=== PATIENT | male | born 1950 | race Caucasian/White ===

== ENCOUNTER → 2021-07-30 02:08 | Outpatient (CLI) | payer MEDICARE, SELFPAY ==
[2021-07-30 12:27] LABS: Influenza A QL RT-PCR Negative (Negative); Influenza B QL RT-PCR Negative (Negative); SARS-CoV-2 RNA PCR Negative
== END ==
PROVIDERS: PCP Internal Medicine; Visit Provider Internal Medicine
DX: Z20.822 Contact with and (suspected) exposure to COVID-19 (principal); J01.90 Acute sinusitis, unspecified
CPT/HCPCS: 87502; C9803; U0003; U0005

== ENCOUNTER 2023-06-13 15:14 | Outpatient (CLI) | payer MEDICARE, SELFPAY ==
[2023-06-13 15:34] LABS: Basophils Absolute Auto 0.1 K/mm3 (0.0-0.1); Basophils Percent Auto 0.7 % (0.2-1.2); Eosinophils Absolute Auto 0.1 K/mm3 (0-0.3); Eosinophils Percent Auto 1.2 % (0-4.4); Hematocrit 38.9 % (42.0-52.0); Hemoglobin 11.9 g/dL (14.0-18.0); Immature Granulocyte Absolute 0.01 K/mm3 (0.00-0.031); Immature Granulocyte Percent A 0.1 % (0-0.5); Lymphocytes Absolute Auto 1.67 K/mm3 (0.9-3.2); Mean Corpuscular HGB Conc 30.6 g/dl (32-36); Mean Corpuscular Hemoglobin 27.7 pg (26-34); Mean Corpuscular Volume 90.5 fl (80-100); Mean Platelet Volume 10.2 fl (7.4-10.4); Monocytes Absolute Auto 0.6 K/mm3 (0.1-0.6); Monocytes Percent Auto 7.4 % (2.6-8.5); Neutrophils Absolute Auto 5.9 K/mm3 (1.3-6.7); Neutrophils Percent Auto 70.6 % (45.5-73.1); Platelet Count Result 286 k/mm3 (150-375); Red Cell Distribution Width 16.7 % (11.5-14.5); White Blood Count 8.4 K/mm3 (4.5-10.0)
[2023-06-13 17:40] LABS: Iron 66 ug/dL (49-181)
[2023-06-13 17:51] LABS: Percent Iron Saturation 20 % (20-50)
[2023-06-13 17:55] LABS: Alanine Aminotransferase 14 U/L (6-50); Albumin Level 4.4 g/dL (3.5-5.1); Alkaline Phosphatase 82 U/L (38-126); Anion Gap 9 mmol/L (4-12); Aspartate Amino Transferase 21 U/L (17-59); Bilirubin,Total 0.5 mg/dL (0.2-1.3); Blood Urea Nitrogen 21 mg/dL (9-20); Calcium 9.3 mg/dL (8.4-10.2); Carbon Dioxide 25 mmol/L (22-30); Chloride 107 mmol/L (98-107); Estimated Glomerular Filt Rate 50; Glucose 102 mg/dL (65-110); Lactate Dehydrogenase 132 U/L (120-246); Potassium 3.8 mmol/L (3.4-5.0); Sodium 141 mmol/L (137-145)
[2023-06-13 20:46] LABS: Folic Acid 10.7 ng/mL (2.76->20)
[2023-06-17 16:28] LABS: Methylmalonic Acid 439 nmol/L (87-318)
[2023-06-19 12:43] LABS: Soluble Transferrin Receptor 1.66 mg/L (0.76-1.76)
== END 2023-06-13 15:15 | disposition home or self-care (01) ==
LOC: ANHLAB 15:16
PROVIDERS: Nurse Practitioner Family; PCP Internal Medicine; Visit Provider Internal Medicine Hematology & Oncology
DX: D64.9 Anemia, unspecified (principal)
CPT/HCPCS: 36415; 80053; 82607; 82728; 82746; 83540; 83550; 83615; 83921; 84238; 85025

== ENCOUNTER 2023-09-19 12:43 | Outpatient (CLI) | payer MEDICARE, SELFPAY ==
[2023-09-19 13:00] LABS: Basophils Absolute Auto 0.1 K/mm3 (0.0-0.1); Basophils Percent Auto 0.9 % (0.2-1.2); Eosinophils Absolute Auto 0.2 K/mm3 (0-0.3); Eosinophils Percent Auto 1.8 % (0-4.4); Hemoglobin 12.1 g/dL (14.0-18.0); Immature Granulocyte Absolute 0.02 K/mm3 (0.00-0.031); Immature Granulocyte Percent A 0.2 % (0-0.5); Lymphocytes Absolute Auto 1.89 K/mm3 (0.9-3.2); Lymphocytes Percent Auto 20.3 % (18.3-44.2); Mean Corpuscular Hemoglobin 27.6 pg (26-34); Mean Platelet Volume 10.2 fl (7.4-10.4); Monocytes Absolute Auto 0.6 K/mm3 (0.1-0.6); Monocytes Percent Auto 6.2 % (2.6-8.5); Neutrophils Absolute Auto 6.6 K/mm3 (1.3-6.7); Neutrophils Percent Auto 70.6 % (45.5-73.1); Platelet Count Result 302 k/mm3 (150-375); Red Blood Count 4.38 M/mm3 (4.6-6.20); Red Cell Distribution Width 14.5 % (11.5-14.5); White Blood Count 9.3 K/mm3 (4.5-10.0)
[2023-09-19 16:38] LABS: Iron 75 ug/dL (49-181)
[2023-09-19 16:48] LABS: Percent Iron Saturation 25 % (20-50)
[2023-09-19 16:58] LABS: Anion Gap 10 mmol/L (4-12); Blood Urea Nitrogen 26 mg/dL (9-20); Calcium 9.1 mg/dL (8.4-10.2); Carbon Dioxide 29 mmol/L (22-30); Chloride 98 mmol/L (98-107); Estimated Glomerular Filt Rate 46; Glucose 87 mg/dL (65-110); Potassium 4.1 mmol/L (3.4-5.0); Sodium 137 mmol/L (137-145)
[2023-09-19 18:38] LABS: Folic Acid 6.5 ng/mL (2.76->20); Vitamin B12 > 1000.0 pg/mL (239-931)
== END 2023-09-19 12:44 | disposition home or self-care (01) ==
LOC: ANHLAB 12:44
PROVIDERS: PCP Internal Medicine; Visit Provider Nurse Practitioner Family
DX: D64.9 Anemia, unspecified (principal)
CPT/HCPCS: 36415; 80048; 82607; 82728; 82746; 83540; 83550; 85025

== ENCOUNTER 2023-10-31 14:57 | Inpatient (IN) | payer MEDICARE, SELFPAY ==
[2023-10-31] VITALS (10 sets, daily range): BP systolic 140–194; BP diastolic 64–96; PULSE 58–72; RESP 16–18; TEMP 36.2–37.1; O2SAT 95–100; BMI 31.8
--- NOTE | ~2023-10-31 | CT_ITS ---
EXAMINATION: CT abdomen pelvis wo con DATE: 10/31/2023 15:27 INDICATION: Right lower quadrant abdominal pain. TECHNIQUE: Computed tomography (CT) of the abdomen and pelvis was performed without intravenous contr ast. Automated exposure control and iterative reconstruction technique were employed. The dose-length product was 1252.85 mGy-cm. COMPARISON: None. FINDINGS: The visualized portions of the lung bases demonstrate minimal atelectasis. No pleural effus ion. The heart size is normal. There are coronary artery calcifications. No pericardial effusion. The liver, gallbladder, spleen, pancreas, adrenal glands, and right kidney are normal. There is severe a trophy of left kidney. There is an 11 mm cyst in left kidney. There is no urolithiasis. The prostate is mildly enlarged. There is diverticulosis of the colon without evidence of diverticulitis. There is wall thickening with adjacent fat stranding involving the cecum and the base of the appendix. The ap pendix is dilated to 11 mm. There is calcified atherosclerosis of the aorta and many of the other art eries. There are no pathologically enlarged lymph nodes. There is no free intraperitoneal fluid. Ther e is severe thoracic spondylosis and moderate lumbar spondylosis. There is a benign bone island in T9 vertebral body. IMPRESSION: 1. Wall thickening with adjacent fat stranding involving the cecum and base of the appendix with dila tation of the appendix, consistent with acute appendicitis and/or malignancy. Reviewed, dictated and finalized at location A. IMPRESSION: 1. Wall thickening with adjacent fat stranding involving the cecum and base of the appendix with dilatation of the appendix, consistent with acute appendiciti s and/or malignancy.
--- NOTE | ~2023-10-31 | XR_ITS ---
EXAMINATION: XR chest 1V portable DATE: 11/06/2023 09:14 INDICATION: Cough. TECHNIQUE: A single frontal view of the chest was obtained. COMPARISON: CT abdomen and pelvis 10/31/2023 FINDINGS: There is mild atelectasis at left lung base. No pleural effusion or pneumothorax. The heart size is normal. Median sternotomy wires are noted. There is a prominent left pericardial fat pad. IMPRESSION: 1. Mild atelectasis at left lung base. Reviewed, dictated and finalized at location A.
--- NOTE | 2023-10-31 15:11 | ED_ITS ---
HPI - General Adult General Chief complaint: Unspecified Stated complaint: wants xray of R side abd Time Seen by Provider: 10/31/23 15:01 History of Present Illness HPI narrative: Patient saw his orthopedic surgeon, who wanted him to be evaluated for appendicitis as patient had commented on possible RLQ pain/swelling; he is not having any symptoms currently, no nausea vomiting, abdominal pain, fevers or chills. Related Data Allergies Allergy/AdvReac Type Severity Reaction Status Date / Time Penicillins Allergy Mild Verified 03/31/11 08:36 Review of Systems Review of Systems: All systems reviewed & are unremarkable except as noted in HPI and below Exam Narrative: EXAMINATION OF ORGAN SYSTEMS/BODY AREAS: Constitutional: Vital signs per nursing GENERAL:[No acute distress, non-toxic appearing.] HEAD: Normal with no signs of head trauma. EYES: EOMI, conjunctiva normal ENT: Hearing grossly intact LUNGS: Nonlabored breathing. HEART: [Regular rate and rhythm] ABD: [Soft], [nontender to palpation], no palpable mass EXT: Normal range of motion SKIN: Red raised lesions on bilateral upper arms NEURO: [Alert and oriented x 3. No gross focal sensory or strength deficits.] PSYCH: Normal affect Course Vital Signs Vital signs: Vital Signs Temperature 98.7 F 10/31/23 15:01 Pulse Rate 70 10/31/23 15:01 Respiratory Rate 18 10/31/23 15:01 Blood Pressure 172/96 H 10/31/23 15:01 Pulse Oximetry 97 10/31/23 15:01 Oxygen Delivery Room Air 10/31/23 15:01 Temperature 97.8 F 10/31/23 16:36 Pulse Rate 58 L 10/31/23 16:36 Respiratory Rate 16 10/31/23 16:36 Blood Pressure 140/81 10/31/23 16:36 Pulse Oximetry 100 10/31/23 16:36 Oxygen Delivery Room Air 10/31/23 15:01 Medical Decision Making [facility] Narrative Medical decision making narrative: Patient sent here by Orthopedics due to concern for possible right lower abdomen swelling he thought might be appendicitis, patient denies any pain, nausea vomiting, fevers or chills, he is very well-appearing here, abdomen is soft nontender. CT abdomen/ pelvis obtained which unfortunately does show signs of possible acute appendicitis versus malignancy. Case discussed with surgeon and hospitalist, antibiotics will be ordered, stable for admission. He does incidentally have several red raised lesions on his arms that are non- itchy. Vital Signs Vital Signs: Vital Signs Temperature 98.7 F 10/31/23 15:01 Pulse Rate 70 10/31/23 15:01 Respiratory Rate 18 10/31/23 15:01 Blood Pressure 172/96 H 10/31/23 15:01 Pulse Oximetry 97 10/31/23 15:01 Oxygen Delivery Room Air 10/31/23 15:01 Temperature 97.8 F 10/31/23 16:36 Pulse Rate 58 L 10/31/23 16:36 Respiratory Rate 16 10/31/23 16:36 Blood Pressure 140/81 10/31/23 16:36 Pulse Oximetry 100 10/31/23 16:36 Oxygen Delivery Room Air 10/31/23 15:01 Lab Data 10/31/23 16:06 10/31/23 16:06 Labs: Lab Results 10/31/23 Range/Units 16:06 WBC 9.0 (4.5-10.0) K/mm3 RBC 4.19 L (4.6-6.20) M/mm3 Hgb 11.7 L (14.0-18.0) g/dL Hct 37.9 L (42.0-52.0) % MCV 90.5 (80-100) fl MCH 27.9 (26-34) pg MCHC 30.9 L (32-36) g/dl RDW 15.0 H (11.5-14.5) % Plt Count 330 (150-375) k/mm3 MPV 9.3 (7.4-10.4) fl Immature Gran % (Auto) 0.3 (0-0.5) % Neut % (Auto) 79.1 H (45.5-73.1) % Lymph % (Auto) 11.0 L (18.3-44.2) % [place] % (Auto) 6.6 (2.6-8.5) % Eos % (Auto) 2.3 (0-4.4) % Baso % (Auto) 0.7 (0.2-1.2) % Lymph # (Auto) 0.99 (0.9-3.2) K/mm3 [place] # (Auto) 0.6 (0.1-0.6) K/mm3 Eos # (Auto) 0.2 (0-0.3) K/mm3 Baso # (Auto) 0.1 (0.0-0.1) K/mm3 Abs Immat Gran (auto) 0.03 (0.00-0.031) K/mm3 Absolute Neuts (auto) 7.1 H (1.3-6.7) K/mm3 Absolute Nucleated RBC 0.000 (0.0-0.012) K/mm3 Nucleated RBC % 0.0 (0.0-0.2) % Sodium 139 (137-145) mmol/L Potassium 3.9 (3.4-5.0) mmol/L Chloride 100 (98-107) mmol/L Carbon Dioxide 30 (22-30) mmol/L Anion Gap 9 (4-12) mmol/L BUN 24 H (9-20) mg/dL Creatinine 1.60 H (0.7-1.3) mg/dL Estim Creat Clear Calc Not Reportable Estimated GFR 42 L (59 - ) Glucose 107 (65-110) mg/dL Calcium 9.2 (8.4-10.2) mg/dL Total Bilirubin 0.7 (0.2-1.3) mg/dL AST 20 (17-59) U/L ALT 9 (6-50) U/L Alkaline Phosphatase 83 (38-126) U/L Total Protein 8.0 (6.3-8.2) g/dL Albumin 4.0 (3.5-5.1) g/dL Discharge Plan Discharge Clinical Impression: Acute appendicitis Patient Disposition: Still a Patient Condition: Stable Follow-up/Referrals: Linda,MD Nora [Primary Care Provider] -
[2023-10-31 16:12] LABS: Basophils Absolute Auto 0.1 K/mm3 (0.0-0.1); Basophils Percent Auto 0.7 % (0.2-1.2); Eosinophils Absolute Auto 0.2 K/mm3 (0-0.3); Eosinophils Percent Auto 2.3 % (0-4.4); Hematocrit 37.9 % (42.0-52.0); Hemoglobin 11.7 g/dL (14.0-18.0); Immature Granulocyte Absolute 0.03 K/mm3 (0.00-0.031); Immature Granulocyte Percent A 0.3 % (0-0.5); Lymphocytes Absolute Auto 0.99 K/mm3 (0.9-3.2); Mean Corpuscular HGB Conc 30.9 g/dl (32-36); Mean Corpuscular Hemoglobin 27.9 pg (26-34); Mean Corpuscular Volume 90.5 fl (80-100); Mean Platelet Volume 9.3 fl (7.4-10.4); Monocytes Absolute Auto 0.6 K/mm3 (0.1-0.6); Monocytes Percent Auto 6.6 % (2.6-8.5); Neutrophils Absolute Auto 7.1 K/mm3 (1.3-6.7); Neutrophils Percent Auto 79.1 % (45.5-73.1); Platelet Count Result 330 k/mm3 (150-375); Red Blood Count 4.19 M/mm3 (4.6-6.20)
[2023-10-31 16:23] LABS: Alanine Aminotransferase 9 U/L (6-50); Alkaline Phosphatase 83 U/L (38-126); Anion Gap 9 mmol/L (4-12); Aspartate Amino Transferase 20 U/L (17-59); Bilirubin,Total 0.7 mg/dL (0.2-1.3); Blood Urea Nitrogen 24 mg/dL (9-20); Calcium 9.2 mg/dL (8.4-10.2); Carbon Dioxide 30 mmol/L (22-30); Chloride 100 mmol/L (98-107); Estimated Glomerular Filt Rate 42; Glucose 107 mg/dL (65-110); Potassium 3.9 mmol/L (3.4-5.0); Sodium 139 mmol/L (137-145)
--- NOTE | 2023-10-31 16:57 | P.HP_ITS ---
H&P: HPI History of Present Illness Date/Time: 10/31/23 16:57 Chief Complaint: Abdominal Swelling Narrative: 73 y/o M presents here with abdominal swelling with PMH of arthritis, hyperlipidemia, hypertension, and insomnia. The patient presents here from home for further evaluation of right lower abdominal swelling. Patient reports that he first noticed the changes 3 days ago. Swelling more notable when he lays on his side. Patient reported it to his orthopedist while at an appointment today. Orthopedist directed patient to seek care in the ED prior to obtaining surgical clearance to rule out appendicitis. Patient reports he has previously been swollen in same area that lasted for 1-2 days approximately 7-8 months ago and resolved without incident. Patient did not have area evaluated then. Denies associated abdominal pain, nausea, vomiting, fever, chills, body aches, or diarrhea. Denies personal history of cancer. No known family history of cancer. Denies any recent unintentional weight loss or night sweats. Initial VS at presentation: 98.7? F, HR 70, RR 18, 172/96, and 97% on RA ED workup showed: No leukocytosis, hemoglobin 11.7 (similar to previous), no significant electrolyte derangements, creatinine 1.6 and GFR 42 (previously 1.5 and GFR 46 on 09/19/2023). CT of the abdomen/pelvis showed wall thickening with adjacent fat stranding involving the cecum bases of the appendix with dilation of the appendix, consistent with acute appendicitis and/or malignancy. Review of Systems Review of Systems: All systems reviewed & are unremarkable except as noted in HPI and below PMFSH Past Medical History Medical History Arthritis CAD (coronary artery disease) Cardiac arrhythmia Colonic polyp Depression Gout [place] (hard of hearing) Hyperlipidemia Hypertension TIA (transient ischemic attack) Vascular dementia Surgical History Surgical History History of bilateral cataract extraction History of heart artery stent History of quadruple bypass Family History Family History Mother Fibromyalgia Social History Social History Smoking status: Never smoker Alcohol intake: never Substance use: never Substance use type: does not use Do You Feel Safe in your Home?: Yes Lack of Transportation: No Lack of Food: Never True Current Housing: I Have Housing Concerned About Future Housing: No Difficulty Paying Gas/Electric Bills: No Difficulty Paying for Meds: No Currently Unemployed: No Education: Grade School Difficulty w/ Childcare or Family Care: No Spiritual care concerns: No Meds Home Medications and Allergies Home Medications Medication Instructions Recorded Confirmed Type apixaban 5 mg tablet (Eliquis) mg 10/31/23 History calcitriol 0.25 mcg capsule 0.25 mcg PO DAILY 10/31/23 10/31/23 History carvedilol 12.5 mg tablet 12.5 mg PO BID 10/31/23 10/31/23 History clonidine HCl 0.2 mg tablet 0.2 mg PO BID 10/31/23 10/31/23 History donepezil 5 mg tablet 5 mg PO HS 10/31/23 10/31/23 History furosemide 80 mg tablet 80 mg PO DAILY 10/31/23 10/31/23 History hydralazine 50 mg tablet 50 mg PO BID 10/31/23 10/31/23 History losartan 25 mg tablet 25 mg PO DAILY 10/31/23 10/31/23 History trazodone 50 mg tablet 50 mg PO HS 10/31/23 10/31/23 History Allergies Allergy/AdvReac Type Severity Reaction Status Date / Time Penicillins Allergy Mild Verified 03/31/11 08:36 Vital Signs Vital Signs - 24 hr 10/31/23 15:01 10/31/23 16:11 10/31/23 16:36 Temperature 98.7 F 98.5 F 97.8 F Pulse Rate 70 67 58 L Respiratory Rate 18 18 16 Blood Pressure 172/96 H 178/69 H 140/81 Pulse Oximetry 97 97 100 Oxygen Delivery Room Air Exam Const: General: comfortable and no acute distress Other: , male, nontoxic appearance HENMT: Face/Nose/Sinus: Normal nares present Mouth: Yes moist mucous membranes Eyes: General: appearance normal, both eyes and all related structures Sclera: sclerae normal Pupils: Equal, round and reactive pupils present EOM: EOMs intact bilaterally Resp: Effort & Inspection: normal respiratory effort Auscultation: clear to auscultation bilaterally Cardio: Rate: regular rate Rhythm: regular rhythm Other: S1-S2 present without murmur, rub, ectopy GI: Other: abdomen soft, nondistended, nontender. No mass or bulging area felt in patient's RLQ. Skin: General skin exam: normal color and no rashes or lesions noted Wounds: no wounds Neuro: Speech: normal speech Motor exam (neuro): 5/5 motor strength present throughout Sensory Exam: normal sensation Other: A&O x4. Extrem: General: normal to inspection Psych: Mental Status: mental status grossly normal Affect: normal affect Other: Good insight and judgment, pleasant H&P: Results Labs Labs: Short CBC 10/31/23 Range/Units 16:06 WBC 9.0 (4.5-10.0) K/mm3 Hgb 11.7 L (14.0-18.0) g/dL Hct 37.9 L (42.0-52.0) % Plt Count 330 (150-375) k/mm3 BMP 10/31/23 16:06 Sodium 139 Potassium 3.9 Chloride 100 Carbon Dioxide 30 BUN 24 H Creatinine 1.60 H Glucose 107 Calcium 9.2 Liver Function 10/31/23 Range/Units 16:06 Total Bilirubin 0.7 (0.2-1.3) mg/dL AST 20 (17-59) U/L ALT 9 (6-50) U/L Alkaline Phosphatase 83 (38-126) U/L Albumin 4.0 (3.5-5.1) g/dL Assessment and Plan Assessment and plan (1) Acute appendicitis: Qualifiers: Acute appendicitis type: unspecified acute appendicitis type Qualified Code(s): K35.80 - Unspecified acute appendicitis Code(s): K35.80 - Unspecified acute appendicitis Status: Acute Assessment and Plan: - CT abdomen/pelvis: Wall thickening with adjacent fat stranding involving the cecum and base of the appendix with dilatation of the appendix, consistent with acute appendicitis and/or malignancy. - general surgery consulted, awaiting formal recs - clear liquids, NPO at midnight - pain control and maintenance fluids - started on ceftriaxone and metronidazole on 10/30 (2) Hypertension: Qualifiers: Hypertension type: primary hypertension Qualified Code(s): I10 - Essential (primary) hypertension Code(s): I10 - Essential (primary) hypertension Status: Acute Assessment and Plan: - chronic, currently 177/70 - continue home medications: clonidine 0.2 mg b.i.d., Lasix 80 mg daily, hydralazine 50 mg b.i.d., losartan 25 mg daily. - monitor Plan Patient does not have definitive list with him. Outside med rec reviewed and medications that were started/refilled in the last 3 months were resumed. confirming list tomorrow. Diet: NPO GI Prophylaxis: Not currently indicated DVT Prophylaxis: SCDs Lines: Peripheral Code Status: Quality VTE Prophylaxis VTE prophylaxis: mechanical ordered Hospitalist [facility] Advance Care Plan I have confirmed that the patient's Advanced Care Plan is present, code status is documented, or surrogate decision maker is listed in patient medical record.: Yes Medication Reconciliation I have utilized all available resources to obtain, update and review the patients current medications (includes all prescriptions, OTC, herbals, cannabis, and nutritional supplements).: Yes
[2023-10-31] MEDS: cefTRIAXone 2 GM/NS 100 ML 2 GM/100 ML BAG IVPB (17:34)
[2023-10-31] MEDS: metroNIDAZOLE 500 MG/ISO 100ML 500 MG/100 ML BAG 100 MG IVPB (17:34)
--- NOTE | 2023-10-31 18:00 | ADMGEN ---
This patient, Ken Damon, was admitted to Medical Room 252-01. Patient/family oriented to hospital policies and general routines including ID bracelet, bed and alarms, visiting hours, pain management, procedures, bathroom and other care routines, personal items, smoking policy, room service/diet, and visiting hours. Information on how to activate the Rapid Response Team has been discussed. Patient/Family are encouraged to report perceived risks to care and to ask questions if they do not understand what they are told or what they should do.
[2023-10-31] MEDS: SODIUM CHLORIDE 0.9% IV 1,000 ML 100 ML IV CONT (20:08)
[2023-10-31] MEDS: DOCUSATE SODIUM 100 MG CAPSULE PO (20:08)
[2023-10-31] MEDS: hydrALAZINE HCL 50 MG TABLET PO (20:39)
[2023-10-31] MEDS: carvediloL 12.5 MG TABLET PO (20:39)
[2023-10-31] MEDS: cloNIDine HCL 0.2 MG TABLET PO (20:40)
[2023-10-31] MEDS: traZODone HCL 50 MG TABLET PO (20:40)
[2023-10-31] MEDS: DONEPEZIL HCL 5 MG TABLET PO (20:40)
[2023-11-01] VITALS (7 sets, daily range): BP systolic 150–176; BP diastolic 55–77; PULSE 63–81; RESP 16–18; TEMP 36.3–36.8; O2SAT 95–98
[2023-11-01] MEDS: metroNIDAZOLE 500 MG/ISO 100ML 500 MG/100 ML BAG 100 MG IVPB ×3 (01:44→18:17)
[2023-11-01] MEDS: SODIUM CHLORIDE 0.9% IV 1,000 ML 100 ML IV CONT ×2 (05:21→17:16)
[2023-11-01 06:11] LABS: Basophils Percent Auto 0.1 % (0.2-1.2); Hematocrit 38.1 % (42.0-52.0); Hemoglobin 11.6 g/dL (14.0-18.0); Immature Granulocyte Absolute 0.05 K/mm3 (0.00-0.031); Immature Granulocyte Percent A 0.5 % (0-0.5); Lymphocytes Absolute Auto 0.57 K/mm3 (0.9-3.2); Lymphocytes Percent Auto 6.2 % (18.3-44.2); Mean Corpuscular HGB Conc 30.4 g/dl (32-36); Mean Corpuscular Hemoglobin 27.8 pg (26-34); Mean Corpuscular Volume 91.4 fl (80-100); Mean Platelet Volume 10.1 fl (7.4-10.4); Monocytes Absolute Auto 0.1 K/mm3 (0.1-0.6); Monocytes Percent Auto 0.5 % (2.6-8.5); Neutrophils Absolute Auto 8.5 K/mm3 (1.3-6.7); Neutrophils Percent Auto 92.7 % (45.5-73.1); Platelet Count Result 321 k/mm3 (150-375); Red Blood Count 4.17 M/mm3 (4.6-6.20); Red Cell Distribution Width 14.6 % (11.5-14.5); White Blood Count 9.2 K/mm3 (4.5-10.0)
--- NOTE | 2023-11-01 07:51 | PM.IMPN ---
Progress Note: A&P Assessment and Plan (1) Acute appendicitis: Qualifiers: Acute appendicitis type: unspecified acute appendicitis type Qualified Code(s): K35.80 - Unspecified acute appendicitis Code(s): K35.80 - Unspecified acute appendicitis Status: Acute Assessment and Plan: - CT abdomen/pelvis: Wall thickening with adjacent fat stranding involving the cecum and base of the appendix with dilatation of the appendix, consistent with acute appendicitis and/or malignancy. - general surgery consulted, awaiting formal recs - clear liquids, NPO at midnight - pain control and maintenance fluids - started on ceftriaxone and metronidazole on 10/30 - surgery is planning for appendectomy tomorrow (2) Hypertension: Qualifiers: Hypertension type: primary hypertension Qualified Code(s): I10 - Essential (primary) hypertension Code(s): I10 - Essential (primary) hypertension Status: Acute Assessment and Plan: - chronic, currently 176/62 mm hg - continue home medications: clonidine 0.2 mg b.i.d., Lasix 80 mg daily, hydralazine 50 mg b.i.d., losartan 25 mg daily. - monitor blood pressures daily. (3) Rash: Code(s): R21 - Rash and other nonspecific skin eruption Status: Acute Assessment and Plan: Macular-papular rash to bilateral upper extremities - unclear etiology - no new medication changes, no new foods, no changes to detergents - monitor Plan Diet: Clear liquids, NPO at midnight. DVT Prophylaxis: SCDs, Eliquis on hold for surgery Lines: Peripheral Code Status: FULL Code Disposition: 73-year-old male who presents with abdominal tender wrist to the right lower quadrant. CT abdomen pelvis shows acute appendicitis versus possible mass. Surgery was consulted recs are appreciated. Anticipate taking him for appendectomy 11/01. He is currently on Rocephin and Flagyl. Subjective Date/time seen: 11/01/23 07:51 Interval history: 73 y/o M presents here with abdominal swelling with PMH of arthritis, hyperlipidemia, hypertension, and insomnia who presents here from home for further evaluation of right lower abdominal swelling. 10/31: Patient is seen resting in bed with his family at bedside. He complains of right lower quadrant tenderness but no significant abdominal pain. He denies nausea or vomiting. He does complain of a flat macular rash to his bilateral upper extremities that is itching. He states it started approximately 5 days ago. He has been putting hydrocortisone cream on it and he feels like this is helping. He denies any recent medication changes, new foods, or changes to his detergents. Review of Systems Review of Systems: All systems reviewed & are unremarkable except as noted in HPI and below Exam Narrative: General: well appearing, appears stated age. HEENT: normocephalic, atraumatic. Mucous membranes moist. EOMI, PERRLA, bilateral sclera anicteric, no conjunctival injection. Neck supple without JVD, lymphadenopathy, or bruit. Respiratory: clear to auscultation bilaterally. No rales/rhonic/wheezes. Cardiovascular: Regular rate and rhythm, normal S1-S2 upon auscultation. No murmurs, rubs, or clicks. PMI is nondisplaced, capillary refill less than 3 second. Abdomen: Soft, round, obese, no pulsatile masses, nondistended and mildly tender. No rebound, no guarding. No CVA tenderness, no hepatosplenomegaly. Bowel sounds present to all four quadrants. No high pitch or tinkling sounds, resonant to percussion. Extremities: No cyanosis, clubbing, or edema present. Pulses are palpable 2/2. Active ROM to all four extremities. Neuro: Alert and orientated x 4. PERRLA. Cranial nerves 2-12 intact without focal deficit. Skin: Warm, dry, and intact, bilateral macular rash to upper extremities. Lines: PIV Incisions: NA Psych: pleasant, cooperative, normal speech, normal affect, no hallucinations, no dysarthria Objective Data Vital Signs Vital Signs: Vital Signs - 24 hr 10/31/23 15:01 10/31/23 16:11 10/31/23 16:36 Temperature 98.7 F 98.5 F 97.8 F Pulse Rate 70 67 58 L Respiratory Rate 18 18 16 Blood Pressure 172/96 H 178/69 H 140/81 Pulse Oximetry 97 97 100 Oxygen Delivery Room Air 10/31/23 17:39 10/31/23 18:44 10/31/23 16:13 Temperature 98.4 F Pulse Rate 67 70 Respiratory Rate 16 16 Blood Pressure 187/72 H 177/70 H 178/69 H Pulse Oximetry 95 96 95 Oxygen Delivery 10/31/23 16:32 10/31/23 17:02 10/31/23 20:39 Temperature Pulse Rate 72 Respiratory Rate Blood Pressure 177/66 H 194/79 H Pulse Oximetry 96 95 Oxygen Delivery 10/31/23 22:00 11/01/23 06:00 Temperature 97.1 F L 97.8 F Pulse Rate 69 69 Respiratory Rate 18 18 Blood Pressure 193/64 H 158/77 H Pulse Oximetry 96 96 Oxygen Delivery Intake/Output Intake/Output: Intake & Output 10/29/23 10/30/23 10/31/23 11/01/23 23:59 23:59 23:59 23:59 Intake Total 200 1021.7 Balance 200 1021.7 Meds/Results Medications: Active Medications Generic Name Dose Route Start Last Admin Trade Name Freq PRN Reason Stop Dose Admin Acetaminophen 650 mg 10/31/23 17:04 Acetaminophen 325 Mg Tablet PO Q4H PRN Mild Pain (1-3) or Fever Hydrocodone Bitart/Acetaminophen 1 tab 10/31/23 17:05 Hydrocodone/Acetaminophen (*Crx) 5-325 Mg Tablet PO Q6H PRN Pain Rated 4-6 Bisacodyl 5 mg 10/31/23 17:04 Bisacodyl 5 Mg Tablet Ec PO DAILY PRN Constipation Calcitriol 0.25 mcg 11/01/23 09:00 Calcitriol 0.25 Mcg Capsule PO DAILY JAMES Carvedilol 12.5 mg 10/31/23 21:00 10/31/23 20:39 Carvedilol 12.5 Mg Tablet PO 12.5 mg Q12HR JAMES Administration Clonidine HCl 0.2 mg 10/31/23 21:00 10/31/23 20:40 Clonidine Hcl 0.2 Mg Tablet PO 0.2 mg Q12HR JAMES Administration Docusate Sodium 100 mg 10/31/23 21:00 10/31/23 20:08 Docusate Sodium 100 Mg Capsule PO 100 mg Q12HR JAMES Administration Donepezil HCl 5 mg 10/31/23 21:00 10/31/23 20:40 Donepezil Hcl 5 Mg Tablet PO 5 mg HS JAMES Administration Furosemide 80 mg 11/01/23 09:00 Furosemide 80 Mg Tablet PO DAILY JAMES Hydralazine HCl 50 mg 10/31/23 21:00 10/31/23 20:39 Hydralazine Hcl 50 Mg Tablet PO 50 mg Q12HR JAMES Administration Sodium Chloride 1,000 mls @ 100 mls/hr 10/31/23 17:05 11/01/23 05:21 Normal Saline Iv IV CONT 100 mls/hr .Q10H JAMES Administration Ceftriaxone Sodium 1 gm in 50 mls @ 100 mls/hr 11/01/23 17:00 Rocephin 1 Gm/Ns 50 Ml IVPB Q24H JAMES Metronidazole 500 mg in 100 mls @ 100 mls/hr 11/01/23 01:00 11/01/23 02:44 Flagyl 500 Mg/Iso Soln 100 Ml IVPB Infused Q8H JAMES Infusion Losartan Potassium 25 mg 11/01/23 09:00 Losartan Potassium 25 Mg Tablet PO DAILY JAMES Morphine Sulfate 2 mg 10/31/23 17:04 Morphine Sulfate (*Crx) 2 Mg/Ml Inj IV PUSH Q4H PRN Pain Rated 7-10 Ondansetron HCl 4 mg 10/31/23 17:04 Ondansetron Inj 4 Mg/2 Ml Vial IV PUSH Q6H PRN Nausea And Vomiting Trazodone HCl 50 mg 10/31/23 21:00 10/31/23 20:40 Trazodone Hcl 50 Mg Tablet PO 50 mg HS JAMES Administration Radiology Results: ITS Impressions Abdomen/Pelvis CT 10/31/23 15:44 IMPRESSION: 1. Wall thickening with adjacent fat stranding involving the cecum and base of the appendix with dilatation of the appendix, consistent with acute appendicitis and/or malignancy. Labs Labs: Laboratory Results - last 24 hr 10/31/23 11/01/23 16:06 05:52 WBC 9.0 9.2 RBC 4.19 L 4.17 L Hgb 11.7 L 11.6 L Hct 37.9 L 38.1 L MCV 90.5 91.4 MCH 27.9 27.8 MCHC 30.9 L 30.4 L RDW 15.0 H 14.6 H Plt Count 330 321 MPV 9.3 10.1 Immature Gran % (Auto) 0.3 0.5 Neut % (Auto) 79.1 H 92.7 H Lymph % (Auto) 11.0 L 6.2 L [place] % (Auto) 6.6 0.5 L Eos % (Auto) 2.3 0.0 Baso % (Auto) 0.7 0.1 L Lymph # (Auto) 0.99 0.57 L [place] # (Auto) 0.6 0.1 Eos # (Auto) 0.2 0.0 Baso # (Auto) 0.1 0.0 Abs Immat Gran (auto) 0.03 0.05 H Absolute Neuts (auto) 7.1 H 8.5 H Absolute Nucleated RBC 0.000 0.000 Nucleated RBC % 0.0 0.0 Sodium 139 Potassium 3.9 Chloride 100 Carbon Dioxide 30 Anion Gap 9 BUN 24 H Creatinine 1.60 H Estim Creat Clear Calc Not Reportable Estimated GFR 42 L Glucose 107 Calcium 9.2 Total Bilirubin 0.7 AST 20 ALT 9 Alkaline Phosphatase 83 Total Protein 8.0 Albumin 4.0 Quality VTE Prophylaxis VTE prophylaxis: mechanical ordered
[2023-11-01] MEDS: carvediloL 12.5 MG TABLET PO ×2 (09:59→20:19)
[2023-11-01] MEDS: FUROSEMIDE 80 MG TABLET PO (09:59)
[2023-11-01] MEDS: DOCUSATE SODIUM 100 MG CAPSULE PO ×2 (09:59→20:19)
[2023-11-01] MEDS: LOSARTAN POTASSIUM 25 MG TABLET PO (09:59)
[2023-11-01] MEDS: hydrALAZINE HCL 50 MG TABLET PO ×2 (09:59→20:19)
[2023-11-01] MEDS: calcitrioL 0.25 MCG CAPSULE PO (09:59)
[2023-11-01] MEDS: cloNIDine HCL 0.2 MG TABLET PO ×2 (10:00→20:19)
--- NOTE | 2023-11-01 12:36 | P.CONGS_ITS ---
Assessment and Plan Assessment and plan (1) Acute appendicitis: Qualifiers: Acute appendicitis type: unspecified acute appendicitis type Qualified Code(s): K35.80 - Unspecified acute appendicitis Code(s): K35.80 - Unspecified acute appendicitis Status: Acute Assessment and Plan: CT reviewed and discussed with the patient and his family in detail. The CT showed wall thickening with adjacent fat stranding of the cecum and base of the appendix, consistent with acute appendicitis versus malignancy. His presentation is unusual in the fact that he is complaining of RLQ swelling, but he does end orse some mild pain with certain movements. He also had some RLQ tenderness on exam which would correlate with acute appendicitis. The possibility of malignancy was discussed with the patient. He reports having a normal colonoscopy about 5 years ago. We discussed treatment options at this time, incl uding nonoperative management with IV antibiotics and eventual outpatient follow-up versus proceeding with surgery. We discussed the risks and benefits of both options in detail. We discussed the details of a laparoscopic appendectomy that would be done under general anesthesia, as well as the risks, benefits, alternatives, and expected recovery. The patient is on Eliquis, which has been held since Monday. He is also planning to have a knee replacement in February, and would prefer to proceed with surgery to avoid recurrence and allow him plenty of time to recover before his knee replacement. We also discussed the possibility of finding a cecal mass during surgery, and how this would change his surgical treatment, overall treatment course, and recovery. The patient understands and wishes to proceed. Continue IV antibiotics, will start clear liquids, and make NPO after midnight. Will try adding him onto the surgery schedule tomorrow. (2) Hypertension: Qualifiers: Hypertension type: primary hypertension Qualified Code(s): I10 - Essential (primary) hypertension Code(s): I10 - Essential (primary) hypertension Status: Acute (3) Cardiac arrhythmia: Code(s): I49.9 - Cardiac arrhythmia, unspecified Status: Chronic Assessment and Plan: Reported history of cardiac arrhythmia around the time of his CABG. He reports being on anticoagulation since that surgery. Will order an EKG preoperatively as we do not have any recent EKGs in our record. He has regular rate and rhythm on exam. (4) Anticoagulant long-term use: Code(s): Z79.01 - oysterman (current) use of anticoagulants Status: Acute Assessment and Plan: Larisa is currently on hold. His last dose was Monday morning (2 days ago). Will continue to hold for surgery tomorrow. (5) Chronic kidney disease: Code(s): N18.9 - Chronic kidney disease, unspecified Status: Acute Assessment and Plan: Patient follows a Gas Main Fitter in [place], Dr. Dutton, for his chronic kidney disease which has reportedly remained stable. Labs from May and August show his creatinine between 1.4-1.5, and his creatinine was 1.6 yesterday. Plan I have discussed the patient's case and plan of care with Dr. Cantrell. Thank you for allowing us to see the patient in consultation and we will continue to follow along with you. History of Present Illness Consult details Consult date: 11/01/23 Reason for consult: other (Acute appendicitis) Requesting physician: Ani Sanchez MD Narrative: This is a 73-year-old man with PMH of coronary artery disease status post CABG, history of cardiac arrhythmia on anticoagulation, hypertension, and chronic kidney disease, who we have been asked to see in surgical consultation for acute appendicitis. The patient presented to the ED yesterday with complaints of right lower quadrant abdominal swelling after being instructed to go to the ED for evaluation by his primary care provider. He has been dealing with right knee pain related to arthritis and was scheduled to see his orthopedic surgeon yesterday. He is planning to possibly have a knee replacement in February. Over the past 3 days, he has noticed right lower quadrant abdominal swelling and called his primary care provider, who recommended he go to the ED for evaluati on. He reports a similar episode about 6-7 months ago that lasted 1-2 days and resolved spontaneously. He denies tenderness in this area or significant pain at rest. He does endorse right lower quadrant pain with certain movements like getting out of his recliner, but this would resolve once he was standing. Denies any fever, chills, diarrhea, recent bowel habit changes, or unintentional weight loss. He reports chronic constipation. He has had colonoscopies in the past with the last being about 5 years ago that was reportedly negative by Dr. Borges. In the ED, vital signs were stable. Labs showed white blood cell count 9000, creatinine 1.6. He reportedly follows a classroom coordinator for chronic kidney disease in labs shows creatinine between 1.4 -1.[address] scan of the abdomen and pelvis showed wall thickening with adjacent fat stranding involving the cecum and base of the appendix with dilation of the appendix to 11 mm, consistent with acute appendicitis and/or malignancy. He was admitted to the hospitalist service and started on broad-spectrum IV antibiotics. He is now seen on the medical floor with his family at the bedside. He denies any abdominal pain at this time or other complaints. He still feels like he is swollen in the RLQ. He also endorses a flat pink rash on his upper arms that started in the past few days. The rash is itchy and he has been applying cortisone cream, which has helped. No previous abdominal surgeries. He is on Eliquis, and had his last dose on Monday morning. He reports being on anticoagulation since his CABG 20 years ago, when he had a cardiac arrhythmia. He was also previously diagnosed with KATLIN, but is non compliant with a CPAP for many years. Review of Systems Review of Systems: All systems reviewed & are unremarkable except as noted in HPI and below PMFSH Past Medical History Medical History (Updated 11/01/23 @ 13:06 by ALYSON King) Arthritis CAD (coronary artery disease) Cardiac arrhythmia Chronic kidney disease Colonic polyp Depression Gout [place] (hard of hearing) Hyperlipidemia Hypertension TIA (transient ischemic attack) after his carotid surgery Vascular dementia Surgical History Surgical History History of bilateral cataract extraction History of carotid endarterectomy History of heart artery stent History of quadruple bypass Family History Family History Mother Fibromyalgia Social History Social History Smoking status: Never smoker Alcohol intake: never Substance use: never Substance use type: does not use Do You Feel Safe in your Home?: Yes Lack of Transportation: No Lack of Food: Never True Current Housing: I Have Housing Concerned About Future Housing: No Difficulty Paying Gas/Electric Bills: No Difficulty Paying for Meds: No Currently Unemployed: No Education: Grade School Difficulty w/ Childcare or Family Care: No Spiritual care concerns: No Meds Home Medications and Allergies Home Medications Medication Instructions Recorded Confirmed Type apixaban 5 mg tablet (Eliquis) 5 mg PO BID 10/31/23 10/31/23 History calcitriol 0.25 mcg capsule 0.25 mcg PO DAILY 10/31/23 10/31/23 History carvedilol 12.5 mg tablet 12.5 mg PO BID 10/31/23 10/31/23 History clonidine HCl 0.2 mg tablet 0.2 mg PO BID 10/31/23 10/31/23 History donepezil 5 mg tablet 5 mg PO HS 10/31/23 10/31/23 History furosemide 80 mg tablet 80 mg PO DAILY 10/31/23 10/31/23 History hydralazine 50 mg tablet 50 mg PO BID 10/31/23 10/31/23 History losartan 25 mg tablet 25 mg PO DAILY 10/31/23 10/31/23 History trazodone 50 mg tablet 50 mg PO HS 10/31/23 10/31/23 History Allergies Allergy/AdvReac Type Severity Reaction Status Date / Time Penicillins Allergy Mild Verified 03/31/11 08:36 Vital Signs Vital Signs - 24 hr 10/31/23 15:01 10/31/23 16:11 10/31/23 16:36 Temperature 98.7 F 98.5 F 97.8 F Pulse Rate 70 67 58 L Respiratory Rate 18 18 16 Blood Pressure 172/96 H 178/69 H 140/81 Pulse Oximetry 97 97 100 Oxygen Delivery Room Air 10/31/23 17:39 10/31/23 18:44 10/31/23 16:13 Temperature 98.4 F Pulse Rate 67 70 Respiratory Rate 16 16 Blood Pressure 187/72 H 177/70 H 178/69 H Pulse Oximetry 95 96 95 Oxygen Delivery 10/31/23 16:32 10/31/23 17:02 10/31/23 20:39 Temperature Pulse Rate 72 Respiratory Rate Blood Pressure 177/66 H 194/79 H Pulse Oximetry 96 95 Oxygen Delivery 10/31/23 22:00 11/01/23 06:00 11/01/23 08:19 Temperature 97.1 F L 97.8 F Pulse Rate 69 69 Respiratory Rate 18 18 Blood Pressure 193/64 H 158/77 H Pulse Oximetry 96 96 98 Oxygen Delivery Room Air 11/01/23 09:57 11/01/23 09:59 11/01/23 10:00 Temperature Pulse Rate 81 81 Respiratory Rate Blood Pressure 176/62 H Pulse Oximetry 95 Oxygen Delivery Room Air Exam Const: General: comfortable and no acute distress Nutritional Appearance: average body habitus Orientation/consciousness: patient oriented x3 HENMT: Head: normocephalic and atraumatic Ears: hearing grossly normal bilaterally Mouth: Yes moist mucous membranes Eyes: General: appearance normal, both eyes and all related structures Pupils: Equal, round and reactive pupils present Neck: Neck: normal visual inspection and full ROM Resp: Effort & Inspection: no respiratory distress Auscultation: clear to auscultation bilaterally Cardio: Rate: regular rate Rhythm: regular rhythm Heart sounds: S1 normal heart sound present and S2 normal heart sound present Peripheral pulses: Peripheral pulses 2+ throughout GI: Inspection: non-distended GI Palp: Yes Soft to palpation, Yes Tenderness to palpation present (GI) (mild tenderness with deep palpation in RLQ), No Guarding due to palpation present (GI), Yes No hepatosplenomegaly present, No Hernia present and No Rebound tenderness present Percussion: Yes normal to percussion Auscultation: normal bowel sounds Skin: General skin exam: normal color Other: Bilateral upper extremities with scattered flat pink lesions mostly in the upper inner arms, no other rash seen in other areas of the body Neuro: General: moves all extremities and no focal motor deficits Speech: normal speech Motor exam (neuro): 5/5 motor strength present throughout Extrem: General: normal to inspection and no edema Psych: Mental Status: mental status grossly normal Attitude: cooperative Insight: Good insight present (Psych) Judgement: Good judgement present (Psych) Results Labs 11/01/23 05:52 10/31/23 16:06 Labs: Abnormal lab results 10/31/23 11/01/23 Range/Units 16:06 05:52 RBC 4.19 L 4.17 L (4.6-6.20) M/mm3 Hgb 11.7 L 11.6 L (14.0-18.0) g/dL Hct 37.9 L 38.1 L (42.0-52.0) % MCHC 30.9 L 30.4 L (32-36) g/dl RDW 15.0 H 14.6 H (11.5-14.5) % Neut % (Auto) 79.1 H 92.7 H (45.5-73.1) % Lymph % (Auto) 11.0 L 6.2 L (18.3-44.2) % [place] % (Auto) 0.5 L (2.6-8.5) % Baso % (Auto) 0.1 L (0.2-1.2) % Lymph # (Auto) 0.57 L (0.9-3.2) K/mm3 Abs Immat Gran (auto) 0.05 H (0.00-0.031) K/mm3 Absolute Neuts (auto) 7.1 H 8.5 H (1.3-6.7) K/mm3 BUN 24 H (9-20) mg/dL Creatinine 1.60 H (0.7-1.3) mg/dL Estimated GFR 42 L (59 - ) Diabetes panel 10/31/23 Range/Units 16:06 Sodium 139 (137-145) mmol/L Potassium 3.9 (3.4-5.0) mmol/L Chloride 100 (98-107) mmol/L Carbon Dioxide 30 (22-30) mmol/L BUN 24 H (9-20) mg/dL Creatinine 1.60 H (0.7-1.3) mg/dL Glucose 107 (65-110) mg/dL Calcium 9.2 (8.4-10.2) mg/dL AST 20 (17-59) U/L ALT 9 (6-50) U/L Alkaline Phosphatase 83 (38-126) U/L Total Protein 8.0 (6.3-8.2) g/dL Albumin 4.0 (3.5-5.1) g/dL Calcium panel 10/31/23 Range/Units 16:06 Calcium 9.2 (8.4-10.2) mg/dL Albumin 4.0 (3.5-5.1) g/dL Pituitary panel 10/31/23 Range/Units 16:06 Sodium 139 (137-145) mmol/L Potassium 3.9 (3.4-5.0) mmol/L Chloride 100 (98-107) mmol/L Carbon Dioxide 30 (22-30) mmol/L BUN 24 H (9-20) mg/dL Creatinine 1.60 H (0.7-1.3) mg/dL Glucose 107 (65-110) mg/dL Calcium 9.2 (8.4-10.2) mg/dL Adrenal panel 10/31/23 Range/Units 16:06 Sodium 139 (137-145) mmol/L Potassium 3.9 (3.4-5.0) mmol/L Chloride 100 (98-107) mmol/L Carbon Dioxide 30 (22-30) mmol/L BUN 24 H (9-20) mg/dL Creatinine 1.60 H (0.7-1.3) mg/dL Glucose 107 (65-110) mg/dL Calcium 9.2 (8.4-10.2) mg/dL Total Bilirubin 0.7 (0.2-1.3) mg/dL AST 20 (17-59) U/L ALT 9 (6-50) U/L Alkaline Phosphatase 83 (38-126) U/L Total Protein 8.0 (6.3-8.2) g/dL Albumin 4.0 (3.5-5.1) g/dL All other labs normal. Imaging Additional studies: ITS Impressions Abdomen/Pelvis CT 10/31/23 15:44 IMPRESSION: 1. Wall thickening with adjacent fat stranding involving the cecum and base of the appendix with dilatation of the appendix, consistent with acute appendicitis and/or malignancy.
--- NOTE | 2023-11-01 12:58 | ECG_ITS ---
Test Date: 2023-11-01 13:17:08 Measurements Intervals [place] Rate: 71 P: -13 HI: 232 QRS: -16 QRSD: 106 T: 62 QT: 403 QTc: 440 Interpretive Statements SINUS RHYTHM WITH FIRST DEGREE AV BLOCK DELAYED PRECORDIAL R/S TRANSITION NONSPECIFIC ST-T WAVE ABNORMALITY- HIGH LATERAL LEADS BORDERLINE ECG No previous ECG available for comparison Electronically Signed On 11-01-2023 14:05:11 CDT by Ramesh Limon D.O.
[2023-11-01] MEDS: traZODone HCL 50 MG TABLET PO (20:19)
[2023-11-01] MEDS: DONEPEZIL HCL 5 MG TABLET PO (20:19)
[2023-11-02] VITALS (15 sets, daily range): BP systolic 171–193; BP diastolic 68–110; PULSE 61–76; RESP 13–18; TEMP 36.1–37.4; O2SAT 93–99
[2023-11-02] MEDS: metroNIDAZOLE 500 MG/ISO 100ML 500 MG/100 ML BAG 100 MG IVPB ×3 (01:13→17:47)
[2023-11-02 06:20] LABS: Hematocrit 36.1 % (42.0-52.0); Hemoglobin 11.2 g/dL (14.0-18.0); Mean Corpuscular Hemoglobin 27.8 pg (26-34); Mean Corpuscular Volume 89.6 fl (80-100); Mean Platelet Volume 9.8 fl (7.4-10.4); Platelet Count Result 365 k/mm3 (150-375); Red Blood Count 4.03 M/mm3 (4.6-6.20); Red Cell Distribution Width 14.6 % (11.5-14.5); White Blood Count 16.3 K/mm3 (4.5-10.0)
[2023-11-02] MEDS: SODIUM CHLORIDE 0.9% IV 1,000 ML 100 ML IV CONT (06:25)
[2023-11-02 06:30] LABS: INR 1.1; Prothrombin Time 14.9 Seconds (11.1-14.7)
[2023-11-02 06:31] LABS: Partial Thromboplastin Time 31.6 Seconds (22.3-36.8)
[2023-11-02 06:33] LABS: Anion Gap 8 mmol/L (4-12); Blood Urea Nitrogen 36 mg/dL (9-20); Carbon Dioxide 27 mmol/L (22-30); Chloride 103 mmol/L (98-107); Estimated CRCL calculation 46 ml/min; Estimated Glomerular Filt Rate 46; Glucose 122 mg/dL (65-110); Potassium 4.6 mmol/L (3.4-5.0); Sodium 138 mmol/L (137-145)
--- NOTE | 2023-11-02 07:47 | PM.IMPN ---
Progress Note: A&P Assessment and Plan (1) Acute appendicitis: Qualifiers: Acute appendicitis type: unspecified acute appendicitis type Qualified Code(s): K35.80 - Unspecified acute appendicitis Code(s): K35.80 - Unspecified acute appendicitis Status: Acute Assessment and Plan: - CT abdomen/pelvis: Wall thickening with adjacent fat stranding involving the cecum and base of the appendix with dilatation of the appendix, consistent with acute appendicitis and/or malignancy. - general surgery consulted, awaiting formal recs - clear liquids, NPO at midnight - pain control and maintenance fluids - started on ceftriaxone and metronidazole on 10/30 - surgery is planning for appendectomy today - leukocytosis is 16.3 today up from 9.2. Remains afebrile, no hypoTN - may consider broadening to Zosyn depending on findings in surgery (2) Hypertension: Qualifiers: Hypertension type: primary hypertension Qualified Code(s): I10 - Essential (primary) hypertension Code(s): I10 - Essential (primary) hypertension Status: Acute Assessment and Plan: - chronic, currently 176/62 mm hg - continue home medications: clonidine 0.2 mg b.i.d., Lasix 80 mg daily, hydralazine 50 mg b.i.d., losartan 25 mg daily. - monitor blood pressures daily. - PRN hydralazine 10 mg every 8 hours for SBP > 170 mm hg (3) Rash: Code(s): R21 - Rash and other nonspecific skin eruption Status: Acute Assessment and Plan: Macular-papular rash to bilateral upper extremities - unclear etiology - no new medication changes, no new foods, no changes to detergents - monitor Plan Diet: Clear liquids, NPO at midnight. DVT Prophylaxis: SCDLarisa bledsoe on hold for surgery Lines: Peripheral Code Status: FULL Code Disposition: 73-year-old male who presents with abdominal tender wrist to the right lower quadrant. CT abdomen pelvis shows acute appendicitis versus possible mass. Surgery was consulted recs are appreciated. Anticipate taking him for appendectomy 11/01. He is currently on Rocephin and Flagyl. Subjective Date/time seen: 11/02/23 07:47 Interval history: 73 y/o M presents here with abdominal swelling with PMH of arthritis, hyperlipidemia, hypertension, and insomnia who presents here from home for further evaluation of right lower abdominal swelling. 10/31: Patient is seen resting in bed with his family at bedside. He complains of right lower quadrant tenderness but no significant abdominal pain. He denies nausea or vomiting. He does complain of a flat macular rash to his bilateral upper extremities that is itching. He states it started approximately 5 days ago. He has been putting hydrocortisone cream on it and he feels like this is helping. He denies any recent medication changes, new foods, or changes to his detergents. 11/01: No acute events overnight. Patient is going for surgery today for lap appendectomy. He denies any increase in abdominal pain, no nausea, or vomiting. He did have an increase in his white blood cell count. Review of Systems Review of Systems: All systems reviewed & are unremarkable except as noted in HPI and below Exam Narrative: General: well appearing, appears stated age. HEENT: normocephalic, atraumatic. Mucous membranes moist. EOMI, PERRLA, bilateral sclera anicteric, no conjunctival injection. Neck supple without JVD, lymphadenopathy, or bruit. Respiratory: clear to auscultation bilaterally. No rales/rhonic/wheezes. Cardiovascular: Regular rate and rhythm, normal S1-S2 upon auscultation. No murmurs, rubs, or clicks. PMI is nondisplaced, capillary refill less than 3 second. Abdomen: Soft, round, obese, no pulsatile masses, nondistended and mildly tender. No rebound, no guarding. No CVA tenderness, no hepatosplenomegaly. Bowel sounds present to all four quadrants. No high pitch or tinkling sounds, resonant to percussion. Extremities: No cyanosis, clubbing, or edema present. Pulses are palpable 2/2. Active ROM to all four extremities. Neuro: Alert and orientated x 4. PERRLA. Cranial nerves 2-12 intact without focal deficit. Skin: Warm, dry, and intact, bilateral macular rash to upper extremities. Lines: PIV Incisions: NA Psych: pleasant, cooperative, normal speech, normal affect, no hallucinations, no dysarthria Objective Data Vital Signs Vital Signs: Vital Signs - 24 hr 11/01/23 08:19 11/01/23 09:57 11/01/23 09:59 Temperature Pulse Rate 81 81 Respiratory Rate Blood Pressure 176/62 H Pulse Oximetry 98 95 Oxygen Delivery Room Air 11/01/23 10:00 11/01/23 14:00 11/01/23 19:50 Temperature 97.4 F L Pulse Rate 63 63 Respiratory Rate 16 16 Blood Pressure 150/55 H Pulse Oximetry 95 95 Oxygen Delivery Room Air Room Air 11/01/23 21:57 11/02/23 06:00 Temperature 98.3 F 97.4 F L Pulse Rate 64 61 Respiratory Rate 18 18 Blood Pressure 162/61 H 185/71 H Pulse Oximetry 95 96 Oxygen Delivery Intake/Output Intake/Output: Intake & Output 10/30/23 10/31/23 11/01/23 11/02/23 23:59 23:59 23:59 23:59 Intake Total 200 3011.7 1100 Balance 200 3011.7 1100 Meds/Results Medications: Active Medications Generic Name Dose Route Start Last Admin Trade Name Freq PRN Reason Stop Dose Admin Acetaminophen 650 mg 10/31/23 17:04 Acetaminophen 325 Mg Tablet PO Q4H PRN Mild Pain (1-3) or Fever Hydrocodone Bitart/Acetaminophen 1 tab 10/31/23 17:05 Hydrocodone/Acetaminophen (*Crx) 5-325 Mg Tablet PO Q6H PRN Pain Rated 4-6 Bisacodyl 5 mg 10/31/23 17:04 Bisacodyl 5 Mg Tablet Ec PO DAILY PRN Constipation Calcitriol 0.25 mcg 11/01/23 09:00 11/01/23 09:59 Calcitriol 0.25 Mcg Capsule PO 0.25 mcg DAILY JAMES Administration Carvedilol 12.5 mg 10/31/23 21:00 11/01/23 20:19 Carvedilol 12.5 Mg Tablet PO 12.5 mg Q12HR JAMES Administration Clonidine HCl 0.2 mg 10/31/23 21:00 11/01/23 20:19 Clonidine Hcl 0.2 Mg Tablet PO 0.2 mg Q12HR JAMES Administration Docusate Sodium 100 mg 10/31/23 21:00 11/01/23 20:19 Docusate Sodium 100 Mg Capsule PO 100 mg Q12HR JAMES Administration Donepezil HCl 5 mg 10/31/23 21:00 11/01/23 20:19 Donepezil Hcl 5 Mg Tablet PO 5 mg HS JAMES Administration Furosemide 80 mg 11/01/23 09:00 11/01/23 09:59 Furosemide 80 Mg Tablet PO 80 mg DAILY JAMES Administration Hydralazine HCl 50 mg 10/31/23 21:00 11/01/23 20:19 Hydralazine Hcl 50 Mg Tablet PO 50 mg Q12HR JAMES Administration Sodium Chloride 1,000 mls @ 100 mls/hr 10/31/23 17:05 11/02/23 06:25 Normal Saline Iv IV CONT 100 mls/hr .Q10H JAMES Administration Ceftriaxone Sodium 1 gm in 50 mls @ 100 mls/hr 11/01/23 17:00 11/01/23 17:17 Rocephin 1 Gm/Ns 50 Ml IVPB 100 mls/hr Q24H JAMES Administration Metronidazole 500 mg in 100 mls @ 100 mls/hr 11/01/23 01:00 11/02/23 06:39 Flagyl 500 Mg/Iso Soln 100 Ml IVPB Infused Q8H JAMES Infusion Losartan Potassium 25 mg 11/01/23 09:00 11/01/23 09:59 Losartan Potassium 25 Mg Tablet PO 25 mg DAILY JAMES Administration Morphine Sulfate 2 mg 10/31/23 17:04 Morphine Sulfate (*Crx) 2 Mg/Ml Inj IV PUSH Q4H PRN Pain Rated 7-10 Ondansetron HCl 4 mg 10/31/23 17:04 Ondansetron Inj 4 Mg/2 Ml Vial IV PUSH Q6H PRN Nausea And Vomiting Trazodone HCl 50 mg 10/31/23 21:00 11/01/23 20:19 Trazodone Hcl 50 Mg Tablet PO 50 mg HS JAMES Administration Radiology Results: ITS Impressions Abdomen/Pelvis CT 10/31/23 15:44 IMPRESSION: 1. Wall thickening with adjacent fat stranding involving the cecum and base of the appendix with dilatation of the appendix, consistent with acute appendicitis and/or malignancy. Labs Labs: Laboratory Results - last 24 hr 11/02/23 05:47 WBC 16.3 H RBC 4.03 L Hgb 11.2 L Hct 36.1 L MCV 89.6 MCH 27.8 MCHC 31.0 L RDW 14.6 H Plt Count 365 MPV 9.8 PT 14.9 H INR 1.1 APTT 31.6 Sodium 138 Potassium 4.6 Chloride 103 Carbon Dioxide 27 Anion Gap 8 BUN 36 H D Creatinine 1.50 H Estim Creat Clear Calc 46 Estimated GFR 46 L Glucose 122 H Calcium 9.0 Blood Type A Positive Antibody Screen Negative Quality VTE Prophylaxis VTE prophylaxis: mechanical ordered
[2023-11-02] MEDS: hydrALAZINE HCL 50 MG TABLET PO ×2 (08:54→20:08)
[2023-11-02] MEDS: cloNIDine HCL 0.2 MG TABLET PO ×2 (08:54→20:08)
[2023-11-02] MEDS: carvediloL 12.5 MG TABLET PO ×2 (08:55→20:08)
--- NOTE | 2023-11-02 11:55 | WPDANESEPPF ---
Anes - Initial Pre Proc Eval Procedure: Operation Date: 11/02/23 12:30 Proposed Procedures p Laparoscopic Appendectomy - Gabriel Cantrell DO Date/Time: 11/02/23 11:55 Surgeon: Christine Singh APRN Pre Op Diagnosis: Accute appella Patient Data Age: 73 Gender: M Height: 1.78 m Weight: 100.8 kg Last Vital Signs Temp 97.4 F L 11/02/23 06:00 Pulse 61 11/02/23 08:55 Resp 18 11/02/23 06:00 BP 185/71 H 11/02/23 06:00 Pulse Ox 96 11/02/23 06:00 O2 Del Method Room Air 11/02/23 08:55 Allergies Allergy/AdvReac Type Severity Reaction Status Date / Time Penicillins Allergy Mild Verified 03/31/11 08:36 Home Medications Medication Instructions Recorded Confirmed Type apixaban 5 mg tablet (Eliquis) 5 mg PO BID 10/31/23 10/31/23 History calcitriol 0.25 mcg capsule 0.25 mcg PO DAILY 10/31/23 10/31/23 History carvedilol 12.5 mg tablet 12.5 mg PO BID 10/31/23 10/31/23 History clonidine HCl 0.2 mg tablet 0.2 mg PO BID 10/31/23 10/31/23 History donepezil 5 mg tablet 5 mg PO HS 10/31/23 10/31/23 History furosemide 80 mg tablet 80 mg PO DAILY 10/31/23 10/31/23 History hydralazine 50 mg tablet 50 mg PO BID 10/31/23 10/31/23 History losartan 25 mg tablet 25 mg PO DAILY 10/31/23 10/31/23 History trazodone 50 mg tablet 50 mg PO HS 10/31/23 10/31/23 History Laboratory Tests 11/02/23 05:47 WBC 16.3 H K/mm3 (4.5-10.0) RBC 4.03 L M/mm3 (4.6-6.20) Hgb 11.2 L g/dL (14.0-18.0) Hct 36.1 L % (42.0-52.0) MCV 89.6 fl (80-100) MCH 27.8 pg (26-34) MCHC 31.0 L g/dl (32-36) RDW 14.6 H % (11.5-14.5) Plt Count 365 k/mm3 (150-375) MPV 9.8 fl (7.4-10.4) PT 14.9 H Seconds (11.1-14.7) INR 1.1 APTT 31.6 Seconds (22.3-36.8) Sodium 138 mmol/L (137-145) Potassium 4.6 mmol/L (3.4-5.0) Chloride 103 mmol/L (98-107) Carbon Dioxide 27 mmol/L (22-30) Anion Gap 8 mmol/L (4-12) BUN 36 H D mg/dL (9-20) Creatinine 1.50 H mg/dL (0.7-1.3) Estim Creat Clear Calc 46 ml/min Estimated GFR 46 L (59 - ) Glucose 122 H mg/dL (65-110) Calcium 9.0 mg/dL (8.4-10.2) Blood Type A Positive Antibody Screen Negative Patient hx anesthesia problems: none Family hx anesthesia problems: none Results Review: All pre-operative results and documents have been reviewed as part of the pre-operative evaluation. [facility] Past Medical History Medical History (Updated 11/01/23 @ 14:58 by Christine Singh APRN) Arthritis CAD (coronary artery disease) Cardiac arrhythmia Chronic kidney disease Colonic polyp Depression Gout [place] (hard of hearing) Hyperlipidemia Hypertension TIA (transient ischemic attack) after his carotid surgery Vascular dementia Surgical History Surgical History History of bilateral cataract extraction History of carotid endarterectomy History of heart artery stent History of quadruple bypass Family History Family History Mother Fibromyalgia Social History Social History Smoking status: Never smoker Alcohol intake: never Substance use: never Substance use type: does not use Do You Feel Safe in your Home?: Yes Lack of Transportation: No Lack of Food: Never True Current Housing: I Have Housing Concerned About Future Housing: No Difficulty Paying Gas/Electric Bills: No Difficulty Paying for Meds: No Currently Unemployed: No Education: Grade School Difficulty w/ Childcare or Family Care: No Spiritual care concerns: No Anes - Eval Final PreProcedure Day of Procedure 11/02/23 11:55 Patient weight: obese Heart: regular rate and rhythm Lungs: clear to auscultation Airway: Mallampati scale class III Neurological: alert and oriented Last oral intake: >/= 8 hours ASA classification: III Emergent: no Anesthetic plan: proceed Anesthesia type and monitoring: general ETT and standard monitoring Results Review: All pre-operative results and documents have been reviewed as part of the pre-operative evaluation. Informed Consent: The patient's anesthetic plan and its attendant risks and benefits were discussed with the patient/family/POA. Questions were solicited and answers provided to the satisfaction of the patient/family/POA.
[2023-11-02] MEDS: LACTATED RINGERS 1,000 ML 30 ML IV CONT ×2 (12:00→14:45)
--- NOTE | 2023-11-02 12:24 | WPDHPUPDATE1 ---
History and Physical Update Update Date/Time: 11/02/23 12:24 History and Physical has been reviewed, including an updated exam of the patient. There are NO changes in the patient's condition. Risks, benefits, and alternatives have been discussed and questions answered. Patient agrees to proceed with procedure.
--- NOTE | 2023-11-02 13:47 | S_PTH ---
PATIENT: Ken Damon LOC: [id number] U#:[id number] AGE/SX: 73/M ROOM: 252 RE10/31/[address]: Christine Singh, FARZAD : 1950 BED: 01 DIS: 11/07/2023 SPEC #: [id number] RECD: 11/02/23 14:15 STATUS: TASHA LOOMIS #: [id number] NAS: 11/02/23 13:[address]: Gabriel Cantrell DEPT: [facility] Surgical RECD BY: Loretta Acosta ENTERED: 11/02/23 14:15 SP TYPE: Surgical OTHR DR: Nora Mckeon, MD Christine Palomino, FAMILY DEVELOPMENT EXTENSION SPECIALIST Tissues: A - Colon Segment Tumor Procedures: Hematoxylin and Eosin Stain Gross and Microscopic Level 3 Gross and Microscopic Level 6
[2023-11-02] MEDS: BUPIVACAINE/EPINEPHRINE 0.5% 10 ML VIAL 30 ML INFILTRATE (14:19)
--- NOTE | 2023-11-02 14:27 | P.OP_ITS ---
Procedure Note - Detailed Date of Procedure 11/02/23 Pre-op Diagnosis Acute appendicitis Post-op Diagnosis Other (Cecal mass) Procedure Performed Hand assisted laparoscopic right hemicolectomy with ileocolic anastomosis Surgeon Gabriel Cantrell, DO Anesthesia General and Local (0.5% bupivacaine with epinephrine) Indications This is a 73-year-old man who presented to the emergency department with complaints of right lower quadrant swelling and a fullness feeling. He was not complaining of much pain except for with deep palpation. He denied any fevers. His labs appeared overall normal, but CT showed evidence of a dilated appendix with inflammatory changes around the appendix and cecum. The cecal wall also appeared slightly thickened possibly due to reactive inflammation verses malignancy. The patient did have a colonoscopy about 5 years ago which he states was normal other than a couple polyps. Discussions were made with the patient about the CT findings and the possibility of appendicitis versus other abnormalities. Discussions were made about medical treatment with antibiotics and possible colonoscopy in the near future versus proceeding with laparoscopic appendectomy. Decision was made to proceed with laparoscopic appendectomy, possible open. Findings Upon inspecting the abdomen laparoscopically, there did appear to be inflammation centered more on the cecum than on the appendix. There was some omentum adherent to the cecum and as I gently retracted on this area I was able to identify what appeared to be a mass at base of cecum. There did not appear to be any signs of perforation abscess. The appendix appeared healthy other than some mild dilation. Decision was made to convert to hand assisted laparoscopic right hemicolectomy. The mass appeared to be isolated to the cecum and there did not appear to be any surrounding signs of metastases. High ligation the pedicle was performed right hemicolectomy was performed with a [id number] anastomosis. The right colon was sent to the lab for pathology. Description of Procedure Procedure as well as risks benefits and alternatives were explained to the patient. Written consent was obtained and placed in chart prior to procedure. Patient was brought back to surgical suite. He was placed supine on operating table. Time-out was done to confirm patient procedure. He was then intubated by the anesthesia department. His abdomen was prepped and draped in sterile fashion using chlorhexidine prep. A 5 mm incision was made just to the left of the umbilicus and a 5 mm Optiview trocar was inserted under direct visualiz ation. Once inside the abdominal cavity, carbon dioxide insufflation was used for pneumoperitoneum. The camera was inserted in the abdomen was inspected. No immediate abnormalities were identified. Patient was placed in slight Trendelenburg position and rotated to the left. A 5 mm incision was made in the suprapubic region and midline and a 5 mm trocar was inserted under direct visualization. A 12 mm incision was made in the left lower quadrant and a 12 mm trocar was inserted under direct visualization. I then began carefully inspecting the abdominal cavity. There appeared to be so of omentum adherent to the right lower quadrant. I gently retracted the omentum to visualize the cecum and appendix. The appendix appeared mildly dilated, but the cecum appeared to have a mass right near the base of the appendix. Decision was made to convert to a hand assisted laparoscopic right hemicolectomy. The patient was flattened out in bed. A 7 centimeter vertical incision was made just superior to the umbilicus using a 15 blade scalpel. Electrocautery was used for hemostasis and for dissection down through Lina's fascia. The linea alba was identified, and incised using electrocautery. the peritoneum was then entered using electrocautery. The abdomen was inspected and no acute abnormalities were noted. The wound protector was placed at this incision, and the GelPort was faina lied. Carbon dioxide insufflation was used to create a pneumoperitoneum. The patient was placed back in slight Trendelenburg position and rotated to the left. I began my dissection from a medial to lateral direction along the ileocolic pedicle. The cecum was tented anteriorly and laterally and this allowed me to visualize the ileocolic pedicle. The medial side and inferior side of the peritoneum was scored using hook electrocautery and the retroperitoneal plane was entered. Careful dissection was performed using hook electrocautery in this relatively avascular plane. The duodenum was identified and swept posteriorly. I then continued to dissect proximally along the ileocolic pedicle. I isolated the ileocolic vein and artery individually and performed a high ligation using bipolar cautery. Hemostasis appeared adequate. I then continued the medial to lateral dissection maintaining this avascular plane. I also dissected along the transverse colon to the right side all the way to the level of the hepatic flexure. The terminal ileum and appendix were then retracted medially and the lateral peritoneal attachments were taken down using hook electrocautery. The root of the mesentery was then carefully taken down proximally to allow adequate mobilization of the small bowel for our anastomosis. The lateral peritoneal attachments of the ascending colon were then taken down using hook electrocautery. The hepatic flexure was taken down using ligasure bipolar cautery. Once this was completed I gained adequate mobilization of the entire ascending and proximal transverse colon to exteriorize and perform our resection and anastomosis. The patient was flattened out in bed, and the cecum was grasped and delivered through the wound protector. The pneumoperitoneum was released. I carefully delivered the entire ascending and proximal transverse colon out through the hand port incision. The specimen was inspected and appeared to have adequate mobilization to perform our resection. The transverse colon was cleared of the epiploic appendages and omentum and a ANUSHA 75 millimeter blue load stapler was advanced across the transverse colon at this point and clamped and fired. The right branch of the middle colic artery was then ligated using bipolar cautery. Hemostasis appeared adequate. A window was then created in the mesentery at the terminal ileum, and a ANUSHA 75 millimeter blue load stapler was advanced across the terminal ileum at this point and clamped and fired. The remaining mesentery attachments were then taken down using bipolar cautery. This freed up the specimen completely, and it was then removed and sent to the lab for pathology. The 2 ends of the bowel were inspected and appeared healthy and viable. They came together in a [id number] fashion without any tension. Enterotomies were then made at the anti mesenteric border using electrocautery. The ANUSHA 75 millimeter blue load stapler was then advanced through each enterotomy and the 2 limbs of the bowel were clamped together in a [id number] fashion and then the stapler was fired to create our anastomosis. The stapler was removed and the anastomosis was inspected. It appeared healthy and viable. The enterotomy was then closed using a TLC 60 millimeter blue load stapler. The apex of the staple line was then reinforced using 3 0 silk seromuscular imbricating sutures. The anastomosis was inspected and appeared healthy and viable and appeared widely patent. The anastomosis was then released back down into the abdominal cavity. One final inspection was made around the abdominal cavity, and no other abnormalities were noted. The GelPort was reapplied and pneumoperitoneum was recreated. The 12 mm port was removed and a Emerson-Barb cone was used to pass an 0 Vicryl suture to approximate the fascia. One final inspection was made around the abdomen laparoscopically. Hemostasis appeared adequate. The ports and wound protector were then removed. The fascia of the hand port incision was reapproximated using 0 PDS running suture starting at each end and meeting in the middle. The deep dermis was approximated using 3 0 Vicryl inverted interrupted sutures. The skin of all the incisions was approximated using 4-0 Monocryl subcuticular suture. Exofin glue was applied on top. The patient was awakened from anesthesia, extubated, and transferred to recovery. Estimated Blood Loss 20 Urine Output 200 Pathology Yes (Right colon) Complications No immediate complications Condition Stable Disposition Floor [facility] Billing Surgery - Charge Forward: Surgery Billing
[2023-11-02] MEDS: fentaNYL CITRATE INJ (*CRX) 100 MCG/2 ML VIAL 25 MCG IV PUSH ×4 (14:59→15:24)
[2023-11-02 15:37] LABS: Carcinoembryonic Antigen 2.5 ng/mL (0.0-3.0)
[2023-11-02] MEDS: hydrALAZINE HCL 20 MG/ML VIAL 10 MG IV PUSH (16:28)
[2023-11-02] MEDS: oxyCODONE HCL (*CRX) 2.5 MG TAB IR PO ×2 (16:52→22:58)
[2023-11-02] MEDS: FUROSEMIDE 80 MG TABLET PO (16:52)
[2023-11-02] MEDS: LOSARTAN POTASSIUM 25 MG TABLET PO (16:52)
[2023-11-02] MEDS: calcitrioL 0.25 MCG CAPSULE PO (16:52)
[2023-11-02] MEDS: ACETAMINOPHEN 325 MG TABLET 650 MG PO ×2 (16:53→22:58)
[2023-11-02] MEDS: LACTATED RINGERS 1,000 ML 100 ML IV CONT (19:56)
[2023-11-02] MEDS: DONEPEZIL HCL 5 MG TABLET PO (20:08)
[2023-11-02] MEDS: traZODone HCL 50 MG TABLET PO (20:08)
[2023-11-02] MEDS: MORPHINE SULFATE (*CRX) 2 MG/ML INJ IV PUSH (20:13)
[2023-11-03] VITALS (11 sets, daily range): BP systolic 116–185; BP diastolic 52–72; PULSE 59–94; RESP 18–22; TEMP 36.2–36.7; O2SAT 92–97
[2023-11-03] MEDS: hydrALAZINE HCL 20 MG/ML VIAL 10 MG IV PUSH (00:32)
[2023-11-03] MEDS: metroNIDAZOLE 500 MG/ISO 100ML 500 MG/100 ML BAG 100 MG IVPB (00:33)
[2023-11-03] MEDS: oxyCODONE HCL (*CRX) 2.5 MG TAB IR PO ×3 (02:54→16:27)
[2023-11-03] MEDS: MORPHINE SULFATE (*CRX) 2 MG/ML INJ IV PUSH (04:46)
[2023-11-03] MEDS: ACETAMINOPHEN 325 MG TABLET 650 MG PO ×3 (06:07→17:58)
[2023-11-03] MEDS: oxyCODONE HCL (*CRX) 5 MG TAB IR PO (06:46)
[2023-11-03 06:57] LABS: Basophils Percent Auto 0.1 % (0.2-1.2); Hematocrit 36.9 % (42.0-52.0); Hemoglobin 11.2 g/dL (14.0-18.0); Immature Granulocyte Absolute 0.07 K/mm3 (0.00-0.031); Immature Granulocyte Percent A 0.5 % (0-0.5); Lymphocytes Absolute Auto 0.75 K/mm3 (0.9-3.2); Lymphocytes Percent Auto 4.9 % (18.3-44.2); Mean Corpuscular HGB Conc 30.4 g/dl (32-36); Mean Corpuscular Hemoglobin 27.7 pg (26-34); Mean Corpuscular Volume 91.1 fl (80-100); Mean Platelet Volume 9.4 fl (7.4-10.4); Monocytes Absolute Auto 1.3 K/mm3 (0.1-0.6); Monocytes Percent Auto 8.7 % (2.6-8.5); Neutrophils Absolute Auto 13.2 K/mm3 (1.3-6.7); Neutrophils Percent Auto 85.8 % (45.5-73.1); Platelet Count Result 416 k/mm3 (150-375); Red Blood Count 4.05 M/mm3 (4.6-6.20); Red Cell Distribution Width 14.7 % (11.5-14.5); White Blood Count 15.3 K/mm3 (4.5-10.0)
[2023-11-03 07:07] LABS: Alanine Aminotransferase 16 U/L (6-50); Albumin Level 3.3 g/dL (3.5-5.1); Alkaline Phosphatase 54 U/L (38-126); Anion Gap 9 mmol/L (4-12); Aspartate Amino Transferase 35 U/L (17-59); Bilirubin,Total 0.3 mg/dL (0.2-1.3); Blood Urea Nitrogen 32 mg/dL (9-20); Calcium 8.7 mg/dL (8.4-10.2); Carbon Dioxide 28 mmol/L (22-30); Chloride 102 mmol/L (98-107); Estimated CRCL calculation 47 ml/min; Estimated Glomerular Filt Rate 46; Glucose 127 mg/dL (65-110); Sodium 139 mmol/L (137-145)
--- NOTE | 2023-11-03 07:09 | PM.IMPN ---
Progress Note: A&P Assessment and Plan (1) Acute appendicitis: Qualifiers: Acute appendicitis type: unspecified acute appendicitis type Qualified Code(s): K35.80 - Unspecified acute appendicitis Code(s): K35.80 - Unspecified acute appendicitis Status: Acute Assessment and Plan: - CT abdomen/pelvis: Wall thickening with adjacent fat stranding involving the cecum and base of the appendix with dilatation of the appendix, consistent with acute appendicitis and/or malignancy. - general surgery consulted, awaiting formal recs - started on ceftriaxone and metronidazole on 10/30 - POD 1 from right hemicolectomy - Clear liquid diet. Diet to advance per surgery - Pain control with PRN oxycodone and morphine for breakthrough - Anticipate adding bowel regimen once passing flatus - DVT prophylaxis with SCD. Restart Eliquis when okay with surgery - Incentive spirometer - up to chair for meals (2) Hypertension: Qualifiers: Hypertension type: primary hypertension Qualified Code(s): I10 - Essential (primary) hypertension Code(s): I10 - Essential (primary) hypertension Status: Acute Assessment and Plan: - chronic, currently 176/62 mm hg - continue home medications: clonidine 0.2 mg b.i.d., Lasix 80 mg daily, hydralazine 50 mg b.i.d., losartan 25 mg daily. - monitor blood pressures daily. - PRN hydralazine 10 mg every 8 hours for SBP > 170 mm hg - persistent HTN in the 180-190's mm hg - increasing Losartan 25mg to 50 mg daily. - Stopping IVF (3) Rash: Code(s): R21 - Rash and other nonspecific skin eruption Status: Acute Assessment and Plan: Macular-papular rash to bilateral upper extremities - unclear etiology - no new medication changes, no new foods, no changes to detergents - monitor Plan Diet: Clear liquids, NPO at midnight. DVT Prophylaxis: SCDs, Eliquis on hold for surgery Lines: Peripheral Code Status: FULL Code Disposition: 73-year-old male who presents with abdominal tender wrist to the right lower quadrant. CT abdomen pelvis shows acute appendicitis versus possible mass. Surgery was consulted recs are appreciated. Anticipate taking him for appendectomy 11/01. He is currently on Rocephin and Flagyl. Subjective Date/time seen: 11/03/23 07:09 Interval history: 73 y/o M presents here with abdominal swelling with PMH of arthritis, hyperlipidemia, hypertension, and insomnia who presents here from home for further evaluation of right lower abdominal swelling. 10/31: Patient is seen resting in bed with his family at bedside. He complains of right lower quadrant tenderness but no significant abdominal pain. He denies nausea or vomiting. He does complain of a flat macular rash to his bilateral upper extremities that is itching. He states it started approximately 5 days ago. He has been putting hydrocortisone cream on it and he feels like this is helping. He denies any recent medication changes, new foods, or changes to his detergents. 11/01: No acute events overnight. Patient is going for surgery today for lap appendectomy. He denies any increase in abdominal pain, no nausea, or vomiting. He did have an increase in his white blood cell count. 11/02: No acute events overnight. Patient is postop day 1 from laparoscopic right hemicolectomy. He is having some this did should cover gas, and abdominal pain. Tolerating a clear liquid diet. Review of Systems Review of Systems: All systems reviewed & are unremarkable except as noted in HPI and below Exam Narrative: General: well appearing, appears stated age. HEENT: normocephalic, atraumatic. Mucous membranes moist. EOMI, PERRLA, bilateral sclera anicteric, no conjunctival injection. Neck supple without JVD, lymphadenopathy, or bruit. Respiratory: clear to auscultation bilaterally. No rales/rhonic/wheezes. Cardiovascular: Regular rate and rhythm, normal S1-S2 upon auscultation. No murmurs, rubs, or clicks. PMI is nondisplaced, capillary refill less than 3 second. Abdomen: Soft, round, obese, no pulsatile masses, nondistended and mildly tender. No rebound, no guarding. No CVA tenderness, no hepatosplenomegaly. Bowel sounds present to all four quadrants. No high pitch or tinkling sounds, resonant to percussion. Extremities: No cyanosis, clubbing, or edema present. Pulses are palpable 2/2. Active ROM to all four extremities. Neuro: Alert and orientated x 4. PERRLA. Cranial nerves 2-12 intact without focal deficit. Skin: Warm, dry, and intact, bilateral macular rash to upper extremities. Lines: PIV Incisions: Small midline incision with 3 laparoscopic incisions all Dermabonded and well approximated. No signs and symptoms of infection. Psych: pleasant, cooperative, normal speech, normal affect, no hallucinations, no dysarthria Objective Data Vital Signs Vital Signs: Vital Signs - 24 hr 11/02/23 08:55 11/02/23 08:55 11/02/23 12:00 Temperature 99 F Pulse Rate 61 64 Respiratory Rate 14 Blood Pressure 171/68 H Pulse Oximetry 96 Oxygen Delivery Room Air Room Air Oxygen Flow Rate 11/02/23 14:45 11/02/23 15:00 11/02/23 15:15 Temperature 99.3 F Pulse Rate 75 73 73 Respiratory Rate 13 16 16 Blood Pressure 187/78 H 185/70 H 184/73 H Pulse Oximetry 98 99 94 Oxygen Delivery Simple Face Mask Simple Face Mask Nasal Cannula Oxygen Flow Rate 8 8 2 11/02/23 15:30 11/02/23 15:45 11/02/23 15:53 Temperature Pulse Rate 73 73 68 Respiratory Rate 18 16 18 Blood Pressure 179/74 H 183/72 H 180/72 H Pulse Oximetry 93 93 94 Oxygen Delivery Nasal Cannula Nasal Cannula Room Air Oxygen Flow Rate 2 2 11/02/23 16:10 11/02/23 16:25 11/02/23 16:55 Temperature 97.1 F L 96.9 F L 97.2 F L Pulse Rate 68 73 72 Respiratory Rate 18 16 16 Blood Pressure 190/100 H 192/102 H 188/110 H Pulse Oximetry 95 95 95 Oxygen Delivery Oxygen Flow Rate 11/02/23 17:55 11/02/23 20:08 11/02/23 20:29 Temperature 97.1 F L 98.6 F Pulse Rate 76 71 74 Respiratory Rate 16 16 Blood Pressure 193/68 H 190/96 H Pulse Oximetry 95 97 Oxygen Delivery Oxygen Flow Rate 11/02/23 20:00 11/03/23 01:40 11/03/23 05:40 Temperature 98.1 F 98.1 F Pulse Rate 86 94 Respiratory Rate 20 22 H Blood Pressure 177/72 H 185/69 H Pulse Oximetry 92 95 Oxygen Delivery Room Air Oxygen Flow Rate Intake/Output Intake/Output: Intake & Output 10/31/23 11/01/23 11/02/23 11/03/23 23:59 23:59 23:59 23:59 Intake Total 200 3061.7 2140 480 Output Total 200 Balance 200 3061.7 1940 480 Meds/Results Medications: Active Medications Generic Name Dose Route Start Last Admin Trade Name Freq PRN Reason Stop Dose Admin Acetaminophen 650 mg 11/02/23 18:00 11/03/23 06:07 Acetaminophen 325 Mg Tablet PO 650 mg Q6HR JAMES Administration Calcitriol 0.25 mcg 11/01/23 09:00 11/02/23 16:52 Calcitriol 0.25 Mcg Capsule PO 0.25 mcg DAILY JAMES Administration Carvedilol 12.5 mg 10/31/23 21:00 11/02/23 20:08 Carvedilol 12.5 Mg Tablet PO 12.5 mg Q12HR JAMES Administration Clonidine HCl 0.2 mg 10/31/23 21:00 11/02/23 20:08 Clonidine Hcl 0.2 Mg Tablet PO 0.2 mg Q12HR JAMES Administration Donepezil HCl 5 mg 10/31/23 21:00 11/02/23 20:08 Donepezil Hcl 5 Mg Tablet PO 5 mg HS JAMES Administration Enoxaparin Sodium 40 mg 11/03/23 09:00 Enoxaparin 40 Mg/0.4 Ml Syringe SUB-Q DAILY JAMES Furosemide 80 mg 11/01/23 09:00 11/02/23 16:52 Furosemide 80 Mg Tablet PO 80 mg DAILY JAMES Administration Hydralazine HCl 50 mg 10/31/23 21:00 11/02/23 20:08 Hydralazine Hcl 50 Mg Tablet PO 50 mg Q12HR JAMES Administration Hydralazine HCl 10 mg 11/02/23 07:53 11/03/23 00:32 Hydralazine Hcl 20 Mg/Ml Vial IV PUSH 10 mg Q8H PRN Administration Blood Pressure - High Ceftriaxone Sodium 1 gm in 50 mls @ 100 mls/hr 11/01/23 17:00 11/02/23 16:53 Rocephin 1 Gm/Ns 50 Ml IVPB 100 mls/hr Q24H JAMES Administration Metronidazole 500 mg in 100 mls @ 100 mls/hr 11/01/23 01:00 11/03/23 00:33 Flagyl 500 Mg/Iso Soln 100 Ml IVPB 100 mls/hr Q8H JAMES Administration Lactated Ringer's 1,000 mls @ 100 mls/hr 11/02/23 15:55 11/02/23 19:56 Lr - Lactated Ringers Iv IV CONT 100 mls/hr .Q10H JAMES Administration Losartan Potassium 100 mg 11/03/23 09:00 Losartan Potassium 100 Mg Tablet PO DAILY JAMES Morphine Sulfate 2 mg 11/02/23 15:55 11/03/23 04:46 Morphine Sulfate (*Crx) 2 Mg/Ml Inj IV PUSH 2 mg Q2H PRN Administration Breakthrough Pain Rated 4-6 or NPO Morphine Sulfate 4 mg 11/02/23 15:55 Morphine Sulfate (*Crx) 4 Mg/Ml Inj IV PUSH Q2H PRN Breakthrough Pain Rated 7-10 or NPO Naloxone HCl 0.1 mg 11/02/23 15:55 Naloxone Hcl 0.4 Mg/Ml Vial IV PUSH Q2M PRN Opiate Reversal Ondansetron HCl 4 mg 10/31/23 17:04 Ondansetron Inj 4 Mg/2 Ml Vial IV PUSH Q6H PRN Nausea And Vomiting Oxycodone HCl 2.5 mg 11/02/23 15:55 11/03/23 02:54 Oxycodone Hcl (*Crx) 2.5 Mg Tab Ir PO 2.5 mg Q4H PRN Administration Pain Rated 4-6 Oxycodone HCl 5 mg 11/02/23 15:55 11/03/23 06:46 Oxycodone Hcl (*Crx) 5 Mg Tab Ir PO 5 mg Q4H PRN Administration Pain Rated 7-10 Trazodone HCl 50 mg 10/31/23 21:00 11/02/23 20:08 Trazodone Hcl 50 Mg Tablet PO 50 mg HS JAMES Administration Radiology Results: ITS Impressions Abdomen/Pelvis CT 10/31/23 15:44 IMPRESSION: 1. Wall thickening with adjacent fat stranding involving the cecum and base of the appendix with dilatation of the appendix, consistent with acute appendicitis and/or malignancy. Labs Labs: Laboratory Results - last 24 hr 11/02/23 11/03/23 05:47 06:45 Sodium 139 Potassium 4.0 Chloride 102 Carbon Dioxide 28 Anion Gap 9 BUN 32 H Creatinine 1.50 H Estim Creat Clear Calc 47 Estimated GFR 46 L Glucose 127 H Calcium 8.7 Total Bilirubin 0.3 AST 35 ALT 16 Alkaline Phosphatase 54 Total Protein 6.0 L Albumin 3.3 L Carcinoembryonic Ag 2.5 Quality VTE Prophylaxis VTE prophylaxis: mechanical ordered
[2023-11-03 07:37] LABS: Carcinoembryonic Antigen 2.4 ng/mL (0.0-3.0)
--- NOTE | 2023-11-03 08:22 | P.PNGS_ITS ---
Progress Note: A&P Assessment and Plan (1) Cecum mass: Code(s): K63.89 - Other specified diseases of intestine Status: Acute Assessment and Plan: * Discussed surgical findings with patient. Await pathology results. Continue clear liquids today. Increase activity. (2) Chronic kidney disease: Code(s): N18.9 - Chronic kidney disease, unspecified Status: Acute (3) Anticoagulant long-term use: Code(s): Z79.01 - terminal gauger (current) use of anticoagulants Status: Acute (4) Hypertension: Qualifiers: Hypertension type: primary hypertension Qualified Code(s): I10 - Essential (primary) hypertension Code(s): I10 - Essential (primary) hypertension Status: Acute Subjective Subjective Date/Time Seen: 11/03/23 08:22 Interval history: Doing well. Pain about a 4 at times but controlled with meds. No bowel movement yet. Urinating without difficulty. Exam GI: Inspection: non-distended, incision (intact with glue) and obesity GI Palp: Yes Soft to palpation and Yes Tenderness to palpation present (GI) (RLQ and incisional) Auscultation: Hypoactive bowel sounds present Objective Data Vital Signs Vital Signs: Vital Signs - 24 hr 11/02/23 08:55 11/02/23 08:55 11/02/23 12:00 Temperature 37.2 C Pulse Rate 61 64 Respiratory Rate 14 Blood Pressure 171/68 H Pulse Oximetry 96 Oxygen Delivery Room Air Room Air Oxygen Flow Rate 11/02/23 14:45 11/02/23 15:00 11/02/23 15:15 Temperature 37.4 C Pulse Rate 75 73 73 Respiratory Rate 13 16 16 Blood Pressure 187/78 H 185/70 H 184/73 H Pulse Oximetry 98 99 94 Oxygen Delivery Simple Face Mask Simple Face Mask Nasal Cannula Oxygen Flow Rate 8 8 2 11/02/23 15:30 11/02/23 15:45 11/02/23 15:53 Temperature Pulse Rate 73 73 68 Respiratory Rate 18 16 18 Blood Pressure 179/74 H 183/72 H 180/72 H Pulse Oximetry 93 93 94 Oxygen Delivery Nasal Cannula Nasal Cannula Room Air Oxygen Flow Rate 2 2 11/02/23 16:10 11/02/23 16:25 11/02/23 16:55 Temperature 36.2 C L 36.1 C L 36.2 C L Pulse Rate 68 73 72 Respiratory Rate 18 16 16 Blood Pressure 190/100 H 192/102 H 188/110 H Pulse Oximetry 95 95 95 Oxygen Delivery Oxygen Flow Rate 11/02/23 17:55 11/02/23 20:08 11/02/23 20:29 Temperature 36.2 C L 37.0 C Pulse Rate 76 71 74 Respiratory Rate 16 16 Blood Pressure 193/68 H 190/96 H Pulse Oximetry 95 97 Oxygen Delivery Oxygen Flow Rate 11/02/23 20:00 11/03/23 01:40 11/03/23 05:40 Temperature 36.7 C 36.7 C Pulse Rate 86 94 Respiratory Rate 20 22 H Blood Pressure 177/72 H 185/69 H Pulse Oximetry 92 95 Oxygen Delivery Room Air Oxygen Flow Rate Intake/Output Intake/Output: Intake & Output 10/31/23 11/01/23 11/02/23 11/03/23 23:59 23:59 23:59 23:59 Intake Total 200 3061.7 2140 480 Output Total 200 Balance 200 3061.7 1940 480 Meds/Results Medications: Active Medications Generic Name Dose Route Start Last Admin Trade Name Fritzq PRN Reason Stop Dose Admin Acetaminophen 650 mg 11/02/23 18:00 11/03/23 06:07 Acetaminophen 325 Mg Tablet PO 650 mg Q6HR JAMES Administration Calcitriol 0.25 mcg 11/01/23 09:00 11/02/23 16:52 Calcitriol 0.25 Mcg Capsule PO 0.25 mcg DAILY JAMES Administration Carvedilol 12.5 mg 10/31/23 21:00 11/02/23 20:08 Carvedilol 12.5 Mg Tablet PO 12.5 mg Q12HR JAMES Administration Clonidine HCl 0.2 mg 10/31/23 21:00 11/02/23 20:08 Clonidine Hcl 0.2 Mg Tablet PO 0.2 mg Q12HR JAMES Administration Donepezil HCl 5 mg 10/31/23 21:00 11/02/23 20:08 Donepezil Hcl 5 Mg Tablet PO 5 mg HS JAMES Administration Enoxaparin Sodium 40 mg 11/03/23 09:00 Enoxaparin 40 Mg/0.4 Ml Syringe SUB-Q DAILY JAMES Furosemide 80 mg 11/01/23 09:00 11/02/23 16:52 Furosemide 80 Mg Tablet PO 80 mg DAILY JAMES Administration Hydralazine HCl 50 mg 10/31/23 21:00 11/02/23 20:08 Hydralazine Hcl 50 Mg Tablet PO 50 mg Q12HR JAMES Administration Hydralazine HCl 10 mg 11/02/23 07:53 11/03/23 00:32 Hydralazine Hcl 20 Mg/Ml Vial IV PUSH 10 mg Q8H PRN Administration Blood Pressure - High Losartan Potassium 100 mg 11/03/23 09:00 Losartan Potassium 100 Mg Tablet PO DAILY JAMES Morphine Sulfate 2 mg 11/02/23 15:55 11/03/23 04:46 Morphine Sulfate (*Crx) 2 Mg/Ml Inj IV PUSH 2 mg Q2H PRN Administration Breakthrough Pain Rated 4-6 or NPO Morphine Sulfate 4 mg 11/02/23 15:55 Morphine Sulfate (*Crx) 4 Mg/Ml Inj IV PUSH Q2H PRN Breakthrough Pain Rated 7-10 or NPO Naloxone HCl 0.1 mg 11/02/23 15:55 Naloxone Hcl 0.4 Mg/Ml Vial IV PUSH Q2M PRN Opiate Reversal Ondansetron HCl 4 mg 10/31/23 17:04 Ondansetron Inj 4 Mg/2 Ml Vial IV PUSH Q6H PRN Nausea And Vomiting Oxycodone HCl 2.5 mg 11/02/23 15:55 11/03/23 02:54 Oxycodone Hcl (*Crx) 2.5 Mg Tab Ir PO 2.5 mg Q4H PRN Administration Pain Rated 4-6 Oxycodone HCl 5 mg 11/02/23 15:55 11/03/23 06:46 Oxycodone Hcl (*Crx) 5 Mg Tab Ir PO 5 mg Q4H PRN Administration Pain Rated 7-10 Trazodone HCl 50 mg 10/31/23 21:00 11/02/23 20:08 Trazodone Hcl 50 Mg Tablet PO 50 mg HS JAMES Administration Radiology Results: ITS Impressions Abdomen/Pelvis CT 10/31/23 15:44 IMPRESSION: 1. Wall thickening with adjacent fat stranding involving the cecum and base of the appendix with dilatation of the appendix, consistent with acute appendicitis and/or malignancy. Labs Labs: Laboratory Results - last 24 hr 11/02/23 11/03/23 05:47 06:45 WBC 15.3 H RBC 4.05 L Hgb 11.2 L Hct 36.9 L MCV 91.1 MCH 27.7 MCHC 30.4 L RDW 14.7 H Plt Count 416 H MPV 9.4 Immature Gran % (Auto) 0.5 Neut % (Auto) 85.8 H Lymph % (Auto) 4.9 L [place] % (Auto) 8.7 H Eos % (Auto) 0.0 Baso % (Auto) 0.1 L Lymph # (Auto) 0.75 L [place] # (Auto) 1.3 H Eos # (Auto) 0.0 Baso # (Auto) 0.0 Abs Immat Gran (auto) 0.07 H Absolute Neuts (auto) 13.2 H Absolute Nucleated RBC 0.000 Nucleated RBC % 0.0 Sodium 139 Potassium 4.0 Chloride 102 Carbon Dioxide 28 Anion Gap 9 BUN 32 H Creatinine 1.50 H Estim Creat Clear Calc 47 Estimated GFR 46 L Glucose 127 H Calcium 8.7 Total Bilirubin 0.3 AST 35 ALT 16 Alkaline Phosphatase 54 Total Protein 6.0 L Albumin 3.3 L Carcinoembryonic Ag 2.5 2.4
[2023-11-03] MEDS: calcitrioL 0.25 MCG CAPSULE PO (09:40)
[2023-11-03] MEDS: cloNIDine HCL 0.2 MG TABLET PO ×2 (09:41→20:31)
[2023-11-03] MEDS: carvediloL 12.5 MG TABLET PO ×2 (09:41→20:32)
[2023-11-03] MEDS: ENOXAPARIN 40 MG/0.4 ML SYRINGE SUB-Q (09:41)
[2023-11-03] MEDS: hydrALAZINE HCL 50 MG TABLET PO ×2 (09:42→20:32)
[2023-11-03] MEDS: LOSARTAN POTASSIUM 100 MG TABLET PO (09:42)
[2023-11-03] MEDS: FUROSEMIDE 80 MG TABLET PO (09:42)
--- NOTE | 2023-11-03 10:30 | P.PNAN_ITS ---
Anes - Prog Note Post-Op Date/Time: 11/03/23 10:30 Cardiovascular status: normal Respiratory status: normal Airway patency: baseline Mental status: baseline Post-Op hydration status: normal Vital Signs: Last Vital Signs Temp 36.7 C 11/03/23 05:40 Pulse 62 11/03/23 09:41 Resp 22 H 11/03/23 05:40 BP 185/69 H 11/03/23 05:40 Pulse Ox 97 11/03/23 09:36 O2 Del Method Nasal Cannula 11/03/23 09:36 O2 Flow Rate 1 11/03/23 09:36 Pain Score (VAS): 06/06 I/O: Intake & Output 11/02/23 11/03/23 11/03/23 23:59 07:59 15:59 Intake Total 340 480 Balance 340 480 Laboratory Tests 11/03/23 06:45 11/03/23 06:45 11/02/23 11/03/23 05:47 06:45 WBC 15.3 H RBC 4.05 L Hgb 11.2 L Hct 36.9 L MCV 91.1 MCH 27.7 MCHC 30.4 L RDW 14.7 H Plt Count 416 H MPV 9.4 Immature Gran % (Auto) 0.5 Neut % (Auto) 85.8 H Lymph % (Auto) 4.9 L [place] % (Auto) 8.7 H Eos % (Auto) 0.0 Baso % (Auto) 0.1 L Lymph # (Auto) 0.75 L [place] # (Auto) 1.3 H Eos # (Auto) 0.0 Baso # (Auto) 0.0 Abs Immat Gran (auto) 0.07 H Absolute Neuts (auto) 13.2 H Absolute Nucleated RBC 0.000 Nucleated RBC % 0.0 Sodium 139 Potassium 4.0 Chloride 102 Carbon Dioxide 28 Anion Gap 9 BUN 32 H Creatinine 1.50 H Estim Creat Clear Calc 47 Estimated GFR 46 L Glucose 127 H Calcium 8.7 Total Bilirubin 0.3 AST 35 ALT 16 Alkaline Phosphatase 54 Total Protein 6.0 L Albumin 3.3 L Carcinoembryonic Ag 2.5 2.4 Post-procedural complaints: none Patient Feedback: Patient satisfied with anesthetic care.
[2023-11-03] MEDS: traZODone HCL 50 MG TABLET PO (20:31)
[2023-11-03] MEDS: DONEPEZIL HCL 5 MG TABLET PO (20:31)
[2023-11-04] VITALS (10 sets, daily range): BP systolic 120–190; BP diastolic 45–66; PULSE 66–73; RESP 18–20; TEMP 36.4–37; O2SAT 96–99
[2023-11-04] MEDS: ACETAMINOPHEN 325 MG TABLET 650 MG PO ×4 (00:31→18:04)
[2023-11-04 05:01] LABS: Basophils Percent Auto 0.1 % (0.2-1.2); Hematocrit 35.2 % (42.0-52.0); Hemoglobin 10.3 g/dL (14.0-18.0); Immature Granulocyte Absolute 0.04 K/mm3 (0.00-0.031); Immature Granulocyte Percent A 0.4 % (0-0.5); Lymphocytes Absolute Auto 1.04 K/mm3 (0.9-3.2); Lymphocytes Percent Auto 10.8 % (18.3-44.2); Mean Corpuscular HGB Conc 29.3 g/dl (32-36); Mean Corpuscular Hemoglobin 27.1 pg (26-34); Mean Corpuscular Volume 92.6 fl (80-100); Mean Platelet Volume 9.7 fl (7.4-10.4); Monocytes Absolute Auto 0.8 K/mm3 (0.1-0.6); Monocytes Percent Auto 8.2 % (2.6-8.5); Neutrophils Absolute Auto 7.8 K/mm3 (1.3-6.7); Neutrophils Percent Auto 80.5 % (45.5-73.1); Platelet Count Result 331 k/mm3 (150-375); Red Cell Distribution Width 14.7 % (11.5-14.5); White Blood Count 9.6 K/mm3 (4.5-10.0)
[2023-11-04 05:18] LABS: Alanine Aminotransferase 16 U/L (6-50); Albumin Level 3.2 g/dL (3.5-5.1); Alkaline Phosphatase 55 U/L (38-126); Anion Gap 6 mmol/L (4-12); Aspartate Amino Transferase 28 U/L (17-59); Bilirubin,Total 0.3 mg/dL (0.2-1.3); Blood Urea Nitrogen 33 mg/dL (9-20); Calcium 8.7 mg/dL (8.4-10.2); Carbon Dioxide 31 mmol/L (22-30); Chloride 102 mmol/L (98-107); Estimated CRCL calculation 40 ml/min; Estimated Glomerular Filt Rate 37; Glucose 93 mg/dL (65-110); Potassium 4.4 mmol/L (3.4-5.0); Sodium 139 mmol/L (137-145)
[2023-11-04 05:34] LABS: Anisocytosis 1+; Hypochromasia 1+; Platelet Estimate Adequate (Adequate)
[2023-11-04 05:35] LABS: Ovalocytes 1+; Poikilocytosis 1+; Schistocytes None Seen
--- NOTE | 2023-11-04 07:21 | P.PNIM_ITS ---
Progress Note: A&P Assessment and Plan (1) Acute appendicitis: Qualifiers: Acute appendicitis type: unspecified acute appendicitis type Qualified Code(s): K35.80 - Unspecified acute appendicitis Code(s): K35.80 - Unspecified acute appendicitis Status: Acute Assessment and Plan: - CT abdomen/pelvis: Wall thickening with adjacent fat stranding involving the cecum and base of the appendix with dilatation of the appendix, consistent with acute appendicitis and/or malignancy. - general surgery consulted, awaiting formal recs - started on ceftriaxone and metronidazole on 10/30. Antibiotics stopped after surgery. - POD 3 from right hemicolectomy - Clear liquid diet. Diet to advance per surgery - Pain control with PRN oxycodone and morphine for breakthrough - Anticipate bowel regimen when okay with surgery - DVT prophylaxis with SCD and Lovenox. Restart Eliquis when okay with surgery -still requiring 1 L oxygen. Please wean as tolerated. - Incentive spirometer - up to chair for meals (2) Hypertension: Qualifiers: Hypertension type: primary hypertension Qualified Code(s): I10 - Essential (primary) hypertension Code(s): I10 - Essential (primary) hypertension Status: Acute Assessment and Plan: - chronic, currently 176/62 mm hg - continue home medications: clonidine 0.2 mg b.i.d., Lasix 80 mg daily, hydralazine 50 mg b.i.d., losartan 25 mg daily. - monitor blood pressures daily. - PRN hydralazine 10 mg every 8 hours for SBP > 170 mm hg - persistent HTN in the 180-190's mm hg - increasing Losartan 25mg to 50 mg BID (3) Rash: Code(s): R21 - Rash and other nonspecific skin eruption Status: Acute Assessment and Plan: Macular-papular rash to bilateral upper extremities - unclear etiology - no new medication changes, no new foods, no changes to detergents - improving, nearly resolved (4) Chronic kidney disease: Qualifiers: Chronic kidney disease stage 3 subtype: stage 3b (GFR 30-44) Code(s): N18.9 - Chronic kidney disease, unspecified Status: Acute Assessment and Plan: CKD stage 3b. Creatinine tends to run 1.4-1.6 * IV fluids initially held yesterday once he was tolerating a clear liquid diet. Blood pressures were elevated as well so fluids were stopped. * Cr bump from 1.5 to 1.8 today * Intake for yesterday is only 660 ml, output is 1 documented occurrence * Restarted NS at 75 ml per hour * Holding his Lasix dose for today * Monitor BMP daily Plan Diet: Clear liquids, NPO at midnight. DVT Prophylaxis: SCDs, Lovenox. Eliquis to resume when okay with surgery Lines: Peripheral Code Status: FULL Code Disposition: 73-year-old male who presents with abdominal tender wrist to the right lower quadrant. CT abdomen pelvis shows acute appendicitis versus possible mass. He is POD 2 from right hemicolectomy. Awaiting return of bowel function. Clear liquid diet. Anticipating discharge after the weekend. Subjective Date/time seen: 11/04/23 07:21 Interval history: 73 y/o M presents here with abdominal swelling with PMH of arthritis, hyperlipidemia, hypertension, and insomnia who presents here from home for further evaluation of right lower abdominal swelling. 10/31: Patient is seen resting in bed with his family at bedside. He complains of right lower quadrant tenderness but no significant abdominal pain. He denies nausea or vomiting. He does complain of a flat macular rash to his bilateral upper extremities that is itching. He states it started approximately 5 days ago. He has been putting hydrocortisone cream on it and he feels like this is helping. He denies any recent medication changes, new foods, or changes to his detergents. 11/01: No acute events overnight. Patient is going for surgery today for lap appendectomy. He denies any increase in abdominal pain, no nausea, or vomiting. He did have an increase in his white blood cell count. 11/02: No acute events overnight. Patient is postop day 1 from laparoscopic right hemicolectomy. He is having some distention, belching, and abdominal pain. Tolerating a clear liquid diet. 11/03: He looks tired today. He says he is still having some abdominal pain with distention. He is belching. No bowel movement. He he said he passed a small amount of gas. He says he did not drink much yesterday at all. He is on IV fluids today given creatinine bump and poor intake. Encouraged him to be out of bed and up and walking today. Review of Systems Review of Systems: All systems reviewed & are unremarkable except as noted in HPI and below Exam Narrative: General: well appearing, appears stated age. HEENT: normocephalic, atraumatic. Mucous membranes moist. EOMI, PERRLA, bilateral sclera anicteric, no conjunctival injection. Neck supple without JVD, lymphadenopathy, or bruit. Respiratory: clear to auscultation bilaterally. No rales/rhonic/wheezes. Cardiovascular: Regular rate and rhythm, normal S1-S2 upon auscultation. No murmurs, rubs, or clicks. PMI is nondisplaced, capillary refill less than 3 second. Abdomen: Soft, round, obese, no pulsatile masses, nondistended and mildly tender. No rebound, no guarding. No CVA tenderness, no hepatosplenomegaly. Bowel sounds present to all four quadrants. No high pitch or tinkling sounds, resonant to percussion. Extremities: No cyanosis, clubbing, or edema present. Pulses are palpable 2/2. Active ROM to all four extremities. Neuro: Alert and orientated x 4. PERRLA. Cranial nerves 2-12 intact without focal deficit. Skin: Warm, dry, and intact, bilateral macular rash to upper extremities. Lines: PIV Incisions: Small midline incision with 3 laparoscopic incisions all Dermabonded and well approximated. No signs and symptoms of infection. Psych: pleasant, cooperative, normal speech, normal affect, no hallucinations, no dysarthria Objective Data Vital Signs Vital Signs: Vital Signs - 24 hr 11/03/23 09:41 11/03/23 09:36 11/03/23 12:42 Temperature Pulse Rate 62 Respiratory Rate Blood Pressure Pulse Oximetry 97 94 Oxygen Delivery Nasal Cannula Room Air Oxygen Flow Rate 1 11/03/23 12:47 11/03/23 17:40 11/03/23 19:23 Temperature 97.1 F L 98.0 F 98.0 F Pulse Rate 59 L 65 60 Respiratory Rate 18 18 20 Blood Pressure 116/53 L 153/57 H 178/66 H Pulse Oximetry 94 93 95 Oxygen Delivery Oxygen Flow Rate 11/03/23 20:32 11/03/23 20:30 11/03/23 22:41 Temperature 97.4 F L Pulse Rate 60 60 Respiratory Rate 18 Blood Pressure 145/52 H Pulse Oximetry 97 Oxygen Delivery Nasal Cannula Oxygen Flow Rate 1 11/04/23 04:35 11/03/23 21:35 Temperature 97.7 F Pulse Rate 67 Respiratory Rate 20 Blood Pressure 184/65 H Pulse Oximetry 98 96 Oxygen Delivery Nasal Cannula Oxygen Flow Rate 1 Intake/Output Intake/Output: Intake & Output 11/01/23 11/02/23 11/03/23 11/04/23 23:59 23:59 23:59 23:59 Intake Total 3061.7 2140 840 300 Output Total 200 1 Balance 3061.7 1940 840 299 Meds/Results Medications: Active Medications Generic Name Dose Route Start Last Admin Trade Name Freq PRN Reason Stop Dose Admin Acetaminophen 650 mg 11/02/23 18:00 11/04/23 06:33 Acetaminophen 325 Mg Tablet PO 650 mg Q6HR JAMES Administration Calcitriol 0.25 mcg 11/01/23 09:00 11/03/23 09:40 Calcitriol 0.25 Mcg Capsule PO 0.25 mcg DAILY JAMES Administration Carvedilol 12.5 mg 10/31/23 21:00 11/03/23 20:32 Carvedilol 12.5 Mg Tablet PO 12.5 mg Q12HR JAMES Administration Clonidine HCl 0.2 mg 10/31/23 21:00 11/03/23 20:31 Clonidine Hcl 0.2 Mg Tablet PO 0.2 mg Q12HR JAMES Administration Donepezil HCl 5 mg 10/31/23 21:00 11/03/23 20:31 Donepezil Hcl 5 Mg Tablet PO 5 mg HS JAMES Administration Enoxaparin Sodium 40 mg 11/03/23 09:00 11/03/23 09:41 Enoxaparin 40 Mg/0.4 Ml Syringe SUB-Q 40 mg DAILY JAMES Administration Furosemide 80 mg 11/01/23 09:00 11/03/23 09:42 Furosemide 80 Mg Tablet PO 80 mg DAILY JAMES Administration Hydralazine HCl 50 mg 10/31/23 21:00 11/03/23 20:32 Hydralazine Hcl 50 Mg Tablet PO 50 mg Q12HR JAMES Administration Hydralazine HCl 10 mg 11/02/23 07:53 11/03/23 00:32 Hydralazine Hcl 20 Mg/Ml Vial IV PUSH 10 mg Q8H PRN Administration Blood Pressure - High Losartan Potassium 50 mg 11/04/23 09:00 Losartan Potassium 50 Mg Tablet PO DAILY JAMES Morphine Sulfate 2 mg 11/02/23 15:55 11/03/23 04:46 Morphine Sulfate (*Crx) 2 Mg/Ml Inj IV PUSH 2 mg Q2H PRN Administration Breakthrough Pain Rated 4-6 or NPO Morphine Sulfate 4 mg 11/02/23 15:55 Morphine Sulfate (*Crx) 4 Mg/Ml Inj IV PUSH Q2H PRN Breakthrough Pain Rated 7-10 or NPO Naloxone HCl 0.1 mg 11/02/23 15:55 Naloxone Hcl 0.4 Mg/Ml Vial IV PUSH Q2M PRN Opiate Reversal Ondansetron HCl 4 mg 10/31/23 17:04 Ondansetron Inj 4 Mg/2 Ml Vial IV PUSH Q6H PRN Nausea And Vomiting Oxycodone HCl 2.5 mg 11/02/23 15:55 11/03/23 16:27 Oxycodone Hcl (*Crx) 2.5 Mg Tab Ir PO 2.5 mg Q4H PRN Administration Pain Rated 4-6 Oxycodone HCl 5 mg 11/02/23 15:55 11/03/23 06:46 Oxycodone Hcl (*Crx) 5 Mg Tab Ir PO 5 mg Q4H PRN Administration Pain Rated 7-10 Trazodone HCl 50 mg 10/31/23 21:00 11/03/23 20:31 Trazodone Hcl 50 Mg Tablet PO 50 mg HS JAMES Administration Radiology Results: ITS Impressions Abdomen/Pelvis CT 10/31/23 15:44 IMPRESSION: 1. Wall thickening with adjacent fat stranding involving the cecum and base of the appendix with dilatation of the appendix, consistent with acute appendicitis and/or malignancy. Labs Labs: Laboratory Results - last 24 hr 11/03/23 11/04/23 06:45 04:30 WBC 15.3 H 9.6 RBC 4.05 L 3.80 L Hgb 11.2 L 10.3 L Hct 36.9 L 35.2 L MCV 91.1 92.6 MCH 27.7 27.1 MCHC 30.4 L 29.3 L RDW 14.7 H 14.7 H Plt Count 416 H 331 MPV 9.4 9.7 Immature Gran % (Auto) 0.5 0.4 Neut % (Auto) 85.8 H 80.5 H Lymph % (Auto) 4.9 L 10.8 L [place] % (Auto) 8.7 H 8.2 Eos % (Auto) 0.0 0.0 Baso % (Auto) 0.1 L 0.1 L Lymph # (Auto) 0.75 L 1.04 [place] # (Auto) 1.3 H 0.8 H Eos # (Auto) 0.0 0.0 Baso # (Auto) 0.0 0.0 Abs Immat Gran (auto) 0.07 H 0.04 H Absolute Neuts (auto) 13.2 H 7.8 H Absolute Nucleated RBC 0.000 0.000 Nucleated RBC % 0.0 0.0 Platelet Estimate Adequate Hypochromasia 1+ Poikilocytosis 1+ Anisocytosis 1+ Ovalocytes 1+ Schistocytes None seen Sodium 139 Potassium 4.4 Chloride 102 Carbon Dioxide 31 H Anion Gap 6 BUN 33 H Creatinine 1.80 H Estim Creat Clear Calc 40 Estimated GFR 37 L Glucose 93 Calcium 8.7 Total Bilirubin 0.3 AST 28 ALT 16 Alkaline Phosphatase 55 Total Protein 6.0 L Albumin 3.2 L Carcinoembryonic Ag 2.4 Quality VTE Prophylaxis VTE prophylaxis: mechanical ordered
[2023-11-04] MEDS: carvediloL 12.5 MG TABLET PO ×2 (08:31→20:58)
[2023-11-04] MEDS: calcitrioL 0.25 MCG CAPSULE PO (08:31)
[2023-11-04] MEDS: hydrALAZINE HCL 50 MG TABLET PO ×2 (08:31→20:58)
[2023-11-04] MEDS: cloNIDine HCL 0.2 MG TABLET PO ×2 (08:31→20:58)
[2023-11-04] MEDS: LOSARTAN POTASSIUM 50 MG TABLET PO ×2 (08:31→18:04)
[2023-11-04] MEDS: SODIUM CHLORIDE 0.9% IV 1,000 ML 75 ML IV CONT (08:32)
[2023-11-04] MEDS: ENOXAPARIN 40 MG/0.4 ML SYRINGE SUB-Q (08:32)
--- NOTE | 2023-11-04 10:27 | P.PNGS_ITS ---
Progress Note: A&P Assessment and Plan (1) Cecum mass: Code(s): K63.89 - Other specified diseases of intestine Status: Acute Assessment and Plan: Pathology pending. Has great bowel sounds and minimal tenderness. Will advance to soft diet. Ambulate at least 3 times today. Seems to be doing well. (2) Anticoagulant long-term use: Code(s): Z79.01 - custodial (current) use of anticoagulants Status: Acute Assessment and Plan: Continue to hold (3) Chronic kidney disease: Qualifiers: Chronic kidney disease stage 3 subtype: stage 3b (GFR 30-44) Code(s): N18.9 - Chronic kidney disease, unspecified Status: Acute Assessment and Plan: Creatinine a little higher today, will give some saline. Subjective Subjective Date/Time Seen: 11/04/23 10:27 Post Op day: 1 Patient reports: no new complaints, still having pain, tolerating liquids well, voiding w/o difficulty, flatus, no bowel movement and afebrile Exam Const: General: comfortable, no acute distress, tired appearing and overweight Orientation/consciousness: patient oriented x3 and No confusion GI: Inspection: non-distended and incision (Dry and healing) GI Palp: Yes Soft to palpation, Yes Tenderness to palpation present (GI) (Appropriate), No Guarding due to palpation present (GI) and No Rebound tenderness present Auscultation: normoactive bowel sounds Neuro: General: patient oriented x3 and no focal motor deficits Extrem: General: no calf tenderness and no edema Psych: Affect: normal affect Insight: Good insight present (Psych) Judgement: Good judgement present (Psych) Objective Data Vital Signs Vital Signs: Vital Signs - 24 hr 11/03/23 12:42 11/03/23 12:47 11/03/23 17:40 Temperature 36.2 C L 36.7 C Pulse Rate 59 L 65 Respiratory Rate 18 18 Blood Pressure 116/53 L 153/57 H Pulse Oximetry 94 94 93 Oxygen Delivery Room Air Oxygen Flow Rate 11/03/23 19:23 11/03/23 20:32 11/03/23 20:30 Temperature 36.7 C Pulse Rate 60 60 Respiratory Rate 20 Blood Pressure 178/66 H Pulse Oximetry 95 Oxygen Delivery Nasal Cannula Oxygen Flow Rate 1 11/03/23 22:41 11/04/23 04:35 11/03/23 21:35 Temperature 36.3 C L 36.5 C Pulse Rate 60 67 Respiratory Rate 18 20 Blood Pressure 145/52 H 184/65 H Pulse Oximetry 97 98 96 Oxygen Delivery Nasal Cannula Oxygen Flow Rate 1 11/04/23 07:45 11/04/23 08:00 11/04/23 08:31 Temperature 36.7 C Pulse Rate 73 73 Respiratory Rate 18 Blood Pressure 189/59 H Pulse Oximetry 96 97 Oxygen Delivery Nasal Cannula Oxygen Flow Rate 1 11/04/23 08:30 Temperature Pulse Rate Respiratory Rate Blood Pressure Pulse Oximetry 97 Oxygen Delivery Nasal Cannula Oxygen Flow Rate 1 Intake/Output Intake/Output: Intake & Output 11/01/23 11/02/23 11/03/23 11/04/23 23:59 23:59 23:59 23:59 Intake Total 3061.7 2140 840 300 Output Total 200 1 Balance 3061.7 1940 840 299 Meds/Results Medications: Active Medications Generic Name Dose Route Start Last Admin Trade Name Freq PRN Reason Stop Dose Admin Acetaminophen 650 mg 11/02/23 18:00 11/04/23 06:33 Acetaminophen 325 Mg Tablet PO 650 mg Q6HR JAMES Administration Calcitriol 0.25 mcg 11/01/23 09:00 11/04/23 08:31 Calcitriol 0.25 Mcg Capsule PO 0.25 mcg DAILY JAMES Administration Carvedilol 12.5 mg 10/31/23 21:00 11/04/23 08:31 Carvedilol 12.5 Mg Tablet PO 12.5 mg Q12HR JAMES Administration Clonidine HCl 0.2 mg 10/31/23 21:00 11/04/23 08:31 Clonidine Hcl 0.2 Mg Tablet PO 0.2 mg Q12HR JAMES Administration Donepezil HCl 5 mg 10/31/23 21:00 11/03/23 20:31 Donepezil Hcl 5 Mg Tablet PO 5 mg HS JAMES Administration Enoxaparin Sodium 40 mg 11/03/23 09:00 11/04/23 08:32 Enoxaparin 40 Mg/0.4 Ml Syringe SUB-Q 40 mg DAILY JAMES Administration Furosemide 80 mg 11/01/23 09:00 11/03/23 09:42 Furosemide 80 Mg Tablet PO 80 mg DAILY JAMES Administration Hydralazine HCl 50 mg 10/31/23 21:00 11/04/23 08:31 Hydralazine Hcl 50 Mg Tablet PO 50 mg Q12HR JAMES Administration Hydralazine HCl 10 mg 11/02/23 07:53 11/03/23 00:32 Hydralazine Hcl 20 Mg/Ml Vial IV PUSH 10 mg Q8H PRN Administration Blood Pressure - High Sodium Chloride 1,000 mls @ 75 mls/hr 11/04/23 07:30 11/04/23 08:32 Normal Saline Iv IV CONT 75 mls/hr .[id number] JAMES Administration Losartan Potassium 50 mg 11/04/23 09:00 11/04/23 08:31 Losartan Potassium 50 Mg Tablet PO 50 mg BID JAMES Administration Morphine Sulfate 2 mg 11/02/23 15:55 11/03/23 04:46 Morphine Sulfate (*Crx) 2 Mg/Ml Inj IV PUSH 2 mg Q2H PRN Administration Breakthrough Pain Rated 4-6 or NPO Morphine Sulfate 4 mg 11/02/23 15:55 Morphine Sulfate (*Crx) 4 Mg/Ml Inj IV PUSH Q2H PRN Breakthrough Pain Rated 7-10 or NPO Naloxone HCl 0.1 mg 11/02/23 15:55 Naloxone Hcl 0.4 Mg/Ml Vial IV PUSH Q2M PRN Opiate Reversal Ondansetron HCl 4 mg 10/31/23 17:04 Ondansetron Inj 4 Mg/2 Ml Vial IV PUSH Q6H PRN Nausea And Vomiting Oxycodone HCl 2.5 mg 11/02/23 15:55 11/03/23 16:27 Oxycodone Hcl (*Crx) 2.5 Mg Tab Ir PO 2.5 mg Q4H PRN Administration Pain Rated 4-6 Oxycodone HCl 5 mg 11/02/23 15:55 11/03/23 06:46 Oxycodone Hcl (*Crx) 5 Mg Tab Ir PO 5 mg Q4H PRN Administration Pain Rated 7-10 Trazodone HCl 50 mg 10/31/23 21:00 11/03/23 20:31 Trazodone Hcl 50 Mg Tablet PO 50 mg HS JAMES Administration Radiology Results: ITS Impressions Abdomen/Pelvis CT 10/31/23 15:44 IMPRESSION: 1. Wall thickening with adjacent fat stranding involving the cecum and base of the appendix with dilatation of the appendix, consistent with acute appendicitis and/or malignancy. Labs Labs: Laboratory Results - last 24 hr 09/07/24 04:30 WBC 9.6 RBC 3.80 L Hgb 10.3 L Hct 35.2 L MCV 92.6 MCH 27.1 MCHC 29.3 L RDW 14.7 H Plt Count 331 MPV 9.7 Immature Gran % (Auto) 0.4 Neut % (Auto) 80.5 H Lymph % (Auto) 10.[address] [facility] % (Auto) 8.2 Eos % (Auto) 0.0 Baso % (Auto) 0.1 L Lymph # (Auto) 1.04 [facility] # (Auto) 0.8 H Eos # (Auto) 0.0 Baso # (Auto) 0.0 Abs Immat Gran (auto) 0.04 H Absolute Neuts (auto) 7.8 H Absolute Nucleated RBC 0.000 Nucleated RBC % 0.0 Platelet Estimate Adequate Hypochromasia 1+ Poikilocytosis 1+ Anisocytosis 1+ Ovalocytes 1+ Schistocytes None seen Sodium 139 Potassium 4.4 Chloride 102 Carbon Dioxide 31 H Anion Gap 6 BUN 33 H Creatinine 1.80 H Estim Creat Clear Calc 40 Estimated GFR 37 L Glucose 93 Calcium 8.7 Total Bilirubin 0.3 AST 28 ALT 16 Alkaline Phosphatase 55 Total Protein 6.0 L Albumin 3.2 L
[2023-11-04] MEDS: DONEPEZIL HCL 5 MG TABLET PO (20:57)
[2023-11-04] MEDS: traZODone HCL 50 MG TABLET PO (20:58)
[2023-11-04] MEDS: oxyCODONE HCL (*CRX) 5 MG TAB IR PO (21:02)
[2023-11-04] MEDS: SODIUM CHLORIDE 0.9% IV 1,000 ML 80 ML IV CONT (21:30)
[2023-11-05] VITALS (11 sets, daily range): BP systolic 125–190; BP diastolic 45–66; PULSE 60–72; RESP 18–20; TEMP 36.1–37.1; O2SAT 95–98
[2023-11-05] MEDS: hydrALAZINE HCL 20 MG/ML VIAL 10 MG IV PUSH (04:48)
[2023-11-05 04:59] LABS: Basophils Percent Auto 0.2 % (0.2-1.2); Eosinophils Percent Auto 0.4 % (0-4.4); Hematocrit 32.4 % (42.0-52.0); Hemoglobin 9.8 g/dL (14.0-18.0); Immature Granulocyte Absolute 0.05 K/mm3 (0.00-0.031); Immature Granulocyte Percent A 0.5 % (0-0.5); Lymphocytes Percent Auto 8.4 % (18.3-44.2); Mean Corpuscular HGB Conc 30.2 g/dl (32-36); Mean Corpuscular Volume 92.6 fl (80-100); Mean Platelet Volume 9.9 fl (7.4-10.4); Monocytes Absolute Auto 0.9 K/mm3 (0.1-0.6); Monocytes Percent Auto 8.3 % (2.6-8.5); Neutrophils Absolute Auto 8.8 K/mm3 (1.3-6.7); Neutrophils Percent Auto 82.2 % (45.5-73.1); Platelet Count Result 301 k/mm3 (150-375); Red Cell Distribution Width 14.7 % (11.5-14.5); White Blood Count 10.7 K/mm3 (4.5-10.0)
[2023-11-05 05:12] LABS: Alanine Aminotransferase 13 U/L (6-50); Alkaline Phosphatase 48 U/L (38-126); Anion Gap 3 mmol/L (4-12); Aspartate Amino Transferase 19 U/L (17-59); Bilirubin,Total 0.2 mg/dL (0.2-1.3); Blood Urea Nitrogen 29 mg/dL (9-20); Calcium 8.6 mg/dL (8.4-10.2); Carbon Dioxide 32 mmol/L (22-30); Chloride 104 mmol/L (98-107); Estimated CRCL calculation 54 ml/min; Estimated Glomerular Filt Rate 54; Glucose 103 mg/dL (65-110); Potassium 4.1 mmol/L (3.4-5.0); Sodium 139 mmol/L (137-145)
[2023-11-05] MEDS: ACETAMINOPHEN 325 MG TABLET 650 MG PO ×3 (06:17→17:28)
--- NOTE | 2023-11-05 06:44 | P.PNIM_ITS ---
Progress Note: A&P Assessment and Plan (1) Acute appendicitis: Qualifiers: Acute appendicitis type: unspecified acute appendicitis type Qualified Code(s): K35.80 - Unspecified acute appendicitis Code(s): K35.80 - Unspecified acute appendicitis Status: Acute Assessment and Plan: - CT abdomen/pelvis: Wall thickening with adjacent fat stranding involving the cecum and base of the appendix with dilatation of the appendix, consistent with acute appendicitis and/or malignancy. - general surgery consulted, awaiting formal recs - started on ceftriaxone and metronidazole on 10/30. Antibiotics stopped after surgery. - POD 3 from right hemicolectomy - Diet was advanced yesterday to low fiber - Pain control with PRN oxycodone and morphine for breakthrough - Anticipate bowel regimen when okay with surgery - DVT prophylaxis with SCD and Lovenox. Restart Eliquis when okay with surgery - still requiring 1 L oxygen. - Incentive spirometer - up to chair for meals (2) Hypertension: Qualifiers: Hypertension type: primary hypertension Qualified Code(s): I10 - Essential (primary) hypertension Code(s): I10 - Essential (primary) hypertension Status: Acute Assessment and Plan: - chronic, currently 176/62 mm hg - continue home medications: clonidine 0.2 mg b.i.d., Coreg 12.5 mg BID, Lasix 80 mg daily, hydralazine 50 mg b.i.d., losartan 25 mg daily. - monitor blood pressures daily. - PRN hydralazine 10 mg every 8 hours for SBP > 170 mm hg - persistent HTN in the 180-190's mm hg - increasing Losartan 25mg to 50 mg BID, Coreg to 25 mg BID (3) Chronic kidney disease: Qualifiers: Chronic kidney disease stage 3 subtype: stage 3b (GFR 30-44) Code(s): N18.9 - Chronic kidney disease, unspecified Status: Acute Assessment and Plan: CKD stage 3b. Creatinine tends to run 1.4-1.6 * IV fluids initially held yesterday once he was tolerating a clear liquid diet. Blood pressures were elevated as well so fluids were stopped. * Cr bump from 1.5 to 1.8. Cr 1.3 today. * He is drinking more fluids today * D/c'd fluids and resuming lasix today * Monitor BMP daily (4) Rash: Code(s): R21 - Rash and other nonspecific skin eruption Status: Acute Assessment and Plan: Macular-papular rash to bilateral upper extremities - unclear etiology - no new medication changes, no new foods, no changes to detergents - improving, nearly resolved RESOLVED Plan Diet: Clear liquids, NPO at midnight. DVT Prophylaxis: SCDs, Lovenox. Eliquis to resume when okay with surgery Lines: Peripheral Code Status: FULL Code Disposition: 73-year-old male who presents with abdominal tender wrist to the right lower quadrant. CT abdomen pelvis shows acute appendicitis versus possible mass. He is POD 2 from right hemicolectomy. Awaiting return of bowel function. Clear liquid diet. Anticipating discharge after the weekend. Subjective Date/time seen: 11/05/23 06:44 Interval history: 73 y/o M presents here with abdominal swelling with PMH of arthritis, hyperlipidemia, hypertension, and insomnia who presents here from home for f urther evaluation of right lower abdominal swelling. 10/31: Patient is seen resting in bed with his family at bedside. He complains of right lower quadrant tenderness but no significant abdominal pain. He denies nausea or vomiting. He does complain of a flat macular rash to his bilateral upper extremities that is itching. He states it started approximately 5 days ago. He has been putting hydrocortisone cream on it and he feels like this is helping. He denies any recent medication changes, new foods, or changes to his detergents. 11/01: No acute events overnight. Patient is going for surgery today for lap appendectomy. He denies any increase in abdominal pain, no nausea, or vomiting. He did have an increase in his white blood cell count. 11/02: No acute events overnight. Patient is postop day 1 from laparoscopic right hemicolectomy. He is having some distention, belching, and abdominal pain. Tolerating a clear liquid diet. 11/03: He looks tired today. He says he is still having some abdominal pain with distention. He is belching. No bowel movement. He he said he passed a small amount of gas. He says he did not drink much yesterday at all. He is on IV fluids today given creatinine bump and poor intake. Encouraged him to be out of bed and up and walking today. 11/04: No acute events overnight. He is tolerating full liquid diet. He says he is having less belching and passed more flatus. He was up to the chair for a couple of hours yesterday and ambulated twice in the halls. I attempted to wean his oxygen this morning. During our conversation he was sating 95% on room air. Later in morning nursing spot checked and he was 88% on room air and needed to be placed back on 1 L NC. Review of Systems Review of Systems: All systems reviewed & are unremarkable except as noted in HPI and below Exam Narrative: General: well appearing, appears stated age. HEENT: normocephalic, atraumatic. Mucous membranes moist. EOMI, PERRLA, bilateral sclera anicteric, no conjunctival injection. Neck supple without JVD, lymphadenopathy, or bruit. Respiratory: clear to auscultation with diminished bases bilaterally. No rales/rhonic/wheezes. Cardiovascular: Regular rate and rhythm, normal S1-S2 upon auscultation. No murmurs, rubs, or clicks. PMI is nondisplaced, capillary refill less than 3 second. Abdomen: Soft, round, obese, no pulsatile masses, nondistended and mildly tender. No rebound, no guarding. No CVA tenderness, no hepatosplenomegaly. Bowel sounds present to all four quadrants. No high pitch or tinkling sounds, resonant to percussion. Extremities: No cyanosis, clubbing, or edema present. Pulses are palpable 2/2. Active ROM to all four extremities. Neuro: Alert and orientated x 4. PERRLA. Cranial nerves 2-12 intact without focal deficit. Skin: Warm, dry, and intact, bilateral macular rash to upper extremities. Lines: PIV Incisions: Small midline incision with 3 laparoscopic incisions all [place] bonded and well approximated. No signs and symptoms of infection. Psych: pleasant, cooperative, normal speech, normal affect, no hallucinations, no dysarthria Objective Data Vital Signs Vital Signs: Vital Signs - 24 hr 11/04/23 07:45 11/04/23 08:00 11/04/23 08:31 Temperature 98.0 F Pulse Rate 73 73 Respiratory Rate 18 Blood Pressure 189/59 H Pulse Oximetry 96 97 Oxygen Delivery Nasal Cannula Oxygen Flow Rate 1 11/04/23 08:30 11/04/23 12:00 11/04/23 16:00 Temperature 97.7 F 97.5 F L Pulse Rate 73 71 Respiratory Rate 18 18 Blood Pressure 120/45 L 179/64 H Pulse Oximetry 97 98 98 Oxygen Delivery Nasal Cannula Oxygen Flow Rate 1 11/04/23 19:53 11/04/23 20:58 11/04/23 20:00 Temperature 98.6 F Pulse Rate 68 66 Respiratory Rate 20 Blood Pressure 190/66 H Pulse Oximetry 99 99 Oxygen Delivery Nasal Cannula Oxygen Flow Rate 1 11/05/23 00:00 11/05/23 04:00 Temperature 98 F 98.8 F Pulse Rate 68 72 Respiratory Rate 20 20 Blood Pressure 165/60 H 190/66 H Pulse Oximetry 98 96 Oxygen Delivery Oxygen Flow Rate Intake/Output Intake/Output: Intake & Output 11/02/23 11/03/23 11/04/23 11/05/23 23:59 23:59 23:59 23:59 Intake Total 2140 840 2220 300 Output Total 200 1 Balance 3053 485 2357 300 Meds/Results Medications: Active Medications Generic Name Dose Route Start Last Admin Trade Name Fritzq PRN Reason Stop Dose Admin Acetaminophen 650 mg 11/02/23 18:00 11/05/23 06:17 Acetaminophen 325 Mg Tablet PO 650 mg Q6HR JAMES Administration Calcitriol 0.25 mcg 11/01/23 09:00 11/04/23 08:31 Calcitriol 0.25 Mcg Capsule PO 0.25 mcg DAILY JAMES Administration Carvedilol 25 mg 11/05/23 09:00 Carvedilol 12.5 Mg Tablet PO Q12HR JAMES Clonidine HCl 0.2 mg 10/31/23 21:00 11/04/23 20:58 Clonidine Hcl 0.2 Mg Tablet PO 0.2 mg Q12HR JAMES Administration Donepezil HCl 5 mg 10/31/23 21:00 11/04/23 20:57 Donepezil Hcl 5 Mg Tablet PO 5 mg HS JAMES Administration Enoxaparin Sodium 40 mg 11/03/23 09:00 11/04/23 08:32 Enoxaparin 40 Mg/0.4 Ml Syringe SUB-Q 40 mg DAILY JAMES Administration Furosemide 80 mg 11/01/23 09:00 11/03/23 09:42 Furosemide 80 Mg Tablet PO 80 mg DAILY JAMES Administration Hydralazine HCl 50 mg 10/31/23 21:00 11/04/23 20:58 Hydralazine Hcl 50 Mg Tablet PO 50 mg Q12HR JAMES Administration Hydralazine HCl 10 mg 11/02/23 07:53 11/05/23 04:48 Hydralazine Hcl 20 Mg/Ml Vial IV PUSH 10 mg Q8H PRN Administration Blood Pressure - High Sodium Chloride 1,000 mls @ 80 mls/hr 11/04/23 07:30 11/04/23 21:30 Normal Saline Iv IV CONT 80 mls/hr .[id number] JAMES Administration Losartan Potassium 50 mg 11/04/23 09:00 11/04/23 18:04 Losartan Potassium 50 Mg Tablet PO 50 mg BID JAMES Administration Morphine Sulfate 2 mg 11/02/23 15:55 11/03/23 04:46 Morphine Sulfate (*Crx) 2 Mg/Ml Inj IV PUSH 2 mg Q2H PRN Administration Breakthrough Pain Rated 4-6 or NPO Morphine Sulfate 4 mg 11/02/23 15:55 Morphine Sulfate (*Crx) 4 Mg/Ml Inj IV PUSH Q2H PRN Breakthrough Pain Rated 7-10 or NPO Naloxone HCl 0.1 mg 11/02/23 15:55 Naloxone Hcl 0.4 Mg/Ml Vial IV PUSH Q2M PRN Opiate Reversal Ondansetron HCl 4 mg 10/31/23 17:04 Ondansetron Inj 4 Mg/2 Ml Vial IV PUSH Q6H PRN Nausea And Vomiting Oxycodone HCl 2.5 mg 11/02/23 15:55 11/03/23 16:27 Oxycodone Hcl (*Crx) 2.5 Mg Tab Ir PO 2.5 mg Q4H PRN Administration Pain Rated 4-6 Oxycodone HCl 5 mg 11/02/23 15:55 11/04/23 21:02 Oxycodone Hcl (*Crx) 5 Mg Tab Ir PO 5 mg Q4H PRN Administration Pain Rated 7-10 Trazodone HCl 50 mg 10/31/23 21:00 11/04/23 20:58 Trazodone Hcl 50 Mg Tablet PO 50 mg HS JAMES Administration Radiology Results: ITS Impressions Abdomen/Pelvis CT 10/31/23 15:44 IMPRESSION: 1. Wall thickening with adjacent fat stranding involving the cecum and base of the appendix with dilatation of the appendix, consistent with acute appendicitis and/or malignancy. Labs Labs: Laboratory Results - last 24 hr 11/05/23 04:26 WBC 10.7 H RBC 3.50 L Hgb 9.8 L Hct 32.4 L MCV 92.6 MCH 28.0 MCHC 30.2 L RDW 14.7 H Plt Count 301 MPV 9.9 Immature Gran % (Auto) 0.5 Neut % (Auto) 82.2 H Lymph % (Auto) 8.4 L [place] % (Auto) 8.3 Eos % (Auto) 0.4 Baso % (Auto) 0.2 Lymph # (Auto) 0.90 [place] # (Auto) 0.9 H Eos # (Auto) 0.0 Baso # (Auto) 0.0 Abs Immat Gran (auto) 0.05 H Absolute Neuts (auto) 8.8 H Absolute Nucleated RBC 0.000 Nucleated RBC % 0.0 Sodium 139 Potassium 4.1 Chloride 104 Carbon Dioxide 32 H Anion Gap 3 L BUN 29 H Creatinine 1.30 Estim Creat Clear Calc 54 Estimated GFR 54 L Glucose 103 Calcium 8.6 Total Bilirubin 0.2 AST 19 ALT 13 Alkaline Phosphatase 48 Total Protein 6.0 L Albumin 3.0 L Quality VTE Prophylaxis VTE prophylaxis: mechanical ordered
[2023-11-05] MEDS: carvediloL 12.5 MG TABLET 25 MG PO ×2 (07:33→20:53)
[2023-11-05] MEDS: LOSARTAN POTASSIUM 50 MG TABLET PO ×2 (07:33→17:28)
[2023-11-05] MEDS: cloNIDine HCL 0.2 MG TABLET PO ×2 (07:33→20:53)
[2023-11-05] MEDS: hydrALAZINE HCL 50 MG TABLET PO ×2 (07:35→20:53)
[2023-11-05] MEDS: ENOXAPARIN 40 MG/0.4 ML SYRINGE SUB-Q (09:13)
[2023-11-05] MEDS: FUROSEMIDE 80 MG TABLET PO (09:13)
[2023-11-05] MEDS: calcitrioL 0.25 MCG CAPSULE PO (09:13)
--- NOTE | 2023-11-05 09:29 | PCPTNOTE ---
Patient reports he is walking with his and does not want to get up for breakfast right now. Physical therapy will check on the patient tomorrow as time allows.
--- NOTE | 2023-11-05 11:50 | PM.PNGS ---
Progress Note: A&P Assessment and Plan (1) Cecum mass: Code(s): K63.89 - Other specified diseases of intestine Status: Acute Assessment and Plan: Status post laparoscopic right colectomy. Pain is improving. He is tolerating solid food without difficulty. He normally walks with a cane but is getting up and walking with a walker. He is still slightly hypoxemic and on oxygen. He received his 80 mg of Lasix this morning. His IV fluids will be stopped. His creatinine has dropped significantly today to 1.3. Hypoxemia should resolve soon with IV fluids off and receiving his diuretic. (2) Chronic kidney disease: Qualifiers: Chronic kidney disease stage 3 subtype: stage 3b (GFR 30-44) Chronic kidney disease stage: stage 3 (moderate) Qualified Code(s): N18.32 - Chronic kidney disease, stage 3b Code(s): N18.9 - Chronic kidney disease, unspecified Status: Acute Assessment and Plan: Creatinine dropped significantly today to 1.3. (3) Anticoagulant long-term use: Code(s): Z79.01 - penitentiary (current) use of anticoagulants Status: Acute Assessment and Plan: Continue to hold Eliquis until tomorrow. (4) Cardiac arrhythmia: Code(s): I49.9 - Cardiac arrhythmia, unspecified Status: Chronic Assessment and Plan: No tachyarrhythmias. Subjective Subjective Date/Time Seen: 11/05/23 11:50 Post Op day: 2 Patient reports: feels better, pain is less, tolerating a regular diet, flatus, no bowel movement and afebrile Exam Const: General: comfortable and no acute distress Orientation/consciousness: patient oriented x3 GI: Inspection: incision (Dry and healing) GI Palp: Yes Soft to palpation, Yes Tenderness to palpation present (GI) and No Guarding due to palpation present (GI) Auscultation: normal bowel sounds Neuro: General: patient oriented x3 and no focal motor deficits Extrem: General: no calf tenderness and no edema Psych: Affect: normal affect Insight: Good insight present (Psych) Judgement: Good judgement present (Psych) Objective Data Vital Signs Vital Signs: Vital Signs - 24 hr 11/04/23 12:00 11/04/23 16:00 11/04/23 19:53 Temperature 36.5 C 36.4 C L 37.0 C Pulse Rate 73 71 68 Respiratory Rate 18 18 20 Blood Pressure 120/45 L 179/64 H 190/66 H Pulse Oximetry 98 98 99 Oxygen Delivery Oxygen Flow Rate Fraction of Inspired Oxygen 11/04/23 20:58 11/04/23 20:00 11/05/23 00:00 Temperature 36.6 C Pulse Rate 66 68 Respiratory Rate 20 Blood Pressure 165/60 H Pulse Oximetry 99 98 Oxygen Delivery Nasal Cannula Oxygen Flow Rate 1 Fraction of Inspired Oxygen 11/05/23 04:00 11/05/23 07:33 11/05/23 07:33 Temperature 37.1 C Pulse Rate 72 68 68 Respiratory Rate 20 Blood Pressure 190/66 H 182/56 H Pulse Oximetry 96 Oxygen Delivery Oxygen Flow Rate Fraction of Inspired Oxygen 11/05/23 08:36 11/05/23 08:00 11/05/23 09:12 Temperature 36.6 C Pulse Rate 71 Respiratory Rate 20 Blood Pressure 171/45 H Pulse Oximetry 95 96 95 Oxygen Delivery Nasal Cannula Nasal Cannula Oxygen Flow Rate 1 1 Fraction of Inspired Oxygen 24 Intake/Output Intake/Output: Intake & Output 11/02/23 11/03/23 11/04/23 11/05/23 23:59 23:59 23:59 23:59 Intake Total 2140 840 2220 300 Output Total 200 1 Balance 6854 362 2437 300 Meds/Results Medications: Active Medications Generic Name Dose Route Start Last Admin Trade Name Freq PRN Reason Stop Dose Admin Acetaminophen 650 mg 11/02/23 18:00 11/05/23 06:17 Acetaminophen 325 Mg Tablet PO 650 mg Q6HR JAMES Administration Calcitriol 0.25 mcg 11/01/23 09:00 11/05/23 09:13 Calcitriol 0.25 Mcg Capsule PO 0.25 mcg DAILY JAMES Administration Carvedilol 25 mg 11/05/23 09:00 11/05/23 07:33 Carvedilol 12.5 Mg Tablet PO 25 mg Q12HR JAMES Administration Clonidine HCl 0.2 mg 10/31/23 21:00 11/05/23 07:33 Clonidine Hcl 0.2 Mg Tablet PO 0.2 mg Q12HR JAMES Administration Donepezil HCl 5 mg 10/31/23 21:00 11/04/23 20:57 Donepezil Hcl 5 Mg Tablet PO 5 mg HS JAMES Administration Enoxaparin Sodium 40 mg 11/03/23 09:00 11/05/23 09:13 Enoxaparin 40 Mg/0.4 Ml Syringe SUB-Q 40 mg DAILY JAMES Administration Furosemide 80 mg 11/01/23 09:00 11/05/23 09:13 Furosemide 80 Mg Tablet PO 80 mg DAILY JAMES Administration Hydralazine HCl 50 mg 10/31/23 21:00 11/05/23 07:35 Hydralazine Hcl 50 Mg Tablet PO 50 mg Q12HR JAMES Administration Hydralazine HCl 10 mg 11/02/23 07:53 11/05/23 04:48 Hydralazine Hcl 20 Mg/Ml Vial IV PUSH 10 mg Q8H PRN Administration Blood Pressure - High Sodium Chloride 1,000 mls @ 80 mls/hr 11/04/23 07:30 11/04/23 21:30 Normal Saline Iv IV CONT 80 mls/hr .[id number] JAMES Administration Losartan Potassium 50 mg 11/04/23 09:00 11/05/23 07:33 Losartan Potassium 50 Mg Tablet PO 50 mg BID JAMES Administration Morphine Sulfate 2 mg 11/02/23 15:55 11/03/23 04:46 Morphine Sulfate (*Crx) 2 Mg/Ml Inj IV PUSH 2 mg Q2H PRN Administration Breakthrough Pain Rated 4-6 or NPO Morphine Sulfate 4 mg 11/02/23 15:55 Morphine Sulfate (*Crx) 4 Mg/Ml Inj IV PUSH Q2H PRN Breakthrough Pain Rated 7-10 or NPO Naloxone HCl 0.1 mg 11/02/23 15:55 Naloxone Hcl 0.4 Mg/Ml Vial IV PUSH Q2M PRN Opiate Reversal Ondansetron HCl 4 mg 10/31/23 17:04 Ondansetron Inj 4 Mg/2 Ml Vial IV PUSH Q6H PRN Nausea And Vomiting Oxycodone HCl 2.5 mg 11/02/23 15:55 11/03/23 16:27 Oxycodone Hcl (*Crx) 2.5 Mg Tab Ir PO 2.5 mg Q4H PRN Administration Pain Rated 4-6 Oxycodone HCl 5 mg 11/02/23 15:55 11/04/23 21:02 Oxycodone Hcl (*Crx) 5 Mg Tab Ir PO 5 mg Q4H PRN Administration Pain Rated 7-10 Trazodone HCl 50 mg 10/31/23 21:00 11/04/23 20:58 Trazodone Hcl 50 Mg Tablet PO 50 mg HS JAMES Administration Radiology Results: ITS Impressions Abdomen/Pelvis CT 10/31/23 15:44 IMPRESSION: 1. Wall thickening with adjacent fat stranding involving the cecum and base of the appendix with dilatation of the appendix, consistent with acute appendicitis and/or malignancy. Labs Labs: Laboratory Results - last 24 hr 11/05/23 04:26 WBC 10.7 H RBC 3.50 L Hgb 9.8 L Hct 32.4 L MCV 92.6 MCH 28.0 MCHC 30.2 L RDW 14.7 H Plt Count 301 MPV 9.9 Immature Gran % (Auto) 0.5 Neut % (Auto) 82.2 H Lymph % (Auto) 8.4 L [place] % (Auto) 8.3 Eos % (Auto) 0.4 Baso % (Auto) 0.2 Lymph # (Auto) 0.90 [place] # (Auto) 0.9 H Eos # (Auto) 0.0 Baso # (Auto) 0.0 Abs Immat Gran (auto) 0.05 H Absolute Neuts (auto) 8.8 H Absolute Nucleated RBC 0.000 Nucleated RBC % 0.0 Sodium 139 Potassium 4.1 Chloride 104 Carbon Dioxide 32 H Anion Gap 3 L BUN 29 H Creatinine 1.30 Estim Creat Clear Calc 54 Estimated GFR 54 L Glucose 103 Calcium 8.6 Total Bilirubin 0.2 AST 19 ALT 13 Alkaline Phosphatase 48 Total Protein 6.0 L Albumin 3.0 L
[2023-11-05] MEDS: DONEPEZIL HCL 5 MG TABLET PO (20:53)
[2023-11-05] MEDS: traZODone HCL 50 MG TABLET PO (20:53)
[2023-11-06] VITALS (8 sets, daily range): BP systolic 164–197; BP diastolic 45–67; PULSE 57–67; RESP 17–20; TEMP 36.2–36.7; O2SAT 93–100
[2023-11-06] MEDS: ACETAMINOPHEN 325 MG TABLET 650 MG PO ×4 (00:06→17:37)
[2023-11-06] MEDS: hydrALAZINE HCL 20 MG/ML VIAL 10 MG IV PUSH ×2 (05:42→13:12)
[2023-11-06 06:11] LABS: Basophils Percent Auto 0.2 % (0.2-1.2); Eosinophils Absolute Auto 0.2 K/mm3 (0-0.3); Eosinophils Percent Auto 2.1 % (0-4.4); Hematocrit 34.2 % (42.0-52.0); Hemoglobin 10.3 g/dL (14.0-18.0); Immature Granulocyte Absolute 0.06 K/mm3 (0.00-0.031); Immature Granulocyte Percent A 0.6 % (0-0.5); Lymphocytes Absolute Auto 1.18 K/mm3 (0.9-3.2); Lymphocytes Percent Auto 11.7 % (18.3-44.2); Mean Corpuscular HGB Conc 30.1 g/dl (32-36); Mean Corpuscular Hemoglobin 27.5 pg (26-34); Mean Corpuscular Volume 91.2 fl (80-100); Mean Platelet Volume 9.6 fl (7.4-10.4); Monocytes Absolute Auto 0.8 K/mm3 (0.1-0.6); Monocytes Percent Auto 7.6 % (2.6-8.5); Neutrophils Absolute Auto 7.9 K/mm3 (1.3-6.7); Neutrophils Percent Auto 77.8 % (45.5-73.1); Platelet Count Result 345 k/mm3 (150-375); Red Blood Count 3.75 M/mm3 (4.6-6.20); Red Cell Distribution Width 14.6 % (11.5-14.5); White Blood Count 10.1 K/mm3 (4.5-10.0)
[2023-11-06 06:21] LABS: Alanine Aminotransferase 13 U/L (6-50); Albumin Level 3.2 g/dL (3.5-5.1); Alkaline Phosphatase 54 U/L (38-126); Anion Gap 5 mmol/L (4-12); Aspartate Amino Transferase 17 U/L (17-59); Bilirubin,Total 0.2 mg/dL (0.2-1.3); Blood Urea Nitrogen 22 mg/dL (9-20); Calcium 8.8 mg/dL (8.4-10.2); Carbon Dioxide 32 mmol/L (22-30); Chloride 102 mmol/L (98-107); Estimated CRCL calculation 63 ml/min; Estimated Glomerular Filt Rate > 60; Glucose 110 mg/dL (65-110); Sodium 139 mmol/L (137-145)
--- NOTE | 2023-11-06 08:10 | PM.IMPN ---
Progress Note: A&P Assessment and Plan (1) Acute appendicitis: Qualifiers: Acute appendicitis type: unspecified acute appendicitis type Qualified Code(s): K35.80 - Unspecified acute appendicitis Code(s): K35.80 - Unspecified acute appendicitis Status: Acute Assessment and Plan: - CT abdomen/pelvis: Wall thickening with adjacent fat stranding involving the cecum and base of the appendix with dilatation of the appendix, consistent with acute appendicitis and/or malignancy. - general surgery consulted, awaiting formal recs - started on ceftriaxone and metronidazole on 10/30. Antibiotics stopped after surgery. - POD 3 from right hemicolectomy - Diet was advanced yesterday to low fiber - Pain control with PRN oxycodone and morphine for breakthrough - Anticipate bowel regimen when okay with surgery - DVT prophylaxis with SCD and Lovenox. Restart Eliquis when okay with surgery - still requiring 1 L oxygen. Placed on room air this morning. I wouldn't be surprised if he sats with sleep. Likely needs KATLIN work up as an outpatient - Chest x-ray this morning given new onset cough. Pulmonary toilet encouraged. Discussed the importance of being up and out of bed during the day. Needs to be walking more. - Incentive spirometer - up to chair for meals (2) Hypertension: Qualifiers: Hypertension type: primary hypertension Qualified Code(s): I10 - Essential (primary) hypertension Code(s): I10 - Essential (primary) hypertension Status: Acute Assessment and Plan: - chronic, currently 176/62 mm hg - continue home medications: clonidine 0.2 mg b.i.d., Coreg 12.5 mg BID, Lasix 80 mg daily, hydralazine 50 mg b.i.d., losartan 25 mg daily. - monitor blood pressures daily. - PRN hydralazine 10 mg every 8 hours for SBP > 170 mm hg - persistent HTN in the 180-190's mm hg - increasing Losartan 25mg to 50 mg BID, Coreg to 25 mg BID - Required IV hydralazine this morning again. - Started Nifedipine 30 mg daily, stopping PO hydralazine (3) Chronic kidney disease: Qualifiers: Chronic kidney disease stage: stage 3 (moderate) Chronic kidney disease stage 3 subtype: stage 3b (GFR 30-44) Qualified Code(s): N18.32 - Chronic kidney disease, stage 3b Code(s): N18.9 - Chronic kidney disease, unspecified Status: Acute Assessment and Plan: CKD stage 3b. Creatinine tends to run 1.4-1.6 IV fluids initially held yesterday once he was tolerating a clear liquid diet. Blood pressures were elevated as well so fluids were stopped. Cr bump from 1.5 to 1.8. Cr 1.3 today. He is drinking more fluids today D/c'd fluids and resuming lasix today Monitor BMP daily (4) Rash: Code(s): R21 - Rash and other nonspecific skin eruption Status: Acute Assessment and Plan: Macular-papular rash to bilateral upper extremities - unclear etiology - no new medication changes, no new foods, no changes to detergents - improving, nearly resolved RESOLVED Plan Diet: Low fiber diet DVT Prophylaxis: SCDs, Lovenox. Eliquis to resume when okay with surgery Lines: Peripheral Code Status: FULL Code Disposition: 73-year-old male who presents with abdominal tender wrist to the right lower quadrant. CT abdomen pelvis shows acute appendicitis versus possible mass. He is POD 3 from right hemicolectomy. He is tolerating a diet and having bowel movements. He was still requiring oxygen later in the day. IS and pulmonary toilet encouraged. Chest x-ray this morning given new onset cough. Subjective Date/time seen: 11/06/23 08:10 Interval history: 73 y/o M presents here with abdominal swelling with PMH of arthritis, hyperlipidemia, hypertension, and insomnia who presents here from home for further evaluation of right lower abdominal swelling. 10/31: Patient is seen resting in bed with his family at bedside. He complains of right lower quadrant tenderness but no significant abdominal pain. He denies nausea or vomiting. He does complain of a flat macular rash to his bilateral upper extremities that is itching. He states it started approximately 5 days ago. He has been putting hydrocortisone cream on it and he feels like this is helping. He denies any recent medication changes, new foods, or changes to his detergents. 11/01: No acute events overnight. Patient is going for surgery today for lap appendectomy. He denies any increase in abdominal pain, no nausea, or vomiting. He did have an increase in his white blood cell count. 11/02: No acute events overnight. Patient is postop day 1 from laparoscopic right hemicolectomy. He is having some distention, belching, and abdominal pain. Tolerating a clear liquid diet. 11/03: He looks tired today. He says he is still having some abdominal pain with distention. He is belching. No bowel movement. He he said he passed a small amount of gas. He says he did not drink much yesterday at all. He is on IV fluids today given creatinine bump and poor intake. Encouraged him to be out of bed and up and walking today. 11/04: No acute events overnight. He is tolerating full liquid diet. He says he is having less belching and passed more flatus. He was up to the chair for a couple of hours yesterday and ambulated twice in the halls. I attempted to wean his oxygen this morning. During our conversation he was sating 95% on room air. Later in morning nursing spot checked and he was 88% on room air and needed to be placed back on 1 L NC. 11/05: No acute events overnight. He reports he had a bowel movement. Oxygen was shut off during my exam and he is sating 97% on room air. He does report a cough. I reiterated the importance of being up and out of the bed during the day, coughing, deep breathing, and IS. Will get a chest x-ray given this new onset cough. He was left on a pulse oximeter at the bedside and was instructed to call nursing if he had desaturation less than 90%. He may have an obstructive apnea that will require work up as an outpatient. Review of Systems Review of Systems: All systems reviewed & are unremarkable except as noted in HPI and below Exam Narrative: General: well appearing, appears stated age. HEENT: normocephalic, atraumatic. Mucous membranes moist. EOMI, PERRLA, bilateral sclera anicteric, no conjunctival injection. Neck supple without JVD, lymphadenopathy, or bruit. Respiratory: clear to auscultation with diminished bases bilaterally. No rales/rhonic/wheezes. Cardiovascular: Regular rate and rhythm, normal S1-S2 upon auscultation. No murmurs, rubs, or clicks. PMI is nondisplaced, capillary refill less than 3 second. Abdomen: Soft, round, obese, no pulsatile masses, nondistended and mildly tender. No rebound, no guarding. No CVA tenderness, no hepatosplenomegaly. Bowel sounds present to all four quadrants. No high pitch or tinkling sounds, resonant to percussion. Extremities: No cyanosis, clubbing, or edema present. Pulses are palpable 2/2. Active ROM to all four extremities. Neuro: Alert and orientated x 4. PERRLA. Cranial nerves 2-12 intact without focal deficit. Skin: Warm, dry, and intact, bilateral macular rash to upper extremities. Lines: PIV Incisions: Small midline incision with 3 laparoscopic incisions all Steger bonded and well approximated. No signs and symptoms of infection. Psych: pleasant, cooperative, normal speech, normal affect, no hallucinations, no dysarthria Objective Data Vital Signs Vital Signs: Vital Signs - 24 hr 11/05/23 08:36 11/05/23 09:12 11/05/23 12:00 Temperature 97 F L Pulse Rate 70 Respiratory Rate 20 Blood Pressure 125/56 L Pulse Oximetry 95 95 97 Oxygen Delivery Nasal Cannula Nasal Cannula Oxygen Flow Rate 1 1 Fraction of Inspired Oxygen 11/05/23 16:00 11/05/23 20:00 11/05/23 20:53 Temperature 97.4 F L 98.1 F Pulse Rate 62 60 68 Respiratory Rate 20 18 Blood Pressure 172/56 H 185/60 H Pulse Oximetry 98 98 Oxygen Delivery Oxygen Flow Rate Fraction of Inspired Oxygen 11/05/23 20:50 11/06/23 00:00 11/06/23 05:35 Temperature 98 F 97.2 F L Pulse Rate 57 L 61 Respiratory Rate 18 18 Blood Pressure 164/45 H 197/67 H Pulse Oximetry 98 98 100 Oxygen Delivery Nasal Cannula Oxygen Flow Rate 1 Fraction of Inspired Oxygen Intake/Output Intake/Output: Intake & Output 11/03/23 11/04/23 11/05/23 11/06/23 23:59 23:59 23:59 23:59 Intake Total 840 2220 780 300 Output Total 1 Balance 840 2219 780 300 Meds/Results Medications: Active Medications Generic Name Dose Route Start Last Admin Trade Name Freq PRN Reason Stop Dose Admin Acetaminophen 650 mg 11/02/23 18:00 11/06/23 05:30 Acetaminophen 325 Mg Tablet PO 650 mg Q6HR JAMES Administration Calcitriol 0.25 mcg 11/01/23 09:00 11/05/23 09:13 Calcitriol 0.25 Mcg Capsule PO 0.25 mcg DAILY JAMES Administration Carvedilol 25 mg 11/05/23 09:00 11/05/23 20:53 Carvedilol 12.5 Mg Tablet PO 25 mg Q12HR JAMES Administration Clonidine HCl 0.2 mg 10/31/23 21:00 11/05/23 20:53 Clonidine Hcl 0.2 Mg Tablet PO 0.2 mg Q12HR JAMES Administration Donepezil HCl 5 mg 10/31/23 21:00 11/05/23 20:53 Donepezil Hcl 5 Mg Tablet PO 5 mg HS JAMES Administration Enoxaparin Sodium 40 mg 11/03/23 09:00 11/05/23 09:13 Enoxaparin 40 Mg/0.4 Ml Syringe SUB-Q 40 mg DAILY JAMES Administration Furosemide 80 mg 11/01/23 09:00 11/05/23 09:13 Furosemide 80 Mg Tablet PO 80 mg DAILY JAMES Administration Hydralazine HCl 50 mg 10/31/23 21:00 11/05/23 20:53 Hydralazine Hcl 50 Mg Tablet PO 50 mg Q12HR JAMES Administration Hydralazine HCl 10 mg 11/02/23 07:53 11/06/23 05:42 Hydralazine Hcl 20 Mg/Ml Vial IV PUSH 10 mg Q8H PRN Administration Blood Pressure - High Losartan Potassium 50 mg 11/04/23 09:00 11/05/23 17:28 Losartan Potassium 50 Mg Tablet PO 50 mg BID JAMES Administration Morphine Sulfate 2 mg 11/02/23 15:55 11/03/23 04:46 Morphine Sulfate (*Crx) 2 Mg/Ml Inj IV PUSH 2 mg Q2H PRN Administration Breakthrough Pain Rated 4-6 or NPO Morphine Sulfate 4 mg 11/02/23 15:55 Morphine Sulfate (*Crx) 4 Mg/Ml Inj IV PUSH Q2H PRN Breakthrough Pain Rated 7-10 or NPO Naloxone HCl 0.1 mg 11/02/23 15:55 Naloxone Hcl 0.4 Mg/Ml Vial IV PUSH Q2M PRN Opiate Reversal Ondansetron HCl 4 mg 10/31/23 17:04 Ondansetron Inj 4 Mg/2 Ml Vial IV PUSH Q6H PRN Nausea And Vomiting Oxycodone HCl 2.5 mg 11/02/23 15:55 11/03/23 16:27 Oxycodone Hcl (*Crx) 2.5 Mg Tab Ir PO 2.5 mg Q4H PRN Administration Pain Rated 4-6 Oxycodone HCl 5 mg 11/02/23 15:55 11/04/23 21:02 Oxycodone Hcl (*Crx) 5 Mg Tab Ir PO 5 mg Q4H PRN Administration Pain Rated 7-10 Trazodone HCl 50 mg 10/31/23 21:00 11/05/23 20:53 Trazodone Hcl 50 Mg Tablet PO 50 mg HS JAMES Administration Radiology Results: ITS Impressions Abdomen/Pelvis CT 10/31/23 15:44 IMPRESSION: 1. Wall thickening with adjacent fat stranding involving the cecum and base of the appendix with dilatation of the appendix, consistent with acute appendicitis and/or malignancy. Labs Labs: Laboratory Results - last 24 hr 11/06/23 05:58 WBC 10.1 H RBC 3.75 L Hgb 10.3 L Hct 34.2 L MCV 91.2 MCH 27.5 MCHC 30.1 L RDW 14.6 H Plt Count 345 MPV 9.6 Immature Gran % (Auto) 0.6 H Neut % (Auto) 77.8 H Lymph % (Auto) 11.7 L [place] % (Auto) 7.6 Eos % (Auto) 2.1 Baso % (Auto) 0.2 Lymph # (Auto) 1.18 [place] # (Auto) 0.8 H Eos # (Auto) 0.2 Baso # (Auto) 0.0 Abs Immat Gran (auto) 0.06 H Absolute Neuts (auto) 7.9 H Absolute Nucleated RBC 0.000 Nucleated RBC % 0.0 Sodium 139 Potassium 4.0 Chloride 102 Carbon Dioxide 32 H Anion Gap 5 BUN 22 H Creatinine 1.10 Estim Creat Clear Calc 63 Estimated GFR > 60 Glucose 110 Calcium 8.8 Total Bilirubin 0.2 AST 17 ALT 13 Alkaline Phosphatase 54 Total Protein 6.0 L Albumin 3.2 L Quality VTE Prophylaxis VTE prophylaxis: mechanical ordered
[2023-11-06] MEDS: calcitrioL 0.25 MCG CAPSULE PO (08:47)
[2023-11-06] MEDS: NIFEdipine 30 MG TAB.ER.24 PO (08:47)
[2023-11-06] MEDS: FUROSEMIDE 80 MG TABLET PO (08:47)
[2023-11-06] MEDS: cloNIDine HCL 0.2 MG TABLET PO ×2 (08:47→20:10)
[2023-11-06] MEDS: carvediloL 12.5 MG TABLET 25 MG PO ×2 (08:47→20:11)
[2023-11-06] MEDS: LOSARTAN POTASSIUM 50 MG TABLET PO ×2 (08:47→17:37)
[2023-11-06] MEDS: ENOXAPARIN 40 MG/0.4 ML SYRINGE SUB-Q (08:47)
[2023-11-06] MEDS: oxyCODONE HCL (*CRX) 2.5 MG TAB IR PO (09:00)
--- NOTE | 2023-11-06 09:16 | P.PNGS_ITS ---
Progress Note: A&P Assessment and Plan (1) Cecum mass: Code(s): K63.89 - Other specified diseases of intestine Status: Acute Assessment and Plan: * Status post laparoscopic right colectomy. Slowly increasing activity and weaned off O2 this morning. Lasix was restarted. Chest x-ray pending today. * Tolerating regular diet and bowel function has returned. * Surgically stable for discharge in the next few days once medically stable. * Pathology pending. (2) Chronic kidney disease: Qualifiers: Chronic kidney disease stage: stage 3 (moderate) Chronic kidney disease stage 3 subtype: stage 3b (GFR 30-44) Qualified Code(s): N18.32 - Chronic kidney disease, stage 3b Code(s): N18.9 - Chronic kidney disease, unspecified Status: Acute Assessment and Plan: * Creatinine down to 1.1. (3) Anticoagulant long-term use: Code(s): Z79.01 - snf (current) use of anticoagulants Status: Acute Assessment and Plan: * Okay to resume Eliquis (4) Cardiac arrhythmia: Code(s): I49.9 - Cardiac arrhythmia, unspecified Status: Chronic Plan I have discussed the patient's case and plan of care with Dr. Cantrell. Subjective Subjective Date/Time Seen: 11/06/23 08:46 Post Op day: 4 (Hand assisted laparoscopic right hemicolectomy with ileocolic anastomosis) Patient reports: no new complaints, tolerating a regular diet, flatus, bowel movement and afebrile Interval history: Patient up in chair this morning. He was taken off O2 this morning before my arrival to the room and nursing is at the bedside checking his pulse oximetry, which is 96%. He is feeling well. He reports ambulating with a walker instead of his cane because he feels a little more weak, but is tolerating this well. He only has slight incisional soreness with movement, no abdominal pain. No nausea or vomiting. Had a BM this morning. Hospitalist has ordered a chest x-ray this morning. BP also elevated this morning and he was getting his home medications on my arrival. Review of Systems Review of Systems: All systems reviewed & are unremarkable except as noted in HPI and below Exam Const: General: comfortable and no acute distress GI: Inspection: non-distended and incision (incisions dry and intact) GI Palp: Yes Soft to palpation, Yes Tenderness to palpation present (GI) (incisional) and No Guarding due to palpation present (GI) Auscultation: normal bowel sounds Objective Data Vital Signs Vital Signs: Vital Signs - 24 hr 11/05/23 12:00 11/05/23 16:00 11/05/23 20:00 Temperature 97 F L 97.4 F L 98.1 F Pulse Rate 70 62 60 Respiratory Rate 20 20 18 Blood Pressure 125/56 L 172/56 H 185/60 H Pulse Oximetry 97 98 98 Oxygen Delivery Oxygen Flow Rate 11/05/23 20:53 11/05/23 20:50 11/06/23 00:00 Temperature 98 F Pulse Rate 68 57 L Respiratory Rate 18 Blood Pressure 164/45 H Pulse Oximetry 98 98 Oxygen Delivery Nasal Cannula Oxygen Flow Rate 1 11/06/23 05:35 11/06/23 08:00 11/06/23 08:47 Temperature 97.2 F L 97.8 F Pulse Rate 61 64 64 Respiratory Rate 18 17 Blood Pressure 197/67 H 180/57 H Pulse Oximetry 100 95 Oxygen Delivery Oxygen Flow Rate Intake/Output Intake/Output: Intake & Output 11/03/23 11/04/23 11/05/23 11/06/23 23:59 23:59 23:59 23:59 Intake Total 840 2220 780 300 Output Total 1 Balance 840 2219 780 300 Meds/Results Medications: Active Medications Generic Name Dose Route Start Last Admin Trade Name Freq PRN Reason Stop Dose Admin Acetaminophen 650 mg 11/02/23 18:00 11/06/23 05:30 Acetaminophen 325 Mg Tablet PO 650 mg Q6HR JAMES Administration Calcitriol 0.25 mcg 11/01/23 09:00 11/06/23 08:47 Calcitriol 0.25 Mcg Capsule PO 0.25 mcg DAILY JAMES Administration Carvedilol 25 mg 11/05/23 09:00 11/06/23 08:47 Carvedilol 12.5 Mg Tablet PO 25 mg Q12HR JAMES Administration Clonidine HCl 0.2 mg 10/31/23 21:00 11/06/23 08:47 Clonidine Hcl 0.2 Mg Tablet PO 0.2 mg Q12HR JAMES Administration Donepezil HCl 5 mg 10/31/23 21:00 11/05/23 20:53 Donepezil Hcl 5 Mg Tablet PO 5 mg HS JAMES Administration Enoxaparin Sodium 40 mg 11/03/23 09:00 11/06/23 08:47 Enoxaparin 40 Mg/0.4 Ml Syringe SUB-Q 40 mg DAILY JAMES Administration Furosemide 80 mg 11/01/23 09:00 11/06/23 08:47 Furosemide 80 Mg Tablet PO 80 mg DAILY JAMES Administration Hydralazine HCl 10 mg 11/02/23 07:53 11/06/23 05:42 Hydralazine Hcl 20 Mg/Ml Vial IV PUSH 10 mg Q8H PRN Administration Blood Pressure - High Losartan Potassium 50 mg 11/04/23 09:00 11/06/23 08:47 Losartan Potassium 50 Mg Tablet PO 50 mg BID JAMES Administration Morphine Sulfate 2 mg 11/02/23 15:55 11/03/23 04:46 Morphine Sulfate (*Crx) 2 Mg/Ml Inj IV PUSH 2 mg Q2H PRN Administration Breakthrough Pain Rated 4-6 or NPO Morphine Sulfate 4 mg 11/02/23 15:55 Morphine Sulfate (*Crx) 4 Mg/Ml Inj IV PUSH Q2H PRN Breakthrough Pain Rated 7-10 or NPO Naloxone HCl 0.1 mg 11/02/23 15:55 Naloxone Hcl 0.4 Mg/Ml Vial IV PUSH Q2M PRN Opiate Reversal Nifedipine 30 mg 11/06/23 09:00 11/06/23 08:47 Nifedipine 30 Mg Tab.Er.24 PO 30 mg QAM JAMES Administration Ondansetron HCl 4 mg 10/31/23 17:04 Ondansetron Inj 4 Mg/2 Ml Vial IV PUSH Q6H PRN Nausea And Vomiting Oxycodone HCl 2.5 mg 11/02/23 15:55 11/03/23 16:27 Oxycodone Hcl (*Crx) 2.5 Mg Tab Ir PO 2.5 mg Q4H PRN Administration Pain Rated 4-6 Oxycodone HCl 5 mg 11/02/23 15:55 11/04/23 21:02 Oxycodone Hcl (*Crx) 5 Mg Tab Ir PO 5 mg Q4H PRN Administration Pain Rated 7-10 Trazodone HCl 50 mg 10/31/23 21:00 11/05/23 20:53 Trazodone Hcl 50 Mg Tablet PO 50 mg HS JAMES Administration Radiology Results: ITS Impressions Abdomen/Pelvis CT 10/31/23 15:44 IMPRESSION: 1. Wall thickening with adjacent fat stranding involving the cecum and base of the appendix with dilatation of the appendix, consistent with acute appendicitis and/or malignancy. Labs Labs: Laboratory Results - last 24 hr 11/06/23 05:58 WBC 10.1 H RBC 3.75 L Hgb 10.3 L Hct 34.2 L MCV 91.2 MCH 27.5 MCHC 30.1 L RDW 14.6 H Plt Count 345 MPV 9.6 Immature Gran % (Auto) 0.6 H Neut % (Auto) 77.8 H Lymph % (Auto) 11.7 L [place] % (Auto) 7.6 Eos % (Auto) 2.1 Baso % (Auto) 0.2 Lymph # (Auto) 1.18 [place] # (Auto) 0.8 H Eos # (Auto) 0.2 Baso # (Auto) 0.0 Abs Immat Gran (auto) 0.06 H Absolute Neuts (auto) 7.9 H Absolute Nucleated RBC 0.000 Nucleated RBC % 0.0 Sodium 139 Potassium 4.0 Chloride 102 Carbon Dioxide 32 H Anion Gap 5 BUN 22 H Creatinine 1.10 Estim Creat Clear Calc 63 Estimated GFR > 60 Glucose 110 Calcium 8.8 Total Bilirubin 0.2 AST 17 ALT 13 Alkaline Phosphatase 54 Total Protein 6.0 L Albumin 3.2 L
[2023-11-06] MEDS: DONEPEZIL HCL 5 MG TABLET PO (20:10)
[2023-11-06] MEDS: traZODone HCL 50 MG TABLET PO (20:11)
[2023-11-07] VITALS: BP 156/56; PULSE 61; RESP 20; TEMP 36.5; O2SAT 92
[2023-11-07 03:47] VITALS: BP 181/66; PULSE 65; RESP 20; TEMP 36.6; O2SAT 90
[2023-11-07] MEDS: ACETAMINOPHEN 325 MG TABLET 650 MG PO ×2 (05:33→12:18)
[2023-11-07 08:00] VITALS: BP 158/72; PULSE 64; RESP 16; TEMP 36.3; O2SAT 91
[2023-11-07] MEDS: FUROSEMIDE 80 MG TABLET PO (08:19)
[2023-11-07] MEDS: LOSARTAN POTASSIUM 50 MG TABLET PO (08:19)
[2023-11-07 08:20] VITALS: PULSE 65
[2023-11-07] MEDS: calcitrioL 0.25 MCG CAPSULE PO (08:20)
[2023-11-07] MEDS: cloNIDine HCL 0.2 MG TABLET PO (08:20)
[2023-11-07] MEDS: oxyCODONE HCL (*CRX) 2.5 MG TAB IR PO (08:20)
[2023-11-07] MEDS: ENOXAPARIN 40 MG/0.4 ML SYRINGE SUB-Q (08:20)
[2023-11-07] MEDS: carvediloL 12.5 MG TABLET 25 MG PO (08:20)
[2023-11-07] MEDS: NIFEdipine 30 MG TAB.ER.24 PO ×2 (08:20→08:56)
[2023-11-07 09:10] LABS: Anion Gap 3 mmol/L (4-12); Blood Urea Nitrogen 18 mg/dL (9-20); Calcium 8.8 mg/dL (8.4-10.2); Carbon Dioxide 36 mmol/L (22-30); Chloride 101 mmol/L (98-107); Estimated CRCL calculation 76 ml/min; Estimated Glomerular Filt Rate > 60; Glucose 104 mg/dL (65-110); Potassium 3.9 mmol/L (3.4-5.0); Sodium 140 mmol/L (137-145)
[2023-11-07 09:26] LABS: Basophils Percent Auto 0.4 % (0.2-1.2); Eosinophils Absolute Auto 0.5 K/mm3 (0-0.3); Eosinophils Percent Auto 4.2 % (0-4.4); Hematocrit 36.1 % (42.0-52.0); Hemoglobin 10.8 g/dL (14.0-18.0); Immature Granulocyte Absolute 0.07 K/mm3 (0.00-0.031); Immature Granulocyte Percent A 0.6 % (0-0.5); Lymphocytes Absolute Auto 1.07 K/mm3 (0.9-3.2); Lymphocytes Percent Auto 9.4 % (18.3-44.2); Mean Corpuscular HGB Conc 29.9 g/dl (32-36); Mean Corpuscular Hemoglobin 27.2 pg (26-34); Mean Corpuscular Volume 90.9 fl (80-100); Mean Platelet Volume 9.9 fl (7.4-10.4); Monocytes Absolute Auto 0.7 K/mm3 (0.1-0.6); Monocytes Percent Auto 6.2 % (2.6-8.5); Neutrophils Percent Auto 79.2 % (45.5-73.1); Platelet Count Result 443 k/mm3 (150-375); Red Blood Count 3.97 M/mm3 (4.6-6.20); Red Cell Distribution Width 14.6 % (11.5-14.5); White Blood Count 11.3 K/mm3 (4.5-10.0)
--- NOTE | 2023-11-07 10:19 | PCNWS ---
Weekly nutritional screen. Patient is tolerating current regular diet with adequate intake 75-100% of meals. No weight loss reported. No nutritional needs at this time.
[2023-11-07 10:24] LABS: Anisocytosis 1+; Hypochromasia 1+; Ovalocytes 1+; Platelet Estimate Increased (Adequate); Schistocytes None Seen
--- NOTE | 2023-11-07 11:26 | P.PNGS_ITS ---
Progress Note: A&P Assessment and Plan (1) Cecum mass: Code(s): K63.89 - Other specified diseases of intestine Status: Acute Assessment and Plan: * Status post laparoscopic right colectomy. Continues to improve. Surgically stable for discharge today. * D/c instructions and pathology discussed in detail with the patient and his family. Pathology showed adenocarcinoma pT4b pN1b. Follow-up with Dr. Cantrell in 2 weeks. Will plan for outpatient Oncology referral. Plan I have discussed the patient's case and plan of care with Dr. Cantrell. Subjective Subjective Date/Time Seen: 11/07/23 11:26 Post Op day: 5 (Hand assisted laparoscopic right hemicolectomy with ileocolic anastomosis) Patient reports: no new complaints, feels better, tolerating a regular diet, flatus, bowel movement and afebrile Interval history: Patient reports feeling better today. He still has an intermittent nonproductive cough that he complains of but no shortness of breath. No chest pain. Incisional soreness is well controlled. He is ambulating well with a walker. No nausea, vomiting, or bloating. He has had multiple bowel movements since seen yesterday. No other complaints. Exam GI: Inspection: non-distended and incision (incisions dry and intact) GI Palp: Yes Soft to palpation, Yes Tenderness to palpation present (GI) (minimal incisional tenderness) and No Guarding due to palpation present (GI) Auscultation: normal bowel sounds Objective Data Vital Signs Vital Signs: Vital Signs - 24 hr 11/06/23 12:17 11/06/23 15:03 11/06/23 16:00 Temperature 98.1 F Pulse Rate 67 Respiratory Rate 18 Blood Pressure 188/53 H 174/62 H Pulse Oximetry 93 Oxygen Delivery Room Air Fraction of Inspired Oxygen 11/06/23 19:29 11/06/23 19:54 11/07/23 00:00 Temperature 97.5 F L 97.7 F Pulse Rate 67 64 61 Respiratory Rate 18 20 20 Blood Pressure 172/57 H 156/56 H Pulse Oximetry 93 94 92 Oxygen Delivery Room Air Fraction of Inspired Oxygen 11/07/23 03:47 11/07/23 08:20 11/07/23 08:00 Temperature 97.9 F 97.3 F L Pulse Rate 65 65 64 Respiratory Rate 20 16 Blood Pressure 181/66 H 158/72 H Pulse Oximetry 90 91 Oxygen Delivery Fraction of Inspired Oxygen Intake/Output Intake/Output: Intake & Output 11/04/23 11/05/23 11/06/23 11/07/23 23:59 23:59 23:59 23:59 Intake Total 2220 780 636 530 Output Total 1 200 Balance 2219 780 436 530 Meds/Results Medications: Active Medications Generic Name Dose Route Start Last Admin Trade Name Freq PRN Reason Stop Dose Admin Acetaminophen 650 mg 11/02/23 18:00 11/07/23 05:33 Acetaminophen 325 Mg Tablet PO 650 mg Q6HR JAMES Administration Calcitriol 0.25 mcg 11/01/23 09:00 11/07/23 08:20 Calcitriol 0.25 Mcg Capsule PO 0.25 mcg DAILY JAMES Administration Carvedilol 25 mg 11/05/23 09:00 11/07/23 08:20 Carvedilol 12.5 Mg Tablet PO 25 mg Q12HR JAMES Administration Clonidine HCl 0.2 mg 10/31/23 21:00 11/07/23 08:20 Clonidine Hcl 0.2 Mg Tablet PO 0.2 mg Q12HR JAMES Administration Donepezil HCl 5 mg 10/31/23 21:00 11/06/23 20:10 Donepezil Hcl 5 Mg Tablet PO 5 mg HS JAMES Administration Enoxaparin Sodium 40 mg 11/03/23 09:00 11/07/23 08:20 Enoxaparin 40 Mg/0.4 Ml Syringe SUB-Q 40 mg DAILY JAMES Administration Furosemide 80 mg 11/01/23 09:00 11/07/23 08:19 Furosemide 80 Mg Tablet PO 80 mg DAILY JAMES Administration Hydralazine HCl 10 mg 11/02/23 07:53 11/06/23 13:12 Hydralazine Hcl 20 Mg/Ml Vial IV PUSH 10 mg Q8H PRN Administration Blood Pressure - High Losartan Potassium 50 mg 11/04/23 09:00 11/07/23 08:19 Losartan Potassium 50 Mg Tablet PO 50 mg BID JAMES Administration Morphine Sulfate 2 mg 11/02/23 15:55 11/03/23 04:46 Morphine Sulfate (*Crx) 2 Mg/Ml Inj IV PUSH 2 mg Q2H PRN Administration Breakthrough Pain Rated 4-6 or NPO Morphine Sulfate 4 mg 11/02/23 15:55 Morphine Sulfate (*Crx) 4 Mg/Ml Inj IV PUSH Q2H PRN Breakthrough Pain Rated 7-10 or NPO Naloxone HCl 0.1 mg 11/02/23 15:55 Naloxone Hcl 0.4 Mg/Ml Vial IV PUSH Q2M PRN Opiate Reversal Nifedipine 60 mg 11/08/23 09:00 Nifedipine 30 Mg Tab.Er.24 PO QAM JAMES Ondansetron HCl 4 mg 10/31/23 17:04 Ondansetron Inj 4 Mg/2 Ml Vial IV PUSH Q6H PRN Nausea And Vomiting Oxycodone HCl 2.5 mg 11/02/23 15:55 11/07/23 08:20 Oxycodone Hcl (*Crx) 2.5 Mg Tab Ir PO 2.5 mg Q4H PRN Administration Pain Rated 4-6 Oxycodone HCl 5 mg 11/02/23 15:55 11/04/23 21:02 Oxycodone Hcl (*Crx) 5 Mg Tab Ir PO 5 mg Q4H PRN Administration Pain Rated 7-10 Trazodone HCl 50 mg 10/31/23 21:00 11/06/23 20:11 Trazodone Hcl 50 Mg Tablet PO 50 mg HS JAMES Administration Radiology Results: ITS Impressions Abdomen/Pelvis CT 10/31/23 15:44 IMPRESSION: 1. Wall thickening with adjacent fat stranding involving the cecum and base of the appendix with dilatation of the appendix, consistent with acute appendicitis and/or malignancy. Chest X-Ray 11/06/23 09:17 IMPRESSION: 1. Mild atelectasis at left lung base. Labs Labs: Laboratory Results - last 24 hr 11/07/23 08:42 WBC 11.3 H RBC 3.97 L Hgb 10.8 L Hct 36.1 L MCV 90.9 MCH 27.2 MCHC 29.9 L RDW 14.6 H Plt Count 443 H MPV 9.9 Immature Gran % (Auto) 0.6 H Neut % (Auto) 79.2 H Lymph % (Auto) 9.4 L [place] % (Auto) 6.2 Eos % (Auto) 4.2 Baso % (Auto) 0.4 Lymph # (Auto) 1.07 [place] # (Auto) 0.7 H Eos # (Auto) 0.5 H Baso # (Auto) 0.0 Abs Immat Gran (auto) 0.07 H Absolute Neuts (auto) 9.0 H Absolute Nucleated RBC 0.000 Nucleated RBC % 0.0 Platelet Estimate Increased Hypochromasia 1+ Anisocytosis 1+ Ovalocytes 1+ Schistocytes None seen Sodium 140 Potassium 3.9 Chloride 101 Carbon Dioxide 36 H Anion Gap 3 L BUN 18 Creatinine 0.90 Estim Creat Clear Calc 76 Estimated GFR > 60 Glucose 104 Calcium 8.8
--- NOTE | 2023-11-07 12:04 | P.DS_ITS ---
DS: Admitting Diagnosis Discharge Date 11/06 Admitting Diagnosis Abdominal discomfort DS: Discharge Diagnosis Discharge Diagnosis (1) Acute appendicitis: Qualifiers: Acute appendicitis type: unspecified acute appendicitis type Qualified Code(s): K35.80 - Unspecified acute appendicitis Code(s): K35.80 - Unspecified acute appendicitis Status: Acute Assessment and Plan: - CT abdomen/pelvis: Wall thickening with adjacent fat stranding involving the cecum and base of the appendix with dilatation of the appendix, consistent with acute appendicitis and/or malignancy. - general surgery consulted, awaiting formal recs - started on ceftriaxone and metronidazole on 10/30. Antibiotics stopped after surgery. - POD 3 from right hemicolectomy - Diet was advanced yesterday to low fiber - Pain control with PRN oxycodone and morphine for breakthrough - Anticipate bowel regimen when okay with surgery - DVT prophylaxis with SCD and Lovenox. Restart Eliquis when okay with surgery - still requiring 1 L oxygen. Placed on room air this morning. I wouldn't be surprised if he sats with sleep. Likely needs KATLIN work up as an outpatient - Chest x-ray this morning given new onset cough. Pulmonary toilet encouraged. Discussed the importance of being up and out of bed during the day. Needs to be walking more. - Incentive spirometer - up to chair for meals (2) Hypertension: Qualifiers: Hypertension type: primary hypertension Qualified Code(s): I10 - Essential (primary) hypertension Code(s): I10 - Essential (primary) hypertension Status: Acute Assessment and Plan: - chronic, currently 176/62 mm hg - continue home medications: clonidine 0.2 mg b.i.d., Coreg 12.5 mg BID, Lasix 80 mg daily, hydralazine 50 mg b.i.d., losartan 25 mg daily. - monitor blood pressures daily. - PRN hydralazine 10 mg every 8 hours for SBP > 170 mm hg - persistent HTN in the 180-190's mm hg - increasing Losartan 25mg to 50 mg BID, Coreg to 25 mg BID - Required IV hydralazine this morning again. - Started Nifedipine 30 mg daily, stopping PO hydralazine (3) Chronic kidney disease: Qualifiers: Chronic kidney disease stage: stage 3 (moderate) Chronic kidney disease stage 3 subtype: stage 3b (GFR 30-44) Qualified Code(s): N18.32 - Chronic kidney disease, stage 3b Code(s): N18.9 - Chronic kidney disease, unspecified Status: Acute Assessment and Plan: CKD stage 3b. Creatinine tends to run 1.4-1.6 * IV fluids initially held yesterday once he was tolerating a clear liquid diet. Blood pressures were elevated as well so fluids were stopped. * Cr bump from 1.5 to 1.8. Cr 1.3 today. * He is drinking more fluids today * D/c'd fluids and resuming lasix today * Monitor BMP daily (4) Rash: Code(s): R21 - Rash and other nonspecific skin eruption Status: Acute Assessment and Plan: Macular-papular rash to bilateral upper extremities - unclear etiology - no new medication changes, no new foods, no changes to detergents - improving, nearly resolved RESOLVED Plan Diet: Low fiber diet DVT Prophylaxis: SCDs, Lovenox. Eliquis to resume when okay with surgery Lines: Peripheral Code Status: FULL Code Disposition: 73-year-old male who presents with abdominal tender wrist to the right lower quadrant. CT abdomen pelvis shows acute appendicitis versus possible mass. He is POD 3 from right hemicolectomy. He is tolerating a diet and having bowel movements. He was still requiring oxygen later in the day. IS and pulmonary toilet encouraged. Chest x-ray this morning given new onset cough. DS: Summary Hospital Course Reason for hospitalization: Acute appendicitis Hospital Course: 73 y/o M presents here with abdominal swelling with PMH of arthritis, hyperlipidemia, hypertension, and insomnia. The patient presents here from home for further evaluation of right lower abdominal swelling. Patient reports that he first noticed the changes 3 days ago. Swelling more notable when he lays on his side. Patient reported it to his orthopedist while at an appointment today. Orthopedist directed patient to seek care in the ED prior to obtaining surgical clearance to rule out appendicitis. Patient reports he has previously been swollen in same area that lasted for 1-2 days approximately 7-8 months ago and resolved without incident. Patient did not have area evaluated then. Denies associated abdominal pain, nausea, vomiting, fever, chills, body aches, or diarrhea. Denies personal history of cancer. No known family history of cancer. Denies any recent unintentional weight loss or night sweats. Initial VS at presentation: 98.7? F, HR 70, RR 18, 172/96, and 97% on RA ED workup showed: No leukocytosis, hemoglobin 11.7 (similar to previous), no significant electrolyte derangements, creatinine 1.6 and GFR 42 (previously 1.5 and GFR 46 on 09/19/2023). CT of the abdomen/pelvis showed wall thickening with adjacent fat stranding involving the cecum bases of the appendix with dilation of the appendix, consistent with acute appendicitis and/or malignancy. General surgery was consulted and recommended laparoscopic appendectomy. Patient went for surgery on 11/01 for appendectomy which was transitioned to right hemicolectomy given the presence of cecal mass. His postoperative course was complicated with persistent hypertension. Medication changes were made his to his home regimen. In the end we were able to discharge him with a blood pressure 158/72. He was instructed to follow up with his primary care provider for blood pressure checks. Overall he did well and was able to discharge home in stable condition. Time Spent with Patient Time attestation: Total time spent providing and/or coordinating discharge services: 80 Exam Narrative: General: well appearing, appears stated age. HEENT: normocephalic, atraumatic. Mucous membranes moist. EOMI, PERRLA, bilateral sclera anicteric, no conjunctival injection. Neck supple without JVD, lymphadenopathy, or bruit. Respiratory: clear to auscultation with diminished bases bilaterally. No rales/rhonic/wheezes. Cardiovascular: Regular rate and rhythm, normal S1-S2 upon auscultation. No murmurs, rubs, or clicks. PMI is nondisplaced, capillary refill less than 3 second. Abdomen: Soft, round, obese, no pulsatile masses, nondistended and mildly ten josselyn. No rebound, no guarding. No CVA tenderness, no hepatosplenomegaly. Bowel sounds present to all four quadrants. No high pitch or tinkling sounds, resonant to percussion. Extremities: No cyanosis, clubbing, or edema present. Pulses are palpable 2/2. Active ROM to all four extremities. Neuro: Alert and orientated x 4. PERRLA. Cranial nerves 2-12 intact without focal deficit. Skin: Warm, dry, and intact, bilateral macular rash to upper extremities. Lines: PIV Incisions: Small midline incision with 3 laparoscopic incisions all [place] bonded and well approximated. No signs and symptoms of infection. Psych: pleasant, cooperative, normal speech, normal affect, no hallucinations, no dysarthria DS: Data Data Completed and Pending Completed studies during hospitalization: Pending at discharge 11/02/23 13:47 Surgical [PTH] Routine Labs on day of discharge: Labs from last 24 hours 11/07/23 08:42 WBC 11.3 H RBC 3.97 L Hgb 10.8 L Hct 36.1 L MCV 90.9 MCH 27.2 MCHC 29.9 L RDW 14.6 H Plt Count 443 H MPV 9.9 Immature Gran % (Auto) 0.6 H Neut % (Auto) 79.2 H Lymph % (Auto) 9.4 L [place] % (Auto) 6.2 Eos % (Auto) 4.2 Baso % (Auto) 0.4 Lymph # (Auto) 1.07 [place] # (Auto) 0.7 H Eos # (Auto) 0.5 H Baso # (Auto) 0.0 Abs Immat Gran (auto) 0.07 H Absolute Neuts (auto) 9.0 H Absolute Nucleated RBC 0.000 Nucleated RBC % 0.0 Platelet Estimate Increased Hypochromasia 1+ Anisocytosis 1+ Ovalocytes 1+ Schistocytes None seen Sodium 140 Potassium 3.9 Chloride 101 Carbon Dioxide 36 H Anion Gap 3 L BUN 18 Creatinine 0.90 Estim Creat Clear Calc 76 Estimated GFR > 60 Glucose 104 Calcium 8.8 Discharge Plan Discharge Attending physician on discharge: Kapil Holt Consulting providers: Gabriel Cantrell Discharging Clinician: Christine Singh Patient Disposition: Home, Self-Care Activity: may shower, no driving and other - see discharge instructions Diet: regular Wound Care Instructions: incision open to air Discharge Instructions: General Surgery Instructions: * No lifting more than 10 lbs until instructed by your surgeon * Walk three times daily. Stairs are okay. * Okay to shower over incisions and wash over them daily with soap and water. * No driving for 1 week * Call the surgeon if you develop a fever, abdominal pain, vomiting, or redness/drainage at your incisions. * Pain medication was sent to the pharmacy electronically. This is a narcotic pain pill to take only as needed for moderate to severe pain. You may also take Tylenol over the counter as needed for pain. Please follow up with Dr Verduzco's office in the next 2 weeks. During your hospitalization we made adjustments to her blood pressure medications. Please see changes below. Please check your blood pressure every morning prior to taking your blood pressure medications. Keep a log of these numbers and take with you to your primary care providers office. You should follow up with them in the next 1-2 weeks. Should your blood pressure consistently be higher than 170 mm hg (top number) or 90 mm hg (bottom number) please call your doctor for further instructions. Make sure they are aware of the blood pressure medication changes. Please also monitor for low blood pressure. Top number less than 90 mm hg or bottom number less than 50 mmhg. Make sure to make slow position changes. Patient Instructions: Antibiotic Form, Chronic Hypertension (DC), Colectomy (GEN) Stand Alone Forms: General Discharge Information Follow-up/Referrals: Gabriel Cantrell DO [Physician] - 2 Weeks Discharge Medications: New losartan [Cozaar] 50 mg Tablet 50 mg PO BID Qty: 60 0RF nifedipine [Procardia XL] 30 mg Tablet Extended Release 24hr 60 mg PO QAM Qty: 60 0RF carvedilol [Coreg] 12.5 mg Tablet 25 mg PO Q12HR Qty: 60 0RF Continued donepezil 5 mg tablet 5 mg PO HS trazodone 50 mg tablet 50 mg PO HS clonidine HCl 0.2 mg tablet 0.2 mg PO BID furosemide 80 mg tablet 80 mg PO DAILY calcitriol 0.25 mcg capsule 0.25 mcg PO DAILY Eliquis 5 mg tablet 5 mg PO BID Discontinued carvedilol 12.5 mg tablet 12.5 mg PO BID losartan 25 mg tablet 25 mg PO DAILY hydralazine 50 mg tablet 50 mg PO BID No Action oxycodone-acetaminophen 5-325 mg tablet 1 tablet PO Q6H PRN (Reason: pain) Qty: 20 0RF Rx Instructions: 0.5 - 1 tablet every 6 hours as needed Date of admission: 10/31/23 16:59 Primary Care Provider: Linda,Nora Admitting Provider: Waldo Jackson Attending physician on admission: Christine Singh Condition: Improved Quality VTE Prophylaxis VTE prophylaxis: mechanical ordered
== END 2023-11-07 12:52 | disposition home or self-care (01) | DRG 331 ==
LOC: ANHED 16:56 → ANH2MED 17:27
PROVIDERS: Nurse Practitioner Family; Student in an Organized Health Care Education/Training Program; Surgery; Admitting Provider Internal Medicine; Emergency Provider Emergency Medicine; PCP Internal Medicine; Visit Provider Nurse Practitioner Acute Care
PROC: 0DTJ4ZZ Resection of Appendix, Percutaneous Endoscopic Approach (ICD-10-PCS; CPT 44970; principal; 2023-11-02 12:30)
DX: C18.0 Malignant neoplasm of cecum (principal); R21 Rash and other nonspecific skin eruption; E78.5 Hyperlipidemia, unspecified; G47.00 Insomnia, unspecified; G47.33 Obstructive sleep apnea (adult) (pediatric); H91.90 Unspecified hearing loss, unspecified ear; I12.9 Hypertensive chronic kidney disease with stage 1 through stage 4 chronic kidney disease, or unspecified chronic kidney disease; I25.10 Atherosclerotic heart disease of native coronary artery without angina pectoris; K59.09 Other constipation; M10.9 Gout, unspecified; M19.90 Unspecified osteoarthritis, unspecified site; N18.32 Chronic kidney disease, stage 3b; Z86.73 Personal history of transient ischemic attack (TIA), and cerebral infarction without residual deficits; Z95.1 Presence of aortocoronary bypass graft; Z95.5 Presence of coronary angioplasty implant and graft; Z98.41 Cataract extraction status, right eye; Z98.42 Cataract extraction status, left eye; Z79.01 Long term (current) use of anticoagulants; Z88.0 Allergy status to penicillin; Z91.199 Patient's noncompliance with other medical treatment and regimen due to unspecified reason
CPT/HCPCS: 36415; 71045; 74176; 80048; 80053; 82378; 85025; 85027; 85610; 85730; 86850; 86900; 86901; 88304; 88309; 93005; 97161; 97165; 97530; 97535; 99285; A9270; J0330; J0360; J0696; J1100; J1650; J1836; J2270; J2405; J2704; J3010; J7030; J7120

== ENCOUNTER 2023-11-09 14:22 | Emergency (ER) | payer MEDICARE, SELFPAY ==
[2023-11-09] VITALS (13 sets, daily range): BP systolic 163–189; BP diastolic 59–80; PULSE 70–82; RESP 17–24; TEMP 36.7–36.8; O2SAT 91–100
--- NOTE | ~2023-11-09 | CT_ITS ---
CTA chest PE protocol Ordering provider: Esa Kuhn PA-C History: 73 years Male with . cough, congestion, dyspnea, post op appy x 1 Comparison: None Technique: CT angiogram chest was performed following timed intravenous injection of contrast. Thin s lice axial images and reformatted coronal images were obtained. Three dimensional reformatted images of the chest were also obtained using a CSRa workstation. . Automated exposure control and iterati ve reconstruction technique were employed. The dose-length product was 771.89 mGy-cm. 100 mL Omnipaqu e 350 was given IV. Findings: PULMONARY ARTERIES: No pulmonary embolus. VISUALIZED THORACIC INLET: Large Right thyroid nodule. Clinical Ultrasound evaluation advised. MEDIASTINUM: Aorta/coronary arteries: Mild atheromatous disease. Heart/other: The heart is not enlarged. Lymph nodes: No mediastinal or hilar adenopathy. Postoperative changes in the mediastinum. LUNGS: 3 mm nodule seen in the right middle lobe. Atelectatic changes in the left lung base. No pulmonary ma sses. No infiltrates or effusions. No pneumothorax. VISUALIZED UPPER ABDOMEN: Fat stranding around the duodenum which may indicate tendinitis. Clinical c orrelation advised. This also may be postoperative. Fecal material loaded in the colon suggestive of constipation. Atrophic left kidney. Small sliding hiatus hernia. Otherwise, the visualized upper abdo men is normal. MUSCULOSKELETAL: Soft tissues: The superficial soft tissues are normal. Bones: Age appropriate degenerative changes of the spine. Postoperative changes in the sternum Small sclerotic lesion in T9 may be bone island. Follow-up advised. IMPRESSION: 1. Large right thyroid nodule. Ultrasound evaluation advised. 2. No pulmonary embolism. 3. No acute cardiopulmonary pathology. 4. Atrophic left kidney. 5. Fat stranding around the duodenum which may indicate tendinitis or may be postoperative. 6. Constipation. 7. Small sliding hiatus hernia. Reviewed, dictated and finalized at location A. IMPRESSION: 1. Large right thyroid nodule. Ultrasound evaluation advised. 2. No pulmonary embolism. 3. No acute cardiopulmonary pathology. 4. Atrophic left kidney. 5. Fat stranding around the duodenum which may indicate tendinitis or may be p ostoperative. 6. Constipation. 7. Small sliding hiatus hernia.
--- NOTE | ~2023-11-09 | XR_ITS ---
EXAMINATION: XR chest 2V DATE: 11/09/2023 15:12 INDICATION: Cough and congestion. TECHNIQUE: Frontal and lateral views of the chest were obtained. COMPARISON: Chest single view 11/06/2023, CT abdomen and pelvis 10/31/23 FINDINGS: There is mild atelectasis at left lung base. No pleural effusion or pneumothorax. The heart size is normal. Median sternotomy wires and mediastinal surgical clips are seen, likely from prior c oronary artery bypass grafting. IMPRESSION: 1. Mild atelectasis at left lung base. Reviewed, dictated and finalized at location A.
--- NOTE | 2023-11-09 15:56 | ED.GENADULT ---
HPI - General Adult General Chief complaint: Unspecified <Ava Hicks PA-C - Last Filed: 11/12/23 14:13> Stated complaint: PCP wants chest xray d/t congestion after appy 11/01 <Ava Hicks PA-C - Last Filed: 11/12/23 14:13> Time Seen by Provider: 11/09/23 15:56 <Ava Hicks PA-C - Last Filed: 11/12/23 14:13> Focused HPI: This is a 73 year old male that presents to the ER for cough. Reports congestion. His doctor wanted him to come to the ER for a chest x-ray. Denies fevers or shortness of breath. GENERAL: Well-appearing, well-nourished, and in no acute distress. HEAD: Normocephalic, atraumatic. CHEST: No respiratory distress. Lung sounds are coarse, with scattered wheezing HEART: Regular rate and rhythm.? NEURO: ?Alert and oriented x3. Patient screened in triage and initial orders placed.? ?Additional care and disposition to be based upon?diagnostic testing and treatment. <Ava Hicks PA-C - Last Filed: 11/12/23 14:13> Source: patient <JOHN Ortiz Last Filed: 11/09/23 23:29> Mode of arrival: ambulatory <Esa Kuhn PA-C - Last Filed: 11/09/23 23:29> Limitations: no limitations <JOHN Ortiz Last Filed: 11/09/23 23:29> Related Data Home medications: Home Medications Medication Instructions Recorded Confirmed apixaban 5 mg tablet (Eliquis) 5 mg PO BID 10/31/23 10/31/23 calcitriol 0.25 mcg capsule 0.25 mcg PO DAILY 10/31/23 10/31/23 clonidine HCl 0.2 mg tablet 0.2 mg PO BID 10/31/23 10/31/23 donepezil 5 mg tablet 5 mg PO HS 10/31/23 10/31/23 furosemide 80 mg tablet 80 mg PO DAILY 10/31/23 10/31/23 trazodone 50 mg tablet 50 mg PO HS 10/31/23 10/31/23 <JOHN Sifuentes Last Filed: 11/12/23 14:13> Allergies/adverse reactions: Allergies Allergy/AdvReac Type Severity Reaction Status Date / Time Penicillins Allergy Mild Rash Verified 11/09/23 21:25 <Ava Hicks PA-C - Last Filed: 11/12/23 14:13> Review of Systems Review of Systems: All systems as dictated in HPI <Esa Kuhn PA-C - Last Filed: 11/09/23 23:29> [facility] Past Medical History Medical History: Medical History (Updated 11/10/23 @ 00:00 by Galina Foster) Arthritis CAD (coronary artery disease) Cardiac arrhythmia Chronic kidney disease Colonic polyp Depression Gout [place] (hard of hearing) Hyperlipidemia Hypertension TIA (transient ischemic attack) after his carotid surgery Vascular dementia <JOHN Sifuentes Last Filed: 11/12/23 14:13> Surgical History Surgical History: Surgical History History of bilateral cataract extraction History of carotid endarterectomy History of heart artery stent History of quadruple bypass <JOHN Sifuentes Last Filed: 11/12/23 14:13> Family History Family History: Family History Mother Fibromyalgia <JOHN Sifuentes Last Filed: 11/12/23 14:13> Social History Social History: Social History Smoking status: Never smoker Alcohol intake: never Substance use: never Substance use type: does not use Do You Feel Safe in your Home?: Yes Lack of Transportation: No Lack of Food: Never True Current Housing: I Have Housing Concerned About Future Housing: No Difficulty Paying Gas/Electric Bills: No Difficulty Paying for Meds: No Currently Unemployed: No Education: Grade School Difficulty w/ Childcare or Family Care: No Spiritual care concerns: No <JOHN Sifuentes Last Filed: 11/12/23 14:13> Exam Narrative: GENERAL: Well-appearing, well-nourished, and in no acute distress. HEAD: Normocephalic, atraumatic. EYES: PERRLA and EOMI. ENT: Nares clear, no rhinorrhea or epistaxis. Mucous membranes moist. Oropharynx without tonsillar hypertrophy exudate or other le
[2023-11-09] MEDS: IPRATROPIUM 0.5 MG/ALBUTEROL SULFATE 2.5 MG AMPUL.NEB 3 ML INHALATION ×2 (16:23→21:22)
[2023-11-09 18:24] LABS: Basophils Absolute Auto 0.1 K/mm3 (0.0-0.1); Basophils Percent Auto 0.6 % (0.2-1.2); Eosinophils Absolute Auto 0.4 K/mm3 (0-0.3); Eosinophils Percent Auto 3.4 % (0-4.4); Hematocrit 38.6 % (42.0-52.0); Hemoglobin 11.9 g/dL (14.0-18.0); Immature Granulocyte Absolute 0.08 K/mm3 (0.00-0.031); Immature Granulocyte Percent A 0.7 % (0-0.5); Mean Corpuscular HGB Conc 30.8 g/dl (32-36); Mean Corpuscular Hemoglobin 27.6 pg (26-34); Mean Corpuscular Volume 89.6 fl (80-100); Mean Platelet Volume 9.2 fl (7.4-10.4); Monocytes Absolute Auto 0.9 K/mm3 (0.1-0.6); Monocytes Percent Auto 7.8 % (2.6-8.5); Neutrophils Absolute Auto 8.2 K/mm3 (1.3-6.7); Neutrophils Percent Auto 72.5 % (45.5-73.1); Platelet Count Result 534 k/mm3 (150-375); Red Blood Count 4.31 M/mm3 (4.6-6.20); White Blood Count 11.3 K/mm3 (4.5-10.0)
[2023-11-09 18:34] LABS: Alanine Aminotransferase 21 U/L (6-50); Albumin Level 3.8 g/dL (3.5-5.1); Alkaline Phosphatase 67 U/L (38-126); Anion Gap 6 mmol/L (4-12); Aspartate Amino Transferase 27 U/L (17-59); Bilirubin,Total 0.2 mg/dL (0.2-1.3); Blood Urea Nitrogen 18 mg/dL (9-20); Calcium 9.3 mg/dL (8.4-10.2); Carbon Dioxide 36 mmol/L (22-30); Chloride 99 mmol/L (98-107); Estimated CRCL calculation 62 ml/min; Estimated Glomerular Filt Rate > 60; Glucose 102 mg/dL (65-110); Potassium 4.2 mmol/L (3.4-5.0); Sodium 141 mmol/L (137-145)
[2023-11-09 18:58] LABS: Influenza A QL RT-PCR Negative (Negative); Influenza B QL RT-PCR Negative (Negative); RSV RNA, RT-PCR Negative (Negative); SARS-CoV-2 RNA PCR Negative (Negative)
[2023-11-09] MEDS: methylPREDNISolone SOD SUCC 40 MG VIAL IV PUSH (21:25)
== END 2023-11-09 23:41 | disposition home or self-care (01) ==
PROVIDERS: Physician Assistant; Emergency Provider Physician Assistant; PCP Internal Medicine
DX: J98.11 Atelectasis (principal); Z20.822 Contact with and (suspected) exposure to COVID-19; F01.50 Vascular dementia, unspecified severity, without behavioral disturbance, psychotic disturbance, mood disturbance, and anxiety; I25.10 Atherosclerotic heart disease of native coronary artery without angina pectoris; I12.9 Hypertensive chronic kidney disease with stage 1 through stage 4 chronic kidney disease, or unspecified chronic kidney disease; N18.9 Chronic kidney disease, unspecified; E78.5 Hyperlipidemia, unspecified; Z95.5 Presence of coronary angioplasty implant and graft; Z95.1 Presence of aortocoronary bypass graft; Z86.73 Personal history of transient ischemic attack (TIA), and cerebral infarction without residual deficits; Z86.010 Personal history of colon polyps; Z98.42 Cataract extraction status, left eye; Z98.41 Cataract extraction status, right eye; Z79.01 Long term (current) use of anticoagulants; Z79.899 Other long term (current) drug therapy; E04.1 Nontoxic single thyroid nodule; K59.00 Constipation, unspecified; K44.9 Diaphragmatic hernia without obstruction or gangrene
CPT/HCPCS: 36415; 71046; 71275; 80053; 85025; 87637; 94640; 96374; 99284; J2919; Q9967

== ENCOUNTER 2023-12-21 00:45 | Day surgery (SDC) | payer MEDICARE, SELFPAY ==
[2023-12-14 13:59] VITALS: BMI 32.1
--- NOTE | 2023-12-14 14:15 | PC.NURSE ---
Report to the Outpatient Waiting Room, entrance under the green pavilion located off [facility], at time __07:45am__on date _12/21/23_. Planned Procedure Time: __0945am .? Time changes happen often and if your time is changed the preop area will call you the afternoon before. - You and your visitor will be asked to self-screen and do not enter if you have any COVID symptoms. Please call surgeon if you need to reschedule. - A mask is optional within the hospital at this time. Patients may have clear liquids (water, carbonated beverages, clear teas, apple juice) until 3 hours prior to surgery with a maximum of 20 ounces. - No food from midnight until time of surgery and no smoking ( 06:45am) Take only the following medications with a SIP of water on the morning of surgery: ____Coreg, Procardia and Oxycodone if needed DO NOT STOP ANY OF YOUR OTHER PRESCRIPTION MEDICATIONS PRIOR TO SURGERY EXCEPT THE FOLLOWING Medications to discontinue per physician ____Hold the Eliquis for [address] Martinez, date to take last dose 12/17/23 Hold all vitamins and supplements per Anesthesia. Date to take last dose__12/17/23. Please no make-up, nail latvian, hairspray, perfume, deodorant, or body powder the day of surgery.? No jewelry (including any body piercings) or valuables the day of surgery, leave them at home.? Please take a shower or bath the night before, or the morning of, surgery with an antibacterial soap.? Wear comfortable, loose fitting clothing.? - Jewelry must be removed prior to entering the operating room.? Rings and piercings that are not removed may be cut off. - The hospital will not accept responsibility for valuables.? - Please leave all valuables, including medications, at home the day of surgery. If you are going home after surgery, a licensed wagon driver must drive you home.? - NO public transportation without another adult if you receive anesthesia. - We recommend that an adult stay with you for 24 hours following discharge. - We also recommend that you do not drive, make important decision, drink alcoholic beverages, or take any drugs that were not prescribed by your health care provider for at least 24 hours after your discharge time. Follow any additional instructions given to you from your surgeon. Telephone instructions given to __patient and ___and asked if any additional questions and then verbalized understanding. Patient advised to call surgeon office or pre surgery nurse liaison [phone] if any additional questions.
--- NOTE | ~2023-12-21 | XR_ITS ---
XR chest port-a-cath/central Ordering provider: Shena Sarkar MD History: 73 years Male with . POST-OP, INSERTION TORO CATH . Comparison: November 09, 2023 FINDINGS: MEDIASTINUM: The cardiac silhouette is slightly enlarged. Left Port-A-Cath with the tip overlying the superior vena cava. Postoperative changes in the mediastinum. LUNGS: No pneumothorax. Opacification in the left lower lobe suggestive of pneumonia versus atelectas is with minimal effusion. OTHER: No free air under the diaphragm. Degenerative changes of the spine. IMPRESSION: Left lower lobe atelectasis versus pneumonia with minimal effusion. Reviewed, dictated and finalized at location A.
--- NOTE | ~2023-12-21 | XR_ITS ---
EXAMINATION: XR fl guide central line place DATE: 12/21/2023 16:43 INDICATION: Port catheter insertion TECHNIQUE: Single fluoroscopic image of the left upper chest was obtained during procedure performed by Dr. Sarkar. Radiologist was not present for the imaging or procedure. The amount of fluoroscopy pierce e used during this procedure was 0.2 minutes. Total DAP was 0.0572 mGym^2 COMPARISON: None. FINDINGS: Image demonstrates a left internal jugular central venous port catheter with distal tip extending to the superior vena cava and beyond the margin of the [id number]. Median sternotomy wires are presen t. IMPRESSION: 1. Fluoroscopy utilized during placement of a left internal jugular central venous port catheter. See procedure note for further detail. Reviewed, dictated and finalized at location A. IMPRESSION: 1. Fluoroscopy utilized during placement of a left internal jugular central mandy ous port catheter. See procedure note for further detail.
[2023-12-21 12:58] VITALS: BP 144/60; PULSE 70; TEMP 36.7; O2SAT 99; BMI 32.2
[2023-12-21] MEDS: LACTATED RINGERS 1,000 ML 30 ML IV CONT (13:03)
[2023-12-21] MEDS: KETOROLAC 15 MG/ML VIAL (*BKC) IV PUSH (13:03)
--- NOTE | 2023-12-21 13:14 | P.PNAN_ITS ---
Anes - Initial Pre Proc Eval Procedure: Operation Date: 12/21/23 14:15 Proposed Procedures p Insertion Michael Cath - Shena Sarkar MD Date/Time: 12/21/23 13:14 Surgeon: Shena Sarkar MD Pre Op Diagnosis: malignant neoplasm of colon Patient Data Age: 73 Gender: M Height: 1.79 m Weight: 103.3 kg Last Vital Signs Temp 36.7 C 12/21/23 12:58 Pulse 70 12/21/23 12:58 BP 144/60 H 12/21/23 12:58 Pulse Ox 99 12/21/23 12:58 O2 Del Method Room Air 12/21/23 12:58 Allergies Allergy/AdvReac Type Severity Reaction Status Date / Time Penicillins Allergy Mild Rash Verified 12/14/23 13:54 Home Medications Medication Instructions Recorded Confirmed Type apixaban 5 mg tablet (Eliquis) 5 mg PO BID 10/31/23 12/14/23 History calcitriol 0.25 mcg capsule 0.25 mcg PO DAILY 10/31/23 12/14/23 History clonidine HCl 0.2 mg tablet 0.2 mg PO BID 10/31/23 12/14/23 History donepezil 5 mg tablet 5 mg PO HS 10/31/23 12/14/23 History furosemide 80 mg tablet 80 mg PO DAILY 10/31/23 12/14/23 History trazodone 50 mg tablet 50 mg PO HS 10/31/23 12/14/23 History carvedilol 12.5 mg tablet (Coreg) 25 mg PO Q12HR #60 tabs 11/07/23 12/14/23 Rx losartan 50 mg tablet (Cozaar) 50 mg PO BID #60 tabs 11/07/23 12/14/23 Rx nifedipine 30 mg tablet,extended 60 mg PO QAM #60 tabs 11/07/23 12/14/23 Rx release 24 hr (Procardia XL) oxycodone-acetaminophen 5 mg-325 1 tablet PO Q6H PRN pain #20 tabs 11/07/23 1 Rx mg tablet Patient hx anesthesia problems: none Family hx anesthesia problems: none Results Review: All pre-operative results and documents have been reviewed as part of the pre- operative evaluation. [facility] Past Medical History Medical History Arthritis CAD (coronary artery disease) Cardiac arrhythmia Chronic kidney disease Colonic polyp Depression Gout [place] (hard of hearing) Hyperlipidemia Hypertension TIA (transient ischemic attack) after his carotid surgery Vascular dementia Surgical History Surgical History History of bilateral cataract extraction History of carotid endarterectomy History of heart artery stent History of quadruple bypass Family History Family History Mother Fibromyalgia Social History Social History Smoking status: Never smoker Alcohol intake: never Substance use: never Substance use type: does not use Do You Feel Safe in your Home?: Yes Lack of Transportation: No Lack of Food: Never True Current Housing: I Have Housing Concerned About Future Housing: No Difficulty Paying Gas/Electric Bills: No Difficulty Paying for Meds: No Currently Unemployed: No Education: Grade School Difficulty w/ Childcare or Family Care: No Living arrangements: with family Additional living arrangements comments: lives w Spiritual care concerns: No Anes - Eval Final PreProcedure Day of Procedure 12/21/23 13:14 Patient weight: obese Heart: regular rate and rhythm Lungs: clear to auscultation Airway: Mallampati scale class II Neurological: alert and oriented Last oral intake: >/= 8 hours ASA classification: III Emergent: no Anesthetic plan: proceed Anesthesia type and monitoring: general GIVS and standard monitoring Results Review: All pre-operative results and documents have been reviewed as part of the pre- operative evaluation. Informed Consent: The patient's anesthetic plan and its attendant risks and benefits were discussed with the patient/family/POA. Questions were solicited and answers provided to the satisfaction of the patient/family/POA.
--- NOTE | 2023-12-21 13:24 | PM.IMHP ---
H&P: HPI History of Present Illness Date/Time: 12/21/23 13:24 Chief Complaint: Cecal cancer Narrative: The patient is a 73-year-old male presenting to the hospital for port placement. 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 The patient is going to undergo adjuvant chemotherapy. The patient has multiple medical issues including previous CABG, however denies any central venous catheterization. The patient is right handed. Review of Systems Review of Systems: All systems reviewed & are unremarkable except as noted in HPI and below PMFSH Past Medical History Medical History Arthritis CAD (coronary artery disease) Cardiac arrhythmia Chronic kidney disease Colonic polyp Depression Gout [place] (hard of hearing) Hyperlipidemia Hypertension TIA (transient ischemic attack) after his carotid surgery Vascular dementia Surgical History Surgical History History of bilateral cataract extraction History of carotid endarterectomy History of heart artery stent History of quadruple bypass Family History Family History Mother Fibromyalgia Social History Social History Smoking status: Never smoker Alcohol intake: never Substance use: never Substance use type: does not use Do You Feel Safe in your Home?: Yes Lack of Transportation: No Lack of Food: Never True Current Housing: I Have Housing Concerned About Future Housing: No Difficulty Paying Gas/Electric Bills: No Difficulty Paying for Meds: No Currently Unemployed: No Education: Grade School Difficulty w/ Childcare or Family Care: No Living arrangements: with family Additional living arrangements comments: lives w Spiritual care concerns: No Meds Home Medications and Allergies Home Medications Medication Instructions Recorded Confirmed Type apixaban 5 mg tablet (Eliquis) 5 mg PO BID 10/31/23 12/14/23 History calcitriol 0.25 mcg capsule 0.25 mcg PO DAILY 10/31/23 12/14/23 History clonidine HCl 0.2 mg tablet 0.2 mg PO BID 10/31/23 12/14/23 History donepezil 5 mg tablet 5 mg PO HS 10/31/23 12/14/23 History furosemide 80 mg tablet 80 mg PO DAILY 10/31/23 12/14/23 History trazodone 50 mg tablet 50 mg PO HS 10/31/23 12/14/23 History carvedilol 12.5 mg tablet (Coreg) 25 mg PO Q12HR #60 tabs 11/07/23 12/14/23 Rx losartan 50 mg tablet (Cozaar) 50 mg PO BID #60 tabs 11/07/23 12/14/23 Rx nifedipine 30 mg tablet,extended 60 mg PO QAM #60 tabs 11/07/23 12/14/23 Rx release 24 hr (Procardia XL) oxycodone-acetaminophen 5 mg-325 1 tablet PO Q6H PRN pain #20 tabs 11/07/23 12/14/23 Rx mg tablet Allergies Allergy/AdvReac Type Severity Reaction Status Date / Time Penicillins Allergy Mild Rash Verified 12/14/23 13:54 Vital Signs Vital Signs - 24 hr 12/21/23 12:58 Temperature 36.7 C Pulse Rate 70 Blood Pressure 144/60 H Pulse Oximetry 99 Oxygen Delivery Room Air Exam Const: General: cooperative, comfortable, no acute distress, ill appearing and obese Neck: Neck: normal visual inspection, full ROM and no lymphadenopathy Chest: Chest palpation & inspection: normal inspection of the chest Resp: Auscultation: clear to auscultation bilaterally Cardio: Rate: regular rate Rhythm: regular rhythm GI: Inspection: normal to inspection Assessment and Plan Assessment and plan (1) Adenocarcinoma of cecum: Code(s): C18.0 - Malignant neoplasm of cecum Status: Acute Assessment and Plan: Will set up for port placement
--- NOTE | 2023-12-21 13:28 | WPDHPUPDATE1 ---
History and Physical Update Update Date/Time: 12/21/23 13:28 History and Physical has been reviewed, including an updated exam of the patient. There are NO changes in the patient's condition. Risks, benefits, and alternatives have been discussed and questions answered. Patient agrees to proceed with procedure.
[2023-12-21] MEDS: ceFAZolin 2 GM/D5W 50 ML 2 GM/50 ML BAG IVPB (15:08)
[2023-12-21] MEDS: HEPARIN SODIUM 5,000 UNITS/ML VIAL 5000 UNITS IRRIGATION (15:50)
[2023-12-21] MEDS: HEPARIN SODIUM, PORCINE 10,000 UNITS/10 ML VIAL 10000 UNITS IV PUSH (15:51)
[2023-12-21] MEDS: BUPIVACAINE/EPINEPHRINE 0.5% 50 ML VIAL INFILTRATE (15:51)
--- NOTE | 2023-12-21 15:59 | W.PM.PROC2 ---
Procedure Note - Detailed Date of Procedure 12/21/23 Pre-op Diagnosis malignant neoplasm of colon Post-op Diagnosis Same Procedure Performed Placement of left internal jugular venous access device under both ultrasound and fluoroscopic guidance Surgeon Shena Sarkar MD Anesthesia MAC and Local Indications 73-year-old male with metastatic cecal cancer needing port for chemotherapy Findings 1st stick left IJ Description of Procedure Patient was brought into the operating room and placed in the supine position. After adequate induction of mac anesthesia, the patient was prepped and draped in normal sterile fashion. Time-out was then done to verify the patient's identity, as well as the procedure being performed. I began by making a small incision in the left chest. I then used the ultrasound to gain access into the left internal jugular vein. Once access was gained, I placed the guidewire in the vein and confirmed proper positioning. I then locally anesthetized the area in the left chest. I then enlarged the incision including making a subcutaneous pocket inferiorly to allow placement of the port itself. I proceeded to tunnel the catheter from the chest to the left neck insertion site. I then placed a dilating sheath over the guidewire into the left internal jugular vein via sterile Seldinger technique. This was once again done and confirmed via fluoroscopic guidance. I then removed the dilator and the guidewire, now just leaving the sheath in the vein. I then fed the previously flushed catheter into the left internal jugular vein under fluoroscopic guidance. At approximately 27 cm, the catheter was noted to be near the atrial caval junction. I then peeled away the sheath, now just leaving the catheter in the vein. I then was able to easily draw and flush from the catheter. The catheter was cut to fit and attached to the port itself. The port was placed into the previously made subcutaneous pocket and sutured in with 0 Ethibond suture. Final fluoroscopic view showed the termination of the catheter at the atrial caval junction with a nice smooth curvature back to the port itself. I was able to gain access to the port with a Sen needle and was able to easily draw and flush from the port. I then flushed 4 cc of a final heparin flush into the port. The incision was closed with 3 0 Vicryl suture in the subcutaneous tissue and the skin was closed with 4 O Monocryl subcuticular suture. Dermabond was then placed on wound. The patient tolerated the procedure well and will be sent to the recovery room in stable condition. Implants left internal jugular venous access device Estimated Blood Loss 5 Pathology None sent Complications No immediate complications Condition Stable Disposition PACU
[2023-12-21 16:06] VITALS: BP 126/56; PULSE 80; RESP 14; O2SAT 95
[2023-12-21 16:35] VITALS: BP 109/56; PULSE 81; RESP 18; O2SAT 93
[2023-12-21 17:05] VITALS: BP 127/53; PULSE 65; RESP 16; O2SAT 94
== END 2023-12-21 17:15 | disposition home or self-care (01) ==
PROVIDERS: PCP Internal Medicine; Visit Provider Surgery
PROC: (CPT 36561; principal; 2023-12-21 14:15)
DX: C18.0 Malignant neoplasm of cecum (principal); C77.9 Secondary and unspecified malignant neoplasm of lymph node, unspecified; I25.10 Atherosclerotic heart disease of native coronary artery without angina pectoris; E78.5 Hyperlipidemia, unspecified; I12.9 Hypertensive chronic kidney disease with stage 1 through stage 4 chronic kidney disease, or unspecified chronic kidney disease; N18.9 Chronic kidney disease, unspecified; F01.50 Vascular dementia, unspecified severity, without behavioral disturbance, psychotic disturbance, mood disturbance, and anxiety; F32.A Depression, unspecified; Z86.73 Personal history of transient ischemic attack (TIA), and cerebral infarction without residual deficits; Z95.5 Presence of coronary angioplasty implant and graft; Z95.1 Presence of aortocoronary bypass graft; E66.9 Obesity, unspecified; Z68.32 Body mass index [BMI] 32.0-32.9, adult
CPT/HCPCS: 36561; 77001; C1788; J0690; J1596; J1644; J1885; J2003; J2405; J2704; J3010; J7030; J7120

== ENCOUNTER 2024-04-18 07:26 | Outpatient (CLI) | payer MEDICARE, SELFPAY ==
--- NOTE | ~2024-04-18 | CT_ITS ---
CT of the Abdomen and Pelvis: Indication: Colon cancer Technique: 2.5 mm axial scans were obtained through the abdomen and pelvis following intravenous adm inistration of 100 cc of Omnipaque 350. Dose reduction technique was used on this scan by utilizing a utomated exposure control and iterative reconstruction technique. The dose-length product (DLP) was 1 216.01 mGy-cm. COMPARISON: 10/31/2023 Findings: Scans through the lung bases demonstrates stable 3 mm right middle lobe pulmonary nodule.. The liver, spleen, pancreas, gallbladder, and adrenal glands are within normal limits. There is marke dly atrophic left kidney with small left renal cysts, unchanged. Stable 15 mm probable left renal art gerardo aneurysm. There is compensatory hypertrophy right kidney which is otherwise unremarkable. There a re atherosclerotic calcifications of the aorta. No lymphadenopathy. No bowel obstruction. There is mild inflammatory change and wall thickening of a diverticulum at the proximal sigmoid colon, compatible with minimal acute diverticulitis. No abscess or free air. There i s postoperative change at the right colon. Images through the pelvis were performed. Urinary bladder unremarkable. No pelvic mass seen. No ascit es. Impression: No evidence for active malignancy or metastatic disease. Mild acute diverticulitis the proximal sigmoid:, As above. No abscess or free air. 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 Stable marked, chronic atrophy left kidney with compensatory hypertrophy of the right kidney. Reviewed, dictated and finalized at location . CAPTAIN Impression: No evidence for active malignancy or metastatic disease. Mild acute diverticulitis the proximal sigmoid:, As above. No abscess or free a ir. 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 Stable marked, chronic atrophy left ki dney with compensatory hypertrophy of the right kidney.
--- OUTSIDE RECORDS SUMMARY | 2024-04-18 07:33 | XMS_ITS ---
Author Organization [facility] [employer] [facility] Address [facility] [address] [address] Care Team Providers Care Planning Intern Name Role Phone Bean Villatoro Unavailable [phone] Migration, Provider Unavailable Unavailable Allergies Allergen (clinical drug ingredient) Drug/Non Drug Allergy documented on EMR Reaction Allergy Type Onset Date Status nystatin Nystatin Unknown Drug Allergy Active Substance with penicillin structure and antibacterial mechanism of action (substance) Penicillins Unknown Drug Allergy Active REASON FOR VISIT EMR-[place] Encounters Encounter Location Date Provider Diagnosis [facility] [place] [address] [address] 07/16/2023 Provider Migration Plan Of Treatment No Information Progress Notes * DIXON DUNNDOB:1950 (73 yo M)Acc No.[id number]:07/16/2023 Patient: Mariza DIXON GARRISON :1950 A ge:72 Y S ex:Male Address:[address] [place] [address] Subjective: * Chief Complaints: * E MR-[place] * Medical History: * Surgical History: * Hospitalization/Major Diagno stic Procedure: * Social History: M igrated Social History: M igrated Social History: Tobacco Years: Never smoker 07/04/2022. * Medications: * Allergies: N ystatin: AllergyPenicillins: Allergy Objective: * Vitals: * Physical Examination: Assessment: Plan: * Treatment: * Procedure Codes: * true * Date: Generated for Printi ng/Faxing/eTransmitting on: 0 04/18/2024 07:33 AM GRINDER AND PLATER
--- OUTSIDE RECORDS SUMMARY | 2024-04-18 07:34 | XMS_ITS | Clinical Summary ---
Author Organization [facility] Address [address] [facility] [place] [address] Care Team Providers Care Pharmacy Affairs Assistant Name Role Phone Unknown, Provider Primary Care Provider Unavaila ble Source Comments [facility],non-owned Affiliates and Associated Physician Practices is amultiple site organization consisting of ambulatory clinics and hospital sitesin [place], [place], [place] and [place]. This disclosure is being madepursuant to the Care Everywhere program and may not contain all information available regarding this patient. Last updated 17.[facility] Allergies Active Allergy Reactions Criticality Noted Date Comments Penicillins Urticaria 05/06/2015 Medications * Be aware that medications may not be up to date on this document. Alwaysverify current medications with the patient. Medication Sig Dispensed Refills Start Date End Date Status methocarbamol (ROBAXIN) 750 MG tablet Take 1 Tab by mouth every 6 hours 20 Tab 0 05/06/2015 Active carvedilol (COREG) 25 MG tabletIndications:Ra sh and other nonspecific skin eruption 07/08/2017 Active furosemide (LASIX) 80 MG tabletIndications:Ra sh and other nonspecific skin eruption 06/14/2017 Active ergocalciferol (DRISDOL) 91477 UNITS capsuleIndications:R delgado and other nonspecific skin eruption Take 50,000 Units by mouth Active hydrALAZINE (APRESOLINE) 50 MG tabletIndications:Ra sh and other nonspecific skin eruption 05/04/2017 Active hydrALAZINE (APRESOLINE) 25 MG tabletIndications:Ra sh and other nonspecific skin eruption 06/08/2017 Active NIFEdipine CR 24hr (ADALAT CC) 90 MG tabletIndications:Ra sh and other nonspecific skin eruption 07/06/2017 Active pravastatin (PRAVACHOL) 80 MG tabletIndications:Ra sh and other nonspecific skin eruption 06/30/2017 Active dabigatran (PRADAXA) 150 MG capsuleIndications:R delgado and other nonspecific skin eruption Take 150 mg by mouth 2 times daily Active PRIMIDONE POIndications:Rash and other nonspecific skin eruption Take 150 mg by mouth 2 times daily Active febuxostat (ULORIC) 40 MG tabletIndications:Ra sh and other nonspecific skin eruption Take 40 mg by mouth once daily Active triamcinolone acetonide (KENALOG) 0.1 % ointmentIndications: Rash and other nonspecific skin eruption Apply to affected area on trunk and extremities BID. 30 day supply 454 g 07/12/2017 Active cetirizine (ZYRTEC) 10 MG chew tabletIndications:Ra sh and other nonspecific skin eruption Take 1 to 4 tablets daily as needed for itch. 30 DS. 07/12/2017 Active benzoyl peroxide (BPO-5 WASH) 5 % washIndications:Infe ctious folliculitis Apply to affected area once daily 113 g 3 09/13/2017 Active mometasone (ELOCON) 0.1 % ointment APPLY OINTMENT TOPICALLY TO THE RASH ON BODY TWICE DAILY NEEDED 90 g 11 02/18/2019 Active predniSONE (DELTASONE) 10 MG tablet Take 4 tablets (40 mg) days 1-3, and then take 2 tablets (20 mg) days 4-6, and then take 1 tablet (20 mg) days 7-10. 22 tablet 10/16/2019 Active Active Problems Problem Noted Date Diagnosed Date Infectious folliculitis 09/14/2017 History of actinic keratoses 09/14/2017 Other urticaria 08/09/2017 Bilateral edema of lower extremity 08/09/2017 Onychomycosis 08/09/2017 Actinic keratosis 08/09/2017 Rash and other nonspecific skin eruption 018 Social History Tobacco Use Types Packs/Day Years Used Date Smoking Tobacco: Never Smokeless Tobacco: Never Alcohol Use Standard Drinks/Week Comments Yes 0 (1 standard drink = 0.6 oz pur e alcohol) seldom Sex and Gender Information Value Date Recorded Sex Assigned at Not on file Gender Identity Not on file Sexual Orientation Not on file Last Filed Vital Signs Vital Sign Reading Time Taken Comments Blood Pressure 132/84 10/16/2019 6:28 PM CDT Pulse 72 10/16/2019 6:28 PM CDT Temperature 37.3 C (99.1 F) 10/16/2019 6:28 PM CDT Respiratory Rate 16 10/16/2019 6:28 PM CDT Oxygen Saturation 96% 10/16/2019 6:28 PM CDT Inhaled Oxygen Concentration - - Weight 122.5 kg (270 lb) 10/16/2019 6:28 PM CDT Height 179.1 cm (5' 10.5 ) 10/16/2019 6:28 PM CD T Body Mass Index 38.19 10/16/2019 6:28 PM CDT Plan of Treatment Health Maintenance Due Date Last Done Comments COLOGUARD (AGES 45-75) - COL ON CA SCREENING 1950 COLON MONITORING 1950 COLONOSCOPY - COLON CA SCREENING 1950 CT COLONOGRAPHY - COLON CA SCREENING 1950 Colorectal Cancer Screening 1950 FIT - COLON CA SCREENING 1950 FLEX SIG - COLON CA SCREENING 1950 HEPATITIS C SCREENING 09/11/1967 DTAP/TDAP/TD VACCINES (1 - Tdap) 1968 PNEUMOCOCCAL VACCINE 50+ (1 of 1 - PCV) 09/16/1999 ZOSTER VACCINE (1 of 2) 09/16/1999 SCREENING FOR DIABETES 10/16/2019 05/06/2015 COVID-19 VACCINE (1 - 2023-2 5 season) 2023 INFLUENZA VACCINE (#1) 2023 7, 02/18/2015 DEPRESSION SCREENING 02/28/2024 MEDICARE AWV CALENDAR YEAR 2024 Respiratory Syncytial Virus (RSV) Vaccine Pt: or over 60 yrs (1 - 1-dose 75+ series) 2024 HEPATITIS B VACCINE Aged Out No longe r eligible based on patient's age to complete this topic HIB VACCINE Aged Out No longer eligi ble based on patient's age to complete this topic HPV VACCINE Aged Out No longer eligi ble based on patient's age to complete this topic MENINGOCOCCAL (Group B) VACCINE Aged Out No longer eligible b ased on patient's age to complete this topic MENINGOCOCCAL VACCINE Aged Out No harvey stan eligible based on patient's age to complete this topic Procedures Procedure Name Priority Date/Time Associated Diagnosis Comments COMPREHENSIVE METABOLIC PANEL STAT 05/06/2015 5:36 PM SENIOR COMPENSATION CONSULTANT from Last 3 Months or Most Recently Relevant to Health Maintenance Results * (ABNORMAL) COMPREHENSIVE METABOLIC PANEL (05/06/2015 5:36 PM SENIOR COMPENSATION CONSULTANT) Glucose 95 74 - 106 mg/dL 05/06/2015 6:00 PM [facility] Sodium 136 136 - 145 mmol/L 05/06/2015 6:00 PM [facility] Potassium 4.7 3.5 - 5.1 mmol/L 05/06/2015 6:00 PM [facility] Chloride 103 98 - 107 mmol/L 05/06/2015 6:00 PM [facility] CO2 26 22 - 31 mmol/L 05/06/2015 6:00 PM [facility] Calcium 8.6 8.5 - 10.1 mg/dL 05/06/2015 6:00 PM [facility] Anion Gap 7 5 - 20 mmol/L 05/06/2015 6:00 PM [facility] BUN 21 7 - 21 mg/dL 05/06/2015 6:00 PM [facility] Creatinine 1.40(H) 0.50 - 1.30 mg/dL 05/06/2015 6:00 PM [facility] Alkaline Phosphatase 65 38 - 126 U/L 05/06/2015 6:00 PM [facility] ALT 24 12 - 78 U/L 05/06/2015 6:00 PM [facility] AST 30 5 - 40 U/L 05/06/2015 6:00 PM [facility] Protein Total 7.4 6.4 - 8.2 gm/dL 05/06/2015 6:00 PM [facility] Albumin 3.8 3.4 - 5.0 gm/dL 05/06/2015 6:00 PM [facility] Bilirubin Total 0.3 0.2 - 1.0 mg/dL 05/06/2015 6:00 PM [facility] eGFR by MDRD 51(L) >60 mL/min/1.7 3m2 05/06/2015 6:00 PM SENIOR COMPENSATION CONSULTANT [facility] eGFR by MDRD >60 >60 mL/min/1.7 3m2 05/06/2015 6:00 PM SENIOR COMPENSATION CONSULTANT [facility] Blood BLOOD SPECIMEN / Unknown 05/06/2015 5:36 PM SENIOR COMPENSATION CONSULTANT 05/06/2015 5:40 PM SENIOR COMPENSATION CONSULTANT Brittany Seth MD LAB - CHEMISTRY JANETTE SAMUELS [facility] [address] [place] [address] from Last 3 Months or Most Recently Relevant to Health Maintenance Care Teams Pharmacy Affairs Assistant Relationship Specialty Start Date End Date Unknown, Provider PCP - General 08/09/17
--- OUTSIDE RECORDS SUMMARY | 2024-04-18 07:34 | XMS_ITS | Referral Summary ---
Author Organization [facility] Address [address] [place] [address] Care Team Providers Care Alligator Trapper Name Role Phone Unknown, Provider Primary Care Provider Unavaila ble Source Comments [facility],non-owned Affiliates and Associated Physician Practices is amultiple site organization consisting of ambulatory clinics and hospital sitesin [place], [place], [place] and [place]. This disclosure is being madepursuant to the Care Everywhere program and may not contain all information available regarding this patient. Last updated 17.[facility] Allergies Active Allergy Reactions Criticality Noted Date [...] nonspecific skin eruption 06/14/2017 Active ergocalciferol (DRISDOL) 76218 UNITS capsuleIndications:R delgado and other nonspecific skin [...] 10/16/2019 6:28 PM CDT Plan of Treatment Not on file Procedures Procedure Name Priority Date/Time Associated Diagnosis Comments COMPREHENSIVE METABOLIC PANEL STAT 05/06/2015 5:36 PM PRINTED CIRCUIT BOARD PANELS PLATER from Last 3 Months or Most Recently Relevant to Health Maintenance Results * (ABNORMAL) COMPREHENSIVE METABOLIC PANEL (05/06/2015 5:36 PM PRINTED CIRCUIT BOARD PANELS PLATER) Glucose 95 74 - 106 mg/dL 05/06/2015 6:00 PM [facility] Sodium 136 136 - 145 mmol/L 05/06/2015 6:00 PM [facility] Potassium 4.7 3.5 - 5.1 mmol/L 05/06/2015 6:00 PM [facility] Chloride 103 98 - 107 mmol/L 05/06/2015 6:00 PM [facility] CO2 26 22 - 31 mmol/L 05/06/2015 6:00 PM [facility] Calcium 8.6 8.5 - 10.1 mg/dL 05/06/2015 6:00 PM [facility] Anion Gap 7 5 - 20 mmol/L 05/06/2015 6:00 PM [facility] BUN 21 7 - 21 mg/dL 05/06/2015 6:00 PM [facility] Creatinine 1.40(H) 0.50 - 1.30 mg/dL 05/06/2015 6:00 PM [facility] Alkaline Phosphatase 65 38 - 126 U/L 05/06/2015 6:00 PM PRINTED CIRCUIT BOARD PANELS PLATER [facility] ALT 24 12 - 78 U/L 05/06/2015 6:00 PM PRINTED CIRCUIT BOARD PANELS PLATER [facility] AST 30 5 - 40 U/L 05/06/2015 6:00 PM PRINTED CIRCUIT BOARD PANELS PLATER [facility] Protein Total 7.4 6.4 - 8.2 gm/dL 05/06/2015 6:00 PM PRINTED CIRCUIT BOARD PANELS PLATER [facility] Albumin 3.8 3.4 - 5.0 gm/dL 05/06/2015 6:00 PM PRINTED CIRCUIT BOARD PANELS PLATER [facility] Bilirubin Total 0.3 0.2 - 1.0 mg/dL 05/06/2015 6:00 PM PRINTED CIRCUIT BOARD PANELS PLATER [facility] eGFR by MDRD 51(L) >60 mL/min/1.7 3m2 05/06/2015 6:00 PM PRINTED CIRCUIT BOARD PANELS PLATER [facility] eGFR by MDRD >60 >60 mL/min/1.7 3m2 05/06/2015 6:00 PM PRINTED CIRCUIT BOARD PANELS PLATER [facility] Blood BLOOD SPECIMEN / Unknown 05/06/2015 5:36 PM PRINTED CIRCUIT BOARD PANELS PLATER 05/06/2015 5:40 PM PRINTED CIRCUIT BOARD PANELS PLATER Brittany Seth MD LAB - CHEMISTRY JANETTE SAMUELS [facility] Organization Address City/State/ZIP Co de Phone Number [facility] [address] [place] [phone] from Last 3 Months or Most Recently Relevant to Health Maintenance Care Teams Alligator Trapper Relationship Specialty Start Date End Date Unknown, Provider PCP - General 08/09/17
--- OUTSIDE RECORDS SUMMARY | 2024-04-18 07:34 | XMS_ITS | Encounter Summary ---
Author Organization [facility] Address [address] [place] [address] Care Team Providers Care Director Imaging Name Role Phone Nora Mckeon MD Primary Care Provider Encounter Details Date Type Department Care Team (Late st Contact Info) Description 06/05/2006 Outpatient Historical [facility] Support Serv. (Adt Cardiology[facility]) [address] [place] [address] Bradly Baez MD NO ADDRESS ON FILE Social History Tobacco Use Types Packs/Day Years Used Date Smoking Tobacco: Never Assessed Sex and Gender Information Value Date Recorded Sex Assigned at Not on file Legal Sex Male 3:54 AM GEOGRAPHICAL HISTORIAN Gender Identity Not on file Sexual Orientation Not on file documented as of this encounter Plan of Treatment Upcoming Encounters Date Type Department Care Team (Late st Contact Info) Description 04/23/2024 8:30 AM GEOGRAPHICAL HISTORIAN Office Visit [facility] Oncology and Hematology - [place] [address] [place] [address] [facility] [address] [place] [address] Sudarshan Martinez MD [address] [facility] [address] [address] [place] [address] documented as of this encounter Visit Diagnoses Not on filedocumented in this encounter Care Teams Director Imaging Relationship Specialty Start Date End Date Nora Mckeon MD PCP - General Internal Medicine 11/22/23 documented as of this encounter
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
--- OUTSIDE RECORDS SUMMARY | 2024-04-18 07:34 | XMS_ITS ---
Author Organization [facility] [employer] [facility] Address [facility] [address] [facility] [address] [place] [address] Care Team Providers Care Frame Runner Name Role Phone Bean Villatoro Unavailable [phone] Migration, Provider Unavailable Unavailable REASON FOR VISIT EMR-[place] Encounters Encounter Location Date Provider Diagnosis [facility] [email or web address] [place] [address] [facility] [address] [place] [address] 07/15/2023 Provider Migration Plan Of Treatment No Information Progress Notes * DIXON DUNNDOB:1950 (73 yo M)Acc No.[id number]:07/15/2023 Patient: Mariza DIXON GARRISON :1950 A ge:72 Y S ex:Male Address:[address] [place] [id number] Subjective: * Chief Complaints: * E MR-[place] * Medical History: * Surgical History: * Hospitalization/Major Diagno stic Procedure: * Medications: Objective: * Vitals: * Physical Examination: Assessment: Plan: * Treatment: * Procedure Codes: * true * Date: Generated for Keishai guille/Peyman/eTransmitting on: 0 04/18/2024 07:34 AM CHILD AND ADOLESCENT PSYCHOLOGIST
--- OUTSIDE RECORDS SUMMARY | 2024-04-18 07:34 | XMS_ITS | Clinical Summary ---
Author Organization [facility] Physician Office Building [address] [place] [address] Care Team Providers Care Loan Broker Name Role Phone Raul Mckeon MD Primary Care Provide r Allergies Active Allergy Reactions Criticality Noted Date Comments Lisinopril Unknown 03/07/2017 Nystatin Other (See comments) Low 05/05/2017 Penicillins Hives Medium Reaction: Hives, Medications allopurinol (ZYLOPRIM) 100 mg tablet Take 1 tablet (100 mg total) by mouth daily 7 Active dabigatran (PRADAXA) 150 mg capsule Take 1 capsule (150 mg total) by mouth 2 (two) times a day Active cholecalciferol (VITAMIN D-3) 50,000 unit capsuleIndicati ons:Monday Take 1 capsule (50,000 Units total) by mouth Active carvedilol (COREG) 25 mg tablet 8 Active hydrALAZINE (APRESOLINE) 25 mg tabletIndicatio ns:hypertension 8 Active metoprolol XL (TOPROL-XL) 100 mg 24 hr tablet 8 Active pravastatin (PRAVACHOL) 80 mg tablet 8 Active furosemide (LASIX) 10 mg/mL injection 8 Active cloNIDine (CATAPRES) 0.1 mg tablet 8 Active furosemide (LASIX) 80 mg tablet 9 Active albuterol HFA (PROVENTIL HFA,VENTOLIN HFA,PROAIR HFA) 90 mcg/actuation inhaler every 4 hours Active calcitRIOL (ROCALTROL) 0.25 mcg capsule Take 1 capsule (0.25 mcg total) by mouth daily 2 Active colchicine (COLCRYS) 0.6 mg tablet Colcrys 0.6 mg tablet Take 1 tablet twice a day by oral route as directed for 7 days. Active hydroCHLOROthia zide (HYDRODIURIL) 25 mg tablet Active losartan (COZAAR) 50 mg tablet Take 1 tablet (50 mg total) by mouth daily 2 Active atorvastatin (LIPITOR) 40 mg tablet Take 1 tablet (40 mg total) by mouth daily 3 Active ergocalciferol (VITAMIN D) 50,000 unit capsule TAKE 1 CAPSULE BY MOUTH TWICE A WEEK 3 Active meloxicam (MOBIC) 15 mg tablet meloxicam 15 mg tablet Active traZODone (DESYREL) 50 mg tablet Take by mouth daily as needed 3 Active ALPRAZolam (XANAX) 0.5 mg tablet Take by mouth daily as needed Active Eliquis 5 mg tablet Take 1 tablet (5 mg total) by mouth 2 (two) times a day 3 Active donepeziL (ARICEPT) 5 mg tablet Take 1 tablet (5 mg total) by mouth nightly 90 tablet 3 3 Active Active Problems Problem Noted Date Diagnosed Date Hypoproteinemia 04/26/2023 Insomnia 03/15/2023 Hypokalemia 12/26/2022 Anemia 12/21/2022 Generalized anxiety disorder 07/01/2022 Hyperglycemia 05/26/2022 Bilateral tinnitus 05/25/2022 Sensorineural hearing loss 05/25/2022 Disorder of prostate 05/11/2022 Essential tremor 05/11/2022 Unsteady gait when walking 05/11/2022 Upper respiratory infection 02/28/2022 Dementia 02/08/2022 Acute cervical sprain 01/25/2022 Bronchitis 01/25/2022 Disorder of shoulder 01/25/2022 Gout 01/25/2022 Low back pain 01/25/2022 Nocturia 01/25/2022 Pneumonia 01/25/2022 Tremor 01/25/2022 Ingrowing toenail 09/24/2021 Vitamin D deficiency 08/11/2021 Cough 08/02/2021 Acute sinusitis 07/27/2021 Dry skin 01/01/2021 Abdominal pain 08/10/2020 Chronic renal failure syndrome 08/10/2020 Primary osteoarthritis of knees, bilateral 01/22 Abdominal aortic aneurysm (AAA) 01/16/2019 History of actinic keratoses 09/14/2017 Infectious folliculitis 09/14/2017 Actinic keratosis 08/09/2017 Bilateral edema of lower extremity 08/09/2017 Onychomycosis 08/09/2017 Other urticaria 08/09/2017 Rash and other nonspecific skin eruption 018 Edema 06/14/2017 Heart failure, unspecified (CMS/HCC) 06/14/2017 Incomplete tear of left rotator cuff 01/13/2017 Subacromial impingement of left shoulder 017 Biceps tendinitis of left shoulder 01/13/2017 Arthralgia of left acromioclavicular joint 01/13 Obstructive sleep apnea (adult) (pediatric) 05/2016 Pain of cervical spine 10/11/2016 Hyperlipidemia 02/18/2016 Unspecified atrial fibrillation 02/18/2016 Occlusion and stenosis of right carotid artery 1 02/28/2014 Stenosis of carotid artery 05/20/2014 Obesity 10/08/2013 Shortness of breath 10/08/2013 Arteriosclerosis of coronary artery 01/22/2013 Essential (primary) hypertension 02/27/1959 Surgical History Surgery Date Site/Laterality Comments HEART SURGERY 5 vessel bypass ANGIOPLASTY CARDIAC CATHETERIZATION CAROTID ARTERY ANGIOPLASTY Right CATARACT EXTRACTION Bilateral CORONARY ARTERY BYPASS GRAFT OTHER SURGICAL HISTORY Left shoulder SHOULDER SURGERY 02/09/2017 Left Medical History Medical History Date Comments Stroke (HCC) post op TIA Hypertension Coronary artery disease Hyperlipidemia Myocardial infarction (HCC) GERD (gastroesophageal reflux disease) Rotator cuff injury Arthritis Cataract TIA (transient ischemic attack) Family History Medical History Relation Name Comments No Known Problems Brother No Known Problems Daughter No Known Problems Father Arthritis Mother Heart disease Mother Heart disease Mother's Sister No Known Problems Other No Known Problems Sister No Known Problems Son Relation Name Status Comments Brother Daughter Father Mother Mother's Sister Other Sister Son Social History Tobacco Use Types Packs/Day Years Used Date Smoking Tobacco: Never Smokeless Tobacco: Never Tobacco Cessation:Counseling Given: No Alcohol Use Standard Drinks/Week Comments Yes 0 (1 standard drink = 0.6 oz pur e alcohol) rarely PHQ-2 Answer Date Recorded PHQ-2 Score 0 04/30/2018 Sex and Gender Information Value Date Recorded Sex Assigned at Not on file Legal Sex Male 4:08 AM DRAWSTRING KNOTTER Gender Identity Not on file Sexual Orientation Not on file Occupation Industry Job Start Date Job End Date unemployed Not on file Not on file Not on file Obstetrics History Last Filed Vital Signs Vital Sign Reading Time Taken Comments Blood Pressure 140/80 11/01/2022 3:22 PM CDT Pulse 96 05/25/2022 10:32 AM CDT Temperature 35.8 C (96.4 F) 05/25/2022 10:32 AM CDT Respiratory Rate 18 05/25/2022 10:32 AM CDT Oxygen Saturation 95% 05/25/2022 10:32 AM CDT Inhaled Oxygen Concentration - - Weight 111.1 kg (245 lb) 11/01/2022 3:22 PM CDT Height 177.8 cm (5' 10 ) 10/31/2023 2:13 PM CDT Body Mass Index 35.15 11/01/2022 3:22 PM CDT Plan of Treatment Health Maintenance Due Date Last Done Comments Colon Cancer Screening-Colonoscopy 1950 Depression Screening 1950 Fall Risk Assessment 1950 Hepatitis C Screening 1950 DTaP/Tdap/Td Vaccine (1 - Tdap) 1960 Hepatitis B Screening 09/16/1967 Zoster Vaccine (1 of 2) 09/16/1999 Well Visit 65+ 2014 Pneumococcal vaccine 65+ (2 of 2 - PPSV23) 04/29/2022 04/29/2021 Covid-19 Vaccine (3 - season) 2023, 04/25/2020 Influenza Vaccine (#1) 2023 12/13/2016, 2014 Medical Devices Implanted Type Area Quality Compliance Manager Device Identifier Shelf Expiration Date Model / Serial / Lot Des Arc Suture Quattro Link Od4.5 Mm Knotless Shoulder System - [id number] Implanted:Qty: 2 on 02/09/2017 by Michael Alejandro MD at [facility] 09/01/2021 [id number] / / [id number] Des Arc Suture Quattro X Uhmwpe Peek Taper Od5.5 Mm 1 Row 2 Strand Simple Stitch Thread Design Rotator Cuff Blue Cobraid Blue - [id number] Implanted:Qty: 1 on 02/09/2017 by Michael Alejandro MD at [facility] 06/30/2021 [id number] / / [id number] Screw Quattro 8mm 16mm [place] Tenodesis - [id number] Implanted:Qty: 1 on 02/09/2017 by Michael Alejandro MD at [facility] 02/26/2021 -[id number] / / [id number] Insurance MEDICARE SOLUTIONS MEDICARE AETNA SENIOR SUPPLEMENT MEDICARE SOLUTIONS Care Teams Loan Broker Relationship Specialty Start Date End Date Raul Mckeon MD [address] [address] PCP - General Internal Medicine 12/27/16
--- OUTSIDE RECORDS SUMMARY | 2024-04-18 07:34 | XMS_ITS | Referral Summary ---
Author Organization [facility] Physician Office Building [address] [place] [address] Care Team Providers Care Tube Building Machine Operator Name Role Phone Raul Mckeon MD Primary [...] coronary artery 01/22/2013 Essential (primary) hypertension 02/27/1959 Social History Tobacco Use Types Packs/Day Years Used Date Smoking Tobacco: Never Smokeless Tobacco: Never Tobacco Cessation:Counseling Given: No Alcohol Use Standard Drinks/Week Comments Yes 0 (1 standard drink = 0.6 oz pur e alcohol) rarely PHQ-2 Answer Date Recorded PHQ-2 Score 0 04/30/2018 Sex and Gender Information Value Date Recorded Sex Assigned at Not on file Legal Sex Male 4:08 AM FOOD AND BEVERAGE OPERATIONS MANAGER Gender Identity Not on file Sexual Orientation Not on file Occupation Industry Job Start Date Job End Date unemployed Not on file Not on file Not on file Last Filed Vital Signs [...] 11/01/2022 3:22 PM CDT Plan of Treatment Not on file Medical Devices Implanted Type Area Incising Machine Operator Device Identifier Shelf Expiration Date Model / Serial / Lot [place] Suture Quattro Link Od4.5 Mm Knotless Shoulder System - [id number] Implanted:Qty: 2 on 02/09/2017 by Michael Alejandro MD at [facility] 09/01/2021 -[id number] / / [id number] [place] Suture Quattro X Uhmwpe Peek Taper Od5.5 Mm 1 Row 2 Strand Simple Stitch Thread Design Rotator Cuff Blue Cobraid Blue - [id number] Implanted:Qty: 1 on 02/09/2017 by Michael Alejandro MD at [facility] 06/30/2021 -[id number] / / [id number] Screw Quattro 8mm 16mm [place] Tenodesis - [id number] Implanted:Qty: 1 on 02/09/2017 by Michael Alejandro MD at [facility] 02/26/2021 -[id number] / / [id number] Insurance MEDICARE SOLUTIONS MEDICARE AETNA SENIOR SUPPLEMENT MEDICARE SOLUTIONS Care Teams Tube Building Machine Operator Relationship Specialty Start Date End Date Raul Mckeon MD [address] [facility] [address] [place] [address] PCP - General Internal Medicine 12/27/16
--- OUTSIDE RECORDS SUMMARY | 2024-04-18 07:35 | XMS_ITS | Patient Health Record ---
Author Organization [facility] [employer] [facility] Address [address] [facility] [address] [place] [address] Care Team Providers Care Nanoscience Technician Name Role Phone Bean Villatoro Unavailable [phone] Migration, Provider Unavailable Unavailable Reason For Referral No Information Encounters Encounter Location Date Provider Diagnosis [facility] [employer] [facility] [address] [facility] [address] [place] [address] 07/15/2023 Provider Migration [facility] [facility] [address] [facility] [address] [place] [address] 07/16/2023 Provider Migration Plan Of Treatment No Information Insurance Providers Payer Name Payer Address Payer Phone Subscriber Number Group Number Insured Name Patient Relationship to Insured Coverage Start Date Coverage End Date [employer] Medicare Replacement/ Advantage - Hmo [address] [address] [place] [phone] [id number] DIXON DUNN Self - patient is the insured
--- OUTSIDE RECORDS SUMMARY | 2024-04-18 07:35 | XMS_ITS | Clinical Summary ---
Author Organization [facility] Address [address] [place] [address] Care Team Providers Care Nursing Informatics Analyst Name Role Phone Nora Mckeon MD Primary Care Provider Allergies Active Allergy Reactions Criticality Noted Date Comments Penicillins Hives High 05/06/2015 Reaction: Hives, Medications apixaban (Eliquis) 5 mg tablet Take 1 Tablet by mouth 2 times daily. 3 Active donepeziL (ARICEPT) 5 mg tablet Take 1 Tablet by mouth late in the day. Active hydrALAZINE (APRESOLINE) 50 mg tablet Take 1 Tablet by mouth 2 times daily with meals. Active calcitRIOL (ROCALTROL) 0.25 mcg capsule Take 1 Capsule by mouth daily. 2 Active losartan (COZAAR) 25 mg tablet Take 1 Tablet by mouth daily. Active carvediloL (COREG) 12.5 mg tablet Take 1 Tablet by mouth 2 times daily. Active furosemide (LASIX) 80 mg tablet Take 1 Tablet by mouth daily. Active cloNIDine HCL (CATAPRES) 0.2 mg tablet Take 1 Tablet by mouth 2 times daily. Active atorvastatin (LIPITOR) 40 mg tablet Take 1 Tablet by mouth daily. 3 Active ferrous fumarate 89 mg (29 mg iron) Tablet Take 65 mg by mouth daily. Active traZODone (DESYREL) 50 mg tablet Take 50 mg by mouth daily at bedtime. Active multivitamin (DAILY-ROXI) tablet Take 1 Tablet by mouth daily. Active ondansetron (ZOFRAN ODT) 8 mg Tablet, Rapid DissolveIndicati ons:Malignant neoplasm of colon, unspecified part of colon (CMS/HCC) Dissolve 1 tablet on top of tongue then swallow with saliva every 8 hours as needed for nausea or vomiting 30 Tablet 1 4 Active lidocaine-priloc roxane (EMLA) 2.5-2.5 % CreamIndications :Malignant neoplasm of colon, unspecified part of colon (CMS/HCC) APPLY A QUARTER SIZE AMOUNT TO PORT SITE 30 MINUTES BEFORE ACCESS 30 Gram 5 Active Active Problems No known active problems Encounters Date Type Department Care Team Description 04/09/2024 9:[address] SIGN INSTALLER Office Visit [facility] On[facility] and Hematology - [place] [address] [place] [id number] Sudarshan Martinez MD Malignant neoplasm of colon, unspecified part of colon (CMS/HCC) (Primary Dx) 04/08/2024 Orders Only [facility] - [place] [address] [place] [address] Sudarshan Martinez MD Malignant neoplasm of colon, unspecified part of colon (CMS/HCC) 03/27/2024 External Device Data STL ABSTRACTION Provider, Abstract 03/26/2024 9:[address] SIGN INSTALLER Office Visit [facility] - [place] [address] [place] [address] Sudarshan Martinez MD Malignant neoplasm of colon, unspecified part of colon (CMS/HCC) (Primary Dx) 03/26/2024 Orders Only [facility] - [place] [address] [place] [address] Sudarshan Martinez MD 03/25/2024 Orders Only [facility] - [place] [address] [place] [address] Sudarshan Martinez MD Malignant neoplasm of colon, unspecified part of colon (CMS/HCC) 03/21/2024 External Device Data STL ABSTRACTION Provider, Abstract 03/12/2024 Orders Only [facility] - [place] [address] Sudarshan Martinez MD 03/11/2024 Orders Only [facility] - [place] [address] Sudarshan Martinez MD Malignant neoplasm of colon, unspecified part of colon (CMS/HCC) 03/06/2024 Orders Only [facility] - [place] [address] Sudarshan Martinez MD 03/03/2024 Refill [facility] - [place] [address] [place] [address] Sudarshan Martinez MD Malignant neoplasm of colon, unspecified part of colon (CMS/HCC) 02/26/2024 Orders Only [facility]ology - [place] [address] Sudarshan Martinez MD Malignant neoplasm of colon, unspecified part of colon (CMS/HCC) 02/12/2024 Orders Only [facility]ology - [place] [address] Sudarshan Martinez MD Malignant neoplasm of colon, unspecified part of colon (CMS/HCC) 02/02/2024 Orders Only [facility] - [place] [address] [place] [phone] Sudarshan Martinez MD 02/01/2024 Orders Only [facility] - [place] [address] Sudarshan Martinez MD 01/31/2024 8:[address] SIGN INSTALLER Office Visit [facility] - [place] [address] Sudarshan Martinez MD Malignant neoplasm of colon, unspecified part of colon (CMS/HCC) (Primary Dx) 01/29/2024 Orders Only [facility] - [place] [address] [place] [address] Sudarshan Martinez MD Malignant neoplasm of colon, unspecified part of colon (CMS/HCC) 01/19/2024 Abstract [facility] - [place] [address] [place] [address] Sudarshan Martinez MD 01/18/2024 Orders Only [facility] - [place] [address] [place] [address] Sudarshan Martinez MD from Last 3 Months Family History Medical History Relation Name Comments No Known Problems Brother Heart Disease Child 1 Stroke Child 2 No Known Problems Child 3 No Known Problems Father Hypertension Maternal Uncle No Known Problems Mother No Known Problems Sister Relation Name Status Comments Brother Alive Child 1 Child 2 Alive Child 3 Alive Father Other Maternal Uncle Mother Sister Social History Tobacco Use Types Packs/Day Years Used Date Smoking Tobacco: Never Tobacco Cessation:Counseling Given: Not Answered Alcohol Use Standard Drinks/Week Comments Never 0 (1 standard drink = 0.6 oz pur e alcohol) Sex and Gender Information Value Date Recorded Sex Assigned at Not on file Legal Sex Male 3:[address]IGN INSTALLER Gender Identity Not on file Sexual Orientation Not on file Last Filed Vital Signs Vital Sign Reading Time Taken Comments Blood Pressure 126/68 04/09/2024 8:[address] SIGN INSTALLER Pulse 78 04/09/2024 8:[address] SIGN INSTALLER Temperature 36.5 C (97.7 F) 04/09/2024 8:[address] SIGN INSTALLER Respiratory Rate 18 04/09/2024 8:[address] SIGN INSTALLER Oxygen Saturation 96% 04/09/2024 8:[address] SIGN INSTALLER Inhaled Oxygen Concentration - - Weight 100.7 kg (222 lb) 04/09/2024 8:[address] SIGN INSTALLER Height 179.1 cm (5' 10.5 ) 06/13/2023 2:31 PM CD T Body Mass Index 31.4 06/13/2023 2:31 PM CDT Plan of Treatment Upcoming Encounters Date Type Department Care Team (Late st Contact Info) Description 04/23/2024 8:[address] SIGN INSTALLER Office Visit [facility] Oncology and Hematology - [place] [address] [facility] [address] [place] [address] Sudarshan Martinez MD [address] [facility] [address] [place] [address] Health Maintenance Due Date Last Done Comments DTAP/TDAP/TD VACCINES (1 - Tdap) 1968 ZOSTER VACCINE (1 of 2) 09/16/1999 PNEUMOCOCCAL VACCINE 65+ YEA RS (2 of 2 - PPSV23) 04/29/2022 04/29/2021 INFLUENZA VACCINE (#1) 2023 , 12/31/2020, 03/26/2020, Additional history exists COVID-19 Vaccine (3 - 2023-2 5 season) 2023 05/16/2020, 04/25/2020 RSV VACCINE (60+ or ) (1 - 1-dose 75+ series) 2024 Procedures Procedure Name Priority Date/Time Associated Diagnosis Comments BASIC METABOLIC PANEL Routine 03/26/2024 3:[address] SIGN INSTALLER COMPREHENSIVE METABOLIC PANEL Routine 03/26/2024 3:[address] SIGN INSTALLER COMPREHENSIVE METABOLIC PANEL Routine 03/12/2024 3:[address] SIGN INSTALLER CBC WITH DIFFERENTIAL Routine 03/12/2024 1:[address] SIGN INSTALLER BASIC METABOLIC PANEL Routine 03/12/2024 1:[address] SIGN INSTALLER COMPREHENSIVE METABOLIC PANEL Routine 02/27/2024 4:[address] SIGN INSTALLER CBC WITH DIFFERENTIAL Routine 02/27/2024 3:[address] SIGN INSTALLER COMPREHENSIVE METABOLIC PANEL Routine 01/31/2024 12:[address] SIGN INSTALLER BASIC METABOLIC PANEL Routine 01/31/2024 9:[address] SIGN INSTALLER CBC WITH DIFFERENTIAL Routine 01/31/2024 8:[address] SIGN INSTALLER from Last 3 Months Results * BASIC METABOLIC PANEL (03/26/2024 3:[address] SIGN INSTALLER) Only the most recent of3 resultswithin the time period is included. Blood us Sudarshan Martinez MD CHEMISTRY ORDERABLES Final Resu lt * COMPREHENSIVE METABOLIC PANEL (03/26/2024 3:[address] SIGN INSTALLER) Only the most recent of4 resultswithin the time period is included. Blood Sudarshan Martinez MD CHEMISTRY ORDERABLES Final Resu lt * CBC WITH DIFFERENTIAL (03/12/2024 1:[address] SIGN INSTALLER) Only the most recent of3 resultswithin the time period is included. Blood Sudarshan Martinez MD HEMATOLOGY ORDERABLES Final Res ult from Last 3 Months Insurance Care Teams Nursing Informatics Analyst Relationship Specialty Start Date End Date Nora Mckeon MD PCP - General Internal Medicine 11/22/23
--- OUTSIDE RECORDS SUMMARY | 2024-04-18 07:35 | XMS_ITS | Encounter Summary ---
Author Organization [facility] Address [address] [place] [address] Care Team Providers Care Cellar Supervisor Name Role Phone Nora Mckeon MD Primary Care Provider Encounter Details Date Type Department Care Team (Latest Contact Info) Description 06/05/2006 Outpatient Historical [facility] (Excluded Provider) Gabriel Barkley MD NO ADDRESS ON FILE Open Wound of Finger(s) , with Tendon Involvement (Primary Dx) Social History Tobacco Use Types Packs/Day Years Used Date Smoking Tobacco: Never Assessed Sex and Gender Information Value Date Recorded Sex Assigned at Not on file Legal Sex Male 3:54 AM VB DEVELOPER Gender Identity Not on file Sexual Orientation Not on file documented as of this encounter Plan of Treatment Upcoming Encounters Date Type Department Care Team (Late st Contact Info) Description 04/23/2024 8:30 AM VB DEVELOPER Office Visit [facility] Oncology and Hematology - [place] [address] [facility] [address] [place] [address] Sudarshan Martinez MD [address] [facility] [address] [place] [address] documented as of this encounter Procedures Procedure Name Priority Date/Time Associated Diagnosis Comments HEMOGLOBIN AND HEMATOCRIT Routine 06/05/2006 11:45 AM CDT BASIC METABOLIC PANEL Routine 06/05/2006 11:45 AM CDT documented in this encounter Results * BASIC METABOLIC PANEL (06/05/2006 11:45 AM CDT) GLUCOSE 95 65 - 99 mg/dL INTERFACE SYSTEM CREATININE 0.89 0.67 - 1.17 mg/dL INTERFACE SYSTEM CALCIUM 9.2 8.4 - 10.2 mg/dL INTERFACE SYSTEM BUN 12 6 - 20 mg/dL INTERFACE SYSTEM SODIUM 141 135 - 145 mmol/L INTERFACE SYSTEM POTASSIUM 4.6 3.5 - 4.9 mmol/L INTERFACE SYSTEM CHLORIDE 104 96 - 108 mmol/L INTERFACE SYSTEM CO2 26 22 - 30 mmol/L INTERFACE SYSTEM GFR, >60 >=60 mL/min/1.7 sq meter INTERFACE SYSTEM GFR >60 >=60 mL/min/1.7 sq meter INTERFACE SYSTEM Comment: Estimated GFR rate interpretative information for both Americans and non- Americans is available on the [facility] Intranet at: [email or web address] Select: Lab Policies and Procedures Select: Reference Ranges - GFR 06/05/2006 11:4 5 AM CDT us Gabriel Madden (Excluded Provider) Filippo LYNCH CHEMISTRY ORDERABLES Edited Performing Organization Address City/[facility] Co de Phone Number INTERFACE SYSTEM Refer to clinic/hospital department * HEMOGLOBIN AND HEMATOCRIT (06/05/2006 11:45 AM CDT) HEMOGLOBIN 14.8 13.6 - 16.5 g/dL INTERFACE SYSTEM HEMATOCRIT 43.2 40.0 - 48.0 % INTERFACE SYSTEM 06/05/2006 11:4 5 AM CDT Gabriel Madden (Excluded Provider) Filippo LYNCH HEMATOLOGY ORDERABLES Edited INTERFACE SYSTEM Refer to clinic/hospital department documented in this encounter Visit Diagnoses Diagnosis Open wound of finger(s) , with tendon involvement- Primary documented in this encounter Care Teams Cellar Supervisor Relationship Specialty Start Date End Date Nora Mckeon MD PCP - General Internal Medicine 11/22/23 documented as of this encounter
--- OUTSIDE RECORDS SUMMARY | 2024-04-18 07:35 | XMS_ITS | Data Portability ---
Author Organization [place] [facility], Main Office Address [address] [place] [address] Care Team Providers Care Alternative Energy Engineer Name Role Phone PATTI MCKEON Primary Care Provider [phone] PATTI MCKEON Referring Provider [phone] CEFERINO PETER Tinner Automatic CHARLENE BRISENO Interventional Sale Consultant ABHISHEK MARTINEZ Hematology/Oncology DAVID PETER Traveling Phlebotomist Assessment Encounter Date Assessment Date Assessment LastModified by Organization Details LastModified Time 04/27/2023 04/27/2023 01/04/2021: PSA 1.29 05/30/2022: BUN 32, Cr 1.53, GFR 45 TG 168 05/13/2022: PSA 0.75 05/30/2022: A1C 5.3 Cr 1.53, GFR 45 TG 168 2022: PSA 0.93 BUN 20H HGB 13.0 03/22/2023: H/H 10.8/34.3 Cr 1.35, GFR 52, TP 6.1, Glob 2.5 [email or web address] Not available 04/27/2023 15:37:34 08/24/2023 08/24/2023 01/04/2021: PSA 1.29 05/30/2022: BUN 32, Cr 1.53, GFR 45 TG 168 05/13/2022: PSA 0.75 05/30/2022: A1C 5.3 Cr 1.53, GFR 45 TG 168 2022: PSA 0.93 BUN 20H HGB 13.0 03/22/2023: H/H 10.8/34.3 Cr 1.35, GFR 52, TP 6.1, Glob 2.5 06/13/2023: BUN 21H, Cr 1.40H, GFR 50L [email or web address] Not available 08/24/2023 16:07:03 11/20/2023 11/20/2023 01/04/2021: PSA 1.29 05/30/2022: BUN 32, Cr 1.53, GFR 45 TG 168 05/13/2022: PSA 0.75 05/30/2022: A1C 5.3 Cr 1.53, GFR 45 TG 168 2022: PSA 0.93 BUN 20H HGB 13.0 03/22/2023: H/H 10.8/34.3 Cr 1.35, GFR 52, TP 6.1, Glob 2.5 06/13/2023: BUN 21H, Cr 1.40H, GFR 50L 09/20/2023: Erika Chapa NP BUN 26, Cr 1.50, GFR 46 H/H 12.1/39 10/31/2023: Anthony KEATING BUN 24, Cr 1.60H, GFR 42 H/H 11.7/37.9 45 minutes spent with the patient, and his , reviewed labs, and his path report, updated the chart and case discussed also with Dr Juan campbell Not available 11/20/2023 16:56:47 12/26/2023 12/26/2023 01/04/2021: PSA 1.29 05/30/2022: BUN 32, Cr 1.53, GFR 45 TG 168 05/13/2022: PSA 0.75 05/30/2022: A1C 5.3 Cr 1.53, GFR 45 TG 168 2022: PSA 0.93 BUN 20H HGB 13.0 03/22/2023: H/H 10.8/34.3 Cr 1.35, GFR 52, TP 6.1, Glob 2.5 06/13/2023: BUN 21H, Cr 1.40H, GFR 50L 09/20/2023: Erika Chapa NP BUN 26, Cr 1.50, GFR 46 H/H 12.1/39 10/31/2023: Anthony ER BUN 24, Cr 1.60H, GFR 42 H/H 11.7/37.9 12/25/2023: VIT D 14.4 TG 248 HGB 12.8 45 minutes spent with the patient, reviewed labs, and his path report, updated the chart, also d/w his on the phone [email or web address] Not available 12/26/2023 15:04:57 Plan of Treatment Reminders Order Date Submit Date Provider Last Modified By Organization Details Last Modified Time Details Appointments Any 15 2024 01:30P Prince moncada MD Not available Not available Not available Lab lipid panel, serum 2023 [facility] (Lab), [address] [place], [address], 12/26/2023 16:31:10 CMP, serum or plasma 2023 [facility] (Lab), [address] [place], [address], 01/16/2024 18:40:49 CBC w/ auto diff 2023 [facility] (Lab), [address] [place], [address], 01/16/2024 13:21:27 TSH, serum or plasma 2023 [facility] (Lab), [address] [place], [address], 12/26/2023 16:31:10 T4, free, serum 2023 [facility] (Lab), [address] [place], [address], 12/26/2023 16:31:10 vitamin B12 + folate, serum or blood 2023 [facility] (Lab), [address] [place], [address], 12/26/2023 16:31:10 vitamin D, 25-hydrox y, total, serum 2023 024 [facility] (Lab), [address] [place], [address], 12/26/2023 16:31:10 lipid panel, serum 2023 024 [facility] (Lab), [address] [place], [address], 12/25/2023 18:28:34 CMP, serum or plasma 2023 024 [facility] (Lab), [address] [place], [address], 12/25/2023 18:28:39 CBC w/ auto diff 2023 024 [facility] (Lab), [address] [place], [address], 12/25/2023 18:23:56 TSH, serum or plasma 2023 024 [facility] (Lab), [address] [place], [address], 12/25/2023 19:04:18 T4, free, serum 2023 024 [facility] (Lab), [address] [place], [address], 12/25/2023 18:48:29 vitamin B12 + folate, serum or blood [address] (Lab), [address] [place], [address], 11/20/2023 16:51:41 vitamin D, 25-hydrox y, total, serum [address] (Lab), [address] [place], [address], 11/20/2023 16:51:40 lipid panel, serum [address] (Lab), [address] [place], [address], 04/15/2024 12:47:26 CMP, serum or plasma 2023 024 [facility] (Lab), [address] [place], [address], 09/19/2023 18:59:35 CBC w/ auto diff 2023 024 [facility] (Lab), [address] [place], [address], 09/19/2023 15:54:09 TSH, serum or plasma [address] (Lab), [address] [place], [address], 04/15/2024 12:47:27 T4, free, serum [address] (Lab), [address] [place], [address], 04/15/2024 12:47:27 vitamin B12 + folate, serum or blood [address] (Lab), [address] [place], [address], 04/15/2024 12:47:27 vitamin D, 25-hydrox y, total, serum [address] (Lab), [address] [place], [address], 02/22/2024 10:22:28 lipid panel, serum [address] (Lab), [address] [place], [address], 05/08/2023 17:04:12 CMP, serum or plasma [address] (Lab), [address] [place], [address], 05/08/2023 17:04:12 CBC w/ auto diff [address] (Lab), [address] [place], [address], 05/08/2023 17:04:12 TSH, serum or plasma [address] (Lab), [address] [place], [address], 05/08/2023 17:04:12 T4, free, serum [address] (Lab), [address] [place], [address], 05/08/2023 17:04:12 vitamin B12 + folate, serum or blood [address] (Lab), [address] [place], [address], 05/08/2023 17:04:30 vitamin D, 25-hydrox y, total, serum [address] (Lab), [address] [place], [address], 10/25/2023 08:35:[address] referral 2023 024 [email or web address] Robin Adam MD, [address] [facility] , [address], [place], [address], 12/26/2023 16:21:29 oncologis t referral 2023 024 [email or web address] Abhishek Martinez, [address], [place], [address], 12/26/2023 16:18:11 podiatris t referral 2023 024 [email or web address] Nilesh Pettit DPPrince, [address], [address], [place], [address], 12/26/2023 16:18:09 hematolog ist referral 2023 024 [email or web address] Abhishek Martinez, [address], [place], [address], 12/26/2023 16:18:09 nephrolog ist referral 2023 024 [email or web address] Ceferino Peter MD (Nephrology, [address], [address], [place], [address], 12/26/2023 16:18:08 cardiolog ist referral 2023 024 [email or web address] [place], [address], [address], [place], [address], 12/26/2023 16:18:[address] referral 2023 024 DELANEY Adam MD, [address] [facility] , [address], [place], [address], 11/20/2023 16:53:36 oncologis t referral 2023 024 Abhishek Martinez, [address], [place], [address], 12/18/2023 09:00:21 podiatris t referral 2023 024 PRECIOUS Pettit DPM, [address] [facility], [address], [place], [address], 11/29/2023 11:50:47 hematolog ist referral 2023 024 PRECIOUS Martinez, [address], [place], [address], 12/12/2023 10:27:04 nephrolog ist referral 2023 024 [email or web address] Ceferino Peter MD (Nephrology, [address], [address], [place], [address], 02/27/2024 15:00:11 cardiolog ist referral 2023 024 [email or web address] [place], [address], [address], [place], [address], 02/27/2024 14:59:[address] referral 2023 024 [email or web address] Robin Adam MD, [address] [facility], [address], [place], [address], 12/26/2023 16:21:07 podiatris t referral 2023 024 [email or web address] Nilesh Pettit DPM, [address] [facility], [address], [place], [address], 02/27/2024 15:01:34 hematolog ist referral 2023 024 [email or web address] Martinez, [address], [place], [address], 02/27/2024 15:01:35 nephrolog ist referral 2023 024 [email or web address] Peter MD (Nephrology, [address], [address], [place], [address], 02/27/2024 15:01:34 cardiolog ist referral 2023 024 [email or web address] [place], [address] [facility], [address], [place], [address], 02/27/2024 15:01:32 podiatris t referral 2023 024 [email or web address] Nilesh Pettit DPM, [address] [facility], [address], [place], [address], 10/25/2023 08:35:51 hematolog ist referral 2023 024 PRECIOUS Martinez, [address], [place], [address], 09/21/2023 09:33:10 nephrolog ist referral 2023 024 Ceferino Peter MD (Nephrology, [address], [address], [place], [address], 02/27/2024 15:00:17 cardiolog ist referral 2023 024 [email or web address] [place], [address], [address], [place], [address], 11/21/2023 09:46:14 Procedures None recorded. Surgeries None recorded. Imaging None recorded. Medication Orders atorvasta tin 80 mg tablet 2023 [facility] [address] [place], [address], 12/26/2023 15:00:15 triamcino lone acetonide 0.1 % topical cream 2023 [facility] [address], [address] [place], [address], 12/26/2023 15:00:16 cholecalc iferol (vitamin D3) 1,250 mcg (50,000 unit) capsule 2023 024 [facility] [address], [address] [place], [address], 12/26/2023 15:02:30 Patient TargetsNo targets recorded. Patient Instructions Encounter Date Encounter Id Patient Instructions Last Modified By Organization Details Last Modified Time 11/20/2023 [id number] dementia rating scale-2* [email or web address] Not available 11/20/2023 16:51:17 alcohol misuse* [email or web address] Not available 11/20/2023 16:51:16 depression screening* [email or web address] Not available 11/20/2023 16:51:17 Timed Up and Go test (TUG)* [email or web address] Not available 11/20/2023 16:51:17 multi-dimensiona l health assessment questionnaire* [email or web address] Not available 11/20/2023 16:51:17 advance care planning: care instructions [email or web address] Not available 11/20/2023 16:51:17 advance directiv es: care instructions [email or web address] Not available 11/20/2023 16:51:16 [place] Advance Directives [email or web address] Not available 11/20/2023 16:51:16 Personalized a lth Plan and Screening Recommendations Advance Directives - Do you have one? No You have indicated that you are capable of preparing your advance care directive Advance Directives - Do we have your advance directive on file in your health record? Primary Prevention/Interven tion (prevents or decreases the chance of common diseases from occurring) Smoking Risk: Non Smoker Alcohol Misuse Screening: Negative Weight: Appropriate Overwei ght continue your current weight loss efforts try to lose 5% of your body weight try to lose 10% of your body weight Physical activity: Need more exercise/physical activity minimum of 10-20 minutes of activity that causes mild breathlessness/day minimum of 20-30 minutes activity that causes mild breathlessness/day Nutrition: Good Average Refer to attached handout Heart-Healthy Diet: After Your Visit Fall Risk (screened today): High Refer to attached handout Preventing Falls: After your Visit Vaccines Pneumococcal: Ordered Recommended today Influenza: Your next one in the fall of this year Chronic Disease Risks Stroke: Low Risk Intermediate Risk Heart Attack: Low risk Intermediate Risk Clogging of the Arteries: Low risk Intermediate Risk Diabetes: Low Risk Intermediate Risk I have no recommendations Ref er to attached handout P re-diabetes: After Your Visit Drastically limit sugar and products made with any type of flour (bread, pasta, cereal, cookies, crackers, etc.) Secondary Prevention/Interven tion (detects treatable diseases before they may cause symptoms, disability, or ) Prostate Cancer Screening: No PSA screening necessary Colon Cancer Screening: Colonoscopy Eye Disease Screening: Ordered Recommended today Dementia Risk: High I have no recommendations Depression Screening: Negative Positive Active diagnosis, Continue current treatment plan [email or web address] Not available 11/20/2023 16:40:39 Reason for Referral Traveling Phlebotomist Referral for Co ngestive heart failure Referring Physician: Patti Mckeon Internal Medicine, Encounter Date: 04/27/2023 Tinner Automatic Referral for Ch ronic kidney disease Referring Physician: Patti Mckeon Internal Medicine, Encounter Date: 04/27/2023 Interventional Sale Consultant Referral for Onyc homycosis Referring Physician: Adrienne Olson, Encounter Date: 04/27/2023 Referring Physician: Adrienne Olson, Encounter Date: 04/27/2023 Traveling Phlebotomist Referral for Co ngestive heart failure Referring Physician: Patti Mckeon Internal Medicine, Encounter Date: 08/24/2023 Tinner Automatic Referral for Ch ronic kidney disease Referring Physician: Adrienne Olson Medicine, Encounter Date: 08/24/2023 Interventional Sale Consultant Referral for Onyc homycosis Referring Physician: Adrienne Olson, Encounter Date: 08/24/2023 Referring Physician: Adrienne Olson Medicine, Encounter Date: 08/24/2023 Neurologist Referral for Dem entia Referring Physician: Patti Mckeon Internal Medicine, Encounter Date: 08/24/2023 Traveling Phlebotomist Referral for Co ngestive heart failure Referring Physician: Adrienne Olson, Encounter Date: 11/20/2023 Tinner Automatic Referral for Ch ronic kidney disease Referring Physician: Adrienne Olson Medicine, Encounter Date: 11/20/2023 Interventional Sale Consultant Referral for Onyc homycosis Referring Physician: Patti Mckeon Internal Medicine, Encounter Date: 11/20/2023 Referring Physician: Adrienne Olson, Encounter Date: 11/20/2023 Neurologist Referral for Dem entia Referring Physician: Adrienne Olson, Encounter Date: 11/20/2023 Referring Physician: Adrienne Olson, Encounter Date: 11/20/2023 Traveling Phlebotomist Referral for Co ngestive heart failure Referring Physician: Adrienne Olson, Encounter Date: 12/26/2023 Tinner Automatic Referral for Ch ronic kidney disease Referring Physician: Adrienne Olson, Encounter Date: 12/26/2023 Interventional Sale Consultant Referral for Onyc homycosis Referring Physician: Adrienne Olson, Encounter Date: 12/26/2023 Referring Physician: Adrienne Olson, Encounter Date: 12/26/2023 Neurologist Referral for Dem entia Referring Physician: Adrienne Olson, Encounter Date: 12/26/2023 Referring Physician: Adrienne Olson, Encounter Date: 12/26/2023 Results Created Date Observation Date Name Description Value Unit Range Abnormal Flag Note LastModifiedBy Organization Detail LastModifiedTime 12/25/1912/25/2023 CBC/C OMPLE TE BLD COUNT W/DIF F white blood cells 8.5 x10'3 /uL 4.2-10 .8 Not Available [facility] (Lab) [address] [place], [address], 12/25/2023 18:23:56 12/25/1912/25/2023 CBC/C OMPLE TE BLD COUNT W/DIF F red blood cells 4.57 x10'6 /uL 4.10-5 .80 Not Available [facility] (Lab) [address] [place], [address], 12/25/2023 18:23:56 12/25/1912/25/2023 CBC/C OMPLE TE BLD COUNT W/DIF F hemoglobin 12.8 g/dL 13.2-1 7.0 low Not Available [facility] (Lab) [address] [place], [address], 12/25/2023 18:23:56 12/25/1912/25/2023 CBC/C OMPLE TE BLD COUNT W/DIF F hematocrit 40.7 % 39.3-5 0.0 Not Available [facility] (Lab) [address] [place], [address], 12/25/2023 18:23:56 12/25/1912/25/2023 CBC/C OMPLE TE BLD COUNT W/DIF F mean red cell volume 89.1 fL 80.0-9 7.0 Not Available [facility] (Lab) [address] [place], [address], 12/25/2023 18:23:56 12/25/1912/25/2023 CBC/C OMPLE TE BLD COUNT W/DIF F mean red cell hemoglobin 28.0 pg 27.0-3 3.0 Not Available [facility] (Lab) [address] [place], [address], 12/25/2023 18:23:56 12/25/1912/25/2023 CBC/C OMPLE TE BLD COUNT W/DIF F mean RBC HGB concentratio n 31.4 g/dL 31.0-3 6.0 Not Available [facility] (Lab) [address] [place], [address], 12/25/2023 18:23:56 12/25/1912/25/2023 CBC/C OMPLE TE BLD COUNT W/DIF F red cell distribution width 15.3 % 11.8-1 5.5 Not Available [facility] (Lab) [address] [place], [address], 12/25/2023 18:23:56 12/25/1912/25/2023 CBC/C OMPLE TE BLD COUNT W/DIF F platelets 353 x10'3 /uL 150-40 0 Not Available [facility] (Lab) [address] [place], [address], 12/25/2023 18:23:56 12/25/1912/25/2023 CBC/C OMPLE TE BLD COUNT W/DIF F mean platelet volume 9.2 fL 9.0-12 .4 Not Available [facility] (Lab) [address] [place], [address], 12/25/2023 18:23:56 12/25/1912/25/2023 CBC/C OMPLE TE BLD COUNT W/DIF F neutrophils 67.8 % 39.0-7 2.0 Not Available [facility] (Lab) [address] [place], [address], 12/25/2023 18:23:56 12/25/19 24 12/25/2023 CBC/C OMPLE TE BLD COUNT W/DIF F lymphocytes 19.9 % 16.0-4 7.0 Not Available [facility] (Lab) [address] [place], [address], 12/25/2023 18:23:56 12/25/1912/25/2023 CBC/C OMPLE TE BLD COUNT W/DIF F monocytes 6.6 % 5.0-12 .0 Not Available [facility] (Lab) [address] [place], [address], 12/25/2023 18:23:56 12/25/1912/25/2023 CBC/C OMPLE TE BLD COUNT W/DIF F eosinophils 4.8 % 1.0-7. 0 Not Available [facility] (Lab) [address] [place], [address], 12/25/2023 18:23:56 12/25/1912/25/2023 CBC/C OMPLE TE BLD COUNT W/DIF F basophils 0.7 % 0.0-2. 0 Not Available [facility] (Lab) [address] [place], [address], 12/25/2023 18:23:56 12/25/1912/25/2023 CBC/C OMPLE TE BLD COUNT W/DIF F immature granulocytes 0.2 % 0.00-0 .50 Not Available [facility] (Lab) [address] [place], [address], 12/25/2023 18:23:56 12/25/1912/25/2023 CBC/C OMPLE TE BLD COUNT W/DIF F neutrophils, absolute count 5.79 x10'3 /uL 1.5-8. 0 Not Available [facility] (Lab) [address] [place], [address], 12/25/2023 18:23:56 12/25/19 24 12/25/2023 CBC/C OMPLE TE BLD COUNT W/DIF F lymphocytes, absolute count 1.70 x10'3 /uL 1.07-3 .43 Not Available [facility] (Lab) [address] [place], [address], 12/25/2023 18:23:56 12/25/1912/25/2023 CBC/C OMPLE TE BLD COUNT W/DIF F monocytes, absolute count 0.56 x10'3 /uL 0.29-0 .99 Not Available [facility] (Lab) [address] [place], [address], 12/25/2023 18:23:56 12/25/1912/25/2023 CBC/C OMPLE TE BLD COUNT W/DIF F eosinophils, absolute count 0.41 x10'3 /uL 0.02-0 .53 Not Available [facility] (Lab) [address] [place], [address], 12/25/2023 18:23:56 12/25/1912/25/2023 CBC/C OMPLE TE BLD COUNT W/DIF F basophils, absolute count 0.06 x10'3 /uL 0.01-0 .08 Not Available [facility] (Lab) [address] [place], [address], 12/25/2023 18:23:56 12/25/1912/25/2023 CBC/C OMPLE TE BLD COUNT W/DIF F immature granulocytes ,absolute 0.02 x10'3 /uL 0.00-0 .05 Not Available [facility] (Lab) [address] [place], [address], 12/25/2023 18:23:56 12/25/1912/25/2023 CBC/C OMPLE TE BLD COUNT W/DIF F nucleated red blood cells 0.0 % -0 Not Available [facility] (Lab) [address] [place], [address], 12/25/2023 18:23:56 12/25/1912/25/2023 CBC/C OMPLE TE BLD COUNT W/DIF F NRBC# 0.00 x10'3 /uL Not Available [facility] (Lab) [address] [place], [address], 12/25/2023 18:23:56 12/25/19 24 12/25/2023 LIPID PANEL cholesterol 204 mg/dL 140-19 9 high NIH CECI NSUS RECOM MENDA TION FOR MIRNA STERO L: ADULT CHILD LOW RISK: <200 <170 BORDE RLINE : <200- 239 ----- HIGH RISK: >240 >200 Not Available [facility] (Lab) [address] [place], [address], 12/25/2023 18:28:34 12/25/1912/25/2023 LIPID PANEL triglyceride s 248 mg/dL 0-150 high NIH CECI NSUS REPOR T RECOM MENDA TION FOR TRIGL YCERI JD: ADULT CHILD LOW RISK: <150 ----- BODER LINE: 150-1 99 ----- HIGH RISK: >200 ----- Not Available [facility] (Lab) [address] [place], [address], 12/25/2023 18:28:34 12/25/1912/25/2023 LIPID PANEL HDL cholesterol 59 mg/dL 40- Not Available [facility] (Lab) [address] [place], [address], 12/25/2023 18:28:34 12/25/1912/25/2023 LIPID PANEL LDL cholesterol, calculated 95 mg/dL 0-130 NIH CECI NSUS REPOR T RECOM MENDA TIONS FOR LDL: ADULT CHILD LOW RISK <130 <110 (OPTI MAL LDL) <100 ----- BORDE RLINE : 130-1 59 ----- HIGH RISK: >160 >130 A TRIGL YCERI DE RESUL T >400 INVAL IDATE S THE CALCU LATIO N FOR LDL FRACT IONAT ION - THE LDL RESUL T WILL NOT BE REPOR BRIANNA. Not Available [facility] (Lab) [address] [place], [address], 12/25/2023 18:28:34 12/25/1912/25/2023 COMPR EHENS LORENA METAB OLIC PANEL sodium 138 mmol/ L 137-14 5 Not Available [facility] (Lab) [address] [place], [address], 12/25/2023 18:28:39 12/25/1912/25/2023 COMPR EHENS LORENA METAB OLIC PANEL potassium 3.8 mmol/ L 3.5-5. 1 Not Available [facility] (Lab) [address] [place], [address], 12/25/2023 18:28:39 12/25/1912/25/2023 COMPR EHENS LORENA METAB OLIC PANEL chloride 99 mmol/ L 98-107 Not Available [facility] (Lab) [address] [place], [address], 12/25/2023 18:28:39 12/25/1912/25/2023 COMPR EHENS LORENA METAB OLIC PANEL carbon dioxide 32 mmol/ L 22-30 high Not Available [facility] (Lab) [address] [place], [address], 12/25/2023 18:28:39 12/25/1912/25/2023 COMPR EHENS LORENA METAB OLIC PANEL anion gap 10.8 mmol/ L 14-22 low Not Available [facility] (Lab) [address] [place], [address], 12/25/2023 18:28:39 12/25/1912/25/2023 COMPR EHENS LORENA METAB OLIC PANEL glucose 97 mg/dL 70-99 Not Available [facility] (Lab) [address] [place], [address], 12/25/2023 18:28:39 12/25/19 24 12/25/2023 COMPR EHENS LORENA METAB OLIC PANEL BUN 12 mg/dL 8-19 Not Available [facility] (Lab) [address] [place], [address], 12/25/2023 18:28:39 12/25/19 24 12/25/2023 COMPR EHENS LORENA METAB OLIC PANEL creatinine 1.15 mg/dL 0.66-1 .25 Not Available [facility] (Lab) [address] [place], [address], 12/25/2023 18:28:39 12/25/19 24 12/25/2023 COMPR EHENS LORENA METAB OLIC PANEL GFR >60 Refer ence Range : [place] [facility] GFR Healt hy Adult : >60 mL/mi n/1.7 3 m2 Chron ic Kidne y Disea se: 15-60 mL/mi n/1.7 3 m2 Kidne y Failu re: <15/m L/min /1.73 m2 www.n iddk. nih.g ov The MDRD study equat ion has not been valid ated in child jakub <18 years of age; pregn ant women ; the elder ly >85 years of age; or in some racia l or ethni c subgr oups, such as [facility] nics. Outsi de the valid ated antonino eters , estim ated GFR is less accur ate, requi ring clini trevor judgm ent on a case- by-ca se basis . Clini trevor inter preta tion for other races and ages must be made by the clini abi. The MDRD study equat ion has not been valid ated for the evalu ation of serum creat inine relat ed to nutri sandra l statu s or medic ation usage . For perso ns <18 years of age, a pedia tric GFR calcu lator is avail able on the F websi te: https ://dawood abbasi.o rg/pr ofess ional s/kdo qi/gf r_cal culat or Not Available [facility] (Lab) [address] [place], [address], 12/25/2023 18:28:39 12/25/1912/25/2023 COMPR EHENS LORENA METAB OLIC PANEL alkaline phosphatase 93 U/L 38-126 Not Available [facility] (Lab) [address] [facility] [place], [address], 12/25/2023 18:28:39 12/25/1912/25/2023 COMPR EHENS LORENA METAB OLIC PANEL alanine aminotransfe rase 15 U/L 0-50 Not Available [facility] (Lab) [address] [place], [address], 12/25/2023 18:28:39 12/25/1912/25/2023 COMPR EHENS LORENA METAB OLIC PANEL aspartate aminotransfe rase 22 U/L 15-46 Not Available [facility] (Lab) [address] [place], [address], 12/25/2023 18:28:39 12/25/1912/25/2023 COMPR EHENS LORENA METAB OLIC PANEL bilirubin, total 0.40 mg/dL 0.20-1 .30 Not Available [facility] (Lab) [address] [place], [address], 12/25/2023 18:28:39 12/25/1912/25/2023 COMPR EHENS LORENA METAB OLIC PANEL calcium 9.6 mg/dL 8.4-10 .2 Not Available [facility] (Lab) [address] [place], [address], 12/25/2023 18:28:39 12/25/1912/25/2023 COMPR EHENS LORENA METAB OLIC PANEL total protein 6.5 g/dL 6.3-8. 2 Not Available [facility] (Lab) [address] [place], [address], 12/25/2023 18:28:39 12/25/1912/25/2023 COMPR EHENS LORENA METAB OLIC PANEL albumin 3.8 g/dL 3.0-4. 4 Not Available [facility] (Lab) [address] [place], [address], 12/25/2023 18:28:39 12/25/1912/25/2023 COMPR EHENS LORENA METAB OLIC PANEL globulin 2.7 g/dL 2.6-4. 2 Not Available [facility] (Lab) [address] [place], [address], 12/25/2023 18:28:39 12/25/1912/25/2023 COMPR EHENS LORENA METAB OLIC PANEL A/G ratio 1.4 ratio 1.0-2. 0 Not Available [facility] (Lab) [address] [place], [address], 12/25/2023 18:28:39 12/25/1912/25/2023 T4 FREE free T4 1.04 NG/dL 0.78-2 .19 Not Available [facility] (Lab) [address] [place], [address], 12/25/2023 18:48:29 12/25/1912/25/2023 VITAM IN D 25-HY DROXY vd25oh 14.4 NG/mL 30-100 low Vitam in D Statu s: Defic ient: <20 ng/mL Insuf ficie nt: 20-29 ng/mL Suffi cient : 30-10 0 ng/mL Not Available [facility] (Lab) [address] [place], [address], 12/25/2023 18:57:48 12/25/1912/25/2023 TSH thyroid-stim ulating hormone 2.070 uIU/m L 0.465- 4.680 Not Available [facility] (Lab) [address] [place], [address], 12/25/2023 19:04:18 12/25/19 24 12/25/2023 VITAM IN B12 (LOUIS KELECHI ) vb12 494 pg/mL 239-93 1 Not Available [facility] (Lab) [address] [place], [address], 12/25/2023 19:47:11 12/25/19 24 12/25/2023 FOLAT E, SERUM /PLAS MA folate 6.25 NG/mL 2.76-2 0.0 Not Available [facility] (Lab) [address] [place], [address], 12/25/2023 19:47:15 07/05/19 24 07/04/2023 US, khalida x, carot id arter y No observ ation record ed. [address] [facility] [address], [place], [address], 01/02/2024 15:39:50 10/31/19 24 10/31/2023 CT, abdom en + pelvi s, w/o contr ast No observ ation record ed. [address], [address], 01/02/2024 15:38:40 11/06/19 24 11/06/2023 XR, chest , 1 view No observ ation record ed. [address], [address], 01/02/2024 15:38:15 11/09/19 24 11/09/2023 XR, chest , 2 view No observ ation record ed. [address], [address], 01/02/2024 15:37:53 11/10/19 24 11/09/2023 CT, angio gram, chest , w/wo contr ast No observ ation record ed. [address], [address], 01/02/2024 15:37:35 12/21/19 24 12/21/2023 XR, chest No observ ation record ed. [address], [place], [address], 01/02/2024 15:36:15 12/21/19 24 12/21/2023 inser tion of perip heral ly inser brianna centr al venou s aj ter (PICC ), witho ut subcu taneo us port or pump (PROC ) No observ ation record ed. [address] [facility] [address], [place], [address], 01/02/2024 15:35:43 Result Notes None recorded. Problems Name Problem SNOMED Code Status Onset Date Resolution Date Notes Provider Name and Address Organization Details Recorded Time Disorder of shoulder 634829311 Active Not Available [facility] 3 19:42:12 Administra tion of pneumococc al vaccine Active 2021 Not Available [facility] 3 19:42:12 Nocturia 757364203 Active Not Available [facility] 3 19:42:12 Acute sinusitis 42563971 Active 2021 Not Available [facility] 3 19:42:12 Dry skin 93664303 Active 2020 Not Available [facility] 3 19:42:12 Pneumonia 001740085 Active Not Available [facility] 3 19:42:12 Tremor 39857806 Active Not Available [facility] 3 19:42:12 Pain in cervical spine 610014767 Active 2016 Not Available [facility] 3 19:42:12 Low back pain 868827175 Active Not Available [facility] 3 19:42:12 Bronchitis 67420974 Active Not Available [facility] 3 19:42:12 Vitamin D deficiency 04063410 Active 2021 Not Available [facility] 3 19:42:12 Ingrowing toenail 148056840 Active 2021 Not Available [facility] 3 19:42:12 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 378511278 Active 2020 Not Available [facility] 3 19:42:12 Onychomyco sis 584959842 Active 2020 Not Available [facility] 3 19:42:12 Congestive heart failure 41749113 Active 2016 Not Available [facility] 3 19:42:12 Coronary atheroscle rosis 861995077 Active Not Available [facility] 3 19:42:12 Acute cervical sprain 724805553 Active Not Available [facility] 3 19:42:12 Shoulder pain 36638826 Active 2016 Not Available [facility] 3 19:42:12 Cough 01069572 Active 2021 Not Available [facility] 3 19:42:12 Dementia 24267409 Active 2021 Not Available [facility] 3 19:42:12 Upper respirator y infection 80408336 Active 2022 Not Available [facility] 3 19:42:12 Hyperlipid emia 73341335 Active Not Available [facility] 3 19:42:12 Essential hypertensi on 87951251 Active 2016 Not Available [facility] 3 19:42:12 Carotid artery stenosis 72695976 Active Not Available [facility] 3 19:42:12 Chronic kidney disease 939437355 Active 2021 Not Available [facility] 3 19:42:12 Gout 58922256 Active Not Available [facility] 3 19:42:13 Kidney disease 52187276 Active 2021 Not Available [facility] 3 19:42:13 Essential tremor 163742488 Active 2022 Not Available [facility] 3 19:42:12 Pain of left shoulder joint 3478877285088 9109 Active 2022 Not Available [facility] 3 19:42:12 Unsteady when walking 70138124 Active 2022 Not Available [facility] 3 19:42:12 Itching of lesion of skin 825852200 Active 2022 Not Available [facility] 3 19:42:12 Itching of skin 184105282 Active 2022 Not Available [facility] 3 19:42:12 Coronary arterioscl erosis 29668461 Active 2022 Not Available [facility] 3 19:42:12 Disorder of prostate 58713531 Active 2022 Not Available [facility] 3 19:42:12 Sensorineu ral hearing loss 06169233 Active 2022 Not Available [facility] 3 19:42:12 Bilateral tinnitus 3092770914761 Active 2022 Not Available [facility] 3 19:42:12 Hyperglyce cindy 79009575 Active 2022 Not Available [facility] 3 19:42:12 Anxiety disorder 310017606 Active 2022 Not Available [facility] 3 19:42:12 Anxiety 14084013 Active 2022 Not Available [facility] 3 19:42:12 Generalize d anxiety disorder 39048428 Active 2022 Patti shane MD [address] [place] [address], [place], [address] , [facility] [employer] [facility] 3 12:43:59 Anemia 645571221 Active 2022 Patti shane MD [address] [facility] [place], [place], [address] , [facility] [employer] [facility] 3 09:42:00 Hypokalemi a 25499667 Active 2022 Nelia fontana, [facility] [employer] [facility] 3 15:14:36 Insomnia 938670282 Active 2023 Ju Velasco RN null, [facility] [employer] [facility] 4 17:00:53 Hypoprotei nemia 0360066 Active 2023 Patti shane MD [address] [facility], [place] [address], [place], [address] , [facility] [employer] [facility] 4 15:40:13 Sore throat 734520069 Active 2023 VIK Palmer null, [facility] [employer] [facility] 4 18:12:29 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 Patti shane MD [address] [facility], [facility] [address], [place], [address] , [facility] [employer] [facility] 4 16:22:34 Pain of right knee joint 1630842670357 00 Active 2023 Patti shane MD [address] [facility], [facility] [address], [place], [address] , [facility] [employer] [facility] 4 16:25:11 Imaging of thyroid gland abnormal 105063142 Active 2023 Lorena Chopra MA null, [facility] 4 15:46:29 Contact dermatitis caused by urushiol from [facility] song 442724550 Active 2023 Raeann Beard MA null, [facility] [employer] [facility] 4 17:12:10 Problem Notes None recorded. Procedures Surgical History Date Name Laterality Status Provider Name and Address Organization Details Recorded Time 11/20/19 Medicare Wellness CPT Code, subsequent completed Vikram Mackay LPN [facility] 11/20/2023 08:51:05 11/20/19 24 Advanced Care Planning completed Vikram Mackay LPN [facility] 11/20/2023 16:35:17 10/31/19 Appendectomy completed VIK Palmer [facility] 11/20/2023 15:58:13 05/16/19 24 Nail Debridement completed Charlene Briseno DPM [address] [facility], [place], [address], [facility] 05/16/2023 16:43:56 open heart surgery completed Not Available [facility] 04/27/2022 00:57:11 Carotid Endarterectomy completed Not Available [facility] 04/27/2022 00:57:11 Rotator cuff surgery completed Not Available [facility] 04/27/2022 00:57:11 Imaging Results Imaging Date Name Status LastModified by Organization Details LastModified Time 07/04/2023 US, duplex, carotid artery completed [address] [facility] [address], [place], [address], 01/02/2024 15:39:50 10/31/2023 CT, abdomen + pelvis, w/o contrast completed [address], [address], 01/02/2024 15:38:40 11/06/2023 XR, chest, 1 view completed [address], [address], 01/02/2024 15:38:15 11/09/2023 XR, chest, 2 view completed [address], [address], 01/02/2024 15:37:53 11/09/2023 CT, angiogram, chest, w/wo contrast completed [address], [address], 01/02/2024 15:37:35 12/21/2023 XR, chest completed [address], [address], 01/02/2024 15:36:15 12/21/2023 insertion of peripherally inserted central venous catheter (PICC), without subcutaneous port or pump (PROC) completed [address], [place], [address], 01/02/2024 15:35:43 Procedure Notes None recorded. Medical Equipment None Reported. Allergies Allergen ID Allergen Name Allergen Category Reaction Reaction Severity Criticality Documentation Date Start Date Code Code System Note Provider Name and Address Organization Details Recorded Time 1769 Product containin g penicilli n (product) medicatio n hives Not available Not available 04/27/2022 26085 8001 SNOMED Not Available [facility] 3 01:15:26 1770 nystatin medicatio n other Not available Not available 04/27/20222017 7597 RxNorm Not Available [facility] 3 01:15:26 74180 hydralazi ne medicatio n rash Not available Not available 12/26/2023 5470 RxNorm VIK Palmer, [place] [employer] 14:22:45 Medications Name Sig Start Date Stop Date Status Note LastModified by Organization Details LastModified Time losartan 50 mg tablet TAKE 1 TABLET BY MOUTH ONCE DAILY active Not Available Not Available No t Available nifedipin e ER 30 mg tablet,ex tended release 24 hr Take 1 tablet every day by oral route for 30 days. 12/25 completed Not Available Not Available Not Available cyclobenz aprine 10 mg tablet Take 1 tablet 3 times a day by oral route. 12/27 completed Not Available Not Available Not Available furosemid e 40 mg tablet TK 1 T PO BID 07/28 completed Not Available Not Available Not Available atorvasta tin 40 mg tablet TAKE 1 TABLET BY MOUTH ONCE DAILY 12/25 completed Not Available Not Available Not Available primidone 50 mg tablet TAKE 3 TABLETS BY MOUTH TWICE DAILY 07/31 completed Not Available Not Available Not Available promethaz ine-DM 6.25 mg-15 mg/5 mL oral syrup TAKE 5 ML BY MOUTH EVERY 6 TO 8 HOURS NEEDED 05/12 completed Not Available Not Available Not Available atorvasta tin 80 mg tablet TAKE 1 TABLET BY MOUTH ONCE DAILY active Not Available Not Available No t Available carvedilo l 25 mg tablet Take 1 tablet twice a day by oral route. active Not Available Not Available No t Available potassium chloride ER 10 mEq capsule,e xtended release Take 1 capsule twice a day by oral route. 08/27 completed Not Available Not Available Not Available clonidine HCl 0.1 mg tablet TAKE 1 TABLET BY MOUTH TWICE DAILY 06/24 completed Not Available Not Available Not Available carvedilo l 6.25 mg tablet TAKE 1 TABLET BY MOUTH TWICE DAILY 06/24 completed Not Available Not Available Not Available prednison e 10 mg tablet take [id number], [id number], [id number], [id number] active Not Available Not Available No t Available doxycycli ne hyclate 100 mg capsule 11/19 completed Not Available Not Available Not Available carvedilo l 12.5 mg tablet TAKE 1 TABLET BY MOUTH TWICE DAILY active Not Available Not Available No t Available donepezil 5 mg tablet TAKE 1 TABLET BY MOUTH NIGHTLY active Not Available Not Available No t Available ammonium lactate 12 % lotion apply to feet twice daily active Not Available Not Available No t Available trazodone 50 mg tablet TAKE 1 TABLET BY MOUTH AT BEDTIME NEEDED 2023 active Not Available Not Available Not Avai lable azithromy darnell 250 mg tablet TAKE 2 TABLETS BY MOUTH ON DAY 1, AND THEN TAKE 1 TABLET BY MOUTH ONCE A DAY ON DAY 2 THROUGH DAY 5 11/19 completed Not Available Not Available Not Available pravastat in 40 mg tablet TK 1 T PO QD 07/28 completed Not Available Not Available Not Available nifedipin e ER 90 mg tablet,ex tended release 07/30 completed Not Available Not Available Not Available metoprolo l succinate ER 50 mg tablet,ex tended release 24 hr 03/13 completed Not Available Not Available Not Available enalapril maleate 20 mg tablet TK 1 T PO BID 03/30 completed Not Available Not Available Not Available meloxicam 15 mg tablet active Not Available Not Available Not Available prednison e 20 mg tablet TAKE 3 TABLETS BY MOUTH ONCE DAILY FOR 5 DAYS 05/12 completed Not Available Not Available Not Available metoprolo l succinate ER 100 mg tablet,ex tended release 24 hr Take 1 tablet every day by oral route. 03/[address] Nato roy d Not Available Not Available Not Available metolazon e 5 mg tablet Take 1 tablet every day by oral route. 08/05 completed Not Available Not Available Not Available hydralazi ne 25 mg tablet TAKE 1 TABLET BY MOUTH TWICE DAILY 06/24 completed Not Available Not Available Not Available potassium chloride ER 10 mEq tablet,ex tended release TAKE 1 TABLET BY MOUTH TWICE DAILY 07/30 completed Not Available Not Available Not Available nifedipin e ER 30 mg tablet,ex tended release Take 1 tablet every day by oral route. 2024 active Not Available Not Available Not Avai lable clopidogr el 75 mg tablet TAKE ONE TABLET BY MOUTH ONCE DAILY 12/13 completed Not Available Not Available Not Available amlodipin e 5 mg tablet 12/13 completed Not Available Not Available Not Available allopurin ol 100 mg tablet TAKE 1 TABLET BY MOUTH ONCE DAILY FOR 90 DAYS active Not Available Not Available No t Available Tamiflu 75 mg capsule Take 1 capsule every day by oral route for 10 days. 04/25 completed Not Available Not Available Not Available tramadol 50 mg tablet TAKE 1 TABLET BY MOUTH EVERY 12 HOURS NEEDED FOR PAIN 08/05 completed Not Available Not Available Not Available triamcino lone acetonide 0.1 % topical cream APPLY A THIN LAYER TO THE AFFECTED AREA(S) BY TOPICAL ROUTE 2 TIMES PER DAY active Not Available Not Available No t Available ondansetr on 8 mg disintegr ating tablet DISSOLVE 1 TABLET IN MOUTH EVERY 8 HOURS NEEDED FOR NAUSEA AND VOMITING active Not Available Not Available No t Available lidocaine -prilocai ne 2.5 %-2.5 % topical cream APPLY A QUARTER SIZE AMOUNT TO PORT SITE 30 MINUTES BEFORE ACCESS active Not Available Not Available No t Available Promethaz ine VC-Codein e 6.25 mg-5 mg-10 mg/5 mL oral syrup Take 10 mL 3 times a day by oral route. active Not Available Not Available No t Available oxycodone -acetamin ophen 5 mg-325 mg tablet TAKE 1/2 TO 1 (ONE-EARL F TO ONE) TABLET BY MOUTH EVERY 6 HOURS NEEDED FOR PAIN active Not Available Not Available No t Available alprazola m 0.5 mg tablet TAKE 1 TABLET BY MOUTH ONCE DAILY NEEDED active Not Available Not Available No t Available clonidine HCl 0.2 mg tablet TAKE 1 TABLET BY MOUTH TWICE DAILY active Not Available Not Available No t Available potassium chloride ER 20 mEq tablet,ex tended release(p art/cryst ) TAKE 1 TABLET BY MOUTH ONCE DAILY completed Not Available Not Available Not Available pravastat in 80 mg tablet TAKE 1 TABLET BY MOUTH ONCE DAILY 09/15 completed Not Available Not Available Not Available prednisol one acetate 1 % eye drops,[place] pension active Not Available Not Available Not Available methocarb christopher 750 mg tablet active Not Available Not Available No t Available furosemid e 80 mg tablet TAKE 1 TABLET BY MOUTH ONCE DAILY active Not Available Not Available No t Available amlodipin e 10 mg tablet Take 1 tablet every day by oral route. 05/30 completed Not Available Not Available Not Available benzonata te 100 mg capsule TAKE 1 CAPSULE BY MOUTH EVERY 8 HOURS NEEDED 05/12 completed Not Available Not Available Not Available hydrocodo ne 7.5 mg-acetam inophen 325 mg tablet prn 05/02 completed Not Available Not Available Not Available cephalexi n 500 mg capsule Take 1 capsule twice a day by oral route for 6 days. active Not Available Not Available No t Available neomycin- polymyxin -dexameth 3.5 mg/mL-10, 000 unit/mL-0 .1% eye drops 07/30 completed Not Available Not Available Not Available triamcino lone acetonide 0.1 % topical ointment 07/31 completed Not Available Not Available Not Available nystatin 100,000 unit/gram topical cream APPLY TO THE AFFECTED AREA(S) BY TOPICAL ROUTE 2 TIMES PER DAY active Not Available Not Available No t Available clotrimaz ole-betam ethasone 1 %-0.05 % topical cream APPLY TO THE AFFECTED AND SURROUND ING AREAS OF SKIN BY TOPICAL ROUTE 1 TIMES PER DAY IN [facility] FOR 2 WEEKS 08/02 completed Not Available Not Available Not Available warfarin 5 mg tablet TAKE 1 TABLET BY MOUTH IN THE EVENING active Not Available Not Available No t Available losartan 25 mg tablet TAKE 1 TABLET BY MOUTH ONCE DAILY active Not Available Not Available No t Available indometha darnell 50 mg capsule Take 1 capsule twice a day by oral route for 5 days. active Not Available Not Available No t Available hydroxyzi ne HCl 25 mg tablet TAKE 1 TABLET BY MOUTH ONCE DAILY NEEDED FOR 30 DAYS 05/12 completed Not Available Not Available Not Available hydralazi ne 50 mg tablet TAKE 1 TABLET BY MOUTH TWICE DAILY WITH FOOD 12/25 completed Not Available Not Available Not Available hydrochlo rothiazid e 25 mg tablet active Not Available Not Available Not Available mometason e 0.1 % topical ointment APPLY OINTMENT TOPICALL Y TO AFFECTED AREA(S) TWICE DAILY NEEDED 07/30 completed Not Available Not Available Not Available zolpidem 5 mg tablet Take 1 tablet every day by oral route as needed for 30 days. 06/14 completed Not Available Not Available Not Available furosemid e 20 mg tablet 07/28 completed Not Available Not Available Not Available Levaquin 500 mg tablet Take 1 tablet every 24 hours by oral route. 08/27 completed Not Available Not Available Not Available ergocalci ferol (vitamin D2) 1,250 mcg (50,000 unit) capsule TAKE 1 CAPSULE BY MOUTH TWICE A WEEK active Not Available Not Available No t Available Cheratuss in AC 10 mg-100 mg/5 mL oral liquid Take 10 mL every 4 hours by oral route. 06/07 completed Not Available Not Available Not Available levofloxa darnell 750 mg tablet Take 1 tablet every day by oral route for 7 days. 08/05 completed Not Available Not Available Not Available methylpre dnisolone 4 mg tablets in a dose pack TAKE BY MOUTH DIRECTED ON INSIDE OF PACKAGE 11/19 completed Not Available Not Available Not Available albuterol sulfate HFA 90 mcg/actua tion aerosol inhaler INHALE 2 PUFFS BY MOUTH EVERY 4 HOURS NEEDED 05/12 completed Not Available Not Available Not Available ketoconaz ole 2 % topical cream apply in between toes daily as needed active Not Available Not Available No t Available indometha darnell ER 75 mg capsule,e xtended release TAKE 2 CAPSULES BY MOUTH TWICE DAILY active Not Available Not Available No t Available fluticaso ne propionat e 50 mcg/actua tion nasal spray,nina pension [place]inson 1 spray every day by intranas al route for 30 days. active Not Available Not Available No t Available calcitrio l 0.25 mcg capsule TAKE 1 CAPSULE BY MOUTH ONCE DAILY active Not Available Not Available No t Available loratadin e 10 mg tablet TAKE 1 TABLET BY MOUTH ONCE DAILY NEEDED FOR 30 DAYS 07/31 completed Not Available Not Available Not Available naproxen 500 mg tablet TAKE 1 TABLET BY MOUTH TWICE DAILY NEEDED WITH FOOD active Not Available Not Available No t Available Aspir-Tri n 325 mg tablet,de layed release Take 1 tablet every day by oral route. 2015 active Not Available Not Available Not Avai lable Vigamox 0.5 % eye drops active Not Available Not Available Not Available rosuvasta tin 10 mg tablet 07/30 completed Not Available Not Available Not Available tizanidin e 4 mg capsule Take 1 capsule every day by oral route at bedtime for 30 days. 10/11 completed Not Available Not Available Not Available acetamino phen 2 tabs prn 11/07 completed Not Available Not Available Not Available clonidine 0.2mg bid 08/05 completed duplicat e Not Available Not Available Not Available Aspir-81 one daily 2015 active Not Available Not Available Not Avai lable nifedipin e 90mg daily 08/01 completed Not Available Not Available Not Available Lactobaci llus acidophil us 1 tab bid with meals 08/05 completed Not Available Not Available Not Available fenofibra te nanocryst allized 48 mg tablet Take 1 tablet every day by oral route. 07/30 completed Not Available Not Available Not Available cholecalc iferol (vitamin D3) 1,250 mcg (50,000 unit) capsule TAKE 1 CAPSULE BY MOUTH ONCE A WEEK active Not Available Not Available No t Available Durezol 0.05 % eye drops active Not Available Not Available No t Available Uloric 40 mg tablet Take 1 tablet every day by oral route for 90 days. 12/18 completed Not Available Not Available Not Available Bystolic 20 mg tablet active Not Available Not Available Not Available GaviLyte- N 420 gram oral solution 01/24 completed Not Available Not Available Not Available Colcrys 0.6 mg tablet Take 1 tablet twice a day by oral route as directed for 7 days. active Not Available Not Available No t Available Zyrtec 10 mg capsule Take by oral route. 12/18 completed Not Available Not Available Not Available Probiotic 1 TAB TWICE DAILY WITH MEALS 07/31 completed Not Available Not Available Not Available Pradaxa 150 mg capsule 09/15 completed Not Available Not Available Not Available Lucille Allergy 180 mg tablet Take 1 tablet every day by oral route at bedtime. 04/25 completed Not Available Not Available Not Available Vascepa 1 gram capsule Take 2 capsules twice a day by oral route. 08/05 completed Not Available Not Available Not Available Eliquis 5 mg tablet TAKE 1 TABLET BY MOUTH TWICE DAILY active Not Available Not Available No t Available potassium chloride ER 20 mEq tablet,ex tended release Take 2 tablets by mouth once daily for 5 days active Not Available Not Available No t Available Mitigare 0.6 mg capsule TAKE ONE CAPSULE BY MOUTH TWICE DAILY FOR 7 DAYS active Not Available Not Available No t Available sennoside s 8.6 mg-docusa te sodium 50 mg capsule Take 1 capsule twice a day by oral route as needed. 08/27 completed Not Available Not Available Not Available Vitals Date Recorded Body height Body mass index (BMI) Body weight Body temperature Heart rate Systolic blood pressure Diastolic blood pressure Provider Name and Address Organization Details Last Updated DateTime 4 177.8 cm 32.1 kg/m2 444929. 69 g 97.6 [degF] 78 /min 122 mm[Hg] 70 mm[Hg] Kristal Serrato [facility] [employer] [facility] 4 15:32:48 Date Recorded Body height Body mass index (BMI) Body weight Oxygen saturation Oxygen saturation in Arterial blood by Pulse oximetry Body temperature Heart rate Systolic blood pressure Diastolic blood pressure Provider Name and Address Organization Details Last Updated DateTime 4 177.8 cm 32.3 kg/m2 881658. 28 g 78 % 78 % 98.8 [degF] 62 /min 204 mm[Hg] 87 mm[Hg] Jon Mckeon [facility] [employer] [facility] 4 15:55:08 Date Recorded Body height Body mass index (BMI) Body weight Body temperature Heart rate Systolic blood pressure Diastolic blood pressure Provider Name and Address Organization Details Last Updated DateTime 4 177.8 cm 31.9 kg/m2 684883. 51 g 98 [degF] 72 /min 146 mm[Hg] 78 mm[Hg] Kristal Serrato VIK [facility] [employer] [facility] 4 15:56:57 Date Recorded Body height Body mass index (BMI) Body weight Body temperature Heart rate Systolic blood pressure Diastolic blood pressure Provider Name and Address Organization Details Last Updated DateTime 4 177.8 cm 39.7 kg/m2 045784. 09 g 97.7 [degF] 72 /min 120 mm[Hg] 60 mm[Hg] Kristal Serrato Pepe [facility] [employer] [facility] 4 16:03:26 Date Recorded Pain severity - 0-10 verbal numeric rating [Score] - Reported Provider Name and Address Organization Details Last Updated DateTime 11/20/2023 1 Vikram Mackay LPN [facility] I [employer] [facility] 11/20/2023 16:28:52 Date Recorded Body height Body mass index (BMI) Body weight Body temperature Heart rate Systolic blood pressure Diastolic blood pressure Provider Name and Address Organization Details Last Updated DateTime 4 177.8 cm 32 kg/m2 344007. 1 g 97.8 [degF] 72 /min 134 mm[Hg] 66 mm[Hg] Kristal Serrato Pepe [facility] [employer] [facility] 4 14:24:55 Social History Question Answer Notes LastModified by Organization Details LastModified Time Tobacco Smoking Status Never Smoker Not Available [facility] 04/27/2022 00:52:11 Do You Have An Advance Directive? No MIGRATION.030 [id number] Information not available 04/27/2022 What Is Your Level Of Alcohol Consumption? None MIGRATION.030 [id number] Information not available 04/27/2022 Do You Wear A Helmet When Biking? No Does Not Bike [email or web address] Information not available 11/20/2023 Are You Blind Or Do You Have Difficulty Seeing? No MIGRATION.0301 [id number] Information not available 04/27/2022 Is Blood Transfusion Acceptable In An Emergency? Yes [email or web address] Information not available 11/20/2023 What Is Your Level Of Caffeine Consumption? None MIGRATION.0301 561571 Information not available 04/27/2022 How Much Tobacco Do You Chew? None MIGRATION.030 279654 Information not available 04/27/2022 What Is Your Code Status? Full Code [email or web address] Information not available 11/20/2023 In The 14 Days Before Symptom Onset, Have You Had Close Contact With A Laboratory-conf irmed COVID-19 While That Case Was Ill? No MIGRATION.0301 [id number] Information not available 04/27/2022 In The 14 Days Before Symptom Onset, Have You Had Close Contact With A Person Who Is Under Investigation For COVID-19 While That Person Was Ill? No MIGRATION.0301 [id number] Information not available 04/27/2022 Are You Currently Employed? No [email or web address] Information not available 11/20/2023 Are You Deaf Or Do You Have Serious Difficulty Hearing? No MIGRATION.0301 844351 Information not available 04/27/2022 What Type Of Diet Are You Following? REGULAR MIGRATION.030 561954 Information not available 04/27/2022 Which Illicit Or Recreational Drugs Have You Used? None MIGRATION.030 708963 Information not available 04/27/2022 What Is The Highest Grade Or Level Of School You Have Completed Or The Highest Degree You Have Received? [id number] MIGRATION.030 192287 Information not available 04/27/2022 What Is Your Occupation? Retired Information not available 11/20/2023 How Many Days Of Moderate To Strenuous Exercise, Like A Brisk Walk, Did You Do In The Last 7 Days? -1 Information not available 11/20/2023 Have There Been Any Changes To Your Family Or Social Situation? No MIGRATION.0301 495708 Information not available 04/27/2022 What Is The Fluoride Status Of Your Home? Unknown MIGRATION.0301 748472 Information not available 04/27/2022 Are There Any Guns Present In Your Home? No MIGRATION.0301 872661 Information not available 04/27/2022 Do You Use Insect Repellent Routinely? No MIGRATION.0301 651912 Information not available 04/27/2022 Where Do You Live? SingleLevelHouse MIGRATION.030 269619 Information not available 04/27/2022 Presence Of Domestic Violence No [email or web address] Information not available 11/20/2023 Guns Present In The Home? No [email or web address] Information not available 11/20/2023 Are You Able To Care For Yourself? Yes Information not available 11/20/2023 Are You Blind Or Do Yo Have Difficulty Seeing? No [email or web address] Information not available 11/20/2023 Are You Deaf Or Do You Have Serious Difficulty Hearing? Yes Has Bilateral Hearing Aids. Doesnt Wear. [email or web address] Information not available 11/20/2023 General Stress Level? Moderate [email or web address] Information not available 11/20/2023 Live Alone Of With Others? With Others [email or web address] Information not available 11/20/2023 Do You Have A Medical Power Of Personnel Generalist Manager? No MIGRATION.0301 [id number] Information not available 04/27/2022 What Was The Date Of Your Most Recent Tobacco Screening? 12/26/2023 Information not available 12/26/2023 How Many Children Do You Have? 3 And 2 Step Children [email or web address] Information not available 11/20/2023 Do You Have Any Pets? No MIGRATION.0301 085825 Information not available 04/27/2022 What Is Your Relationship Status? MIGRATION.0301 [id number] Information not available 04/27/2022 Do You Use Your Seat Belt Or Car Seat Routinely? Yes MIGRATION.0301 326579 Information not available 04/27/2022 Are You Sexually Active? No [email or web address] Information not available 11/20/2023 Do You Have Smoke And Carbon Monoxide Detectors In Your Home? Yes MIGRATION.0301 183060 Information not available 04/27/2022 Are You Passively Exposed To Smoke? No MIGRATION.0301 203835 Information not available 04/27/2022 Are There Any Smokers In Your House? No MIGRATION.0301 736170 Information not available 04/27/2022 How Much Tobacco Do You Smoke? No MIGRATION.0301 842857 Information not available 04/27/2022 What Types Of Sporting Activities Do You Participate In? None MIGRATION.0301 910964 Information not available 04/27/2022 Do You Feel Stressed (tense, Restless, Nervous, Or Anxious, Or Unable To Sleep At Night)? [id number] MIGRATION.0301 938373 Information not available 04/27/2022 Do You Use Any Illicit Or Recreational Drugs? No MIGRATION.0301 490902 Information not available 04/27/2022 Do You Use Sunscreen Routinely? No MIGRATION.0301 368087 Information not available 04/27/2022 Has Tobacco Cessation Counseling Been Provided? No N/a Information not available 2022 How Many Years Have You Smoked Tobacco? 0 MIGRATION.0301 813345 Information not available 04/27/2022 Have You Recently Traveled Abroad? No MIGRATION.0301 480758 Information not available 04/27/2022 Do You Have Any Dietary Restrictions? No MIGRATION.0301 220505 Information not available 04/27/2022 Do You Or Have You Ever Used Any Other Forms Of Tobacco Or Nicotine? No MIGRATION.0301 248840 Information not available 04/27/2022 Sex: Male Functional Status Question Answer Note LastModified by [employer] Details LastModified Time Do you have difficulty walking or climbing stairs? Yes bad right knee MIGRATION.651510 4652 Information not available 04/27/2022 Do you have transportation difficulties? No MIGRATION.580898 4265 Information not available 04/27/2022 Are you able to walk? YESASSIST uses cane MIGRATION.154056 5675 Information not available 04/27/2022 Do you have difficulty doing errands alone? No MIGRATION.151280 7867 Information not available 04/27/2022 Are you able to care for yourself? Yes MIGRATION.942672 0218 Information not available 04/27/2022 Do you have difficulty dressing or bathing? No MIGRATION.963994 6054 Information not available 04/27/2022 What is your exercise level? None MIGRATION.721599 5053 Information not available 04/27/2022 Mental Status Question Answer Note LastModified by Organizat ion Details LastModified Time Do you have difficulty concentrating, remembering or making decisions? Yes dementia [email or web address] Information no t available 11/20/2023 Family History Relationship Description Onset Age of this Age Resolved Age Notes LastModified by Organization Details LastModified Time Mother Hypertensive disorder MIGRATION.103 [id number] Not available 04/27/2022 00:57:13 Medical History Condition Response NERVE DISEASE BLINDNESS N RHEUMATIC FEVER N KIDNEY STONES N BLADDER PROBLEMS N MRSA N OTHER # 1 N POLIO N LUNG DISEASE/DISORDER N RADIATION / CHEMOTHERAPY N COPD N Other # 2 N BLOOD DISEASES N EAR OR HEARING PROBLEMS N MUMPS N BOWEL PROBLEMS N DEPRESSION (INCLUDING POST ) N STROKE/TIA Y ULCERS N BENIGN PROSTATIC HYPERPLASIA N MEASLES N MYOCARDIAL INFARCTION Y OBESITY N GERD/NAUSEA N ANEURYSM N URINARY/BLADDER/KIDNEY PROBLEMS N CORONARY ARTERY DISEASE (CAD) N ADDICTION CONCERNS N Impotence N ENDOMETRIOSIS N USE OF BLOOD THINNERS N SKIN PROBLEMS N GASTROINTESTINAL DISORDER N PERIPHERAL VASCULAR DISEASE N MUSCLE,JOINT OR BONE PROBLEMS N GASTROINTESTINAL BLEEDING N BLOOD CLOTS N ASTHMA N CATARACTS N ERECTILE DYSFUNCTION N VARICOSITIES N GI PROBLEMS N Low Testosterone N INFERTILITY N AIDS/HIV N CHEMOTHERAPY / RADIATION N LIVER DISEASE N MALE HYPOGONADISM N HYPERTENSION Y Deficiency Y TOURETTE'S N ANXIETY DISORDER N BLOOD TRANSFUSION N ANEMIA/BLOOD DISORDER N CHRONIC EAR INFECTIONS N BRONCHITIS Y TUBERCULOSIS N GLAUCOMA N FOOT PROBLEM Y DIVERTICULITIS N SLEEP APNEA N CHICKENPOX N INFECTIOUS DISEASE N PROSTATE N HEART ARRHYTHMIA N INSOMNIA N HIGH CHOLESTEROL / HYPERLIPIDEMIA Y EYE PROBLEMS N HYPERTHYROIDISM N EDEMA Y CHRONIC PAIN SYNDROME N HYPOTHYROIDISM N CONSTIPATION N CAROTID BLOCKAGE N BACK / NECK PROBLEMS Y HAVE YOU BEEN HOSPITALIZED OR SEEN IN [facility] IN THE PAST YEAR ? Y ATHEROSCLEROSIS Y BREAST PROBLEMS N DIALYSIS N ECZEMA N OSTEOPOROSIS N ARTHRITIS N APPENDICITIS N DIABETES, TYPE N BAD TEETH N ENT N HEARTBURN / REFLUX N AUTISM SPECTRUM DISORDER (ASD) N HEPATITIS / LIVER DISEASE N GOUT Y SLEEP DISORDER N ALZHEIMER'S DISEASE N Brain Problems N DEMENTIA N HERPES N SEIZURES/EPILEPSY N HEADACHES/MIGRAINES N VASCULAR DISEASE N PACEMAKER N Blood Disorder N DIZZINESS N HEART DISEASE/HEART PROBLEMS Y KIDNEY DISEASE N MULTIPLE SCLEROSIS N CANCER: SPECIFY N CARDIAC ARRHYTHMIA N ATRIAL FIBRILLATION N Gall Stones N PULMONARY EMBOLISM N AUTOIMMUNE DISEASE N Immunizations Vaccine Type Date Status Note Provider Nam e and Address Organization Details Recorded Time Influenza, high-dose, quadrivalent, PF 3 completed Kristal Serrato RMPepe fontana, [facility] [employer] [facility] 12/22/2022 13:56:44 COVID-19, mRNA, LNP-S, PF, 30 mcg/0.3 mL dose 1 completed Kristal Serrato RMA null, [facility] [employer] [facility] 11/20/2023 15:58:28 COVID-19, mRNA, LNP-S, PF, 30 mcg/0.3 mL dose 1 completed Kristal Serrato RMA null, [facility] [employer] [facility] 11/20/2023 15:58:28 Pneumococcal conjugate PCV 13 2 completed Not Available [facility] 08/04/2022 19:42:13 Influenza, high-dose, quadrivalent, PF 1 completed Not Available [facility] 08/04/2022 19:42:13 Influenza, high-dose, quadrivalent, PF 1 completed Not Available [facility] 08/04/2022 19:42:13 Influenza, high-dose, trivalent, PF 7 completed Not Available [facility] 08/04/2022 19:42:13 Influenza, split virus, quadrivalent, PF 5 completed Not Available [facility] 08/04/2022 19:42:13 Past Encounters Encounter ID Performer Location Encounter Start Date Encounter Closed Date Diagnosis/Indication Diagnosis SNOMED-CT Code Diagnosis ICD10 Code Diagnosis Note [id number] _ATHENA_M IGRATION_ DEFAULT_1 _1 , 05/01/2020 00:00:00 05/07/2020 08:51:17 [id number] [facility] [address] [place] [address] Ave[address] [place] [address] 1 07/30/2020 00:00:00 07/30/2020 18:17:01 [id number] [facility] [address] [address] 08/27/2020 00:00:00 08/27/2020 15:41:33 [id number] _ATHENA_M IGRATION_ DEFAULT_1 _1 , 09/25/2020 00:00:00 09/25/2020 14:21:33 [id number] [facility] [address] [place] [address] Ave[address] [address] 12/31/2020 00:00:00 12/31/2020 14:22:42 [id number] _ATHENA_M IGRATION_ DEFAULT_1 _1 , 01/01/2021 00:00:00 01/05/2021 10:01:49 [id number] [facility] [address] [place] [address] Ave[address] [address] 04/29/2021 00:00:00 04/29/2021 18:41:44 [id number] _ATHENA_M IGRATION_ DEFAULT_1 _1 , 05/21/2021 00:00:00 05/21/2021 11:33:32 [id number] [facility] Internal Med [address] [address] 08/05/2021 00:00:00 08/05/2021 15:50:48 [id number] _PRECIOUS_Prince IGRATION_ DEFAULT_1 _1 , 09/24/2021 00:00:00 09/24/2021 11:41:43 [id number] [facility] Internal Med [address] [place] [address] 1 11/04/2021 00:00:00 11/04/2021 15:42:26 [id number] _VIJAY IGRATION_ DEFAULT_1 _1 , 12/24/2021 00:00:00 12/26/2021 16:19:11 [id number] Patti shane MD [facility] Internal Med [address] [address] 05/12/2022 11:46:13 05/12/2022 12:47:29 Screening - NAD 830654670 Z13.9 C-scope Dr. Cheema 01/11/17Ne josé manuel a smoker UTD on flu shotGet TdapUTD pneumovax #13 04/29/2021 Get shingles vaccine, declines thisUTD on COVID 19 vaccine RTC in 4 monthdo labsER if worseHe did verbalize his understand ing of the above Hyperlipidemia 48905174 E78.5 On pravastati n 80mg dailyGet labs Congestive heart failure 52092924 I50.9 OV 08/05/2021 :Repeat BP: NotedHe denies any CVS or PAN PUSHER symptoms, states that he does have 'white coat' BP and was told to increase all his med by Dr Nato INMAN On coreg 12.5mg bid, increased by Dr Nato INMANOn clonidine 0.1mg bidOn hydralazin e 50mg bidOn metolazone 5mg daily, but takes this PRN as per directions from Dr Nato INMANOn losartan 25mg dailyOn lasix now 80mg dailyOn pradaxaOn K Gout 58934623 M10.9 On allopurino l 100mg dailyHe used to be on uloric On naprosyn, advised to take this very rarely, understand s and explained the risks and side effects Essential tremor 2907827 09 G25.0 08/27/2020 : Today he states that he stopped the primidone and he does not want to take this at this time He does have an apt with neurology Dr Robin Adam Pain of le ft shoulder joint [id number] 6973850 M25.512 MRI L Shoulder: 10/26/16: Tendinosis , no RCTMRI C-spine: 10/26/16: Noted Did use to see Dr Dallas w does well Onychomycosis 724806253 B35.[address] Payne Unsteafrancisca when walking 22 353959 R26.89 Does use a cane Does well nowStates that he is done with the PT Itching of skin 45429604 0 L29.9 States that he does get intermitte nt skin itching, On hydoxyzine as needed Chronic ki dney disease 485678052 N18.9 Get labsMay needs to see Dr Peter IJ Coronary arteriosclerosis 67450091 I25.10 On lasixOn [place]/p d/c from [facility] for a.fibOn pradaxa Dr Peter [facility] Vitamin D deficiency 347 50243 E55.9 Screening for malignant neoplasm of prostate 586029754 Z12.5 [id number] Yung Durham MD [facility] E[facility] [place] [address] [place] [address] 05/25/2022 14:11:11 05/25/2022 14:43:43 Bilateral tinnitus 9143839866 102 H93.13 [id number] Patti shane MD [facility] [address] [facility], [facility] 15 [place] [address] 2022 11:58:47 2022 12:45:05 Screening - NAD 968293922 Z13.[address] C-scope [address] Cheema 01/11/17Ne josé manuel a smoker UTD on flu shotGet TdapUTD pneumovax #13 04/29/2021 Get shingles vaccine, declines thisUTD on COVID 19 vaccine RTC in 4 monthdo labsER if worseHe did verbalize his understand ing of the above Hyperlipidemia 82084625 E78.5 Not on pravastati n 80mg dailyOn atorvastat in 40mg dailyGet labs Congestive heart failure 82631634 I50.9 OV 08/05/2021 :Repeat BP: NotedHe denies any CVS or PAN PUSHER symptoms, states that he does have 'white coat' BP and was told to increase all his med by Dr Nato INMAN US ECHO 07/13/2022 US carotid 07/13/2022 On coreg 12.5mg bid, increased by Dr Nato Hurd clonidine 0.1mg bidOn hydralazin e 50mg bidOn metolazone 5mg daily, but takes this PRN as per directions from Dr Nato Hurd losartan 25mg dailyOn lasix now 80mg dailyNot on pradaxaOn eliquis 5mg bidOn K Gout 63843083 M10.9 On allopurino l 100mg dailyHe used to be on uloric On naprosyn, advised to take this very rarely, understand s and explained the risks and side effects Essential tremor 8543196 09 G25.0 08/27/2020 : Today he states that he stopped the primidone and he does not want to take this at this time He does have an apt with neurology Dr Robin Adam Pain of le ft shoulder joint [id number] 5871714 M25.512 MRI L Shoulder: 10/26/16: Tendinosis , no RCTMRI C-spine: 10/26/16: Noted Did use to see Dr Dallas w does well Onychomycosis 337680677 B35.[address] Payne Unsteafrancisca when walking 22 015989 R26.89 Does use a cane Does well nowStates that he is done with the PT Itching of skin 89471132 0 L29.9 States that he does get intermitte nt skin itching, On hydoxyzine as needed Chronic ki dney disease 055899818 N18.9 Get labsMay needs to see Dr Peter IJ Coronary arteriosclerosis 30855597 I25.10 On lasixOn [place]/p d/c from [facility] for a.fibOn pradaxa Dr Nato INMAN 06/15/2022 , f/u 6 months Vitamin D deficiency 347 88576 E55.9 Screening for malignant neoplasm of prostate 848670266 Z12.5 Generalize d anxiety disorder 72101866 F41.1 On alprazolam 0.5mg daily PRN, does well on this, see cases, not taking the trazodone [id number] Patti shane MD [facility] [place] [address] [facility], [place] [address] [place] [address] 12/22/2022 11:44:58 12/22/2022 12:35:10 Screening - NAD 007932061 Z13.9 C-scope [address] Cheema 01/11/17Ne josé manuel a smoker UTD on flu shotGet TdapUTD pneumovax #13 04/29/2021 Get shingles vaccine, declines thisUTD on COVID 19 vaccine RTC in 4 monthdo labsER if worseHe did verbalize his understand ing of the above Hyperlipidemia 17569665 E78.5 Not on pravastati n 80mg dailyOn atorvastat in 40mg dailyGet labs Congestive heart failure 82900115 I50.9 OV 08/05/2021 :Repeat BP: NotedHe denies any CVS or PAN PUSHER symptoms, states that he does have 'white coat' BP and was told to increase all his med by Dr Nato INMAN US ECHO 07/13/2022 US carotid 07/13/2022 On coreg 12.5mg bid, increased by Dr Nato Hurd clonidine 0.1mg bidOn hydralazin e 50mg bidOn metolazone 5mg daily, but takes this PRN as per directions from Dr Nato Hurd losartan 25mg dailyOn lasix now 80mg dailyNot on pradaxaOn eliquis 5mg bidOn K Gout 08904647 M10.9 On allopurino l 100mg dailyHe used to be on uloric On naprosyn, advised to take this very rarely, understand s and explained the risks and side effects Essential tremor 8794328 09 G25.0 08/27/2020 : Today he states that he stopped the primidone and he does not want to take this at this time He does have an apt with neurology Dr Robin Adam Pain of le ft shoulder joint 8149051914 0819403 M25.512 MRI L Shoulder: 10/26/16: Tendinosis , no RCTMRI C-spine: 10/26/16: Noted Did use to see Dr Dallas w does well Onychomycosis 180715925 B35.[address] Payne, referred to Dr Pettit Unsteady when walking 22 508660 R26.89 Does use a cane Does well nowStates that he is done with the PT Itching of skin 97073014 0 L29.9 States that he does get intermitte nt skin itching, On hydoxyzine as needed Chronic ki dney disease 608584429 N18.9 Get labsMay needs to see Dr Peter IJ Coronary arteriosclerosis 10462261 I25.10 On lasixOn [place]/c from [facility] for a.fibNot on pradaxaOn eliquis Dr Peter [facility] 12/19/2022 , f/u in 6 months Vitamin D deficiency 347 74730 E55.9 Generalize d anxiety disorder 24400735 F41.1 On alprazolam 0.5mg daily PRN, does well on this, see cases, not taking the trazodone Anemia 481592695 D64.9 More iron in diet, get labs Administra tion of influenza vaccine 13474011 Z23 Dementia 96590892 F01.50 On donezepil 5mg dailySees Dr Adam last OV 11/01/2022 [id number] Patti shane MD [facility] Internal Med [facility] [address] [facility] [address] [place] [address] 04/27/2023 15:19:55 04/27/2023 15:56:11 Screening - NAD 648981834 Z13.[address] C-[address] Cheema 01/11/17Ne josé manuel a smoker UTD on flu shotGet TdapUTD pneumovax #13 04/29/2021 Get shingles vaccine, declines thisUTD on COVID 19 vaccineCan do RSV vaccine RTC in 4 monthdo labsER if worseHe did verbalize his understand ing of the above Hyperlipidemia 98117894 E78.5 Not on pravastati n 80mg dailyOn atorvastat in 40mg dailyGet labs Congestive heart failure 60289883 I50.9 OV 08/05/2021 :Repeat BP: NotedHe denies any CVS or PAN PUSHER symptoms, states that he does have 'white coat' BP and was told to increase all his med by Dr Nato INMAN US ECHO 07/13/2022 US carotid 07/13/2022 On coreg 12.5mg bid, increased by Dr Nato Hurd clonidine 0.1mg bidOn hydralazin e 50mg bidOn metolazone 5mg daily, but takes this PRN as per directions from Dr Nato Hurd losartan 25mg dailyOn lasix now 80mg dailyNot on pradaxaOn eliquis 5mg bidOn K Gout 70432495 M10.9 On allopurino l 100mg dailyHe used to be on uloric On naprosyn, advised to take this very rarely, understand s and explained the risks and side effects Essential tremor 6203923 09 G25.0 08/27/2020 : Today he states that he stopped the primidone and he does not want to take this at this time He does have an apt with neurology Dr Robin Adam Pain of le ft shoulder joint 7704155198 1654903 M25.512 MRI L Shoulder: 10/26/16: Tendinosis , no RCTMRI C-spine: 10/26/16: Noted Did use to see Dr Dallas w does well Onychomycosis 820131101 B35.[address] Payne, referred to Dr Pettit Unsteady when walking 22 779458 R26.89 Does use a cane Does well nowStates that he is done with the PT Itching of skin 76773842 0 L29.9 States that he does get intermitte nt skin itching, On hydoxyzine as needed Chronic ki dney disease 236832817 N18.9 Get labsMay needs to see Dr Peter IJ Coronary arteriosclerosis 35162628 I25.10 On lasixOn [place]/c from [facility] for a.fibNot on pradaxaOn eliquis Dr Nato INMAN 12/19/2022 , f/u in 6 months Vitamin D deficiency 347 69997 E55.9 Generalize d anxiety disorder 79532175 F41.1 On alprazolam 0.5mg daily PRN, does well on this, see cases, not taking the trazodone Anemia 273124840 D64.9 More iron in diet, get labsNow should see Dr Martinez Dementia 33692402 F01.50 On donezepil 5mg dailySees Dr Adam last OV 11/01/2022 Hypoproteinemia 0258085 E88.09 More protein in diet [id number] Charlene Briseno DPM [facility] Podiatry [place] [address] [address] [facility], [address] [address] 05/16/2023 15:35:53 05/16/2023 17:01:15 [id number] Patti shane MD [facility] Internal Med [facility] [address] [facility], [address] [address] 08/24/2023 15:46:15 08/24/2023 16:22:22 Screening - NAD 186649812 Z13.[address] C-[address] Cheema 01/11/17Ne josé manuel a smoker UTD on flu shotGet TdapUTD pneumovax #13 04/29/2021 Get shingles vaccine, declines thisUTD on COVID 19 vaccineCan do RSV vaccine RTC in 4 monthdo labsER if worseHe did verbalize his understand ing of the above Hyperlipidemia 01942030 E78.5 Not on pravastati n 80mg dailyOn atorvastat in 40mg dailyGet labs Congestive heart failure 08627260 I50.9 US ECHO 07/13/2022 US carotid 07/13/2022 US carotid 07/04/2023 : HENNY On coreg 12.5mg bid, increased by Dr Nato INMANOn clonidine 0.1mg bidOn hydralazin e 50mg bidOn metolazone 5mg daily, but takes this PRN as per directions from Dr Nato INMANOn losartan 25mg dailyOn lasix now 80mg dailyNot on pradaxaOn eliquis 5mg bidOn K Dr Nato INMAN 06/19/2023 , next in 6 months Gout [id number] M10.9 On allopurino l 100mg dailyHe used to be on uloric On naprosyn, advised to take this very rarely, understand s and explained the risks and side effects Essential tremor 5120713 09 G25.0 08/27/2020 : Today he states that he stopped the primidone and he does not want to take this at this time He does have an apt with neurology Dr Robin Adam Pain of le ft shoulder joint [id number] 7948248 M25.512 MRI L Shoulder: 10/26/16: Tendinosis , no RCTMRI C-spine: 10/26/16: Noted Did use to see Dr Dallas w does well Onychomycosis [id number] B35.[address] Payne, referred to Dr Pettit Unsteady when walking 22 [id number] R26.89 Does use a cane Does well nowStates that he is done with the PT Itching of skin 00605036 0 L29.9 States that he does get intermitte nt skin itching, On hydoxyzine as needed Chronic ki dney disease 082355538 N18.9 Get labsMay needs to see Dr Peter IJ Coronary arteriosclerosis 60043854 I25.10 On lasixOn [place]/p d/c from [facility] for a.fibNot on pradaxaOn eliquis Dr Peter SL 12/19/2022 , f/u in 6 months Vitamin D deficiency 347 04875 E55.9 Generalize d anxiety disorder 51610171 F41.1 On alprazolam 0.5mg daily PRN, does well on this, see cases, not taking the trazodone Anemia 117747817 D64.9 More iron in diet, get labsDr Juan 06/13/2023 Dementia 71468948 F01.50 On donezepil 5mg dailySees Dr Adam last OV 11/01/2022 Hypoproteinemia 2368925 E88.09 More protein in diet 1209180 Patti shane MD [facility] daw[facility] [address] [facility] [place] [address] 11/20/2023 15:51:49 11/20/2023 16:51:53 Adult health examination 290781696 Z00.00 Screening for disorder 707247253 Z13.9 Screening - NAD 02064257 [address]13.[address] C-[address] Cheema 01/11/17Ne josé manuel a smoker UTD on flu shotGet TdapUTD pneumovax #13 04/29/2021 Get shingles vaccine, declines thisUTD on COVID 19 vaccineCan do RSV vaccine RTC in 2 monthsdo labsER if worseHe did verbalize his understand ing of the above Hyperlipidemia 43504409 E78.5 Not on pravastati n 80mg dailyOn atorvastat in 40mg dailyGet labs Congestive heart failure 75856789 I50.9 US ECHO 07/13/2022 US carotid 07/13/2022 US carotid 07/04/2023 : [facility] On coreg 12.5mg bid, increased by Dr Nato INMANOn clonidine 0.1mg bidNot on hydralazin e 50mg bidOn metolazone 5mg daily, but takes this PRN as per directions from Dr Nato INMANOn losartan 25mg dailyOn lasix now 80mg dailyOn nifedipine ER 30mg dailyNot on pradaxaOn eliquis 5mg bidOn K Dr Nato INMAN 06/19/2023 , next in 6 months Gout 20426746 M10.9 On allopurino l 100mg dailyHe used to be on uloric On naprosyn, advised to take this very rarely, understand s and explained the risks and side effects Essential tremor 8572274 09 G25.0 08/27/2020 : Today he states that he stopped the primidone and he does not want to take this at this time He does have an apt with neurology Dr Robin Adam Pain of le ft shoulder joint [id number] 0438372 M25.512 MRI L Shoulder: 10/26/16: Tendinosis , no RCTMRI C-spine: 10/26/16: Noted Did use to see Dr Celena willis does well Onychomycosis 735549678 B35.[address] Payne, referred to Dr Pettit Unsteady when walking 22 770429 R26.89 Does use a cane Does well nowStates that he is done with the PT Itching of skin 81432735 0 L29.9 States that he does get intermitte nt skin itching, On hydoxyzine as needed Chronic ki dney disease 871558845 N18.9 Get labsMay needs to see Dr Peter IJ Coronary arteriosclerosis 18271275 I25.10 On lasixOn [place]/p d/c from [facility] for a.fibNot on pradaxaOn eliquis Dr Peter [facility] Vitamin D deficiency 347 78989 E55.9 Generalize d anxiety disorder 25308183 F41.1 On alprazolam 0.5mg daily PRN, does well on this, see cases, not taking the trazodone Anemia 848457808 D64.9 More iron in diet, get labsDr Juan Dementia 32629333 F01.50 On donezepil 5mg dailySees Dr Aadm last OV 11/01/2022 Hypoproteinemia 6348527 E88.09 More protein in diet 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 Cheema 01/11/17Ne josé manuel a smoker UTD on flu shotGet TdapUTD pneumovax #13 04/29/2021 Get shingles vaccine, declines thisUTD on COVID 19 vaccineCan do RSV vaccine RTC in 3 monthsdo labsER if worseHe did verbalize his understand ing of the above Hyperlipidemia 29655052 E78.5 Not on pravastati n 80mg dailyOn atorvastat in 40mg daily, will increase to 80mg dailyGet labs Congestive heart failure 57858082 I50.9 US ECHO 07/13/2022 US carotid 07/13/2022 US carotid 07/04/2023 : [facility] On coreg 12.5mg bid, increased by Dr Peter SLOn clonidine 0.1mg bidNot on hydralazin e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
--- OUTSIDE RECORDS SUMMARY | 2024-04-18 07:35 | XMS_ITS | Patient Health Record ---
Author Organization [facility] Office Address [address] [facility] [address] [facility] [address] [place] [address] Care Team Providers Care Press Leader Name Role Phone Ceferino Dutton Unavailable [phone] REASON FOR REFERRAL No Information MEDICATIONS Medication SIG (Take, Route, Frequency, Duration) Notes Start Date End Date Status Carvedilol 12.5 MG 1 tablet with food Orally Twice a day for 90 days 12/22/2021 Active hydrALAZINE HCl 50 MG Take 1 tablet by m outh twice daily with food for 90 Active Calcitriol 0.25 MCG Take 1 capsule by mo uth once daily for 90 Active Losartan Potassium 25 MG Take 1 tablet b y mouth once daily for 90 Active Allopurinol 100 MG 2 tablet Orally Once a day for 90 days Active Ergocalciferol 1.25 MG (04249 UT) 1 capsule Orally Once a week for 90 day(s) 01/05/2024 10/01/2024 Active PROBLEMS Problem Type ICD Code Onset Dates Problem Status W/U Status Risk SNOMED Code Notes Problem Malignant neoplasm o f colon, unspecified (C18.9) Active confirmed Malignant neopl asm of colon (047146679) Problem Vitamin D deficiency , unspecified (E55.9) Active confirmed Vitamin D deficiency (71085795) Problem Morbid (severe) obesity due to excess calories (E66.01) Active confirmed Morbid obe sity (disorder) (327268793) Problem Hyperlipidemia, unspecified (E78.5) Active confirmed Hyperlip idemia (37068679) Problem Hyperuricemia withou t signs of inflammatory arthritis and tophaceous disease (E79.0) Active confirmed Hyperuricemia without signs of inflammatory arthritis and tophaceous disease (598396640) Problem Essential (primary) hypertension (I10) Active confirmed Essential hypertension (09071644) Problem Renal osteodystrophy (N25.0) Active confirmed Renal osteodyst rophy (18287912) Problem Secondary hyperparathyroidism of renal origin (N25.81) Active confirmed Secondary hyperparathyroidism of renal origin (59333474) Problem Edema, unspecified (R60.9) Active confirmed Edema (27829300) Problem Chronic kidney disease, stage 3 unspecified (N18.30) Active confirmed Chronic kidney disease stage 3 (disorder) (354400658) Problem Chronic kidney disease, stage 3a (N18.31) Active confirmed Chronic kidney disease stage 3A (disorder) (703534658) Problem CAD (coronary artery disease) (I25.10) Active confirmed Coronary a rtery disease (13629228) Encounters Encounter Location Date Provider Diagnosis [facility] [address] [place] [address] 11/01/2023 Ceferino Dutton [facility] [address] [place] [address] 11/29/2023 Ceferino Dutton [facility] [address] [place] [address] 12/06/2023 Ceferino Dutton Chronic kidney disea se, stage 3a N18.31 ; Essential (primary) hypertension I10 ; Hyperlipidemia, unspecified E78.5 ; Hyperuricemia without signs of inflammatory arthritis and tophaceous disease E79.0 and Edema, unspecified R60.9 [facility] [address] [place] [address] 12/20/2023 Ceferino Dutton Chronic kidney disea se, stage 3a N18.31 ; Essential (primary) hypertension I10 ; Hyperlipidemia, unspecified E78.5 ; Hyperuricemia without signs of inflammatory arthritis and tophaceous disease E79.0 and Edema, unspecified R60.9 [facility] [address] [place] [address] 01/03/2024 Ceferino Dutton [facility] [address] [facility] [address] [place] [address] 01/10/2024 Ceferino Dutton Chronic kidney disea se, stage 3a N18.31 ; Essential (primary) hypertension I10 ; Hyperlipidemia, unspecified E78.5 ; Hyperuricemia without signs of inflammatory arthritis and tophaceous disease E79.0 and Edema, unspecified R60.9 [facility] [address] [place] [address] 02/07/2024 Ceferino Dutton Chronic kidney disea se, stage 3 unspecified N18.30 ; Vitamin D deficiency, unspecified E55.9 ; Essential (primary) hypertension I10 ; Hyperlipidemia, unspecified E78.5 and Edema, unspecified R60.9 [facility] [address] [address] 03/27/2024 Ceferino [facility] [address] [place] [address] 04/03/2024 Ceferino Dutton Chronic kidney disea se, stage 3a N18.31 ; Renal osteodystrophy N25.0 ; Secondary hyperparathyroidism of renal origin N25.81 ; Morbid (severe) obesity due to excess calories E66.01 ; CAD (coronary artery disease) I25.10 ; Proteinuria, unspecified R80.9 and Malignant neoplasm of colon, unspecified C18.9 [facility] [address] [address] 10/11/2023 Ceferino Fuentes [address] [place] [address] 10/19/2023 Ceferino Dutton [facility] [address] [address] 01/05/2024 Ceferino Dutton [facility] [address] [place] [address] 01/05/2024 Ceferino Dutton [facility] [address] [address] 01/05/2024 Ceferino Dutton ASSESSMENTS Encounter Date Diagnosis Assessment Notes Treatment Notes Treatment Clinical Notes Section Notes 12/06/2023 Chronic kidney disea se, stage 3a (ICD-10 - N18.31) 12/20/2023 Chronic kidney disea se, stage 3a (ICD-10 - N18.31) 01/10/2024 Chronic kidney disea se, stage 3a (ICD-10 - N18.31) 02/07/2024 Chronic kidney disea se, stage 3 unspecified (ICD-10 - N18.30) 04/03/2024 Renal osteodystrophy (ICD-10 - N25.0) 04/03/2024 Chronic kidney disea se, stage 3a (ICD-10 - N18.31) 04/03/2024 Secondary hyperparathyroidism of renal origin (ICD-10 - N25.81) 02/07/2024 Vitamin D deficiency , unspecified (ICD-10 - E55.9) 01/10/2024 Essential (primary) hypertension (ICD-10 - I10) 12/20/2023 Essential (primary) hypertension (ICD-10 - I10) 12/06/2023 Essential (primary) hypertension (ICD-10 - I10) 12/06/2023 Hyperlipidemia, unspecified (ICD-10 - E78.5) 12/20/2023 Hyperlipidemia, unspecified (ICD-10 - E78.5) 01/10/2024 Hyperlipidemia, unspecified (ICD-10 - E78.5) 02/07/2024 Essential (primary) hypertension (ICD-10 - I10) 04/03/2024 Morbid (severe) obes ity due to excess calories (ICD-10 - E66.01) 04/03/2024 CAD (coronary artery disease) (ICD-10 - I25.10) 02/07/2024 Hyperlipidemia, unspecified (ICD-10 - E78.5) 01/10/2024 Hyperuricemia withou t signs of inflammatory arthritis and tophaceous disease (ICD-10 - E79.0) 12/20/2023 Hyperuricemia withou t signs of inflammatory arthritis and tophaceous disease (ICD-10 - E79.0) 12/06/2023 Hyperuricemia withou t signs of inflammatory arthritis and tophaceous disease (ICD-10 - E79.0) 12/06/2023 Edema, unspecified (ICD-10 - R60.9) 12/20/2023 Edema, unspecified (ICD-10 - R60.9) 01/10/2024 Edema, unspecified (ICD-10 - R60.9) 02/07/2024 Edema, unspecified (ICD-10 - R60.9) 04/03/2024 Proteinuria, unspecified (ICD-10 - R80.9) 04/03/2024 Malignant neoplasm o f colon, unspecified (ICD-10 - C18.9) PLAN OF TREATMENT Next Appt Details Provider Name:Ceferino Dutton , 05/29/2024 02:45:00 PM, [address], [address], [place], [address],
--- OUTSIDE RECORDS SUMMARY | 2024-04-18 07:36 | XMS_ITS ---
Author Organization [facility] Address [address] [place] [address] Care Team Providers Care Leather Production Worker Name Role Phone Nato Ceferino Unavailable [phone] MEDICATIONS Medication SIG (Take, Route, Frequency, Duration) Notes Start Date End Date Status Carvedilol 12.5 MG 1 tablet with food Orally Twice a day for 90 days 12/22/2021 Active hydrALAZINE HCl 50 MG Take 1 tablet by m outh twice daily with food for 90 Active Calcitriol 0.25 MCG Take 1 capsule by mo uth once daily for 90 Active Allopurinol 100 MG 1 tablet Orally Once a day for 90 day(s) 01/05/2024 10/01/2024 Active Ergocalciferol 1.25 MG (64596 UT) 1 capsule Orally Once a week for 90 day(s) 01/05/2024 10/01/2024 Active Losartan Potassium 25 MG Take 1 tablet b y mouth once daily for 90 Active PROBLEMS Problem Type ICD Code Onset Dates Problem Status W/U Status Risk SNOMED Code Notes Problem Chronic kidney disease, stage 3 unspecified (N18.30) Active confirmed Chronic kidney disease stage 3 (disorder) (274849113) Problem Vitamin D deficiency, unspecified (E55.9) Active confirmed Vitamin D deficiency (08345444) Encounters Encounter Location Date Provider Diagnosis [place] [facility] [address] [facility] [address] [place] [address] 02/07/2024 Ceferino Dutton Chronic kidney disease, stage 3 unspecified N18.30 ; Vitamin D deficiency, unspecified E55.9 ; Essential (primary) hypertension I10 ; Hyperlipidemia, unspecified E78.5 and Edema, unspecified R60.9 ASSESSMENTS Encounter Date Diagnosis Assessment Notes Treatment Notes Treatment Clinical Notes Section Notes 02/07/2024 Chronic kidney disease, stage 3 unspecified (ICD-10 - N18.30) 02/07/2024 Vitamin D deficiency, unspecified (ICD-10 - E55.9) 02/07/2024 Essential (primary) hypertension (ICD-10 - I10) 02/07/2024 Hyperlipidemia, unspecified (ICD-10 - E78.5) 02/07/2024 Edema, unspecified (ICD-10 - R60.9) PLAN OF TREATMENT Next Appt Details Provider Name:Ceferino Dutton , 05/29/2024 02:45:00 PM, [address] [facility] [address], [place], Formerly named [facility], Progress Notes * GLORIA DUNNOB:1950 ([age] yo F)Acc No.[id number]:02/07/2024 Progress Notes Patient: DIXON DUNN Provider: MD MIGUE, F.A.C.P, F.A.S.N. :1950 Age:73 Y Sex:Female Date:02/07/2024 Address:[address] [place] [address] Subjective: * Chief Complaints: * * Medical History: * Medications: Taking Carvedilol 12.5 MG Tablet 1 tablet with food Orally Twice a day , Taking Calcitriol 0.25 MCG Capsule Take 1 capsule by mouth once daily , Taking hydrALAZINE HCl 50 MG Tablet Take 1 tablet by mouth twice daily with food , Taking Losartan Potassium 25 MG Tablet Take 1 tablet by mouth once daily , Taking Allopurinol 100 MG Tablet 1 tablet Orally Once a day , stop date 10/01/2024, Taking Ergocalciferol 1.25 MG (31975 UT) Capsule 1 capsule Orally Once a week , stop date 10/01/2024 Objective: Assessment: * Assessment: 1. Chronic kidney disease, stage 3 unspecified - N18.30 2. Vitamin D deficiency, unspecified - E55.9 3. Essential (primary) hypertension - I10 4. Hyperlipidemia, unspecified - E78.5 5. Edema, unspecified - R60.9 Plan: * Treatment: * Billing Information: * Visit Code: 78206 Office Visit, Est Pt., Level 4. * Procedure Codes: * CUTTER Sign off status: Pending * Provider: MD MIGUE, F.A.C.P, F.A.S.N. Date: 02/07/2024
--- OUTSIDE RECORDS SUMMARY | 2024-04-18 07:36 | XMS_ITS ---
Author Organization [facility] Address [address] [place] [address] [place] [address] Care Team Providers Care Machine Stitcher Name Role Phone Naot Ceferino Unavailable [phone] PROBLEMS Problem Type ICD Code Onset Dates Problem Status W/U Status Risk SNOMED Code Notes Problem Renal osteodystrophy (N25.0) Active confirmed Renal osteodyst rophy (65665931) Problem Secondary hyperparathyroidism of renal origin (N25.81) Active confirmed Secondary hyperparathyroidism of renal origin (72810394) Problem Morbid (severe) obesity due to excess calories (E66.01) Active confirmed Morbid obe sity (disorder) (013787925) Problem CAD (coronary artery disease) (I25.10) Active confirmed Coronary a rtery disease (39411518) Problem Malignant neoplasm o f colon, unspecified (C18.9) Active confirmed Malignant neopl asm of colon (969120357) Encounters Encounter Location Date Provider Diagnosis [place] [facility] [address] [address] 04/03/2024 Ceferino Dutton Chronic kidney disea se, stage 3a N18.31 ; Renal osteodystrophy N25.0 ; Secondary hyperparathyroidism of renal origin N25.81 ; Morbid (severe) obesity due to excess calories E66.01 ; CAD (coronary artery disease) I25.10 ; Proteinuria, unspecified R80.9 and Malignant neoplasm of colon, unspecified C18.9 ASSESSMENTS Encounter Date Diagnosis Assessment Notes Treatment Notes Treatment Clinical Notes Section Notes 04/03/2024 Chronic kidney disea se, stage 3a (ICD-10 - N18.31) 04/03/2024 Renal osteodystrophy (ICD-10 - N25.0) 04/03/2024 Secondary hyperparathyroidism of renal origin (ICD-10 - N25.81) 04/03/2024 Morbid (severe) obes ity due to excess calories (ICD-10 - E66.01) 04/03/2024 CAD (coronary artery disease) (ICD-10 - I25.10) 04/03/2024 Proteinuria, unspecified (ICD-10 - R80.9) 04/03/2024 Malignant neoplasm o f colon, unspecified (ICD-10 - C18.9) PLAN OF TREATMENT Next Appt Details Provider Name:Ceferino Dutton , 05/29/2024 02:45:00 PM, [address] [facility], [facility], [place], [place], [facility], Progress Notes * GLORIA DUNNOB:1950 ([age] yo F)Acc No.[id number]:04/03/2024 Progress Notes Patient: DIXON DUNN Provider: MD MIGUE, F.A.C.P, F.A.S.N. :1950 Age:73 Y Sex:Female Date:04/03/2024 Address:[address] [place] [address] Subjective: * Chief Complaints: * * Medical History: Objective: Assessment: * Assessment: 1. Chronic kidney disease, stage 3a - N18.31 (Primary) 2. Renal osteodystrophy - N25.0 3. Secondary hyperparathyroidism of renal origin - N25.81 4. Morbid (severe) obesity due to excess calories - E66.01 5. CAD (coronary artery disease) - I25.10 6. Proteinuria, unspecified - R80.9 7. Malignant neoplasm of colon, unspecified - C18.9 Plan: * Treatment: * Billing Information: * Visit Code: 24847 Office Visit, Est Pt., Level 4. * Procedure Codes: * TMENT COMMUNITY MANAGER Sign off status: Pending * Provider: MD MIGUE, F.A.C.P, F.A.S.N. Date: 04/03/2024
--- OUTSIDE RECORDS SUMMARY | 2024-04-18 07:37 | XMS_ITS ---
Author Organization [facility] Address [address] [facility] [address] [facility] [address] [place] [address] Care Team Providers Care Rural Service Engineer Name Role Phone Esau Duttonjit Unavailable [phone] Encounters Encounter Location Date Provider Diagnosis [place] [facility] [address] [facility] [address] [place] [address] 03/27/2024 Ceferino Dutton PLAN OF TREATMENT Next Appt Details Provider Name:Ceferino Dutton , 05/29/2024 02:45:00 PM, [address] [facility], [facility] [address], [place], [address], Progress Notes * GLORIA DUNNOB:1950 ([age] yo F)Acc No.[id number]:03/27/2024 Progress Notes Patient: DIXON DUNN Provider: MD MIGUE, Rafael.Pepe.C.P, F.A.S.N. :1950 Age:73 Y Sex:Female Date:03/27/2024 Address:[address] [place] [address] Subjective: * Chief Complaints: * * Medical History: Objective: Assessment: Plan: * Treatment: * Billing Information: * Visit Code: * Procedure Codes: * RENCE AND INSTRUCTION LIBRARIAN Sign off status: Pending * Provider: MD MIGUE, Rafael.Pepe.C.P, F.A.S.N. Date: 03/27/2024
== END 2024-04-18 07:27 | disposition home or self-care (01) ==
PROVIDERS: PCP Internal Medicine; Visit Provider Internal Medicine Hematology & Oncology
DX: K57.32 Diverticulitis of large intestine without perforation or abscess without bleeding (principal); I72.2 Aneurysm of renal artery; N26.1 Atrophy of kidney (terminal); N28.81 Hypertrophy of kidney; C18.9 Malignant neoplasm of colon, unspecified
CPT/HCPCS: 74177; Q9967

== ENCOUNTER 2024-11-05 08:31 | Outpatient (CLI) | payer MEDICARE, SELFPAY ==
--- OUTSIDE RECORDS SUMMARY | 2024-05-29 14:30 | XMS_ITS ---
Author Organization [facility] Address [address] [facility] 61 [facility] [address] [place] [address] Care Team Providers Care Carpenter Cradle And Dolly Name Role Phone Ceferino Dutton Unavailable [phone] Encounters Encounter Location Date Provider Diagnosis [place] [facility] [address] [facility] [address] [place] [address] 05/29/2024 Ceferino Dutton Plan Of Treatment Next Appt Details Provider Name:Ceferino Nato , 11/27/2024 03:00:00 PM, [address] [facility], [facility] 15, [place], [address], Progress Notes * GLORIA DUNNOB:1950 ([age] yo F)Acc No.[id number]:05/29/2024 Progress Notes Patient: DIXON TALBERT Provider: Kash GARZA MD, Rafael.Pepe.C.P, F.A.S.N. :1950 A ge:73 Y S ex:Female Date:05/29/2024 Address:[address] [place] [address] Subjective: * Chief Complaints: * * Medical History: Objective: * Vitals: Assessment: Plan: * Treatment: * Billing Information: * Visit Code: * Procedure Codes: * Electronic signature of El Dutton MD on 11/05/2024 at 08:57 AM CDT Sign off status: Pending * Provider: Kash GARZA MD, Rafael.Pepe.C.P, F.A.S.N. Date: 05/29/2024 Generated for Printing/Faxing/eTransmitting on: 11/05/2024 08:57 AM CDT
--- OUTSIDE RECORDS SUMMARY | 2024-06-12 10:00 | XMS_ITS ---
Author Organization [facility] Office Address [address] [facility] [address] [place] [address] Care Team Providers Care Parts Room Clerk Name Role Phone Ceferino Dutton Unavailable [phone] Results Component Value Reference Range Notes ALBUMIN, RANDOM URINE W/CREA TININE (6517) (Not yet reviewed by provider) Interpretation: Performing Lab:Sadiq MENDOSA, AhwterKJ[address] Stephanie To MD Notes/Report: SPLIT 08/13/2024 FROM [id number] AN UPDATE OR CORRECTION HAS BEEN MADE TO SEX CREATININE, RANDOM URINE 205 20-320 mg/dL ALBUMIN, URINE 8.0 See Note: mg/dL Reference Range: Reference Range Not established ALBUMIN/CREATININE RATIO, RANDOM URINE 39 <30 mg/g creat The ADA defines abnormalities in albumin excretion as follows: Albuminuria Category Result (mg/g creatinine) Normal to Mildly increased <30 Moderately increased 30-299 Severely increased > OR = 300 The ADA recommends that at least two of three specimens collected within a 3-6 month period be abnormal before considering a patient to be within a diagnostic category. SODIUM WITH CREATININE, RAND OM URINE (8514) (Not yet reviewed by provider) Interpretation: Performing Lab:Sadiq MENDOSA, SbnxxvTY[address] Stephanie To MD Notes/Report: SPLIT 08/13/2024 FROM [id number] AN UPDATE OR CORRECTION HAS BEEN MADE TO SEX SODIUM/CREAT RATIO 40 20-233 mmol/g creat SODIUM, RANDOM URINE 82 28-272 mmol/L CREATININE, RANDOM URINE 205 20-320 mg/dL PTH, INTACT AND CALCIUM (883 7) (Not yet reviewed by provider) Interpretation: Performing Lab:Sadiq MENDOSA LenexaKS[address] Stephanie To MD Notes/Report: 0; 0; 0; 0; 0; 0; 0; 0; 0; 0; 0; 0; 0; 0 FASTING:YES PATIENT UNABLE TO VOID; ADVISED TO RETURN FOR CO FASTING: YES PARATHYROID HORMONE, INTACT 35 16-77 pg/mL Interpretive Guide Intact PTH Calcium ------- Normal Parathyroid Normal Normal Hypoparathyroidism Low or Low Normal Low Hyperparathyroidism Primary Normal or High High Secondary High Normal or Low Tertiary High High Non-Parathyroid Hypercalcemia Low or Low Normal High CALCIUM 9.9 8.6-10.4 mg/dL CHLORIDE WITH CREATININE, RA NDOM URINE (7043) (Not yet reviewed by provider) Interpretation: Performing Lab:EDONDRE [facility] Cuco-Myltjh41433 Mary Ann TellezaKS[address] Stephanie To MD Notes/Report: SPLIT 08/13/2024 FROM [id number] AN UPDATE OR CORRECTION HAS BEEN MADE TO SEX CHLORIDE/CREAT RATIO 31 23-275 mmol/g creat CHLORIDE, RANDOM URINE 64 32-290 mmol/L CREATININE, RANDOM URINE 205 20-320 mg/dL COMPREHENSIVE METABOLIC PANE L (87397) (Not yet reviewed by provider) Interpretation: Performing Lab:DEONDRE [facility] Cuco-Ddgxzg30644 Mak Carranza, JmgmjiPE[address] Stephanie To MD Notes/Report: 0; 0; 0; 0; 0; 0; 0; 0; 0; 0; 0; 0; 0; 0 FASTING:YES PATIENT UNABLE TO VOID; ADVISED TO RETURN FOR CO FASTING: YES GLUCOSE 107 65-99 mg/dL Fasting reference interval For someone without known diabetes, a glucose value between 100 and 125 mg/dL is consistent with prediabetes and should be confirmed with a follow-up test. UREA NITROGEN (BUN) 13 7-25 mg/dL CREATININE 1.15 0.60-1.00 mg/dL EGFR 50 > OR = 60 mL/min/1.73m2 BUN/CREATININE RATIO 11 6-22 (calc) SODIUM 147 135-146 mmol/L POTASSIUM 4.5 3.5-5.3 mmol/L CHLORIDE 111 98-110 mmol/L CARBON DIOXIDE 25 20-32 mmol/L CALCIUM 9.9 8.6-10.4 mg/dL PROTEIN, TOTAL 6.8 6.1-8.1 g/dL ALBUMIN 4.2 3.6-5.1 g/dL GLOBULIN 2.6 1.9-3.7 g/dL (calc) ALBUMIN/GLOBULIN RATIO 1.6 1.0-2.5 (calc) BILIRUBIN, TOTAL 0.5 0.2-1.2 mg/dL ALKALINE PHOSPHATASE 71 37-153 U/L AST 22 10-35 U/L ALT 15 6-29 U/L URIC ACID (905) (Not yet rev iewed by provider) Interpretation: Performing Lab:Sadiq AGOSTOSt. Louis Children'S HospitalEaxmy[address] [facility] HospitalNyjuhcwBB[address] Stephanie To Notes/Report: 0; 0; 0; 0; 0; 0; 0; 0; 0; 0; 0; 0; 0; 0 FASTING:YES PATIENT UNABLE TO VOID; ADVISED TO RETURN FOR CO FASTING: YES URIC ACID 5.1 2.5-7.0 mg/dL Therapeutic ta rget for gout patients: <6.0 mg/dL POTASSIUM W/O CREATININE, RA NDOM URINE (88526) (Not yet reviewed by provider) Interpretation: Performing Lab:Sadiq MENDOSA-Mvbhtg33829Klarissa Zhu[address] Stephanie To MD Notes/Report: SPLIT 08/13/2024 FROM [id number] AN UPDATE OR CORRECTION HAS BEEN MADE TO SEX POTASSIUM, RANDOM URINE 38 12-129 mmol/L PROTEIN, TOTAL W/CREAT, RAND OM URINE (1715) (Not yet reviewed by provider) Interpretation: Performing Lab:Sadiq MENDOSAa101Mary Ann ZhuaKS[address] Stephanie To MD Notes/Report: SPLIT 08/13/2024 FROM [id number] AN UPDATE OR CORRECTION HAS BEEN MADE TO SEX CREATININE, RANDOM URINE 205 20-320 mg/dL PROTEIN/CREATININE RATIO 117 25-148 mg/g crea t PROTEIN/CREATININE RATIO 0.117 0.025-0 .148 mg/mg creat PROTEIN, TOTAL, RANDOM UR 24 5-25 mg/dL CBC (INCLUDES DIFF/PLT) (639 9) (Not yet reviewed by provider) Interpretation: Performing Lab:TRINY Wiener GamesSt. Louis Children'S HospitalHvlhs77402 Administration Aneta Mejia SzsrrzqHQ[address] Stephanie To Notes/Report: 0; 0; 0; 0; 0; 0; 0; 0; 0; 0; 0; 0; 0; 0 FASTING:YES PATIENT UNABLE TO VOID; ADVISED TO RETURN FOR CO FASTING: YES WHITE BLOOD CELL COUNT 4.0 3.8-10.8 Thousand/ uL RED BLOOD CELL COUNT 4.16 3.80-5.10 Million/uL HEMOGLOBIN 14.2 11.7-15.5 g/dL HEMATOCRIT 43.1 35.0-45.0 % MCV 103.6 80.0-100.0 fL MCH 34.1 27.0-33.0 pg MCHC 32.9 32.0-36.0 g/dL For adults, a slight decrease in the calculated MCHC value (in the range of 30 to 32 g/dL) is most likely not clinically significant; however, it should be interpreted with caution in correlation with other red cell parameters and the patient's clinical condition. RDW 15.1 11.0-15.0 % PLATELET COUNT 225 140-400 Thousand/uL MPV 10.2 7.5-12.5 fL ABSOLUTE NEUTROPHILS 1948 9574-3950 cells/uL ABSOLUTE LYMPHOCYTES 8906 354-6515 cells/uL ABSOLUTE MONOCYTES 596 200-950 cells/uL ABSOLUTE EOSINOPHILS 168 15-500 cells/uL ABSOLUTE BASOPHILS 28 0-200 cells/uL NEUTROPHILS 48.7 LYMPHOCYTES 31.5 MONOCYTES 14.9 EOSINOPHILS 4.2 BASOPHILS 0.7 URINALYSIS, COMPLETE W/REFLE X TO CULTURE (3020) (Not yet reviewed by provider) Interpretation: Performing Lab:DEONDRE [facility]-Wuztiv35024 [facility], MmbccpAG[address] Stephanie To MD Notes/Report: SPLIT 08/13/2024 FROM [id number] AN UPDATE OR CORRECTION HAS BEEN MADE TO SEX COLOR YELLOW YELLOW APPEARANCE CLEAR CLEAR SPECIFIC GRAVITY 1.019 1.001-1.035 PH 6.5 5.0-8.0 GLUCOSE NEGATIVE NEGATIVE BILIRUBIN NEGATIVE NEGATIVE KETONES NEGATIVE NEGATIVE OCCULT BLOOD NEGATIVE NEGATIVE PROTEIN TRACE NEGATIVE NITRITE NEGATIVE NEGATIVE LEUKOCYTE ESTERASE NEGATIVE NEGATIVE WBC NONE SEEN < OR = 5 /HPF RBC NONE SEEN < OR = 2 /HPF SQUAMOUS EPITHELIAL CELLS NONE SEEN < OR = 5 /HPF BACTERIA NONE SEEN NONE SEEN /HPF CALCIUM OXALATE CRYSTALS MANY NONE OR FEW /HPF HYALINE CAST NONE SEEN NONE SEEN /LPF NOTE This urine was analyzed for the presence of WBC, RBC, bacteria, casts, and other formed elements. Only those elements seen were reported. REFLEXIVE URINE CULTURE NO C ULTURE INDICATED SED RATE BY MODIFIED ELVER CAMACHO (809) (Not yet reviewed by provider) Interpretation: Performing Lab:Sadiq AGOSTO [place] [address] [address] Aneta Mejia [place] [address] [facility] Centerjavi To Notes/Report: 0; 0; 0; 0; 0; 0; 0; 0; 0; 0; 0; 0; 0; 0 FASTING:YES PATIENT UNABLE TO VOID; ADVISED TO RETURN FOR CO FASTING: YES SED RATE BY MODIFIED MARV 39 < OR = 30 mm/h OSMOLALITY (U) (678) (Not ye t reviewed by provider) Interpretation: Performing Lab:Sadiq MENDOSAa10101 Klarissa Tellez[address] Stephanie To MD Notes/Report: SPLIT 08/13/2024 FROM [id number] AN UPDATE OR CORRECTION HAS BEEN MADE TO SEX OSMOLALITY (U) 519 50-1200 mOsm/kg TSH (899) (Not yet reviewed by provider) Interpretation: Performing Lab:TRINY [facility] [place] [address] [address] Aneta Mejia [address] Sun To Notes/Report: 0; 0; 0; 0; 0; 0; 0; 0; 0; 0; 0; 0; 0; 0 FASTING:YES PATIENT UNABLE TO VOID; ADVISED TO RETURN FOR CO FASTING: YES TSH 2.01 0.40-4.50 mIU/L VITAMIN D,25-OH,TOTAL,IA (17 306) (Not yet reviewed by provider) Interpretation: Performing Lab:Sadiq MENDOSAa10101 Mary Ann TellezaKS[address] Stephanie To MD Notes/Report: 0; 0; 0; 0; 0; 0; 0; 0; 0; 0; 0; 0; 0; 0 FASTING:YES PATIENT UNABLE TO VOID; ADVISED TO RETURN FOR CO FASTING: YES VITAMIN D,25-OH,TOTAL,IA 93 30-100 ng/mL Vitamin D Status 25-OH Vitamin D: Deficiency: <20 ng/mL Insufficiency: 20 - 29 ng/mL Optimal: > or = 30 ng/mL For 25-OH Vitamin D testing on patients on D2-supplementation and patients for whom quantitation of D2 and D3 fractions is required, the QuestAssureD(TM) 25-OH VIT D, (D2,D3), LC/MS/MS is recommended: order code 42269 (patients >2yrs). 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 Encounters Encounter Location Date Provider Diagnosis [facility] [address] [address] 06/12/2024 Ceferino Dutton Chronic kidney disea se, stage 3a N18.31 ; Essential (primary) hypertension I10 ; Hyperlipidemia, unspecified E78.5 ; Hyperuricemia without signs of inflammatory arthritis and tophaceous disease E79.0 ; Edema, unspecified R60.9 ; Renal osteodystrophy N25.0 ; Secondary hyperparathyroidism of renal origin N25.81 ; Morbid (severe) obesity due to excess calories E66.01 ; CAD (coronary artery disease) I25.10 ; Malignant neoplasm of colon, unspecified C18.9 ; Metabolic disorder, unspecified E88.9 ; Unspecified atrial fibrillation I48.91 and Hypervitaminosis D E67.3 Assessments Encounter Date Diagnosis (ICD Code) Assessment Notes Treatment Notes Treatment Clinical Notes Section Notes 06/12/2024 Chronic kidney disea se, stage 3a (ICD-10 - N18.31) 06/12/2024 Essential (primary) hypertension (ICD-10 - I10) 06/12/2024 Hyperlipidemia, unspecified (ICD-10 - E78.5) 06/12/2024 Hyperuricemia withou t signs of inflammatory arthritis and tophaceous disease (ICD-10 - E79.0) 06/12/2024 Edema, unspecified (ICD-10 - R60.9) 06/12/2024 Renal osteodystrophy (ICD-10 - N25.0) 06/12/2024 Secondary hyperparathyroidism of renal origin (ICD-10 - N25.81) 06/12/2024 Morbid (severe) obes ity due to excess calories (ICD-10 - E66.01) 06/12/2024 CAD (coronary artery disease) (ICD-10 - I25.10) 06/12/2024 Malignant neoplasm o f colon, unspecified (ICD-10 - C18.9) 06/12/2024 Metabolic disorder, unspecified (ICD-10 - E88.9) 06/12/2024 Unspecified atrial fibrillation (ICD-10 - I48.91) 06/12/2024 Hypervitaminosis D (ICD-10 - E67.3) Plan Of Treatment Pending Test Test Name Order Date ALBUMIN, RANDOM URINE W/CREATININE (6517 ) 06/12/2024 SODIUM WITH CREATININE, RANDOM URINE (85 14) 06/12/2024 PTH, INTACT AND CALCIUM (8837) CHLORIDE WITH CREATININE, RANDOM URINE ( 1645) 06/12/2024 COMPREHENSIVE METABOLIC PANEL (37850) URIC ACID (905) 06/12/2024 POTASSIUM W/O CREATININE, RANDOM URINE ( 43958) 06/12/2024 PROTEIN, TOTAL W/CREAT, RANDOM URINE (17 15) 06/12/2024 CBC (INCLUDES DIFF/PLT) (6399) URINALYSIS, COMPLETE W/REFLEX TO CULTURE (3020) 06/12/2024 SED RATE BY MODIFIED WESTERGREN (809) OSMOLALITY (U) (678) 06/12/2024 TSH (899) 06/12/2024 VITAMIN D,25-OH,TOTAL,IA (80050) 025 VITAMIN D, 1,25 DIHYDROXY (52109R6) 05/28 Next Appt Details Provider Name:Ceferino Dutton , 11/27/2024 03:00:00 PM, [address], [address], [address], Progress Notes * GLORIA DUNNOB:1950 ([age] yo F)Acc No.[id number]:06/12/2024 Progress Notes Patient: DIXON TALBERT Provider: Kash GARZA MD, F.AlecCGelaP, F.A.S.N. :1950 A ge:73 Y S ex:Female Date:06/12/2024 Address:[address] [place] [address] Subjective: * Chief Complaints: * * Medical History: Objective: * Vitals: Assessment: * Assessment: 1. C hronic kidney disease, stage 3a - N18.31 (Primary) 2 . E ssential (primary) hypertension - I10 3 . H yperlipidemia, unspecified - E78.5 ?4. H yperuricemia without signs of inflammatory arthritis and tophaceous disease - E79.0 5 . E devika, unspecified - R60.9 6 . R enal osteodystrophy - N25.0 7 . S econdary hyperparathyroidism of renal origin - N25.81 8 . M orbid (severe) obesity due to excess calories - E66.01 9 . C AD (coronary artery disease) - I25.10 1 0. M alignant neoplasm of colon, unspecified - C18.9 1 1. M etabolic disorder, unspecified - E88.9 1 2. U nspecified atrial fibrillation - I48.91 1 3. H ypervitaminosis D - E67.3 ? Plan: * Treatment: Value Reference Range C ALCIUM 9.9 8.6-10.4 - mg/dL * P ARATHYROID HORMONE, INTACT 35 16-77 - pg/mL ?LAB: COMPREHENSIVE METABOLIC PANEL (61801) (Collection Date & Time - 08/13/2024 11:25 AM)* Value Reference Range G LUCOSE 107 H 65-99 - mg/dL * U JOSR NITROGEN (BUN) 13 7-25 - mg/dL * C REATININE 1.15 H 0.60-1.00 - mg/dL * B UN/CREATININE RATIO 11 6-22 - (calc) * S ODIUM 147 H 135-146 - mmol/L * P OTASSIUM 4.5 3.5-5.3 - mmol/L * C HLORIDE 111 H 98-110 - mmol/L * C ARBON DIOXIDE 25 20-32 - mmol/L * C ALCIUM 9.9 8.6-10.4 - mg/dL * P ROTEIN, TOTAL 6.8 6.1-8.1 - g/dL * A LBUMIN 4.2 3.6-5.1 - g/dL * G LOBULIN 2.6 1.9-3.7 - g/dL (calc ) * A LBUMIN/GLOBULIN RATIO 1.6 1.0-2.5 - (calc) * B ILIRUBIN, TOTAL 0.5 0.2-1.2 - mg/dL * A LKALINE PHOSPHATASE 71 37-153 - U/L * A ST 22 10-35 - U/L * A LT 15 6-29 - U/L * E GFR 50 L > OR = 60 - mL/min/1 .73m2 ?LAB: URIC ACID (905) (Collection Date & Time - 08/13/2024 11:25 AM)* Value Reference Range U HIRAM ACID 5.1 2.5-7.0 - mg/dL ?LAB: CBC (INCLUDES DIFF/PLT) (4102) (Collection Date & Time - 08/13/2024 11:25 AM)* Value Reference Range W BOBBI BLOOD CELL COUNT 4.0 3.8-10.8 - Thousan d/uL * R ED BLOOD CELL COUNT 4.16 3.80-5.10 - Million/ uL * H EMOGLOBIN 14.2 11.7-15.5 - g/dL * H EMATOCRIT 43.1 35.0-45.0 - % * M CV 103.6 H 80.0-100.0 - fL * M CH 34.1 H 27.0-33.0 - pg * M CHC 32.9 32.0-36.0 - g/dL * R DW 15.1 H 11.0-15.0 - % * P LATELET COUNT 225 140-400 - Thousand/u L * N EUTROPHILS 48.7 - % * A BSOLUTE NEUTROPHILS 1948 5543-8897 - cells/uL * L YMPHOCYTES 31.5 - % * A BSOLUTE LYMPHOCYTES 3541 390-0472 - cells/uL * M ONOCYTES 14.9 - % * A BSOLUTE MONOCYTES 596 200-950 - cells/uL * E OSINOPHILS 4.2 - % * A BSOLUTE EOSINOPHILS 168 15-500 - cells/uL * B ASOPHILS 0.7 - % * A BSOLUTE BASOPHILS 28 0-200 - cells/uL * M PV 10.2 7.5-12.5 - fL ?LAB: SED RATE BY MODIFIED WESTERGREN (809) (Collection Date & Time - 08/13/2024 11:25 AM)* Value Reference Range S ED RATE BY MODIFIED 39 H < OR = 30 - mm/h ?LAB: TSH (899) (Collection Date & Time - 08/13/2024 11:25 AM)* Value Reference Range T SH 2.01 0.40-4.50 - mIU/L ?LAB: ALBUMIN, RANDOM URINE W/CREATININE (5517) (Collection Date & Time - 09/02/2024 02:01 PM)* Value Reference Range C REATININE, RANDOM URINE 205 20-320 - mg/dL * A LBUMIN, URINE 8.0 See Note: - mg/dL * A LBUMIN/CREATININE RATIO, RANDOM URINE 39 H <3 0 - mg/g creat ?LAB: SODIUM WITH CREATININE, RANDOM URINE (8514) (Collection Date & Time - 09/02/2024 02:01 PM)* Value Reference Range S ODIUM/CREAT RATIO 40 20-233 - mmol/g crea t * S ODIUM, RANDOM URINE 82 28-272 - mmol/L * C REATININE, RANDOM URINE 205 20-320 - mg/dL ?LAB: CHLORIDE WITH CREATININE, RANDOM URINE (1645) (Collection Date & Time - 09/02/2024 02:01 PM)* Value Reference Range C HLORIDE, RANDOM URINE 64 32-290 - mmol/L * C HLORIDE/CREAT RATIO 31 23-275 - mmol/g crea t * C REATININE, RANDOM URINE 205 20-320 - mg/dL ?LAB: POTASSIUM W/O CREATININE, RANDOM URINE (59210) (Collection Date & Time - 09/02/2024 02:01 PM)* Value Reference Range P OTASSIUM, RANDOM URINE 38 12-129 - mmol/L ?LAB: PROTEIN, TOTAL W/CREAT, RANDOM URINE (1715) (Collection Date & Time - 09/02/2024 02:01 PM)* Value Reference Range C REATININE, RANDOM URINE 205 20-320 - mg/dL * P ROTEIN/CREATININE RATIO 117 25-148 - mg/g cr eat * P ROTEIN, TOTAL, RANDOM UR 24 5-25 - mg/dL * P ROTEIN/CREATININE RATIO 0.117 0.025-0.148 - mg /mg creat ?LAB: URINALYSIS, COMPLETE W/REFLEX TO CULTURE (3020) (Collection Date & Time - 09/02/2024 02:01PM)* Value Reference Range C OLOR YELLOW YELLOW - * A PPEARANCE CLEAR CLEAR - * B ILIRUBIN NEGATIVE NEGATIVE - * K ETONES NEGATIVE NEGATIVE - * S PECIFIC GRAVITY 1.019 1.001-1.035 - * O CCULT BLOOD NEGATIVE NEGATIVE - * P H 6.5 5.0-8.0 - * P ROTEIN TRACE A NEGATIVE - * N ITRITE NEGATIVE NEGATIVE - * L EUKOCYTE ESTERASE NEGATIVE NEGATIVE - * W BC NONE SEEN < OR = 5 - /HPF * R BC NONE SEEN < OR = 2 - /HPF * S QUAMOUS EPITHELIAL CELLS NONE SEEN < OR = 5 - /HPF * B ACTERIA NONE SEEN NONE SEEN - /HPF * C ALCIUM OXALATE CRYSTALS MANY A NONE OR FEW - /H PF * H YALINE CAST NONE SEEN NONE SEEN - /LPF * G LUCOSE NEGATIVE NEGATIVE - ?LAB: OSMOLALITY (U) (678) (Collection Date & Time - 09/02/2024 02:01 PM)* Value Reference Range O SMOLALITY (U) 519 50-1200 - mOsm/kg * Labs: * L ab: VITAMIN D,25-OH,TOTAL,IA (67289) (Collection Date & Time - 08/13/2024 11:25 AM) Value Reference Range V ITAMIN D,25-OH,TOTAL,IA 93 30-100 - ng/mL * eclinicalworks, support 07/28 06:10:13 : This order was created by the Interface. * Billing Information: * Visit Code: 98897 Office Visit, Est Pt., Level 4. * Procedure Codes: * Electronic signature of El Dutton MD on 11/05/2024 at 08:58 AM CDT Sign off status: Pending * Provider: Kash GARZA MD, F.A.C.P, F.A.S.N. Date: 0 06/12/2024 Generated for Printing/Faxing/eTransmitting on: 0 11/05/2024 08:58 AM CDT
--- OUTSIDE RECORDS SUMMARY | 2024-08-14 15:15 | XMS_ITS ---
Author Organization [facility] Office Address [address] [facility] [address] [facility] [address] [place] [address] Care Team Providers Care Engineering Patternmaker Name Role Phone Ceferino Dutton Unavailable [phone] Encounters Encounter Location Date Provider Diagnosis [place] [facility] [address] [facility] [address] [place] [address] 08/14/2024 Ceferino Dutton Plan Of Treatment Next Appt Details Provider Name:Ceferino Nato , 11/27/2024 03:00:00 PM, [address] [facility], [facility] [address], [place], [address], Progress Notes * KB DUNNKATHLEENOB:1950 ([age] yo F)Acc No.[id number]:08/14/2024 Progress Notes Patient: DIXON TALBERT Provider: Kash GARZA MD, Rafael.Pepe.C.P, F.A.S.N. :1950 A ge:73 Y S ex:Female Date:08/14/2024 Address:[address] [place] [address] Subjective: * Chief Complaints: * * Medical History: Objective: * Vitals: Assessment: Plan: * Treatment: * Billing Information: * Visit Code: * Procedure Codes: * Electronic signature of El Dutton MD on 11/05/2024 at 08:58 AM CDT Sign off status: Pending * Provider: Kash GARZA MD, Rafael.Pepe.C.P, F.A.S.N. Date: 08/14/2024 Generated for Printing/Faxing/eTransmitting on: 11/05/2024 08:58 AM CDT
--- OUTSIDE RECORDS SUMMARY | 2024-09-20 10:00 | XMS_ITS ---
Value Reference Range C ALCIUM 10.1 8.6-10.4 - mg/dL * P ARATHYROID HORMONE, INTACT 28 16-77 - pg/mL ?Lab: SED RATE BY MODIFIED WESTERGREN (809) (Collection Date & Time - 09/23/2024 01:17 PM)* Value Reference Range S ED RATE BY MODIFIED 29 < OR = 30 - mm/h ?Lab: URIC ACID (905) (Collection Date & Time - 09/23/2024 01:17 PM)* Value Reference Range U HIRAM ACID 6.2 2.5-7.0 - mg/dL ?Lab: CBC (INCLUDES DIFF/PLT) (1260) (Collection Date & Time - 09/23/2024 01:17 PM)* Value Reference Range W BOBBI BLOOD CELL COUNT 8.4 3.8-10.8 - Thousan d/uL * R ED BLOOD CELL COUNT 4.53 3.80-5.10 - Million/ uL * H EMOGLOBIN 15.1 11.7-15.5 - g/dL * H EMATOCRIT 46.5 H 35.0-45.0 - % * M CV 102.6 H 80.0-100.0 - fL * M CH 33.3 H 27.0-33.0 - pg * M CHC 32.5 32.0-36.0 - g/dL * R DW 13.6 11.0-15.0 - % * P LATELET COUNT 302 140-400 - Thousand/u L * N EUTROPHILS 64.5 - % * A BSOLUTE NEUTROPHILS 5418 5568-0243 - cells/uL * L YMPHOCYTES 24.4 - % * A BSOLUTE LYMPHOCYTES 2050 850-3900 - cells/uL * M ONOCYTES 8.1 - % * A BSOLUTE MONOCYTES 680 200-950 - cells/uL * E OSINOPHILS 2.3 - % * A BSOLUTE EOSINOPHILS 193 15-500 - cells/uL * B ASOPHILS 0.7 - % * A BSOLUTE BASOPHILS 59 0-200 - cells/uL * M PV 10.0 7.5-12.5 - fL * Billing Information: * Visit Code: * Procedure Codes: * Electronic signature of El Dutton MD on 11/05/2024 at 08:58 AM CDT Sign off status: Pending * Provider: Kash GARZA MD, F.A.C.P, F.A.S.N. Date: 0 09/20/2024 Generated for Printing/Faxing/eTransmitting on: 0 11/05/2024 08:58 AM CDT
--- OUTSIDE RECORDS SUMMARY | 2024-09-27 08:30 | XMS_ITS ---
Author Organization [facility] Office Address [address] [place] [address] [place] [address] Care Team Providers Care Java Performance Engineer Name Role Phone Dutton Ceferino Unavailable [phone] Problems Problem Type SNOMED Code ICD Code Onset Dates Problem Status W/U Status Risk Notes Problem Diabetic renal disease (949589108) Type 2 diabetes mellitus with diabetic chronic kidney disease (E11.22) Active confirmed Encounters Encounter Location Date Provider Diagnosis [place] [facility] [address] [facility] [address] [place] [address] 09/27/2024 Ceferino Dutton Chronic kidney disea se, stage [...] unspecified E88.9 ; Unspecified atrial fibrillation I48.91 ; Hypervitaminosis D E67.3 and Type 2 diabetes mellitus with diabetic chronic kidney disease E11.22 Assessments Encounter Date Diagnosis (ICD Code) Assessment Notes Treatment Notes Treatment Clinical Notes Section Notes 09/27/2024 Chronic kidney disea se, stage 3a (ICD-10 - N18.31) 09/27/2024 Essential (primary) hypertension (ICD-10 - I10) 09/27/2024 Hyperlipidemia, unspecified (ICD-10 - E78.5) 09/27/2024 Hyperuricemia withou t signs of inflammatory arthritis and tophaceous disease (ICD-10 - E79.0) 09/27/2024 Edema, unspecified (ICD-10 - R60.9) 09/27/2024 Renal osteodystrophy (ICD-10 - N25.0) 09/27/2024 Secondary hyperparathyroidism of renal origin (ICD-10 - N25.81) 09/27/2024 Morbid (severe) obes ity due to excess calories (ICD-10 - E66.01) 09/27/2024 CAD (coronary artery disease) (ICD-10 - I25.10) 09/27/2024 Malignant neoplasm o f colon, unspecified (ICD-10 - C18.9) 09/27/2024 Metabolic disorder, unspecified (ICD-10 - E88.9) 09/27/2024 Unspecified atrial fibrillation (ICD-10 - I48.91) 09/27/2024 Hypervitaminosis D (ICD-10 - E67.3) 09/27/2024 Type 2 diabetes mellitus with diabetic chronic kidney disease (ICD-10 - E11.22) Plan Of Treatment Next Appt Details Provider Name:Ceferino Dutton , 11/27/2024 03:00:00 PM, [address], [facility], Progress Notes * GLORIA DUNNOB:1950 ([age] yo F)Acc No.[id number]:09/27/2024 Progress Notes Patient: DIXON TALBERT Provider: Kash GARZA MD, F.A.C.P, F.A.S.N. :1950 A ge:74 Y S ex:Female Date:09/27/2024 Address:[address] [place] [address] Subjective: * Chief Complaints: Objective: Assessment: * Assessment: 1. C hronic kidney [...] 1 3. H ypervitaminosis D - E67.3 14. 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 Plan: * Billing Information: * Visit Code: 63186 Office Visit, Est Pt., Level 4. * Procedure Codes: * Electronic signature of El Dutton MD on 11/05/2024 at 08:58 AM CDT Sign off status: Pending * Provider: Kash GARZA MD, F.A.C.P, F.A.S.N. Date: 0 09/27/2024 Generated for Printing/Faxing/eTransmitting on: 0 11/05/2024 08:58 AM CDT
--- NOTE | ~2024-11-05 | CT_ITS ---
EXAMINATION: CT abdomen pelvis w con DATE: 11/05/2024 09:00 INDICATION: Colon cancer TECHNIQUE: Computed tomography (CT) of the abdomen and pelvis was performed with 100 mL Omnipaque-350 intravenous contrast. Automated exposure control and iterative reconstruction technique were employed. The dose-length product was 1316.44 mGy-cm. COMPARISON: 04/18/2024 and 10/31/2023 FINDINGS: No interval change in a 6 mm left lower lobe nodule most likely sequela of old granulomatous disease. Mild linear discoid atelectasis at the lingula. Heart size is normal. Atherosclerotic coronary artery calcifications. Median sternotomy wires and changes of prior coronary artery bypass grafting. Distal tip of a central venous catheter positioned centrally in the right atrium. No pericardial or pleural effusion. Liver, gallbladder, spleen, pancreas and adrenal glands are normal. A few subcentimeter low-attenuation right renal cysts and larger 1.6 cm cyst at the severely atrophic left kidney. Status post right hemicolectomy with ileocolic anastomosis in the right abdomen. There is moderate diverticulosis along the distal descending and proximal sigmoid colon with minimal inflammatory stranding along the proximal sigmoid colon suspicious for mild diverticulitis. No bowel obstruction. Bladder is normal. No abscess or free intraperitoneal gas or fluid. No pathologically enlarged abdominal or pelvic lymphadenopathy. Moderate to severe lumbar and lower thoracic spondylosis. IMPRESSION: 1. Likely very mild radiographically uncomplicated acute diverticulitis along the proximal sigmoid colon. 2. Status post right hemicolectomy likely for reported colon cancer with no evident residual, locally recurrent or metastatic disease. 3. Severe left renal atrophy. Reviewed, dictated and finalized at location A. IMPRESSION: 1. Likely very mild radiographically uncomplicated acute diverticulitis along t he proximal sigmoid colon. 2. Status post right hemicolectomy likely for reported colon cancer with no viri dent residual, locally recurrent or metastatic disease. 3. Severe left renal atrophy.
[2024-11-05 08:55] LABS: Estimated Glomerular Filt Rate 54
--- OUTSIDE RECORDS SUMMARY | 2024-11-05 08:57 | XMS_ITS | Clinical Summary ---
Author Organization [facility] Address [address] [place] [address] Care Team Providers Care Cake Maker Name Role Phone Unknown, Provider Primary Care Provider Unavaila ble Source Comments [facility],non-owned Affiliates and Associated Physician Practices is amultiple site organization consisting of ambulatory clinics and hospital sitesin [place], [place], [place] and [place]. This disclosure is being madepursuant to the Care Everywhere program and may not contain all information available regarding this patient. Last updated 17.[facility] Allergies Active Allergy Reactions Criticality Noted Date Comments Penicillins Urticaria 05/06/2015 Medications * Be aware that medications may not be up to date on this document. Alwaysverify current medications with the patient. methocarbamol (ROBAXIN) 750 MG tablet Take 1 Tab by mouth every 6 hours 20 Tab 0 6 Active carvedilol (COREG) 25 MG tabletIndication s:Rash and other nonspecific skin eruption 8 Active furosemide (LASIX) 80 MG tabletIndication s:Rash and other nonspecific skin eruption 8 Active ergocalciferol (DRISDOL) 84425 UNITS capsuleIndicatio ns:Rash and other nonspecific skin eruption Take 50,000 Units by mouth Active hydrALAZINE (APRESOLINE) 50 MG tabletIndication s:Rash and other nonspecific skin eruption 8 Active hydrALAZINE (APRESOLINE) 25 MG tabletIndication s:Rash and other nonspecific skin eruption 8 Active NIFEdipine CR 24hr (ADALAT CC) 90 MG tabletIndication s:Rash and other nonspecific skin eruption 8 Active pravastatin (PRAVACHOL) 80 MG tabletIndication s:Rash and other nonspecific skin eruption 8 Active dabigatran (PRADAXA) 150 MG capsuleIndicatio ns:Rash and other nonspecific skin eruption Take 150 mg by mouth 2 times daily Active PRIMIDONE POIndications:Ra sh and other nonspecific skin eruption Take 150 mg by mouth 2 times daily Active febuxostat (ULORIC) 40 MG tabletIndication s:Rash and other nonspecific skin eruption Take 40 mg by mouth once daily Active triamcinolone acetonide (KENALOG) 0.1 % ointmentIndicati ons:Rash and other nonspecific skin eruption Apply to affected area on trunk and extremities BID. 30 day supply 454 g 8 Active cetirizine (ZYRTEC) 10 MG chew tabletIndication s:Rash and other nonspecific skin eruption Take 1 to 4 tablets daily as needed for itch. 30 DS. 8 Active benzoyl peroxide (BPO-5 WASH) 5 % washIndications: Infectious folliculitis Apply to affected area once daily 113 g 3 8 Active mometasone (ELOCON) 0.1 % ointment APPLY OINTMENT TOPICALLY TO THE RASH ON BODY TWICE DAILY NEEDED 90 g 11 9 Active predniSONE (DELTASONE) 10 MG tablet Take 4 tablets (40 mg) days 1-3, and then take 2 tablets (20 mg) days 4-6, and then take 1 tablet (20 mg) days 7-10. 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 Gender Identity Not on file Sexual Orientation [...] 6:28 PM CDT Height 179.1 cm (5' 10.5) 10/16/2019 6:28 PM CD T Body Mass [...] 2) 09/16/1999 SCREENING FOR DIABETES 10/16/2019 05/06/2015 DEPRESSION SCREENING 02/28/2024 MEDICARE AWV CALENDAR YEAR 2024 Respiratory Syncytial Virus (RSV) Vaccine Pt: or over 60 yrs (1 - 1-dose 75+ series) 2024 COVID-19 VACCINE ( - 2023-2 5 season) 2024 INFLUENZA VACCINE (#1) 2024 7, 02/18/2015 HEPATITIS B VACCINE Aged Out No longe r eligible based on patient's age to complete this topic HIB VACCINE Aged Out No longer eligi ble based on patient's age to complete this topic HPV VACCINE Aged Out No longer eligi ble based on patient's age to complete this topic MENINGOCOCCAL (Group B) VACCINE SHARED DECISION-MAKING Aged Out No longer eligible based on patient's age to complete this topic MENINGOCOCCAL GROUPS A/C/Y/W VACCINE Aged Out No longer eligible b ased on patient's age to complete this topic Procedures Procedure Name Priority Date/Time Associated Diagnosis Comments COMPREHENSIVE METABOLIC PANEL STAT 05/06/2015 5:36 PM CORPORATE TREASURER from Last 3 Months or Most Recently Relevant to Health Maintenance Results * (ABNORMAL) COMPREHENSIVE METABOLIC PANEL (05/06/2015 5:36 PM CORPORATE TREASURER) Glucose 95 74 - 106 mg/dL 05/06/2015 6:00 PM [facility] Sodium 136 136 - 145 mmol/L 05/06/2015 6:00 PM [facility] Potassium 4.7 3.5 - 5.1 mmol/L 05/06/2015 6:00 PM [facility] Chloride 103 98 - 107 mmol/L 05/06/2015 6:00 PM [facility] CO2 26 22 - 31 mmol/L 05/06/2015 6:00 PM [facility] Calcium 8.6 8.5 - 10.1 mg/dL 05/06/2015 6:00 PM [facility] Anion Gap 7 5 - 20 mmol/L 05/06/2015 6:00 PM [facility] BUN 21 7 - 21 mg/dL 05/06/2015 6:00 PM [facility] Creatinine 1.40(H) 0.50 - 1.30 mg/dL 05/06/2015 6:00 PM [facility] Alkaline Phosphatase 65 38 - 126 U/L 05/06/2015 6:00 PM [facility] ALT 24 12 - 78 U/L 05/06/2015 6:00 PM [facility] AST 30 5 - 40 U/L 05/06/2015 6:00 PM [facility] Protein Total 7.4 6.4 - 8.2 gm/dL 05/06/2015 6:00 PM [facility] Albumin 3.8 3.4 - 5.0 gm/dL 05/06/2015 6:00 PM [facility] Bilirubin Total 0.3 0.2 - 1.0 mg/dL 05/06/2015 6:00 PM CORPORATE TREASURER [facility] eGFR by MDRD 51(L) >60 mL/min/1.7 3m2 05/06/2015 6:00 PM CORPORATE TREASURER [facility] eGFR by MDRD >60 >60 mL/min/1.7 3m2 05/06/2015 6:00 PM CORPORATE TREASURER [facility] Blood BLOOD SPECIMEN / Unknown 05/06/2015 5:36 PM CORPORATE TREASURER 05/06/2015 5:40 PM CORPORATE TREASURER us Brittany Seth MD LAB - CHEMISTRY ORDERABLES Final Result [facility] [address] [place] [address] from Last 3 Months or Most Recently Relevant to Health Maintenance Insurance MEDICARE FORMERLY [facility] SELF PAY NO INSURANCE Member Subscriber Plan / Payer (Ef fective for All Dates) Name:Ken Damon Member ID:Not on file Relation to Subscriber:Not on file Name:KEN DAMON Subscriber ID:Not on file (Home) Address: [address] [place] [address] Payer ID:Not on file Group ID:Not on file Type:Self Pay Address: [facility] MANAGED MEDICARE FORMERLY [facility] Care Teams Cake Maker Relationship Specialty Start Date End Date Unknown, Provider PCP - General 08/09/17
--- OUTSIDE RECORDS SUMMARY | 2024-11-05 08:58 | XMS_ITS | Clinical Summary ---
Author Organization 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 Gender Identity Not on file Sexual Orientation [...] 3:22 PM CDT Height 177.8 cm (5' 10) 10/31/2023 2:13 PM CDT Body Mass Index 35.15 11/01/2022 3:22 PM CDT Plan of Treatment Health Maintenance Due Date Last Done Comments Colon Cancer Screening-Colonoscopy 1950 Depression Screening 1950 Fall Risk Assessment 1950 Hepatitis C Screening 1950 DTaP/Tdap/Td Vaccine (1 - Tdap) 1960 Hepatitis B Screening 09/16/1967 Zoster Vaccine (1 of 2) 09/16/1999 Well Visit 65+ 2014 Covid-19 Vaccine (3 - Pfizer risk series) 06/13/2020 05/16/2020, 04/25/2020 Pneumococcal vaccine 65+ (2 of 2 - PCV20 or PCV21) 04/29/2022 04/29/2021 Influenza Vaccine (#1) 2024 12/13/2016, 2014 Abdominal Aortic Aneurysm (AAA) Screen Completed Medical Devices Implanted Type Area Owner Oral Surgeon Device Identifier Shelf Expiration Date Model / Serial / Lot [employer] Suture Quattro Link Od4.5 Mm Knotless Shoulder System - [id number] Implanted:Qty: 2 on 02/09/2017 by Michael Alejandro MD at [facility] 09/01/2021 -[id number] / / [id number] Montezuma Suture Quattro X Uhmwpe Peek Taper Od5.5 Mm 1 Row 2 Strand Simple Stitch Thread Design Rotator Cuff Blue Cobraid Blue - [id number] Implanted:Qty: 1 on 02/09/2017 by Michael Alejandro MD at [facility] 06/30/2021 -[id number] / / [id number] Screw Quattro 8mm 16mm [place] Tenodesis - [id number] Implanted:Qty: 1 on 02/09/2017 by Michael Alejandro MD at [facility] 02/26/2021 -[id number] / / [id number] Insurance [facility] MEDICARE [facility] Address: [address] [address] [place] [address] MEDICARE AETNA SENIOR SUPPLEMENT [facility] MEDICARE [facility] Address: [facility] [address] [place] [address] Care Teams Claim Processor Relationship Specialty Start Date End Date Raul Mckeon MD [address] [place] [address] PCP - General Internal Medicine 12/27/16
--- OUTSIDE RECORDS SUMMARY | 2024-11-05 08:58 | XMS_ITS | Encounter Summary ---
Author Organization [facility] Address [address] [place] [address] Care Team Providers Care Power Plant Assistant Name Role Phone Nora Mckeon MD Primary Care Provider Encounter Details Date Type Department Care Team (Late Contact Info) Description 11/04/2024 Orders Only [facility] Oncology and Hematology [address] [place] [address] Sudarshan Martinez MD [address] [place], [place] [address] [address] [place] [phone] Malignant neoplasm of colon, unspecified part of colon (CMS/HCC) Social History Tobacco Use Types Packs/Day Years Used Date Smoking Tobacco: Never Alcohol Use Standard Drinks/Week Comments Never 0 (1 standard drink = 0.6 oz pur e alcohol) Sex and Gender Information Value Date Recorded Sex Assigned at Not on file 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 Gender Identity Not on file Sexual Orientation Not on file documented as of this encounter Plan of Treatment Upcoming Encounters Date Type Department Care Team (Late Contact Info) Description 11/12/2024 9:45 AM CDT Office Visit [facility] Oncology and Hematology [facility] [address] [place] [address] Sudarshan Martinez MD [facility] [employer] [address] [place] [address] documented as of this encounter Visit Diagnoses Diagnosis Malignant neoplasm of colon, unspecified part of colon (CMS/HCC) documented in this encounter Care Teams Power Plant Assistant Relationship Specialty Start Date End Date Nora Mckeon MD PCP - General Internal Medicine 11/22/23 documented as of this encounter
--- OUTSIDE RECORDS SUMMARY | 2024-11-05 08:58 | XMS_ITS | Encounter Summary ---
Author Organization [facility] Address 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 [address] [place] [address] Sudarshan Martinez MD [address] [facility] [address] [place] [address] documented as of this encounter [...] and non- Americans is available on the [facility] Intranet at: [email or web address] Select: Lab Policies and Procedures Select: Reference Ranges - GFR 06/05/2006 11:4 5 AM CDT Gabriel Madden (Excluded Provider) Filippo LYNCH CHEMISTRY ORDERABLES Edited Performing Organization Address City/[facility] Co de Phone Number INTERFACE SYSTEM [...] Primary documented in this encounter Care Teams Coordinator Of Genetic Services Relationship Specialty Start Date End Date Nora Mckeon MD PCP - General Internal Medicine 11/22/23 documented as of this encounter
--- OUTSIDE RECORDS SUMMARY | 2024-11-05 08:58 | XMS_ITS | Encounter Summary ---
Author Organization [facility] Address [address] [place] [address] Care Team Providers Care Risk Investigator Name Role Phone Nora Mckeon MD Primary Care Provider Encounter Details Date Type Department Care Team (Late st Contact Info) Description 06/05/2006 [facility]patient [facility] [address] 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 Gender Identity Not on file Sexual Orientation Not on file documented as of this encounter Plan of Treatment Upcoming Encounters Date Type Department Care Team (Late st Contact Info) Description 11/12/2024 9:45 AM CDT Office Visit [facility] Oncology and Hematology - [address] [facility] [address] [place] [address] Sudarshan Martinez MD [address] [facility] [address] [place] [address] documented as of this encounter Visit Diagnoses Not on filedocumented in this encounter Care Teams Risk Investigator Relationship Specialty Start Date End Date Nora Mckeon MD PCP - General Internal Medicine 11/22/23 documented as of this encounter
--- OUTSIDE RECORDS SUMMARY | 2024-11-05 08:58 | XMS_ITS | Clinical Summary ---
Author Organization [facility] Damian Verdugo Address [address] [place] [address] Care Team Providers Care Casing Grader Name Role Phone Nora Mckeon MD Primary [...] MINUTES BEFORE ACCESS 30 Gram 5 Active potassium CHLORIDE (K-DUR,KLOR-CON M20) 20 mEq Extended Release tablet Take 1 tablet by mouth twice daily 60 Tablet 2 5 Active Active Problems No known active problems Encounters Date Type Department Care Team Description 11/04/2024 Orders Only [facility] Oncology and Hematology - [address] [place] [address] Sudarshan Martinez MD Malignant neoplasm of colon, unspecified part of colon (CMS/HCC) 10/29/2024 External Device Data STL ABSTRACTION Provider, Abstract 10/21/2024 Orders Only [facility] Oncology and Hematology - [address] [place] [address] Sudarshan Martinez MD Malignant neoplasm of colon, unspecified part of colon (CMS/HCC) 10/07/2024 Orders Only [facility] Oncology and Hematology - [address] [place] [address] Sudarshan Martinez MD Malignant neoplasm of colon, unspecified part of colon (CMS/HCC) 09/23/2024 Orders Only [facility] Oncology and Hematology - [address] [place] [address] Sudarshan Martinez MD Malignant neoplasm of colon, unspecified part of colon (CMS/HCC) 09/09/2024 Orders Only [facility] Oncology and Hematology - [address] [place] [address] Sudarshan Martinez MD Malignant neoplasm of colon, unspecified part of colon (CMS/HCC) 08/26/2024 Orders Only [facility] Oncology and Hematology - [address] [place] [address] Sudarshan Martinez MD Malignant neoplasm of colon, unspecified part of colon ([facility]/HCC) 08/12/2024 Orders Only [facility] Oncology and Hematology - [address] [place] [address] Sudarshan Martinez MD Malignant neoplasm of colon, unspecified part of colon ([facility]) from Last 3 Months Family History Medical [...] on file 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 Gender Identity Not on file Sexual Orientation Not on file Last Filed Vital Signs Vital Sign Reading Time Taken Comments Blood Pressure 125/72 07/29/2024 10:23 AM CDT Pulse 80 07/29/2024 10:23 AM CDT Temperature 36.8 C (98.2 F) 07/29/2024 10:23 AM CDT Respiratory Rate 15 07/29/2024 10:2 3 AM CDT Oxygen Saturation 96% 07/29/2024 10: 23 AM CDT Inhaled Oxygen Concentration - - Weight 102.8 kg (226 lb 9.6 oz) 025 10:23 AM CDT Height 179.1 cm (5' 10.5) 06/13/2023 2:31 PM CD T Body Mass Index 32.05 06/13/2023 2:31 PM CDT Plan of Treatment Upcoming Encounters Date Type Department Care Team (Late st Contact Info) Description 11/12/2024 9:45 AM CDT Office Visit [facility] Oncology and Hematology - [address] [place] [address] Sudarshan Martinez MD [address] [facility] [address] [place] [address] Health Maintenance Due Date Last Done Comments DTAP/TDAP/TD VACCINES (1 - Tdap) 1968 ZOSTER VACCINE (1 of 2) 09/16/1999 PNEUMOCOCCAL VACCINE 50+ YEA RS (2 of 2 - PCV20 or PCV21) 04/29/2022 04/29/2021 RSV VACCINE (60+ or ) (1 - 1-dose 75+ series) 2024 INFLUENZA VACCINE (#1) 2024 , 12/31/2020, 03/26/2020, Additional history exists COVID-19 Vaccine (3 - 2024-2 6 season) 2024 05/16/2020, 04/25/[address] [place] [address] Care Teams Casing Grader Relationship Specialty Start Date End Date Nora Mckeon MD PCP - General Internal Medicine 11/22/23
--- OUTSIDE RECORDS SUMMARY | 2024-11-05 08:59 | XMS_ITS | Patient Health Record ---
Author Organization [facility] [employer] Address [address] [facility] [address] [place] [address] Care Team Providers Care Psychologist Research Assistant Name Role Phone Bean Villatoro Unavailable [phone] Reason For Referral No Information Social History Social History Additional Details Category Social Info Options Details Migrated Social History Migrated Social History Tobacco Years: Never smoker 07/04/2022 Plan Of Treatment No Information Insurance Providers Payer Name Payer Address Payer Phone Subscriber Number Group Number Insured Name Patient Relationship to Insured Coverage Start Date Coverage End Date [employer] Medicare Replacement/ Advantage - [employer] [address] [address] [place] [address] [id number] DIXON DUNN Self - patient is the insured
--- OUTSIDE RECORDS SUMMARY | 2024-11-05 08:59 | XMS_ITS | Patient Health Record ---
Author Organization [facility] Office Address [address] [facility] [address] [place] [address] Care Team Providers Care Marketing Operations Consultant Name Role Phone Ceferino Dtuton Unavailable [phone] Results Component Value Reference Range Notes VITAMIN D,25-OH,TOTAL,IA (17 306) (Not yet reviewed by provider) Interpretation: Performing Lab:Sadiq MENDOSA-Drdpnx95045 Klarissa Tellez[address] Stephanie To MD Notes/Report: 0; 0; 0; [...] D, (D2,D3), LC/MS/MS is recommended: order code 95576 (patients >2yrs). See Note 1 Note 1 For additional information, please refer to http://education.Sitefly.com/faq/ITL107 (This link is being provided for informational/ educational purposes only.) ALBUMIN, RANDOM URINE W/CREPepe LOMELI (0112) (Not yet reviewed by provider) Interpretation: Performing Lab:Sadiq MENDOSA-Ohcwsu60476 Mary Ann TellezaKS[address] Stephanie To MD Notes/Report: SPLIT 08/13/2024 FROM [id number] AN UPDATE OR CORRECTION HAS BEEN MADE [...] within a diagnostic category. SODIUM WITH CREATININE, [facility] URINE (0214) (Not yet reviewed by provider) Interpretation: Performing Lab:[facility]-Hwqgzg61352 Mak Carranza, LiwxbdFP89062-17[address] Stephanie To MD Notes/Report: SPLIT 08/13/2024 FROM [id number] AN UPDATE OR CORRECTION HAS BEEN MADE TO SEX SODIUM/CREAT RATIO 40 20-233 mmol/g creat SODIUM, RANDOM URINE 82 28-272 mmol/L CREATININE, RANDOM URINE 205 20-320 mg/dL PTH, INTACT AND CALCIUM (883 7) (Not yet reviewed by provider) Interpretation: Performing Lab:DEONDRE TRA Cuco-Bkghvu47688 Mak Carranza, DvfawtQA51139-8[address] Stephanie To MD Notes/Report: 0; 0; 0; [...] CALCIUM 9.9 8.6-10.4 mg/dL CHLORIDE WITH CREATININE, [facility] URINE (0198) (Not yet reviewed by provider) Interpretation: Performing Lab:DEONDRE TRA [facility]-Qhnnkz25513 Mak Carranza, KaueuoTV[address] Stephanie To MD Notes/Report: SPLIT 08/13/2024 FROM [id number] AN UPDATE OR CORRECTION HAS BEEN MADE TO SEX CHLORIDE/CREAT RATIO 31 23-275 mmol/g creat CHLORIDE, RANDOM URINE 64 32-290 mmol/L CREATININE, RANDOM URINE 205 20-320 mg/dL COMPREHENSIVE METABOLIC PANE L (98894) (Not yet reviewed by provider) Interpretation: Performing Lab:[facility]-Vazldv15280 Mak Carranza, BmxrxqTW73621-8125 Stephanie To MD Notes/Report: 0; 0; 0; [...] yet rev iewed by provider) Interpretation: Performing Lab:TRINY [facility]Select [facility] HospitalXxvhn33343 Administration Aneta Mejia EgkvybwMX85472-6784 Stephanie To Notes/Report: 0; 0; 0; 0; 0; 0; 0; 0; 0; 0; 0; 0; 0; 0 FASTING:YES PATIENT UNABLE TO VOID; ADVISED TO RETURN FOR CO FASTING: YES URIC ACID 5.1 2.5-7.0 mg/dL Therapeutic ta rget for gout patients: <6.0 mg/dL POTASSIUM W/O CREATININE, RA NDOM URINE (39259) (Not yet reviewed by provider) Interpretation: Performing Lab:Sadiq MENDOSA-Xomatt83336 Mary Ann TellezaKS66[address]-9[address] Stephanie To MD Notes/Report: SPLIT 08/13/2024 FROM [id number] AN UPDATE OR CORRECTION HAS BEEN MADE TO SEX POTASSIUM, RANDOM URINE 38 12-129 mmol/L PROTEIN, TOTAL W/CREAT, RAND OM URINE (1385) (Not yet reviewed by provider) Interpretation: Performing Lab:Sadiq MENDOSA-Gjevfo90674 Mak Carranza, HyddtdZX11881-1911 Stephanie To MD Notes/Report: SPLIT 08/13/2024 FROM [id number] AN UPDATE OR CORRECTION HAS BEEN MADE TO SEX CREATININE, RANDOM URINE 205 20-320 mg/dL PROTEIN/CREATININE RATIO 117 25-148 mg/g crea t PROTEIN/CREATININE RATIO 0.117 0.025-0 .148 mg/mg creat PROTEIN, TOTAL, RANDOM UR 24 5-25 mg/dL CBC (INCLUDES DIFF/PLT) (639 9) (Not yet reviewed by provider) Interpretation: Performing Lab:Sadiq AGOSTOSelect Specialty HospitalBwecj65318 Administration Aneta Mejia OjocaykQJ22973-3[address] Stephanie To Notes/Report: 0; 0; 0; 0; [...] MPV 10.2 7.5-12.5 fL ABSOLUTE NEUTROPHILS 1948 0872-2226 cells/uL ABSOLUTE LYMPHOCYTES 9959 466-4756 cells/uL ABSOLUTE MONOCYTES 596 200-950 cells/uL ABSOLUTE EOSINOPHILS 168 15-500 cells/uL ABSOLUTE BASOPHILS 28 0-200 cells/uL NEUTROPHILS 48.7 LYMPHOCYTES 31.5 MONOCYTES 14.9 EOSINOPHILS 4.2 BASOPHILS 0.7 URINALYSIS, COMPLETE W/REFLE X TO CULTURE (3020) (Not yet reviewed by provider) Interpretation: Performing Lab:DEONDRE [facility]-Edlqxl30866 Mak Carranza, KphfuzTG58606-50[address] Stephanie To MD Notes/Report: SPLIT 08/13/2024 FROM [id number] AN UPDATE OR CORRECTION HAS BEEN MADE [...] yet reviewed by provider) Interpretation: Performing Lab:TRINY [facility] LabsSelect Specialty HospitalRefcr32716 Administration Aneta Mejia BfdvhekOF39545-5973 Stephanie To Notes/Report: 0; 0; 0; 0; 0; 0; 0; 0; 0; 0; 0; 0; 0; 0 FASTING:YES PATIENT UNABLE TO VOID; ADVISED TO RETURN FOR CO FASTING: YES SED RATE BY MODIFIED MARV 39 < OR = 30 mm/h OSMOLALITY (U) (168) (Not ye t reviewed by provider) Interpretation: Performing Lab:DEONDRE TRA [facility]-Gyveqe89213Jose Manuel Carranza, FaoibxEX706[address]-99[address] Stephanie To MD Notes/Report: SPLIT 08/13/2024 FROM [id number] AN UPDATE OR CORRECTION HAS BEEN MADE TO SEX OSMOLALITY (U) 519 50-1200 mOsm/kg TSH (899) (Not yet reviewed by provider) Interpretation: Performing Lab:TRINY [facility] LabsSelect Special[facility] HospitalIlbgt65202 Administration Aneta Mejia CunyviwWQ27380-5[address] ShelliRivasSayrajavi Sun Vo Notes/Report: 0; 0; 0; 0; 0; 0; 0; 0; 0; 0; 0; 0; 0; 0 FASTING:YES PATIENT UNABLE TO VOID; ADVISED TO RETURN FOR CO FASTING: YES TSH 2.01 0.40-4.50 mIU/L Reason For Referral No Information Medications Medication SIG (Take, Route, Frequency, Duration) Notes Start Date End Date Status Vitamin D (Ergocalciferol) 1.25 MG (98684 UT) Take 1 capsule by mouth once a week; Duration: 91 Active Carvedilol 12.5 MG 1 tablet with food O rally Twice a day; Duration: 90 days 12/22/2021 Active Calcitriol 0.25 MCG Take 1 capsule by mo uth once daily; Duration: 90 Active hydrALAZINE HCl 50 MG Take 1 tablet by m outh twice daily with food; Duration: 90 Active Losartan Potassium 25 MG Take 1 tablet b y mouth once daily; Duration: 90 Active Allopurinol 100 MG 2 tablet Orally Once a day; Duration: 90 days Active Problems Problem Type SNOMED Code ICD Code Onset Dates Problem Status W/U Status Risk Notes Problem Malignant neoplasm o f colon (453472011) Malignant neoplasm of colon, unspecified (C18.9) Active confirmed Problem Diabetic renal disease (018686963) Type 2 diabetes mellitus with diabetic chronic kidney disease (E11.22) Active confirmed Problem Morbid obesity (disorder) (670109284) Morbid (severe) obesity due to excess calories (E66.01) Active confirmed Problem Hypervitaminosis D (81236086) Hypervitaminosis D (E67.3) Active confirmed Problem Hyperlipidemia (58924483) Hyperlipidemia, unspecified (E78.5) Active confirmed Problem Hyperuricemia withou t signs of inflammatory arthritis and tophaceous disease (830882672) Hyperuricemia without signs of inflammatory arthritis and tophaceous disease (E79.0) Active confirmed Problem Metabolic disorder (92209673) Metabolic disorder, unspecified (E88.9) Active confirmed Problem Essential hypertension (08100225) Essential (primary) hypertension (I10) Active confirmed Problem Atrial fibrillation (50368406) Unspecified atrial fibrillation (I48.91) Active confirmed Problem Renal osteodystrophy (69963576) Renal osteodystrophy (N25.0) Active confirmed Problem Secondary hyperparathyroidism of renal origin (80669667) Secondary hyperparathyroidism of renal origin (N25.81) Active confirmed Problem Edema (11315293) Edema, unspecif ied (R60.9) Active confirmed Problem Chronic kidney disease stage 3A (disorder) (388231271) Chronic kidney disease, stage 3a (N18.31) Active confirmed Problem Coronary artery disease (04356308) CAD (coronary artery disease) (I25.10) Active confirmed Encounters Encounter Location Date Provider Diagnosis [facility] [address] [place] [address] 12/06/2023 Ceferino Dutton Chronic kidney disea se, stage 3a N18.31 ; Essential (primary) hypertension I10 ; Hyperlipidemia, unspecified E78.5 ; Hyperuricemia without signs of inflammatory arthritis and tophaceous disease E79.0 and Edema, unspecified R60.9 [facility] [address] [place] [address] 12/20/2023 Ceferino Dutton Chronic kidney disea se, stage 3a N18.31 ; Essential (primary) hypertension I10 ; Hyperlipidemia, unspecified E78.5 ; Hyperuricemia without signs of inflammatory arthritis and tophaceous disease E79.0 and Edema, unspecified R60.9 [facility] [address] [facility] [address] [place] [address] 01/10/2024 Ceferino Dutton Chronic kidney disea se, stage 3a N18.31 ; Essential (primary) hypertension I10 ; Hyperlipidemia, unspecified E78.5 ; Hyperuricemia without signs of inflammatory arthritis and tophaceous disease E79.0 and Edema, unspecified R60.9 [facility] [address] [place] [address] 02/07/2024 Ceferino Dutton Chronic kidney disea se, stage 3 unspecified N18.30 ; Vitamin D deficiency, unspecified E55.9 ; Essential (primary) hypertension I10 ; Hyperlipidemia, unspecified E78.5 and Edema, unspecified R60.9 [facility] [address] [place] [address] 04/03/2024 Ceferino Dutton Chronic kidney disea se, stage 3a N18.31 ; Renal osteodystrophy N25.0 ; Secondary hyperparathyroidism of renal origin N25.81 ; Morbid (severe) obesity due to excess calories E66.01 ; CAD (coronary artery disease) I25.10 ; Proteinuria, unspecified R80.9 and Malignant neoplasm of colon, unspecified C18.9 [facility] [address] [place] [address] 06/12/2024 Ceferino Dutton Chronic kidney disea se, [...] atrial fibrillation I48.91 and Hypervitaminosis D E67.3 [facility] [address] [place] [address] 09/27/2024 Ceferino Dutton Chronic kidney disea se, [...] mellitus with diabetic chronic kidney disease E11.22 [facility] [address] [place] [address] 01/05/2024 Ceferino [facility] [address] [facility] [address] [place] [address] 01/05/2024 Ceferino [facility] [address] [facility] [address] [place] [address] 01/05/2024 Ceferino Dutton Assessments Encounter Date Diagnosis (ICD Code) Assessment [...] se, stage 3a (ICD-10 - N18.31) 06/12/2024 Chronic kidney disea se, stage 3a (ICD-10 - N18.31) 09/27/2024 Essential (primary) hypertension (ICD-10 - I10) 09/27/2024 Chronic kidney disea se, stage 3a (ICD-10 - N18.31) 09/27/2024 Hyperlipidemia, unspecified (ICD-10 - E78.5) 06/12/2024 Essential (primary) hypertension (ICD-10 - I10) 04/03/2024 Secondary hyperparathyroidism of renal origin (ICD-10 [...] 02/07/2024 Essential (primary) hypertension (ICD-10 - I10) 06/12/2024 Hyperlipidemia, unspecified (ICD-10 - E78.5) 09/27/2024 Hyperuricemia withou t signs of inflammatory arthritis and tophaceous disease (ICD-10 - E79.0) 04/03/2024 Morbid (severe) obes ity due to excess calories (ICD-10 - E66.01) 06/12/2024 Hyperuricemia withou t signs of inflammatory arthritis and tophaceous disease (ICD-10 - E79.0) 04/03/2024 CAD (coronary artery disease) (ICD-10 - I25.10) 02/07/2024 Hyperlipidemia, unspecified (ICD-10 - E78.5) 01/10/2024 Hyperuricemia withou t signs of inflammatory arthritis and tophaceous disease (ICD-10 - E79.0) 12/20/2023 Hyperuricemia withou t signs of inflammatory arthritis and tophaceous disease (ICD-10 - E79.0) 12/06/2023 Hyperuricemia withou t signs of inflammatory arthritis and tophaceous disease (ICD-10 - E79.0) 09/27/2024 Edema, unspecified (ICD-10 - R60.9) 12/06/2023 Edema, unspecified (ICD-10 - R60.9) 12/20/2023 Edema, unspecified (ICD-10 - R60.9) 01/10/2024 Edema, unspecified (ICD-10 - R60.9) 02/07/2024 Edema, unspecified (ICD-10 - R60.9) 04/03/2024 Proteinuria, unspecified (ICD-10 - R80.9) 06/12/2024 Edema, unspecified (ICD-10 - R60.9) 09/27/2024 Renal osteodystrophy (ICD-10 - N25.0) 09/27/2024 Secondary hyperparathyroidism of renal origin (ICD-10 - N25.81) 06/12/2024 Renal osteodystrophy (ICD-10 - N25.0) 04/03/2024 Malignant neoplasm o f colon, unspecified (ICD-10 - C18.9) 06/12/2024 Secondary hyperparathyroidism of renal origin (ICD-10 - N25.81) 09/27/2024 Morbid (severe) obes ity due to excess calories (ICD-10 - E66.01) 06/12/2024 Morbid (severe) obes ity due to excess calories (ICD-10 - E66.01) 09/27/2024 CAD (coronary artery disease) (ICD-10 - I25.10) 06/12/2024 CAD (coronary artery disease) (ICD-10 - I25.10) 09/27/2024 Malignant neoplasm o f colon, unspecified (ICD-10 - C18.9) 09/27/2024 Metabolic disorder, unspecified (ICD-10 - E88.9) 06/12/2024 Malignant neoplasm o f colon, unspecified (ICD-10 - C18.9) 06/12/2024 Metabolic disorder, unspecified (ICD-10 - E88.9) 09/27/2024 Unspecified atrial fibrillation (ICD-10 - I48.91) 09/27/2024 Hypervitaminosis D (ICD-10 - E67.3) 06/12/2024 Unspecified atrial fibrillation (ICD-10 - I48.91) 06/12/2024 Hypervitaminosis D (ICD-10 - E67.3) 09/27/2024 Type 2 diabetes mellitus with diabetic chronic kidney disease (ICD-10 - E11.22) Plan Of Treatment Pending Test Test Name Order Date ALBUMIN, RANDOM URINE W/CREATININE (6517 ) 06/12/2024 SODIUM WITH CREATININE, RANDOM URINE (85 14) 06/12/2024 PTH, INTACT AND CALCIUM (8837) CHLORIDE WITH CREATININE, RANDOM URINE ( 1645) 06/12/2024 COMPREHENSIVE METABOLIC PANEL (57514) URIC ACID (905) 06/12/2024 POTASSIUM W/O CREATININE, RANDOM URINE ( 23466) 06/12/2024 PROTEIN, TOTAL W/CREAT, RANDOM URINE (17 15) 06/12/2024 CBC (INCLUDES DIFF/PLT) (6399) URINALYSIS, COMPLETE W/REFLEX TO CULTURE (3020) 06/12/2024 SED RATE BY MODIFIED WESTERGREN (809) OSMOLALITY (U) (678) 06/12/2024 TSH (899) 06/12/2024 VITAMIN D,25-OH,TOTAL,IA (56671) 025 VITAMIN D, 1,25 DIHYDROXY (90967Z2) 05/28 Next Appt Details Provider Name:Ceferino Dutton , 11/27/2024 03:00:00 PM, [address] [facility] [address], [place], [address],
== END 2024-11-05 08:32 | disposition home or self-care (01) ==
PROVIDERS: PCP Internal Medicine; Visit Provider Internal Medicine Hematology & Oncology
DX: C18.9 Malignant neoplasm of colon, unspecified (principal); N26.1 Atrophy of kidney (terminal); Z90.49 Acquired absence of other specified parts of digestive tract
CPT/HCPCS: 74177; Q9967

== ENCOUNTER 2025-01-14 00:52 | Day surgery (SDC) | payer MEDICARE, SELFPAY ==
[2024-12-30 14:30] VITALS: BMI 32.4
[2025-01-14 10:25] VITALS: BP 184/89; PULSE 72; RESP 18; TEMP 37.1; O2SAT 95; BMI 33.0
[2025-01-14] MEDS: LACTATED RINGERS 1,000 ML 150 ML IV CONT (10:51)
--- NOTE | 2025-01-14 11:11 | WPDANESEPPF ---
Anes - Initial Pre Proc Eval Procedure: Operation Date: 01/14/25 11:30 Proposed Procedures p Screening Colonoscopy - Lonny Blum MD Date/Time: 01/14/25 11:11 Surgeon: Lonny Blum MD Pre Op Diagnosis: screening/hx of colon cancer Patient Data Age: 74 Gender: M Height: 1.78 m Weight: 104.5 kg Last Vital Signs Temp 98.8 F 01/14/25 10:25 Pulse 72 01/14/25 10:25 Resp 18 01/14/25 10:25 BP 184/89 H 01/14/25 10:25 Pulse Ox 95 01/14/25 10:25 O2 Del Method Room Air 01/14/25 10:25 Allergies Allergy/AdvReac Type Severity Reaction Status Date / Time Penicillins Allergy Mild Rash Verified 12/30/24 14:22 Home Medications ?Medication ?Instructions ?Recorded ?Confirmed ?Type apixaban 5 mg tablet (Eliquis) 5 mg PO BID 10/31/23 12/30/24 History Held on 12/21/23. Instructions: Resume on 12/22/23. resume tomorrow calcitriol 0.25 mcg capsule 0.25 mcg PO DAILY 10/31/23 01/14/25 History clonidine HCl 0.2 mg tablet 0.2 mg PO BID 10/31/23 01/14/25 History donepezil 5 mg tablet 5 mg PO HS 10/31/23 01/14/25 History furosemide 80 mg tablet 40 mg PO DAILY 10/31/23 01/14/25 History trazodone 50 mg tablet 50 mg PO HS 10/31/23 01/14/25 History oxycodone-acetaminophen 5 mg-325 1 tablet PO Q6H PRN pain #20 tabs 11/07/23 12/30/24 Rx mg tablet atorvastatin 40 mg tablet 80 mg PO QPM 06/18/24 01/14/25 History carvedilol 12.5 mg tablet (Coreg) 12.5 mg PO Q12HR 06/18/24 01/14/25 History losartan 50 mg tablet (Cozaar) 25 mg PO DAILY 06/18/24 01/14/25 History melatonin 5 mg capsule 5 mg PO PRN PRN insomnia 12/30/24 12/30/24 History Patient hx anesthesia problems: none Family hx anesthesia problems: none Results Review: All pre-operative results and documents have been reviewed as part of the pre-operative evaluation. [facility] Past Medical History Medical History Chronic kidney disease Depression [place] (hard of hearing) Gout Arthritis Colonic polyp Hypertension Hyperlipidemia CAD (coronary artery disease) Cardiac arrhythmia Vascular dementia TIA (transient ischemic attack) after his carotid surgery Surgical History Surgical History History of carotid endarterectomy History of heart artery stent History of bilateral cataract extraction History of quadruple bypass Family History Family History Mother Fibromyalgia Social History Social History Smoking status: Never smoker Alcohol intake: never Substance use: never Substance use type: does not use Do You Feel Safe in your Home?: Yes Lack of Transportation: No Lack of Food: Never True Current Housing: I Have Housing Concerned About Future Housing: No Difficulty Paying Gas/Electric Bills: No Difficulty Paying for Meds: No Currently Unemployed: No Education: Grade School Difficulty w/ Childcare or Family Care: No Living arrangements: with family Additional living arrangements comments: lives w Spiritual care concerns: No Anes - Eval Final PreProcedure Day of Procedure 01/14/25 11:11 Patient weight: obese Lungs: normal air movement Airway: Mallampati scale class II Neurological: alert and oriented Last oral intake: >/= 8 hours ASA classification: III Emergent: no Anesthetic plan: proceed Anesthesia type and monitoring: general GIVS and standard monitoring Results Review: All pre-operative results and documents have been reviewed as part of the pre-operative evaluation. HTN, hyperlipidemia, Colon ca, CKD, KATLIN. Cardiolology clearance reviewed and appreciated. Informed Consent: The patient's anesthetic plan and its attendant risks and benefits were discussed with the patient/family/POA. Questions were solicited and answers provided to the satisfaction of the patient/family/POA.
--- NOTE | 2025-01-14 11:12 | PM.HPGS ---
History of Present Illness History of Present Illness Consent: Risks, benefits, and alternatives have been discussed and questions answered. Patient agrees to proceed with procedure. Chief complaint: screening/hx of colon cancer Narrative: Ken Damon is a 74 year old male with cancer in cecum s/p surgery and chemotherapy in 2023 Review of Systems Review of Systems: All systems reviewed & are unremarkable except as noted in HPI and below PMFSH Past Medical History Medical History (Updated 01/14/25 @ 11:13 by Lonny Blum MD) History of colon cancer Chronic kidney disease Depression [place] (hard of hearing) Gout Arthritis Colonic polyp Hypertension Hyperlipidemia CAD (coronary artery disease) Cardiac arrhythmia Vascular dementia TIA (transient ischemic attack) after his carotid surgery Surgical History Surgical History History of carotid endarterectomy History of heart artery stent History of bilateral cataract extraction History of quadruple bypass Family History Family History Mother Fibromyalgia Social History Social History Smoking status: Never smoker Alcohol intake: never Substance use: never Substance use type: does not use Do You Feel Safe in your Home?: Yes Lack of Transportation: No Lack of Food: Never True Current Housing: I Have Housing Concerned About Future Housing: No Difficulty Paying Gas/Electric Bills: No Difficulty Paying for Meds: No Currently Unemployed: No Education: Grade School Difficulty w/ Childcare or Family Care: No Living arrangements: with family Additional living arrangements comments: lives w Spiritual care concerns: No Meds Home Medications and Allergies Home Medications ?Medication ?Instructions ?Recorded ?Confirmed ?Type apixaban 5 mg tablet (Eliquis) 5 mg PO BID 10/31/23 12/30/24 History Held on 12/21/23. Instructions: Resume on 12/22/23. resume tomorrow calcitriol 0.25 mcg capsule 0.25 mcg PO DAILY 10/31/23 01/14/25 History clonidine HCl 0.2 mg tablet 0.2 mg PO BID 10/31/23 01/14/25 History donepezil 5 mg tablet 5 mg PO HS 10/31/23 01/14/25 History furosemide 80 mg tablet 40 mg PO DAILY 10/31/23 01/14/25 History trazodone 50 mg tablet 50 mg PO HS 10/31/23 01/14/25 History oxycodone-acetaminophen 5 mg-325 1 tablet PO Q6H PRN pain #20 tabs 11/07/23 12/30/24 Rx mg tablet atorvastatin 40 mg tablet 80 mg PO QPM 06/18/24 01/14/25 History carvedilol 12.5 mg tablet (Coreg) 12.5 mg PO Q12HR 06/18/24 01/14/25 History losartan 50 mg tablet (Cozaar) 25 mg PO DAILY 06/18/24 01/14/25 History melatonin 5 mg capsule 5 mg PO PRN PRN insomnia 12/30/24 12/30/24 History Allergies Allergy/AdvReac Type Severity Reaction Status Date / Time Penicillins Allergy Mild Rash Verified 12/30/24 14:22 Vital Signs Vital Signs - 24 hr 01/14/25 10:25 Temperature 98.8 F Pulse Rate 72 Respiratory Rate 18 Blood Pressure 184/89 H Pulse Oximetry 95 Oxygen Delivery Room Air Exam Const: General: comfortable and no acute distress HENMT: Face/Nose/Sinus: Normal nares present Eyes: General: appearance normal, both eyes and all related structures Neck: Neck: no JVD Resp: Auscultation: clear to auscultation bilaterally GI: Inspection: non-distended GI Palp: Yes Soft to palpation Skin: General skin exam: normal color Extrem: General: normal to inspection Psych: Mental Status: mental status grossly normal Assessment and Plan Assessment and plan (1) History of colon cancer: Code(s): Z85.038 - Personal history of other malignant neoplasm of large intestine Status: Acute Assessment and Plan: colonoscopy
[2025-01-14 11:36] VITALS: BP 111/37; PULSE 67; RESP 18; O2SAT 97
--- NOTE | 2025-01-14 11:41 | S_PTH ---
PATIENT: Kne Damon LOC: JYOTI Castano#:[id number] AGE/SX: 74/M ROOM: RE01/14/[address]: Lonny Blum MD : 1950 BED: DIS: 01/14/2025 SPEC #: [id number] RECD: 01/14/25 12:15 STATUS: TASHA REJose #: [id number] NAS: 01/14/25 11:[address]: Lonny Blum DEPT: [facility] Surgical RECD BY: Sam Hood ENTERED: 01/14/25 12:16 SP TYPE: Surgical OTHR DR: Nora MckeonMD Tissues: A - Colon Polypectomy B - Colon Polypectomy Procedures: Hematoxylin and Eosin Stain Gross and Microscopic Level 4
[2025-01-14 11:46] VITALS: BP 135/48; PULSE 63; RESP 18; O2SAT 97
[2025-01-14 11:54] VITALS: BP 142/58; PULSE 66; RESP 18; O2SAT 98
== END 2025-01-14 12:18 | disposition home or self-care (01) ==
PROVIDERS: PCP Internal Medicine; Referring Provider Internal Medicine Hematology & Oncology; Visit Provider Internal Medicine Gastroenterology
PROC: 0DJD8ZZ Inspection of Lower Intestinal Tract, Via Natural or Artificial Opening Endoscopic (ICD-10-PCS; CPT 45378; principal; 2025-01-14 11:30)
DX: Z08 Encounter for follow-up examination after completed treatment for malignant neoplasm (principal); D12.3 Benign neoplasm of transverse colon; D12.5 Benign neoplasm of sigmoid colon; K64.8 Other hemorrhoids; E78.5 Hyperlipidemia, unspecified; I12.9 Hypertensive chronic kidney disease with stage 1 through stage 4 chronic kidney disease, or unspecified chronic kidney disease; N18.9 Chronic kidney disease, unspecified; G47.33 Obstructive sleep apnea (adult) (pediatric); F32.A Depression, unspecified; I25.10 Atherosclerotic heart disease of native coronary artery without angina pectoris; I49.9 Cardiac arrhythmia, unspecified; F01.50 Vascular dementia, unspecified severity, without behavioral disturbance, psychotic disturbance, mood disturbance, and anxiety; M10.9 Gout, unspecified; M19.90 Unspecified osteoarthritis, unspecified site; E66.9 Obesity, unspecified; Z68.33 Body mass index [BMI] 33.0-33.9, adult; Z79.01 Long term (current) use of anticoagulants; Z79.891 Long term (current) use of opiate analgesic; Z98.890 Other specified postprocedural states; Z98.0 Intestinal bypass and anastomosis status; Z90.49 Acquired absence of other specified parts of digestive tract; Z95.1 Presence of aortocoronary bypass graft; Z95.5 Presence of coronary angioplasty implant and graft; Z85.038 Personal history of other malignant neoplasm of large intestine; Z92.21 Personal history of antineoplastic chemotherapy; Z86.73 Personal history of transient ischemic attack (TIA), and cerebral infarction without residual deficits
CPT/HCPCS: 45385; 88305; J2003; J2704; J7120